=== PATIENT | female | born 1950 | race Caucasian/White ===

== ENCOUNTER → 2016-07-01 | Outpatient (CLI) | payer MEDICARE ==
[2016-07-01 18:20] LABS: MEAN CORPUSCULAR HEMOGLOBIN 30.4 pg (27.0-33.0); MEAN CORPUSCULAR HGB CONC 33.1 g/dl (32.0-36.5); MEAN CORPUSCULAR VOLUME 91.8 fl (80.0-96.0); RED CELL DISTRIBUTION WIDTH 12.6 % (11.5-14.5); WHITE BLOOD COUNT 10.1 K/mm3 (4.0-10.0)
[2016-07-01 18:39] LABS: ALBUMIN 3.8 GM/DL (3.2-5.2); ALBUMIN/GLOBULIN RATIO 1.27 (1.00-1.93); ALKALINE PHOSPHATASE 104 U/L (45-117); ALT/SGPT 26 U/L (12-78); ANION GAP 7 MEQ/L (8-16); AST/SGOT 20 U/L (15-37); BILIRUBIN,TOTAL 0.2 MG/DL (0.2-1.0); BLOOD UREA NITROGEN 11 MG/DL (7-18); CARBON DIOXIDE LEVEL 29 MEQ/L (21-32); CHLORIDE LEVEL 106 MEQ/L (98-107); CHOLESTEROL LEVEL 164 MG/DL (<200); GLOMERULAR FILTRATION RATE > 60.0 (>45); GLUCOSE, FASTING 90 MG/DL (80-110); POTASSIUM SERUM 4.5 MEQ/L (3.5-5.1); SODIUM LEVEL 142 MEQ/L (136-145); TOTAL PROTEIN 6.8 GM/DL (6.4-8.2); TRIGLYCERIDES LEVEL 73 MG/DL (<150)
== END ==
LOC: M WUC 09:23
PROVIDERS: ATTEND Internal Medicine
DX: J44.9 Chronic obstructive pulmonary disease, unspecified (principal); E78.5 Hyperlipidemia, unspecified; K21.9 Gastro-esophageal reflux disease without esophagitis

== ENCOUNTER → 2016-08-02 | Outpatient (CLI) | payer MEDICARE ==
[2016-08-02 18:04] LABS: BASO % 0.3 % (0.0-1.0); EOS # 0.1 K/mm3 (0.0-0.50); EOS % 0.8 % (0.0-3.0); LARGE UNSTAINED CELL # 0.2 K/mm3 (0.0-0.4); LARGE UNSTAINED CELL % 1.9 % (0.0-4.0); LYMPH # 3.6 K/mm3 (1.5-4.5); LYMPH % 27.6 % (24.0-44.0); MEAN CORPUSCULAR HEMOGLOBIN 30.8 pg (27.0-33.0); MEAN CORPUSCULAR HGB CONC 33.3 g/dl (32.0-36.5); MEAN CORPUSCULAR VOLUME 92.7 fl (80.0-96.0); MONO # 0.7 K/mm3 (0.0-0.8); MONO % 5.7 % (0.0-5.0); NEUTROPHILS # 7.7 K/mm3 (1.8-7.7); NEUTROPHILS % 63.6 % (36.0-66.0); PLATELET COUNT, AUTOMATED 270 k/mm3 (150-450); RED CELL DISTRIBUTION WIDTH 12.6 % (11.5-14.5); WHITE BLOOD COUNT 12.1 K/mm3 (4.0-10.0)
[2016-08-02 18:07] LABS: ANION GAP 10 MEQ/L (8-16); BLOOD UREA NITROGEN 12 MG/DL (7-18); CALCIUM LEVEL 9.1 MG/DL (8.8-10.2); CARBON DIOXIDE LEVEL 25 MEQ/L (21-32); CHLORIDE LEVEL 106 MEQ/L (98-107); CREATININE FOR GFR 0.77 MG/DL (0.55-1.02); GLOMERULAR FILTRATION RATE > 60.0 (>45); GLUCOSE, FASTING 110 MG/DL (80-110); SODIUM LEVEL 141 MEQ/L (136-145)
== END ==
LOC: M WUC 13:32
PROVIDERS: ATTEND Internal Medicine Cardiovascular Disease
DX: I20.0 Unstable angina (principal)

== ENCOUNTER 2016-08-12 23:20 | Emergency (ER) | payer MEDICARE ==
[~2016-08-12] VITALS: Ht 160 cm; Wt 65.8 kg
[2016-08-12] MEDS ORDERED: PRAV10TA PO (23:40)
[2016-08-12] MEDS ORDERED: KLOR20PO12 GT (23:40)
[2016-08-13] MEDS ORDERED: GI COCKTAIL 50ML BTL(HYOSCYAMINE/MAALOX/LIDOCAINE VISCOUS)(1:3:1) PO ONE (00:15)
[2016-08-13 00:20] LABS: BASO # 0.1 K/mm3 (0.0-0.2); BASO % 0.4 % (0.0-1.0); EOS # 0.1 K/mm3 (0.0-0.50); EOS % 0.8 % (0.0-3.0); LARGE UNSTAINED CELL # 0.4 K/mm3 (0.0-0.4); LARGE UNSTAINED CELL % 2.5 % (0.0-4.0); LYMPH # 4.4 K/mm3 (1.5-4.5); LYMPH % 26.9 % (24.0-44.0); MEAN CORPUSCULAR HEMOGLOBIN 30.5 pg (27.0-33.0); MEAN CORPUSCULAR HGB CONC 33.9 g/dl (32.0-36.5); MONO # 0.6 K/mm3 (0.0-0.8); MONO % 4.1 % (0.0-5.0); NEUTROPHILS # 9.7 K/mm3 (1.8-7.7); NEUTROPHILS % 65.1 % (36.0-66.0); PLATELET COUNT, AUTOMATED 274 k/mm3 (150-450); RED CELL DISTRIBUTION WIDTH 12.3 % (11.5-14.5); WHITE BLOOD COUNT 14.9 K/mm3 (4.0-10.0)
[2016-08-13 00:37] LABS: ALBUMIN 3.8 GM/DL (3.2-5.2); ALBUMIN/GLOBULIN RATIO 1.12 (1.00-1.93); ALKALINE PHOSPHATASE 94 U/L (45-117); ALT/SGPT 26 U/L (12-78); ANION GAP 12 MEQ/L (8-16); AST/SGOT 20 U/L (15-37); BILIRUBIN,DIRECT < 0.1 MG/DL (0.0-0.2); BILIRUBIN,TOTAL 0.1 MG/DL (0.2-1.0); BLOOD UREA NITROGEN 9 MG/DL (7-18); CALCIUM LEVEL 8.8 MG/DL (8.8-10.2); CARBON DIOXIDE LEVEL 22 MEQ/L (21-32); CHLORIDE LEVEL 105 MEQ/L (98-107); CREATININE FOR GFR 0.65 MG/DL (0.55-1.02); GLOMERULAR FILTRATION RATE > 60.0 (>45); GLUCOSE, FASTING 91 MG/DL (80-110); POTASSIUM SERUM 3.5 MEQ/L (3.5-5.1); SODIUM LEVEL 139 MEQ/L (136-145); TOTAL PROTEIN 7.2 GM/DL (6.4-8.2)
[2016-08-13] MEDS ORDERED: ONDANSETRON 4MG/2ML VIAL (J2405) IV ONE (01:00)
[2016-08-13] MEDS ORDERED: MORPHINE 4 MG/ML 1ML SYRINGE IV ONE ×3 (01:00→07:30)
[2016-08-13] MEDS ORDERED: ISOVUE-370 76% 100ML VIAL (Q9967) As Ordered ONE (01:14)
--- NOTE | 2016-08-13 02:20 | REPUSA ---
CLINICAL HISTORY: Dyspnea, exclude PE. TECHNIQUE: Multiple incremental axial, coronal and oblique images are obtained from the thoracic inle t to the upper abdomen. Intravenous contrast material was administered as per pulmonary embolism prot ocol. COMMENTS: Mild emphysema. Bilateral basilar atelectatic pulmonary changes. There is excellent opacification of pulmonary arterial system without evidence for pulmonary embolism . Aorta is of normal caliber without evidence for dissection or aneurysm. There is no evidence of pleural or parenchymal mass. There are no pleural effusions. There is no evid ence of hilar or mediastinal lymphadenopathy. The heart and great vessels are within normal limits. Images of the upper abdomen demonstrate no evidence of adrenal mass. The bony structures are free of lytic or blastic lesions. The right thyroid lobe is surgically absent or rudimentary. IMPRESSION: No evidence for pulmonary embolism. The right thyroid lobe is surgically absent or rudimentary. Chronic bronchitis. Mild emphysema. Thank you for your kind referral of this patient.
[2016-08-13] MEDS ORDERED: GASTROGRAFIN SOLUTION 30ML (Q9963) As Ordered ONE (03:57)
[2016-08-13] MEDS: GASTROGRAFIN SOLUTION 30ML (Q9963) PO SCH ×2 (04:05→04:35)
[2016-08-13] MEDS ORDERED: GASTROGRAFIN SOLUTION 30ML (Q9963) PO SCH (04:15)
--- NOTE | 2016-08-13 06:10 | REPUSA ---
CLINICAL HISTORY: Abdominal pain. TECHNIQUE: Multiple axial, sagittal and coronal CT images were obtained through the abdomen and pelvi s after administration of oral and intravenous contrast material. COMMENTS: The liver is of uniform attenuation without mass or defect. There is no intra or extrahepatic biliary ductal dilatation. The spleen is normal. The gallbladder is within normal limits. The pancreas is of normal contour and attenuation characteristics. There is no evidence of adrenal mass. Both kidneys demonstrate prompt and equal nephrograms. The kidneys are normal in size, shape and conf iguration. There is no evidence of renal or ureteral mass. No renal or ureteral calculi are identifie d. There is no hydroureter or hydronephrosis. No evidence for appendicitis. There is no bowel wall thickening. No evidence for small or large tanika l obstruction. There is no evidence of abdominal ascites or lymphadenopathy. There is no evidence of intrinsic or extrinsic bladder mass. There is no pelvic ascites or lymphadeno jamel. Images of the lung bases show no evidence of pleural or parenchymal mass. There are no pleural effusi ons. The bony structures are free of lytic or blastic lesions. IMPRESSION: No evidence of acute abdominal or pelvic pathology. Thank you for your kind referral of this patient.
--- NOTE | 2016-08-13 09:36 | REP ---
Chest x-ray: Two views. History: Chest pain. Comparison study 25 August 2015. Findings: The lungs are well inflated and clear. Pleural angles are sharp. Heart size is normal. EKG electrodes are seen. The patient is status post ventral discectomy and fusion plating in the lower cervical spine. Impression: No active disease. Signed by Keyur Viveros MD 08/13/2016 09:55 A
[2016-08-13] MEDS ORDERED: NORCOTAB PO (10:43)
[2016-08-13 11:15] VITALS: BP 116/56
--- NOTE | 2016-08-13 20:25 | ECGEPIP ---
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
== END 2016-08-13 11:16 | disposition home or self-care (01) ==
LOC: M ED 08-13 00:19
DX: R10.9 Unspecified abdominal pain (principal)
CPT/HCPCS: 71020; 71275; 74176; 80048; 80076; 82550; 82553; 83605; 83690; 84484; 85025; 87507; 93005; 93041; 94760; 96374; 96375; 96376; 99285; J2405; Q9963; Q9967

== ENCOUNTER → 2016-08-17 | Outpatient (REF) | payer MEDICARE ==
[~2016-08-17] MED LIST: NORCOTAB PO; POTA20PW GT; PRAV10TA PO
[2016-08-17 19:54] LABS: BASO % 0.4 % (0.0-1.0); EOS # 0.1 K/mm3 (0.0-0.50); EOS % 0.7 % (0.0-3.0); LARGE UNSTAINED CELL # 0.3 K/mm3 (0.0-0.4); LARGE UNSTAINED CELL % 2.1 % (0.0-4.0); LYMPH # 2.5 K/mm3 (1.5-4.5); LYMPH % 21.4 % (24.0-44.0); MEAN CORPUSCULAR HEMOGLOBIN 30.1 pg (27.0-33.0); MEAN CORPUSCULAR HGB CONC 33.5 g/dl (32.0-36.5); MONO # 0.7 K/mm3 (0.0-0.8); MONO % 5.6 % (0.0-5.0); NEUTROPHILS # 8.2 K/mm3 (1.8-7.7); NEUTROPHILS % 69.8 % (36.0-66.0); PLATELET COUNT, AUTOMATED 303 k/mm3 (150-450); RED CELL DISTRIBUTION WIDTH 12.1 % (11.5-14.5); WHITE BLOOD COUNT 11.7 K/mm3 (4.0-10.0)
[2016-08-17 20:13] LABS: ALBUMIN 4.2 GM/DL (3.2-5.2); ALBUMIN/GLOBULIN RATIO 1.27 (1.00-1.93); ALKALINE PHOSPHATASE 89 U/L (45-117); ALT/SGPT 23 U/L (12-78); ANION GAP 8 MEQ/L (8-16); AST/SGOT 14 U/L (15-37); BILIRUBIN,TOTAL 0.4 MG/DL (0.2-1.0); BLOOD UREA NITROGEN 9 MG/DL (7-18); CALCIUM LEVEL 9.7 MG/DL (8.8-10.2); CARBON DIOXIDE LEVEL 29 MEQ/L (21-32); CHLORIDE LEVEL 99 MEQ/L (98-107); CREATININE FOR GFR 0.74 MG/DL (0.55-1.02); ERYTHROCYTE SEDIMENTATION RATE 4 mm/hr (0-30); FREE T4 1.08 NG/DL (0.76-1.46); GLOMERULAR FILTRATION RATE > 60.0 (>45); GLUCOSE, FASTING 83 MG/DL (80-110); POTASSIUM SERUM 4.6 MEQ/L (3.5-5.1); SODIUM LEVEL 136 MEQ/L (136-145); TOTAL PROTEIN 7.5 GM/DL (6.4-8.2)
== END ==
LOC: M SFHCADAM 11:33
PROVIDERS: ATTEND Physician Assistant Medical
DX: R10.12 Left upper quadrant pain (principal); R10.13 Epigastric pain; E78.2 Mixed hyperlipidemia; F34.1 Dysthymic disorder

== ENCOUNTER → 2016-08-28 | Outpatient (CLI) | payer MEDICARE ==
--- NOTE | 2016-08-28 14:55 | REP ---
CERVICAL SPINE SERIES: Seven view of the cervical spine are performed. There is no compression fracture or malalignment. There is evidence of prior anterior cervical discectomy and fusion at the C4 through C7 levels with a metallic plate along the anterior aspect of these vertebral bodies 6 x 2 screws at each vertebral body level. There is limited motion with flexion and extension. There is no malalignment. There is slight disc space narrowing at C3-4. There is no definite radiographic evidence of significant neural foraminal narrowing. IMPRESSION: Prior anterior cervical discectomy and fusion C4 through C7. No malalignment. Signed by Zana Deluca MD 08/28/2016 03:57 P
--- NOTE | 2016-08-28 14:58 | REP ---
THORACIC SPINE: Three AP and lateral views of the thoracic spine are performed. There is no compression fracture. There is normal thoracic kyphosis. There is no malalignment. There is mild diffuse spurring and diffuse disc space narrowing with subchondral sclerosis. The posterior elements are intact. There is mild curvature towards the right. IMPRESSION: Diffuse degenerative changes without compression fracture. Signed by Zana Deluca MD 08/28/2016 03:57 P
== END ==
LOC: M ADAMS 14:09
PROVIDERS: ATTEND Physician Assistant Medical
DX: M54.9 Dorsalgia, unspecified (principal); Z98.1 Arthrodesis status

== ENCOUNTER → 2016-10-09 | Outpatient (CLI) | payer MEDICARE ==
[~2016-10-09] MED LIST changes: +KLOR20PO12 GT; -POTA20PW GT
--- NOTE | 2016-10-09 16:01 | REP ---
MRI THORACIC SPINE WITHOUT CONTRAST: 10/09/2016. Clinical history: Right upper back pain, neck pain, left shoulder pain. Comparison: MRI 03/19/2012, x-ray thoracic spine 12/03/2011, 08/28/2016 and [facility] in [place], [place]. Technique: Sagittal T1, T2 and STIR images with axial T1 and T2 images from the C7-T1 level through T12-L1. Findings: Director Sales Training images show anterior cervical discectomy and fusion plate from C4 through C7. A marker is placed at the T3 vertebral body level confirmed by cervical thoracic imaging. The vertebral body heights and marrow signal from T1-L1 were grossly intact. There are a few Schmorl's nodes in the mid and lower thoracic spine. Some discogenic endplate changes at the inferior aspect of T12, anterior superior endplate of T11, minimally at T7 and T8 anterior superior endplates. No definite acute compression deformity or destructive lesion. The thoracic cord shows no intrinsic signal abnormality, syrinx, atrophy or mass. At C7-T1, there is no disc bulge or herniation and no spinal or foraminal stenosis. At T1-2 through T8-9, there is no disc bulge or herniation and no spinal or foraminal stenosis. At T9-10, the left paracentral region shows a small disc bulge extending into the foramen. This is on the left side only. At T10-11, there is no significant disc bulge or herniation and no spinal or foraminal stenosis. At T12-L1, there was likewise no significant disc bulge or herniation and no spinal or foraminal stenosis. Impression: 1. Multilevel degenerative disc disease with disc space narrowing, loss of disc water signal and some end plate discogenic changes without acute compression deformity, paraspinal hematoma or destructive lesions. 2. Disc space narrowing and discogenic endplate changes. There has been no new or acute finding, intrinsic cord signal abnormality, syrinx, atrophy or mass. Signed by Hola Mohr MD 10/09/2016 05:27 P
--- NOTE | 2016-10-09 16:10 | REP ---
MRI CERVICAL SPINE WITHOUT CONTRAST: 10/09/2016: Comparison: MRI 03/05/2013, x-ray 04/17/2015, CT 09/21/2014. Clinical history: Right upper back and neck pain, left shoulder pain for several weeks. Technique: Sagittal T1, T2 and STIR images with axial T1-T2 sequences provided. Findings: Sagittal images show magnetic susceptibility artifact or a plate and screw fixation device at C4 through C7 with screws in each vertebral body and the fusion of the some C4-5 through C6-7 endplates. The C2-3 disc level shows no disc bulge or herniation and no spinal stenosis. The C3-4 level shows mild posterior osteophytic ridging, thinning ventral subarachnoid space but not causing cord compression. Foramina adequate. At C4-5 there is no significant disc bulge. There is thinning of the ventral subarachnoid space. Foramina were adequate. No cord compression. At C5-6 there is no significant disc bulge herniation and no spinal stenosis. The foramina were adequate right more than left. At C6-C7. There is no significant disc bulge or herniation. There is mild thinning of the ventral subarachnoid space but no spinal or foraminal stenosis. At C7-T1, there is no disc bulge herniation and no spinal or foraminal stenosis. No prevertebral swelling. Impression: 1. Status post anterior cervical discectomy and fusion at C4-5 through C6-7 with plate and screw hardware. Magnetic susceptibility artifact seen in minimal posterior osteophytes without spinal or foraminal stenosis. 2. Mild disc bulges at C3-4. Thinning ventral subarachnoid space but not causing spinal or foraminal stenosis nor cord compression. 3. No intrinsic cord signal abnormality, syrinx, atrophy or mass. 4. Stable appearance the craniocervical junction no cerebellar tonsillar ectopia. Signed by Hola Mohr MD 10/09/2016 05:27 P
== END ==
LOC: M PLARAD 13:27
PROVIDERS: ATTEND Physician Assistant Medical
DX: M25.512 Pain in left shoulder (principal); M54.2 Cervicalgia

== ENCOUNTER → 2016-10-26 | Outpatient (CLI) | payer OTHER ==
--- NOTE | 2016-10-26 23:58 | ECWPNPC ---
PATIENT NAME: LIBRADO JAIMES : 1950 GENDER: FEMALE VISIT DATE: 10/26/2016 DISCHARGE DATE: 10/26/16 1512 VISIT LOCKED DATE TIME: PHYSICIAN: ANIL WOO RESOURCE: ANIL WOO REASON FOR APPOINTMENT 1. MID /UPPER BACK HISTORY OF PRESENT ILLNESS FALL RISK SCREENIN66 Y/O FEMALE [facility] EVALUATION OF PERSISTENT LEFT ANTERIOR CHEST AND LEFT THORACIC BACK PAIN.PAIN FOLLOWS A T4-8 DERMOTOME THAT WRAPS AROUND TO THORACIC SPINE POSTERIORLY.THIS BEGAN IN MAY SEVERE LEFT CHEST WALL STABBING AND BURNING PAIN.SHE HAS HAD AN EXTENSIVE CARDIAC WORKUP TO INCLUDE RECENT CARDIAC CATHETERIZATION IN JULY THAT WAS NEGATIVE.HAS HAD CT SCANS OF CHEST AND ENDOSCOPY AND COLONOSCOPY WHICH WERE NEGATIVE.HISTORY OF SHINGLES RIGHT THORACIC REGION SEVERAL YEARS AGO.DESCRIBES PAIN INTERMITTENT STABBING AND BURNING.REPORTS THAT EPISODES OF PAIN ARE LESS FREQUENT AND INTENSE OVER THE PAST MONTH.RATING PAIN VAS 1/10.I REVIEWED CERVICAL AND THORACIC MRI DONE 10-09-16 WHICH DID NOT REVEAL ANYTHING THAT WOULD CAUSE INTENSE BURNING PAIN THAT SHE HAS BEEN EXPERIENCING. SCREENING :NO FALLS IN THE PAST YEAR PAIN SCREENING: PATIENT HAS A COMPLAINT OF ACUTE OR CHRONIC PAIN :YES CURRENT MEDICATIONS TAKING GAS RELIEF 80 MG TABLET CHEWABLE 1 TABLET AFTER MEALS AND AT BEDTIME NEEDED ORALLY FOUR TIMES A DAY NEEDED TAKING POLYETHYLENE GLYCOL 3350 - POWDER ORALLY ONCE A DAY TAKING KLOR-CON M10 10 MEQ TABLET EXTENDED RELEASE 1 TABLET WITH FOOD ORALLY DAILY TAKING TRAMADOL HCL 50 MG TABLET 1 TAB ORALLY BEFORE BED TAKING PROBIOTIC 250 MG CAPSULE 1 CAPSULE ORALLY DAILY TAKING DEXILANT 60 MG CAPSULE DELAYED RELEASE 1 CAPSULE ORALLY ONCE A DAY TAKING HYOSCYAMINE SULFATE 0.125 MG TABLET 1 TABLET BEFORE MEALS NEEDED ORALLY EVERY 4 HRS TAKING PRAVASTATIN SODIUM 20 MG TABLET 1 TABLET ORALLY ONCE A DAY TAKING CITALOPRAM HYDROBROMIDE 20 MG TABLET 1 TABLET ORALLY ONCE A DAY TAKING VITAMIN D3 2000 UNIT CAPSULE 2 CAPSULE ORALLY ONCE A DAY TAKING WOMENS 50+ MULTI VITAMIN/MIN - TABLET ORALLY TAKING VITAMIN B12 500 MCG TABLET 2 TABLETS ORALLY ONCE A DAY NOT-TAKING OMEPRAZOLE 40 MG CAPSULE DELAYED RELEASE 1 CAPSULE ORALLY TWICE DAILY, NOTES: D/C DR. RAMOS GASTRO MEDICATION LIST REVIEWED AND RECONCILED WITH THE PATIENT PAST MEDICAL HISTORY GERD DEPRESSION/ANXIETY HYPERLIPIDEMIA CHR LEUKOCYSTOSIS, BASELINE WBC 10-12, DATES BACK TO 2004 DAWNA DEP ALLERGIES ASPIRIN: ANXIETY DARVOCET A500: HIVES SULFUR: HIVES SURGICAL HISTORY HEART CATHERIZATION 07/2016 HYSTERECTOMY, OVARIES REMAIN 1980 PARTIAL THYROID REMOVAL - BENIGN TUMOR 1985 LUMP REMOVED RIGHT BREAST 1994 RIGHT THUMB FUSION 2003 PLATE PUT IN NECK 2007 TONSILECTOMY 1958 POLYPS REMOVED FROM VOCAL CORDS - DR MATT 2011 POLYPS REMOVED APPROX EVERY 3 YEARS ESOPHAGITIS AND INTESTINAL 1996 COLONOSCOPY 08/2016 FAMILY HISTORY FATHER: 71 YRS, DIAGNOSED WITH CANCER MOTHER: ALIVE 89 YRS PATERNAL GRAND FATHER: DIAGNOSED WITH CANCER PATERNAL GRAND MOTHER: DIAGNOSED WITH CANCER 3 BROTHER(S) . 2DAUGHTER(S) - HEALTHY. SOCIAL HISTORY GENERAL: TOBACCO USE ARE YOU A:CURRENT SMOKER HOW MANY CIGARETTES A DAY DO YOU SMOKE?11-20 HOW SOON AFTER YOU WAKE UP DO YOU SMOKE YOUR FIRST CIGARETTE?6-30 MIN HOW OFTEN DO YOU SMOKE CIGARETTES?EVERY DAY PATIENT COUNSELED ON THE DANGERS OF TOBACCO USE AND URGED TO QUIT:09/14/2016 ARE YOU INTERESTED IN QUITTING?THINKING ABOUT QUITTING COUNSELED THE PATIENT ON SMOKING CESSATION, EDUCATION [id number] ALCOHOL SCREENING DID YOU HAVE A DRINK CONTAINING ALCOHOL IN THE PAST YEAR?YES HOW OFTEN DID YOU HAVE A DRINK CONTAINING ALCOHOL IN THE PAST YEAR?TWO TO THREE TIMES PER WEEK (3 POINTS) HOW MANY DRINKS DID YOU HAVE ON A TYPICAL DAY WHEN YOU WERE DRINKING IN THE PAST YEAR?1 OR 2 (0 POINTS) HOW OFTEN DID YOU HAVE SIX OR MORE DRINKS ON ONE OCCASION IN THE PAST YEAR?LESS THAN MONTHLY (1 POINT) POINTS4 INTERPRETATIONPOSITIVE RECREATIONAL DRUG USE DRUG USE?NO CAFFEINE CAFFEINE USE?YES COFFEE 1-2 CUPS DAILY, DIET PEPSI DAILY SEXUAL HX HAD SEX IN THE LAST 12 MONTHS (VAGINAL, ORAL, OR ANAL)?YES WITHMEN ONLY USE PROTECTION?NO HAVE YOU EVER HAD AN STD?NO LMP:1980 HIV / HEP-C SCREENING HIV TEST OFFERED TO PATIENT:NO HEP-C TEST OFFERED TO PATIENT:YES DATE OFFERED:08/17/2016 TEST ACCEPTED:NO REASON:PATIENT DECLINED DIET: REGULAR. EXERCISE: DAILY, WALKS. MARITAL STATUS: . OTHERS AT HOME: SPOUSE, TAKES CARE OF HER MOTHER. HINDU NO ISLAM BELIEFS THAT WOULD IMPACT HEALTH CARE. 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 LEARNING BARRIERS / SPECIAL NEEDS CHANGE FROM LAST VISIT?NO BARRIERS TO LEARNING?NO HEARING IMPAIRED?NO VISION IMPAIRED?YES :CORRECTIVE LENSES COGNITIVELY IMPAIRED?NO READINESS TO LEARN?YES LEARNING PREFERENCES?NO LEARNING CAPABILITIES PRESENT?YES EMOTIONAL BARRIERS?NO SPECIAL DEVICES?NO DERRICK MAN NEEDED?NO ADVANCED DIRECTIVES HEALTH CARE PROXY?NO WOULD YOU LIKE MORE INFORMATION?NO DO YOU HAVE A DNR?NO WOULD YOU LIKE MORE INFORMATION?NO POWER OF TIEDOWN OPERATOR?NO WOULD YOU LIKE MORE INFORMATION?NO HOSPITALIZATION/MAJOR DIAGNOSTIC PROCEDURE BACK, SCIATICA 1990 REVIEW OF SYSTEMS CONSTITUTIONAL: ANY CHANGE IN YOUR MEDICAL CONDITION? YES. PT C/O CONSTIPATION FOR SEVERAL MONTHS, PT STATES SHE THINKS SHE WAS HAVING LEFT CHEST PAIN A RESULT OF THE CONSTIPATION. SHE STATES SHE HAD A COLONOSCOPY DONE 08/2016, THEN LEFT CHEST PAIN CAME DOWN SIGNIFICANTLY. . CHILLS NO . FEVER NO . INFECTION: DO YOU HAVE NEW INFECTIONS? NO . DO YOU HAVE HISTORY OF MRSA? NO . MUSCULOSKELETAL: ANY NEW PATTERNS OF PAIN OR NUMBNESS? YES, LEFT CHEST PAIN . SYTEMIC LUPUS NO . GASTROENTEROLOGY: ANY NEW CHANGE IN BOWEL CONTROL? YES, CONSTIPATION RELIEVED AFTER COLONOSCOPY . BARRETTS ESOPHAGUS NO . CIRRHOSIS NO . HEPATITIS NO . LIVER FAILURE NO . ACID REFLUX NO . UNEXPLAINED WEIGHT LOSS NO . GENITOURINARY: ANY NEW CHANGE IN BLADDER CONTROL? NO . IS THERE A CHANCE YOU COULD BE ? NO . HEMATOLOGY/LYMPH: DO YOU TAKE ANY BLOOD THINNERS? (FOR EXAMPLE- COUMADIN, PLAVIX, AGGRENOX, PLATEL, PRADAXA, OR XARELTO) NO . WHEN WAS YOUR LAST DOSE? DATE: TIME: . LOW PLATELET COUNT NO . SICKLE CELL DISEASE NO . VON WILLIEBRANDS NO . FACTOR V LEIDEN NO . THALLASEMIA NO . ANEMIA NO . EASY BRUISING NO . NEUROLOGY: HAVE YOU FALLEN IN THE PAST 6 MONTHS? NO . ANY NEW EXTREMITY NUMBNESS OR WEAKNESS? NO . HEAD INJURY NO . DEMENTIA NO . CEREBRAL PALSY NO . MULTIPLE SCLEROSIS NO . DIZZINESS NO . HEADACHE NO . STROKES NO . VERTIGO NO . CARDIOLOGY: DO YOU HAVE A PACEMAKER OR DEFIBRILLATOR? NO, HEART CATHETERIZATION 07/2016 . ANGINA NO . HEART ATTACK NO . HEART SURGERY NO . CONGESTIVE HEART FAILURE/FLUID OVERLOAD NO . CHEST PAIN NO . HIGH BLOOD PRESSURE NO . IRREGULAR HEART BEAT NO . RESPIRATORY: HAVE YOU BEEN SICK IN THE PAST WEEK? NO . FEVER NO . FLU LIKE SYMPTOMS? NO . CPAP NO . BYPAP NO . ASTHMA NO . EMPHYSEMA NO . CHRONIC LUNG DISEASES NO . SHORTNESS OF BREATH ON EXERTION NO . COUGH NO . SNORING NO . INTEGUMENTARY: DO YOU HAVE ANY RASHES OR OPEN SORES? NO . ALLERGIC/IMMUNO: ARE YOU ALLERGIC TO SHELLFISH OR IV DYE? NO . ANY NEW ALLERGIES? NO . PSYCHIATRIC: DO YOU HAVE THOUGHTS OF HURTING YOURSELF OR SOMEONE ELSE? NO . ARE YOU ABUSED, NEGLECTED, OR IN AN UNSAFE ENVIRONMENT? NO . ENDOCRINOLOGY: ARE YOU DIABETIC? NO . THYROID DISORDER NO . OTHER: DO YOU NEED ANY PRESCRIPTIONS? NO . IF YES, PLEASE LIST: ____ . ANY NEW PROBLEMS WITH YOUR MEDICATIONS? NO . WHEN DID YOU LAST EAT? ____ . WHEN DID YOU LAST DRINK? ____ . WHAT DID YOU LAST DRINK? ____ . NAME OF PERSON DRIVING YOU HOME? ____ . DO YOU HAVE ANY OTHER QUESTIONS OR CONCERNS NO . REVIEWED BY: PROVIDER: ANIL BRANCH . VITAL SIGNS WT 150.2 LBS, HT 63", BMI 26.60 INDEX, BP 122/57 MM HG, HR 72 /MIN, RR 16 /MIN, TEMP 97.5 F, OXYGEN SAT % 95%, SAFE IN ENV? (Y/N) Y, NA INITIALS TL 1306, REVIEWED BY: EM. EXAMINATION GENERAL EXAMINATION: GENERAL APPEARANCE:COMFORTABLE. PSYCHAFFECT NORMAL. CHEST:MILD COSTOCHONDRAL TENDERNESS T4-T8 ANTERIOR LEFT CHEST WALL.. LUNGS:LUNG BROWNE ARE CLEAR TO AUSCULTATION BILATERALLY. GOOD MOVEMENT OF AIR. HEART:S1, S2 IN A REGULAR RATE AND RHYTHM. NO SIGNIFICANT MURMURS, RUBS OR GALLOPS NOTED. ABDOMEN:SOFT, NON-TENDER, NO ORGANOMEGALY, BOWEL SOUNDS ARE NORMAL. MRI CERVICAL/THORACIC SPINE 10-09-16-REVIEWED. SKIN EXAM: CHESTCLEAR.NO LESIONS OR RASH. ASSESSMENTS HERPES ZOSTER WITHOUT COMPLICATION - B02.9 (PRIMARY) NEURALGIA - M79.2 TREATMENT HERPES ZOSTER WITHOUT COMPLICATION NOTES: DISCUSSED OPTIONS TO TREAT PAIN ASSOCIATED WITH NEURALGIA SECONDARY TO SHINGLES.PATIENT WILL DISCUSS WITH PRIMARY CARE. PROCEDURE CODES FA211 ESTABILISHED PATIENT [facility] CHARGE DISPOSITION & COMMUNICATION FOLLOW UP NO F/U NECESSARY ELECTRONICALLY SIGNED BY SARINA GUSTAFSON ON 10/26/2016 AT 02:39 PM EDT DISCLAIMER : THIS IS A VISIT SUMMARY EXTRACTED FROM THE [employer] CHART. IT IS NOT A COPY OF THE [employer] PROGRESS NOTE. MTDD
== END ==
LOC: M PAIN 13:20
PROVIDERS: ATTEND Nurse Practitioner Family
DX: G89.29 Other chronic pain (principal); R07.89 Other chest pain; M54.6 Pain in thoracic spine; B02.9 Zoster without complications; M79.2 Neuralgia and neuritis, unspecified; K59.00 Constipation, unspecified; K21.9 Gastro-esophageal reflux disease without esophagitis; F32.9 Major depressive disorder, single episode, unspecified; F41.9 Anxiety disorder, unspecified; E78.5 Hyperlipidemia, unspecified; F17.210 Nicotine dependence, cigarettes, uncomplicated; Z88.6 Allergy status to analgesic agent; Z88.5 Allergy status to narcotic agent; Z88.2 Allergy status to sulfonamides; Z79.891 Long term (current) use of opiate analgesic; Z79.899 Other long term (current) drug therapy

== ENCOUNTER → 2016-11-08 | Outpatient (CLI) | payer OTHER ==
[~2016-11-08] MED LIST changes: -PRAV10TA PO; +PRAV10TA4 PO
--- NOTE | 2016-11-08 19:26 | REP ---
CHEST PA AND LATERAL: 11/08/2016. Clinical history: Costochondral junction syndrome, chest pain right upper rib area. No known trauma or injury. Findings: Two views are provided. Lungs are hyperinflated with flattened diaphragms on the lateral view. Some minor basilar fibrotic changes. No infiltrate, effusion, atelectasis or mass. Heart is not enlarged. The aorta is normal. Airway is intact. There is no mediastinal or hilar abnormality. There are degenerative changes throughout the spine. I see no focal rib lesion and that portion of the sternum and manubrium seen were unremarkable. Upper abdomen intact. There are screws and plate fixation of the lower cervical spine. Impression: 1. Some basilar fibrotic change and hyperinflation but no acute cardiopulmonary change. 2. No visible or acute chest wall abnormality. Spine shows degenerative changes without compression deformity. Please note exam limited for evaluation of rib pathology. Signed by Hola Mohr MD 11/09/2016 03:21 P
== END ==
LOC: M ADAMS 16:57
PROVIDERS: ATTEND Family Medicine
DX: M94.0 Chondrocostal junction syndrome [Tietze] (principal)
CPT/HCPCS: 71020; G0463

== ENCOUNTER → 2017-03-09 | Outpatient (REF) | payer OTHER ==
[2017-03-09 19:06] LABS: ALBUMIN/GLOBULIN RATIO 1.29 (1.00-1.93); ALKALINE PHOSPHATASE 108 U/L (45-117); ALT/SGPT 25 U/L (12-78); ANION GAP 9 MEQ/L (8-16); AST/SGOT 13 U/L (15-37); BILIRUBIN,TOTAL 0.3 MG/DL (0.2-1.0); BLOOD UREA NITROGEN 11 MG/DL (7-18); CALCIUM LEVEL 9.3 MG/DL (8.8-10.2); CARBON DIOXIDE LEVEL 28 MEQ/L (21-32); CHLORIDE LEVEL 102 MEQ/L (98-107); CREATININE FOR GFR 0.63 MG/DL (0.55-1.02); GLOMERULAR FILTRATION RATE > 60.0 (>45); GLUCOSE, FASTING 76 MG/DL (80-110); POTASSIUM SERUM 3.9 MEQ/L (3.5-5.1); SODIUM LEVEL 139 MEQ/L (136-145); TOTAL PROTEIN 7.1 GM/DL (6.4-8.2)
[2017-03-09 19:39] LABS: MEAN CORPUSCULAR HEMOGLOBIN 29.9 pg (27.0-33.0); MEAN CORPUSCULAR HGB CONC 33.2 g/dl (32.0-36.5); MEAN CORPUSCULAR VOLUME 90.2 fl (80.0-96.0); WHITE BLOOD COUNT 13.2 10^3/uL (4.0-10.0)
== END ==
LOC: M SFHCADAM 16:04
PROVIDERS: ATTEND Physician Assistant Medical
DX: R10.13 Epigastric pain (principal)

== ENCOUNTER → 2017-06-15 | Outpatient (REF) | payer OTHER ==
[2017-06-15 21:05] LABS: TOTAL 25(OH) VITAMIN D 21.1 NG/ML (30.0-100.0)
[2017-06-15 21:09] LABS: FREE T4 0.92 NG/DL (0.76-1.46)
== END ==
LOC: M SFHCADAM 14:53
DX: E78.2 Mixed hyperlipidemia (principal); F34.1 Dysthymic disorder; D72.829 Elevated white blood cell count, unspecified; Z79.899 Other long term (current) drug therapy
CPT/HCPCS: 84443

== ENCOUNTER → 2017-10-10 | Outpatient (CLI) | payer OTHER | LOC: M RAD 10:32 | DX: E04.2 Nontoxic multinodular goiter (principal) | CPT/HCPCS: 76536 ==

== ENCOUNTER → 2017-11-13 | Outpatient (REF) | payer OTHER ==
[2017-11-13 12:56] LABS: BASO # 0.1 10^3/uL (0.0-0.2); BASO % 0.7 % (0.0-1.0); EOS # 0.1 10^3/uL (0.0-0.50); EOS % 1.3 % (0.0-3.0); HEMATOCRIT 44.6 % (36.0-47.0); IMMATURE GRANULOCYTE % 0.4 % (0-3.0); LYMPH # 2.2 10^3/uL (1.5-4.5); LYMPH % 23.1 % (24.0-44.0); MEAN CORPUSCULAR HEMOGLOBIN 30.1 pg (27.0-33.0); MEAN CORPUSCULAR HGB CONC 33.6 g/dl (32.0-36.5); MEAN CORPUSCULAR VOLUME 89.6 fl (80.0-96.0); MONO # 0.6 10^3/uL (0.0-0.8); MONO % 6.5 % (0.0-5.0); NEUTROPHILS # 6.4 10^3/uL (1.8-7.7); PLATELET COUNT, AUTOMATED 247 10^3/uL (150-450); RED BLOOD COUNT 4.98 10^6/uL (4.00-5.40); RED CELL DISTRIBUTION WIDTH 13.2 % (11.5-14.5); WHITE BLOOD COUNT 9.4 10^3/uL (4.0-10.0)
[2017-11-13 13:57] LABS: ALBUMIN 3.7 GM/DL (3.2-5.2); ALBUMIN/GLOBULIN RATIO 1.19 (1.00-1.93); ALKALINE PHOSPHATASE 89 U/L (45-117); ALT/SGPT 23 U/L (12-78); ANION GAP 9 MEQ/L (8-16); AST/SGOT 14 U/L (7-37); BILIRUBIN,TOTAL 0.5 MG/DL (0.2-1.0); BLOOD UREA NITROGEN 8 MG/DL (7-18); CALCIUM LEVEL 9.1 MG/DL (8.8-10.2); CARBON DIOXIDE LEVEL 28 MEQ/L (21-32); CHLORIDE LEVEL 105 MEQ/L (98-107); CHOLESTEROL LEVEL 157 MG/DL (<200); CHOLESTEROL RISK RATIO 2.616 (<5); CREATININE FOR GFR 0.67 MG/DL (0.55-1.30); GLOMERULAR FILTRATION RATE > 60.0 (>45); GLUCOSE, FASTING 86 MG/DL (70-100); HDL CHOLESTEROL 60 MG/DL (>40); LDL CHOLESTEROL 73.4 MG/DL (<100); NON-HDL-C 97 MG/DL; POTASSIUM SERUM 4.7 MEQ/L (3.5-5.1); SODIUM LEVEL 142 MEQ/L (136-145); TOTAL PROTEIN 6.8 GM/DL (6.4-8.2); TRIGLYCERIDES LEVEL 118 MG/DL (<150)
== END ==
LOC: M SFHCADAM 08:19
DX: E78.2 Mixed hyperlipidemia (principal); F34.1 Dysthymic disorder; D72.829 Elevated white blood cell count, unspecified
CPT/HCPCS: 80053

== ENCOUNTER → 2017-11-23 | Outpatient (REF) | payer OTHER ==
[2017-11-23 19:46] LABS: APPEARANCE, URINE CLEAR (CLEAR); BACTERIA, URINE AUTO NEGATIVE (NEGATIVE); BILIRUBIN, URINE AUTO NEGATIVE (NEGATIVE); BLOOD, URINE BLOOD NEGATIVE (NEGATIVE); COLOR, URINE STRAW (YELLOW); GLUCOSE, URINE (UA) AUTO NEGATIVE (NEGATIVE); KETONE, URINE AUTO NEGATIVE (NEGATIVE); LEUKOCYTE ESTERASE, URINE AUTO NEGATIVE (NEGATIVE); NITRITE, URINE AUTO NEGATIVE (NEGATIVE); PROTEIN, URINE AUTO NEGATIVE (NEGATIVE); RBC, URINE AUTO 2 /HPF (0-3); SPECIFIC GRAVITY URINE AUTO 1.004 (1.002-1.035); SQUAMOUS EPITHELIAL CELL UR AU 3 /HPF (0-6); UROBILINOGEN, URINE AUTO 0.2 mg/dL (0.0-2.0); WBC, URINE AUTO 0 /HPF (0-3)
== END ==
LOC: M SFHCADAM 19:06
DX: M54.5 Low back pain (principal); E78.2 Mixed hyperlipidemia; F34.1 Dysthymic disorder; M51.36 Other intervertebral disc degeneration, lumbar region; E04.1 Nontoxic single thyroid nodule; F17.210 Nicotine dependence, cigarettes, uncomplicated
CPT/HCPCS: 81001

== ENCOUNTER → 2018-04-08 | Outpatient (CLI) | payer OTHER | LOC: M RAD 12:46 | DX: E04.2 Nontoxic multinodular goiter (principal) | CPT/HCPCS: 76536 ==

== ENCOUNTER 2018-05-13 10:19 | Emergency (ER) | payer OTHER ==
[2018-05-13 11:02] LABS: KETONE, URINE AUTO RFX NEGATIVE (NEGATIVE); LEUKOCYTE ESTERASE UR AUTO RFX NEGATIVE (NEGATIVE); NITRITE, URINE AUTO RFX NEGATIVE (NEGATIVE); RBC, URINE AUTO RFX 2 /HPF (0-3); SPECIFIC GRAVITY UR AUTO RFX 1.003 (1.002-1.035); SQUAM EPITHELIAL CELL UR AURFX 1 /HPF (0-6); WBC, URINE AUTO RFX 1 /HPF (0-3)
[2018-05-13] MEDS: dexameTHASONE 4 MG/ML 1ML VIAL (J1100) IM (11:15)
[2018-05-13] MEDS: KETOROLAC 60 MG/2 ML VIAL (J1885) IM (11:15)
== END 2018-05-13 12:04 | disposition home or self-care (01) ==
LOC: M ED 10:19
DX: M16.12 Unilateral primary osteoarthritis, left hip (principal); M54.32 Sciatica, left side; K21.9 Gastro-esophageal reflux disease without esophagitis; Z79.899 Other long term (current) drug therapy; Z88.1 Allergy status to other antibiotic agents; Z88.2 Allergy status to sulfonamides; Z88.8 Allergy status to other drugs, medicaments and biological substances; F17.210 Nicotine dependence, cigarettes, uncomplicated
CPT/HCPCS: J1100

== ENCOUNTER → 2018-05-17 | Outpatient (CLI) | payer OTHER ==
[~2018-05-17] MED LIST changes: +CITA-231 PO; +LIDOCAINE 1% MDV 20ML VIAL As Ordered ONE; +OMEP40CA2 PO; +PRED10TA2 PO
--- NOTE | 2018-05-17 17:12 | REP ---
Ultrasound-guided left thyroid biopsy The procedure was performed under the direct supervision of Dr. Viveros. The patient has a history of A large complex cyst in the mid pole of the left thyroid measuring 9.4 x 6.4 x 8.7 mm seen on a previous ultrasound dated 04/08/2018. Risks and benefits of the procedure were explained to the patient and informed consent was obtained. The left thyroid nodule was localized using ultrasound guidance. The skin was prepped and draped in a sterile fashion. 1% lidocaine was used as a local anesthetic. Using ultrasound guidance four fine-needle aspirations were obtained using 25 gauge needles. The patient tolerated the procedure well and there were no immediate complications. After the appropriate amount of monitored convalescence the patient was discharged from the department. Reviewed by DELON Estes 05/17/2018 03:11 P Electronically Signed by Keyur Viveros MD 05/17/2018 05:03 P
== END ==
LOC: M RADPRO 10:11
PROVIDERS: ATTEND Otolaryngology
DX: E04.2 Nontoxic multinodular goiter (principal); Z88.8 Allergy status to other drugs, medicaments and biological substances; Z88.2 Allergy status to sulfonamides; Z88.5 Allergy status to narcotic agent; Z79.899 Other long term (current) drug therapy; Z79.51 Long term (current) use of inhaled steroids

== ENCOUNTER → 2018-06-25 | Outpatient (CLI) | payer MEDICARE ==
[~2018-06-25] MED LIST changes: +AMOX500T2 PO; -LIDOCAINE 1% MDV 20ML VIAL As Ordered ONE
--- NOTE | 2018-06-25 09:20 | REP ---
Clinical: Cough . Comparison: 11/08/2016 . Technique: PA and lateral. Findings: The mediastinum and cardiac silhouette are normal. The lung roberts are clear and without acute consolidation, effusion, or pneumothorax. The skeletal structures are intact and normal. Impression: 1. No acute cardiopulmonary process. Electronically Signed by Carlin Barrientos MD 06/25/2018 09:11 A
[2018-06-25 09:57] LABS: BASO # 0.1 10^3/uL (0.0-0.2); BASO % 0.5 % (0.0-1.0); EOS # 0.1 10^3/uL (0.0-0.50); EOS % 0.6 % (0.0-3.0); HEMATOCRIT 48.7 % (36.0-47.0); LYMPH # 2.8 10^3/uL (1.5-4.5); LYMPH % 23.3 % (24.0-44.0); MEAN CORPUSCULAR HEMOGLOBIN 29.9 pg (27.0-33.0); MEAN CORPUSCULAR HGB CONC 32.9 g/dl (32.0-36.5); MEAN CORPUSCULAR VOLUME 90.9 fl (80.0-96.0); MONO # 0.8 10^3/uL (0.0-0.8); MONO % 6.9 % (0.0-5.0); NEUTROPHILS # 8.1 10^3/uL (1.8-7.7); NEUTROPHILS % 68.3 % (36.0-66.0); PLATELET COUNT, AUTOMATED 304 10^3/uL (150-450); RED BLOOD COUNT 5.36 10^6/uL (4.00-5.40); WHITE BLOOD COUNT 11.8 10^3/uL (4.0-10.0)
[2018-06-25 10:50] LABS: ALBUMIN 3.7 GM/DL (3.2-5.2); ALT/SGPT 22 U/L (12-78); BILIRUBIN,TOTAL 0.3 MG/DL (0.2-1.0); BLOOD UREA NITROGEN 11 MG/DL (7-18); CALCIUM LEVEL 9.1 MG/DL (8.8-10.2); CARBON DIOXIDE LEVEL 29 MEQ/L (21-32); CHLORIDE LEVEL 101 MEQ/L (98-107); CREATININE FOR GFR 0.74 MG/DL (0.55-1.30); GLOMERULAR FILTRATION RATE > 60.0 (>45); GLUCOSE, FASTING 81 MG/DL (70-100); POTASSIUM SERUM 4.8 MEQ/L (3.5-5.1); SODIUM LEVEL 136 MEQ/L (136-145); TOTAL PROTEIN 6.9 GM/DL (6.4-8.2)
== END ==
LOC: M WUC 08:42
PROVIDERS: ATTEND Physician Assistant
DX: R05 Cough (principal)

== ENCOUNTER → 2018-06-27 | Outpatient (CLI) | payer MEDICARE ==
--- NOTE | 2018-06-27 11:56 | REP ---
Chest x-ray: Two views. History: Acute bronchitis. Comparison study: June 25, 2018. Findings: The patient is status post cervical spine fusion plating. The lungs are well inflated and clear. The pleural angles are sharp. Heart size is normal. Pulmonary vasculature is not increased. No significant bony abnormality. Impression: No active disease. Electronically Signed by Keyur Viveros MD 06/27/2018 11:48 A
[2018-06-27 12:37] LABS: BASO # 0.1 10^3/uL (0.0-0.2); BASO % 0.5 % (0.0-1.0); EOS # 0.1 10^3/uL (0.0-0.50); EOS % 0.6 % (0.0-3.0); HEMATOCRIT 46.3 % (36.0-47.0); HEMOGLOBIN 15.6 g/dl (12.0-15.5); LYMPH # 1.4 10^3/uL (1.5-4.5); LYMPH % 13.9 % (24.0-44.0); MEAN CORPUSCULAR HEMOGLOBIN 30.1 pg (27.0-33.0); MEAN CORPUSCULAR HGB CONC 33.7 g/dl (32.0-36.5); MEAN CORPUSCULAR VOLUME 89.2 fl (80.0-96.0); MONO # 1.1 10^3/uL (0.0-0.8); MONO % 10.5 % (0.0-5.0); NEUTROPHILS # 7.5 10^3/uL (1.8-7.7); NEUTROPHILS % 73.4 % (36.0-66.0); PLATELET COUNT, AUTOMATED 259 10^3/uL (150-450); RED BLOOD COUNT 5.19 10^6/uL (4.00-5.40); WHITE BLOOD COUNT 10.2 10^3/uL (4.0-10.0)
[2018-06-27 13:10] LABS: ALBUMIN 3.7 GM/DL (3.2-5.2); ALT/SGPT 26 U/L (12-78); BILIRUBIN,TOTAL 0.2 MG/DL (0.2-1.0); BLOOD UREA NITROGEN 14 MG/DL (7-18); CALCIUM LEVEL 8.8 MG/DL (8.8-10.2); CARBON DIOXIDE LEVEL 29 MEQ/L (21-32); CHLORIDE LEVEL 101 MEQ/L (98-107); CREATININE FOR GFR 0.78 MG/DL (0.55-1.30); GLOMERULAR FILTRATION RATE > 60.0 (>45); GLUCOSE, FASTING 81 MG/DL (70-100); POTASSIUM SERUM 4.9 MEQ/L (3.5-5.1); SODIUM LEVEL 135 MEQ/L (136-145); TOTAL PROTEIN 6.7 GM/DL (6.4-8.2)
== END ==
LOC: M WUC 11:24
PROVIDERS: ATTEND Physician Assistant
DX: J20.9 Acute bronchitis, unspecified (principal)

== ENCOUNTER 2018-06-29 13:33 | Emergency (ER) | payer MEDICARE ==
[~2018-06-29] VITALS: Ht 160 cm; Wt 71.8 kg
[~2018-06-29 13:33] MED LIST changes: -AMOX500T2 PO
[2018-06-29] MEDS ORDERED: ONDANSETRON 4MG/2ML VIAL (J2405) IV ONE (14:15)
[2018-06-29] MEDS ORDERED: NS 1,000 ML IV ONE (14:15)
[2018-06-29 14:25] LABS: BASO # 0.1 10^3/uL (0.0-0.2); BASO % 0.4 % (0.0-1.0); EOS # 0.1 10^3/uL (0.0-0.50); EOS % 0.5 % (0.0-3.0); HEMATOCRIT 55.1 % (36.0-47.0); HEMOGLOBIN 18.2 g/dl (12.0-15.5); LYMPH # 3.2 10^3/uL (1.5-4.5); MEAN CORPUSCULAR HEMOGLOBIN 29.9 pg (27.0-33.0); MEAN CORPUSCULAR VOLUME 90.6 fl (80.0-96.0); MONO # 1.1 10^3/uL (0.0-0.8); MONO % 7.3 % (0.0-5.0); NEUTROPHILS # 10.1 10^3/uL (1.8-7.7); NEUTROPHILS % 69.3 % (36.0-66.0); PLATELET COUNT, AUTOMATED 333 10^3/uL (150-450); WHITE BLOOD COUNT 14.7 10^3/uL (4.0-10.0)
[2018-06-29 14:26] LABS: RED BLOOD COUNT 6.08 10^6/uL (4.00-5.40)
[2018-06-29 14:52] LABS: APPEARANCE, URINE HAZY (CLEAR); BACTERIA, URINE AUTO 1+ (NEGATIVE); BILIRUBIN, URINE AUTO NEGATIVE (NEGATIVE); BLOOD, URINE BLOOD NEGATIVE (NEGATIVE); COLOR, URINE YELLOW (YELLOW); GLUCOSE, URINE (UA) AUTO NEGATIVE (NEGATIVE); KETONE, URINE AUTO TRACE mg/dL (NEGATIVE); LEUKOCYTE ESTERASE, URINE AUTO NEGATIVE (NEGATIVE); MUCUS, URINE SMALL (NEGATIVE); NITRITE, URINE AUTO NEGATIVE (NEGATIVE); PROTEIN, URINE AUTO NEGATIVE (NEGATIVE); RBC, URINE AUTO 1 /HPF (0-3); SPECIFIC GRAVITY URINE AUTO 1.026 (1.002-1.035); SQUAMOUS EPITHELIAL CELL UR AU 4 /HPF (0-6); WBC, URINE AUTO 2 /HPF (0-3)
[2018-06-29 14:52] LABS: ALBUMIN 4.3 GM/DL (3.2-5.2); ALT/SGPT 45 U/L (12-78); AMYLASE 69 U/L (25-115); BILIRUBIN,DIRECT < 0.1 MG/DL (0.0-0.2); BILIRUBIN,TOTAL 0.2 MG/DL (0.2-1.0); BLOOD UREA NITROGEN 15 MG/DL (7-18); CALCIUM LEVEL 9.2 MG/DL (8.8-10.2); CARBON DIOXIDE LEVEL 27 MEQ/L (21-32); CHLORIDE LEVEL 103 MEQ/L (98-107); GLOMERULAR FILTRATION RATE > 60.0 (>45); GLUCOSE, FASTING 69 MG/DL (70-100); POTASSIUM SERUM 3.6 MEQ/L (3.5-5.1); SODIUM LEVEL 136 MEQ/L (136-145); TOTAL PROTEIN 8.6 GM/DL (6.4-8.2)
[2018-06-29] MEDS ORDERED: AMOX500T2 PO (17:41)
[2018-06-29 17:56] VITALS: BP 133/61
--- NOTE | 2018-06-30 07:23 | ECGEPIP ---
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
== END 2018-06-29 17:57 | disposition home or self-care (01) ==
LOC: M ED 13:33
DX: J01.90 Acute sinusitis, unspecified (principal); R10.9 Unspecified abdominal pain; R19.7 Diarrhea, unspecified; E78.5 Hyperlipidemia, unspecified; K21.9 Gastro-esophageal reflux disease without esophagitis; Z88.1 Allergy status to other antibiotic agents; Z88.2 Allergy status to sulfonamides; Z88.8 Allergy status to other drugs, medicaments and biological substances; F17.210 Nicotine dependence, cigarettes, uncomplicated
CPT/HCPCS: 36415; 80048; 80076; 81001; 82150; 85025; 87507; 93005; 96361; 96374; 99284; J2405

== ENCOUNTER → 2018-08-22 | Outpatient (REF) | payer MEDICARE ==
[~2018-08-22] MED LIST changes: +AMOX500T2 PO; -CITA-231 PO; +CITA40TA6 PO; +HYDR-3715 PO; -NORCOTAB PO
[2018-08-22 13:16] LABS: ALBUMIN 3.8 GM/DL (3.2-5.2); ALT/SGPT 21 U/L (12-78); BILIRUBIN,TOTAL 0.4 MG/DL (0.2-1.0); BLOOD UREA NITROGEN 11 MG/DL (7-18); CALCIUM LEVEL 9.1 MG/DL (8.8-10.2); CARBON DIOXIDE LEVEL 28 MEQ/L (21-32); CHLORIDE LEVEL 102 MEQ/L (98-107); CHOLESTEROL LEVEL 172 MG/DL (<200); CHOLESTEROL RISK RATIO 2.687 (<5); CREATININE FOR GFR 0.71 MG/DL (0.55-1.30); FREE T4 1.05 NG/DL (0.76-1.46); GLOMERULAR FILTRATION RATE > 60.0 (>45); GLUCOSE, FASTING 74 MG/DL (70-100); HDL CHOLESTEROL 64 MG/DL (>40); LDL CHOLESTEROL 94 MG/DL (<100); NON-HDL-C 108 MG/DL; POTASSIUM SERUM 4.7 MEQ/L (3.5-5.1); SODIUM LEVEL 136 MEQ/L (136-145); TOTAL PROTEIN 6.9 GM/DL (6.4-8.2); TRIGLYCERIDES LEVEL 69 MG/DL (<150)
[2018-08-22 13:43] LABS: APPEARANCE, URINE HAZY (CLEAR); BACTERIA, URINE AUTO 1+ (NEGATIVE); BILIRUBIN, URINE AUTO NEGATIVE (NEGATIVE); BLOOD, URINE BLOOD NEGATIVE (NEGATIVE); COLOR, URINE YELLOW (YELLOW); GLUCOSE, URINE (UA) AUTO NEGATIVE (NEGATIVE); KETONE, URINE AUTO NEGATIVE (NEGATIVE); LEUKOCYTE ESTERASE, URINE AUTO NEGATIVE (NEGATIVE); MUCUS, URINE SMALL (NEGATIVE); NITRITE, URINE AUTO NEGATIVE (NEGATIVE); PROTEIN, URINE AUTO NEGATIVE (NEGATIVE); RBC, URINE AUTO 0 /HPF (0-3); SPECIFIC GRAVITY URINE AUTO 1.013 (1.002-1.035); SQUAMOUS EPITHELIAL CELL UR AU 5 /HPF (0-6); WBC, URINE AUTO 0 /HPF (0-3)
[2018-08-22 13:44] LABS: BASO # 0.1 10^3/uL (0.0-0.2); BASO % 0.6 % (0.0-1.0); EOS # 0.1 10^3/uL (0.0-0.50); HEMATOCRIT 47.8 % (36.0-47.0); LYMPH # 2.3 10^3/uL (1.5-4.5); LYMPH % 17.8 % (24.0-44.0); MEAN CORPUSCULAR HEMOGLOBIN 29.9 pg (27.0-33.0); MEAN CORPUSCULAR HGB CONC 33.5 g/dl (32.0-36.5); MEAN CORPUSCULAR VOLUME 89.2 fl (80.0-96.0); MONO # 0.9 10^3/uL (0.0-0.8); MONO % 6.7 % (0.0-5.0); NEUTROPHILS # 9.3 10^3/uL (1.8-7.7); NEUTROPHILS % 73.5 % (36.0-66.0); PLATELET COUNT, AUTOMATED 323 10^3/uL (150-450); RED BLOOD COUNT 5.36 10^6/uL (4.00-5.40); WHITE BLOOD COUNT 12.7 10^3/uL (4.0-10.0)
== END ==
LOC: M SFHCADAM 09:23
PROVIDERS: ATTEND Physician Assistant Medical
DX: R10.13 Epigastric pain (principal); E78.2 Mixed hyperlipidemia; F34.1 Dysthymic disorder; R10.30 Lower abdominal pain, unspecified
CPT/HCPCS: 80053; 80061; 81001; 84439; 84443; 85025; 87086; G0463

== ENCOUNTER → 2018-09-10 | Outpatient (CLI) | payer MEDICARE ==
--- NOTE | 2018-09-10 10:56 | REPMRS ---
Patient History The patient states she has not had a clinical breast exam in over a year. Patient has history of high-risk lesion on a previous biopsy at age 47. Family history of colorectal cancer at age 70 in father, colorectal cancer at age 50 in paternal grandmother, colorectal cancer at age 88 in paternal uncle. Benign excisional biopsy of the right breast, 1994. Took unspecified hormones for 5 years. Digital Woman Screen Mammo: September 10, 2018 - Exam #: [id number] Bilateral CC and MLO view(s) were taken. Technologist: Millie Evangelista, Technologist Prior study comparison: March 09, 2017, bilateral digital mammo screening bilat, performed at [facility]. March 08, 2016, bilateral digital mammo screening bilat, performed at [facility]. March 17, 2014, bilateral bilat screen digital mammo, performed at [facility] ([facility]). FINDINGS: There are scattered fibroglandular densities. There has been no change in the appearance of the mammogram from the prior studies. There is a mild amount of scattered fibroglandular density which is fairly symmetric. There is no interval development of dominant mass, architectural distortion, or clustered microcalcification suggestive of malignancy. 3-D tomosynthesis shows no additional findings. Assessment: BI-RADS/ACR category 1 mammogram. Negative Mammogram. Recommendation Routine screening mammogram of both breasts in 1 year (for women over age 40). This patient's Lifetime Breast Cancer RIsk is estimated at 5.1 %. This mammogram was interpreted with the aid of an FDA-approved computer-aided dectection system. Electronically Signed By: Floyd Viveros MD 09/10/18 [id number]
== END ==
LOC: M WHC 08:58
PROVIDERS: ATTEND Physician Assistant Medical
DX: Z12.31 Encounter for screening mammogram for malignant neoplasm of breast (principal); Z86.018 Personal history of other benign neoplasm

== ENCOUNTER → 2018-09-18 | Outpatient (CLI) | payer MEDICARE ==
--- NOTE | 2018-09-18 15:44 | REP ---
PELVIC ULTRASOUND: Real-time sonographic evaluation of the pelvis performed utilizing transabdominal and endovaginal technique. Bladder measures 8.8 x 7.7 x 9.0 cm. Patient has had a hysterectomy. Ovaries are not visualized. I see no adnexal mass or free fluid. IMPRESSION: Negative pelvic ultrasound status post hysterectomy. No evidence of mass or free fluid. Ovaries could not be visualized. Electronically Signed by Zana Deluca MD 09/19/2018 11:02 A
== END ==
LOC: M RAD 14:33
PROVIDERS: ATTEND Obstetrics & Gynecology
DX: R10.2 Pelvic and perineal pain (principal)

== ENCOUNTER → 2018-12-02 | Outpatient (CLI) | payer MEDICARE ==
--- NOTE | 2018-12-02 22:58 | REP ---
Clinical: Nontoxic multinodular goiter. Technique: Real time marsh scale and color evaluation using linear high frequency transducer. Comparison: 04/08/2018. Findings: The patient is noted to be status post right lobectomy. Left thyroid lobe is heterogeneous and measures 4.6 x 1.4 x 1.7 cm with 8 x 5 x 7 mm complex cyst (previous 8 x 7 x 6.4 mm) in the midpole as well as 3.3 x 3.0 x 3.0 cm isoechoic nodule in the lower pole and 5.2 x 2.5 x 5.4 mm anechoic nodule in the lower pole. Isthmus measures 2.8 mm in width. Impression: Relatively stable thyroid ultrasound. Electronically Signed by Carlin Barrientos MD 12/02/2018 10:49 P
== END ==
LOC: M RAD 13:37
PROVIDERS: ATTEND Otolaryngology
DX: E04.2 Nontoxic multinodular goiter (principal)

== ENCOUNTER → 2019-01-17 | Outpatient (CLI) | payer MEDICARE ==
[~2019-01-17] MED LIST changes: +E-Z-GAS II EFFERVESCENT PACKET (SODIUM BICARB./CITRIC ACID/SIMETHICONE) As Ordered ONE; +E-Z-HD 98% w/w 340GM SUSP BTL As Ordered ONE; +E-Z-PAQUE 96% w/w SUSP 176GM BTL As Ordered ONE; +FLOM0.4C39 PO; -OMEP40CA2 PO; +OMEP40CA97 PO; +TRAM50TA2 PO; +VITA100054 PO
--- NOTE | 2019-01-17 19:41 | REP ---
Examination Requested: Esophagram Barium Swallow Reason For Exam/Comment: Dysphasia Esophagram: The procedure was performed DELON Ritchie, under the direct supervision of Dr. Oconnor. The images were reviewed with Dr. Oconnor. A single PA chest x-ray is submitted as a packaging materials inspector film. The superior mediastinal structures are midline. The heart size is within normal limits. The lungs are clear. Liquid barium and gas producing granules were given in the erect position as well as liquid barium in the prone oblique position, in order to perform a double contrast esophagram examination. There is a cervical spine multilevel anterior discectomy plate. Oral and pharyngeal stages of the examination were unremarkable. Esophageal transport is efficient and there is no esophagitis, stricture, or mucosal ring noted. There is no hiatal hernia noted. Gastroesophageal reflux was not visualized throughout the course of the exam . Impression: 1. Unremarkable esophagram. 0.4 minutes of fluoroscopy time was utilized for this procedure. Some fluoroscopic images are performed with last image hold technology. These images require no additional radiation. Reviewed by DELON Verdin 01/17/2019 05:16 P Electronically Signed by Zana Oconnor MD 01/17/2019 07:32 P
== END ==
LOC: M RAD 07:34
PROVIDERS: ATTEND Otolaryngology
DX: R13.10 Dysphagia, unspecified (principal)

== ENCOUNTER → 2019-03-31 | Outpatient (REF) | payer MEDICARE ==
[~2019-03-31] MED LIST changes: -E-Z-GAS II EFFERVESCENT PACKET (SODIUM BICARB./CITRIC ACID/SIMETHICONE) As Ordered ONE; -E-Z-HD 98% w/w 340GM SUSP BTL As Ordered ONE; -E-Z-PAQUE 96% w/w SUSP 176GM BTL As Ordered ONE; -FLOM0.4C39 PO; -TRAM50TA2 PO; -VITA100054 PO
[2019-03-31 19:38] LABS: ALBUMIN 3.6 GM/DL (3.2-5.2); ALT/SGPT 21 U/L (12-78); BILIRUBIN,TOTAL 0.2 MG/DL (0.2-1.0); BLOOD UREA NITROGEN 16 MG/DL (7-18); CALCIUM LEVEL 8.9 MG/DL (8.8-10.2); CARBON DIOXIDE LEVEL 28 MEQ/L (21-32); CHLORIDE LEVEL 100 MEQ/L (98-107); CHOLESTEROL LEVEL 172 MG/DL (<200); CHOLESTEROL RISK RATIO 2.774 (<5); CREATININE FOR GFR 0.77 MG/DL (0.55-1.30); GLOMERULAR FILTRATION RATE > 60.0 (>45); GLUCOSE, FASTING 78 MG/DL (70-100); HDL CHOLESTEROL 62 MG/DL (>40); LDL CHOLESTEROL 74 MG/DL (<100); NON-HDL-C 110 MG/DL; POTASSIUM SERUM 4.3 MEQ/L (3.5-5.1); SODIUM LEVEL 136 MEQ/L (136-145); TRIGLYCERIDES LEVEL 181 MG/DL (<150)
== END ==
LOC: M SFHCADAM 16:20
PROVIDERS: ATTEND Physician Assistant Medical
DX: E78.2 Mixed hyperlipidemia (principal); D72.829 Elevated white blood cell count, unspecified

== ENCOUNTER → 2019-06-02 | Outpatient (CLI) | payer MEDICARE ==
--- NOTE | 2019-06-02 20:53 | REP ---
Clinical: Degenerative back pain Technique: AP, lateral, bilateral oblique and coned-down views of the lumbosacral spine. Findings: Age-related osteopenia and moderate multilevel degenerative disc osteophyte complexes are appreciated. Alignment and lordosis maintained. No acute fracture / compression injury or subluxation. Impression: Age-related osteopenia and moderate multilevel degenerative changes. If the patient remains symptomatic consider MRI for further investigation. Electronically Signed by Carlin Barrientos MD 06/02/2019 08:45 P
== END ==
LOC: M ADAMS 12:04
PROVIDERS: ATTEND Physician Assistant Medical
DX: M85.88 Other specified disorders of bone density and structure, other site (principal); M51.36 Other intervertebral disc degeneration, lumbar region
CPT/HCPCS: 72110; G0463

== ENCOUNTER 2019-06-14 10:38 | Emergency (ER) | payer MEDICARE ==
[~2019-06-14] VITALS: Ht 160 cm; Wt 70.2 kg
[2019-06-14] MEDS ORDERED: VITA100054 PO (10:53)
[2019-06-14] MEDS ORDERED: NS 1,000 ML IV ONE (11:30)
[2019-06-14 11:54] LABS: BASO # 0.1 10^3/uL (0.0-0.2); BASO % 0.5 % (0.0-1.0); EOS # 0.1 10^3/uL (0.0-0.5); EOS % 0.6 % (0.0-3.0); HEMATOCRIT 47.7 % (36.0-47.0); HEMOGLOBIN 15.4 g/dl (12.0-15.5); LYMPH # 2.5 10^3/uL (1.5-5.0); LYMPH % 22.7 % (24.0-44.0); MEAN CORPUSCULAR HGB CONC 32.3 g/dl (32.0-36.5); MEAN CORPUSCULAR VOLUME 89.8 fl (80.0-96.0); MONO # 0.8 10^3/uL (0.0-0.8); NEUTROPHILS # 7.5 10^3/uL (1.5-8.5); NEUTROPHILS % 68.7 % (36.0-66.0); PLATELET COUNT, AUTOMATED 283 10^3/uL (150-450); RED BLOOD COUNT 5.31 10^6/uL (4.00-5.40); WHITE BLOOD COUNT 10.9 10^3/uL (4.0-10.0)
[2019-06-14] MEDS ORDERED: MORPHINE 2 MG/ML 1ML VIAL (J2270) IV ONE ×2 (12:00→13:30)
[2019-06-14] MEDS ORDERED: PROMETHAZINE INJ 25 MG/ML VIAL (J2550) IV ONE (12:00)
[2019-06-14 12:20] LABS: ALBUMIN 3.4 GM/DL (3.2-5.2); ALT/SGPT 26 U/L (12-78); BILIRUBIN,DIRECT 0.1 MG/DL (0.0-0.2); BILIRUBIN,TOTAL 0.3 MG/DL (0.2-1.0); BLOOD UREA NITROGEN 13 MG/DL (7-18); CALCIUM LEVEL 8.9 MG/DL (8.8-10.2); CARBON DIOXIDE LEVEL 29 MEQ/L (21-32); CHLORIDE LEVEL 102 MEQ/L (98-107); CREATININE FOR GFR 0.76 MG/DL (0.55-1.30); GLOMERULAR FILTRATION RATE > 60.0 (>45); GLUCOSE, FASTING 81 MG/DL (70-100); LIPASE 125 U/L (73-393); POTASSIUM SERUM 4.3 MEQ/L (3.5-5.1); SODIUM LEVEL 138 MEQ/L (136-145); TOTAL PROTEIN 6.6 GM/DL (6.4-8.2)
--- NOTE | 2019-06-14 13:12 | REP ---
CT abdomen and pelvis without IV or oral contrast: History: Left flank pain. Comparison CT study is from August 13, 2016. CT findings: Preliminary digital director of scout work radiograph is unremarkable. The liver and the spleen are normal in size and homogeneous in texture. No adrenal lesion is seen. No abnormality is noted in the pancreas or the gallbladder. Normal caliber aorta is seen. No retroperitoneal mass or adenopathy is seen. There is a 3 mm intrarenal calculus at the lower pole collecting system left kidney. No hydronephrosis is seen. No ureteral calculus is observed on either side. Urinary bladder is unremarkable. The uterus appears to be surgically absent. There is mild left colonic diverticulosis without CT evidence of diverticulitis. A normal appendix is seen in the right lower quadrant. No abdominal wall defect is seen. No bony destructive lesion is seen. Impression: There is a 3 mm intrarenal calculus in the lower pole of the left kidney. No other urinary tract calculus is seen. No hydronephrosis is noted. Post hysterectomy. Left colonic diverticulosis without CT evidence of diverticulitis. Electronically Signed by Keyur Viveros MD 06/14/2019 01:16 P
[2019-06-14] MEDS ORDERED: CYCLOBENZAPRINE 5MG TABLET PO ONE (14:00)
[2019-06-14] MEDS ORDERED: TRAM50TA2 PO (14:40)
[2019-06-14] MEDS ORDERED: LIDOCAINE 5% (LIDODERM) PATCH TD ONE (14:45)
[2019-06-14] MEDS ORDERED: FLOM0.4C39 PO (14:45)
[2019-06-14] MEDS ORDERED: TAMSULOSIN 0.4 MG CAP PO ONE (14:45)
[2019-06-14 14:52] VITALS: BP 129/63
[2019-06-14] MEDS ORDERED: **NOTE PATIENT COMMENT** MISC XX SCH (21:00)
== END 2019-06-14 15:05 | disposition home or self-care (01) ==
LOC: M ED 10:38
DX: N20.0 Calculus of kidney (principal); K57.30 Diverticulosis of large intestine without perforation or abscess without bleeding; K21.9 Gastro-esophageal reflux disease without esophagitis; E78.5 Hyperlipidemia, unspecified; D72.829 Elevated white blood cell count, unspecified; G89.29 Other chronic pain; M54.2 Cervicalgia; F33.9 Major depressive disorder, recurrent, unspecified; F41.9 Anxiety disorder, unspecified; Z98.61 Coronary angioplasty status; F17.210 Nicotine dependence, cigarettes, uncomplicated; Z88.2 Allergy status to sulfonamides; Z88.6 Allergy status to analgesic agent; Z79.891 Long term (current) use of opiate analgesic; Z79.899 Other long term (current) drug therapy
CPT/HCPCS: 74176; 80048; 80076; 81001; 83605; 83690; 85025; 87210; 96361; 96374; 96375; 96376; 99284; J2270

== ENCOUNTER → 2019-08-01 | Outpatient (CLI) | payer MEDICARE ==
[~2019-08-01] MED LIST changes: +FLOM0.4C39 PO; +TRAM50TA2 PO; +VITA100054 PO
--- NOTE | 2019-08-01 14:16 | REP ---
PELVIC SONOGRAPHY: HISTORY: Pelvic pain. Mostly left-sided. FINDINGS: The urinary bladder arroyo are smooth. No free fluid is seen. The uterus is surgically absent. Neither ovary could be visualized transabdominally and transvaginally. No adnexal mass or cyst is seen. No free fluid. IMPRESSION: No abnormality noted. The patient status post hysterectomy. No adnexal mass or cyst is seen.
== END ==
LOC: M WHC 10:10
PROVIDERS: ATTEND Obstetrics & Gynecology
DX: R10.2 Pelvic and perineal pain (principal); Z90.710 Acquired absence of both cervix and uterus

== ENCOUNTER → 2019-11-25 | Outpatient (CLI) | payer MEDICARE ==
--- NOTE | 2019-11-25 12:03 | REP ---
Clinical: Abnormal pulmonary findings. Comparison: 08/13/2016. Technique: Axial noncontrast images from the thoracic inlet to the upper abdomen with coronal and sagittal re-formations. Findings: Mild emphysematous changes with minimal apical and basilar scarring again noted. No consolidation, significant nodule or mass lesion is appreciated. Tracheobronchial tree is patent. No pleural effusion. No pneumothorax. Mediastinum demonstrates atherosclerotic changes to the thoracic aorta and coronary arteries without aortic aneurysm or cardiomegaly. No pericardial effusion. No obvious adenopathy. The patient is again noted to be status post right thyroidectomy. Surrounding musculoskeletal structures demonstrate age-related changes and evidence for anterior cervical fixation. Impression: Mild chronic stable emphysematous changes and minimal scattered scarring. No acute mediastinal or pleuroparenchymal process. Electronically Signed by Carlin Barrientos MD 11/25/2019 11:53 A
== END ==
LOC: M RAD 11:29
PROVIDERS: ATTEND Physician Assistant
DX: R91.8 Other nonspecific abnormal finding of lung field (principal)

== ENCOUNTER → 2020-01-20 | Outpatient (REF) | payer MEDICARE ==
[2020-01-20 17:40] LABS: BASO # 0.1 10^3/uL (0.0-0.2); BASO % 0.5 % (0.0-1.0); EOS % 0.2 % (0.0-3.0); HEMATOCRIT 45.1 % (36.0-47.0); HEMOGLOBIN 15.5 g/dl (12.0-15.5); LYMPH # 2.2 10^3/uL (1.5-5.0); LYMPH % 17.8 % (24.0-44.0); MEAN CORPUSCULAR HEMOGLOBIN 31.1 pg (27.0-33.0); MEAN CORPUSCULAR HGB CONC 34.4 g/dl (32.0-36.5); MEAN CORPUSCULAR VOLUME 90.6 fl (80.0-96.0); MONO # 0.9 10^3/uL (0.0-0.8); MONO % 7.2 % (0.0-5.0); NEUTROPHILS # 9.2 10^3/uL (1.5-8.5); NEUTROPHILS % 73.7 % (36.0-66.0); PLATELET COUNT, AUTOMATED 304 10^3/uL (150-450); RED BLOOD COUNT 4.98 10^6/uL (4.00-5.40); WHITE BLOOD COUNT 12.5 10^3/uL (4.0-10.0)
[2020-01-20 17:52] LABS: INR 0.93; PROTHROMBIN TIME 12.7 SECONDS (11.8-14.0)
== END ==
LOC: M LABDRWAD 14:05
PROVIDERS: ATTEND Physician Assistant Medical
DX: R23.3 Spontaneous ecchymoses (principal); E07.9 Disorder of thyroid, unspecified
CPT/HCPCS: 84443; 85025; 85610; G0463

== ENCOUNTER → 2020-07-17 | Outpatient (CLI) | payer MEDICARE | LOC: M LABSMTC 10:05 | PROVIDERS: ATTEND Family Medicine | DX: Z20.822 Contact with and (suspected) exposure to COVID-19 (principal) | CPT/HCPCS: C9803; U0003 ==

== ENCOUNTER → 2020-07-19 | Outpatient (CLI) | payer MEDICARE ==
[2020-07-19 11:44] LABS: BASO % 0.2 % (0.0-1.0); EOS % 0.1 % (0.0-3.0); HEMATOCRIT 46.9 % (36.0-47.0); HEMOGLOBIN 15.4 g/dl (12.0-15.5); LYMPH # 2.3 10^3/uL (1.5-5.0); LYMPH % 16.8 % (24.0-44.0); MEAN CORPUSCULAR HEMOGLOBIN 29.6 pg (27.0-33.0); MEAN CORPUSCULAR HGB CONC 32.8 g/dl (32.0-36.5); MEAN CORPUSCULAR VOLUME 90.2 fl (80.0-96.0); MONO # 1.1 10^3/uL (0.0-0.8); MONO % 7.8 % (2.0-8.0); NEUTROPHILS % 74.1 % (36.0-66.0); PLATELET COUNT, AUTOMATED 318 10^3/uL (150-450); WHITE BLOOD COUNT 13.5 10^3/uL (4.0-10.0)
[2020-07-19 12:30] LABS: ALBUMIN 3.7 GM/DL (3.2-5.2); ALT/SGPT 22 U/L (12-78); BILIRUBIN,TOTAL 0.5 MG/DL (0.2-1.0); BLOOD UREA NITROGEN 17 MG/DL (7-18); CALCIUM LEVEL 9.6 MG/DL (8.8-10.2); CARBON DIOXIDE LEVEL 31 MEQ/L (21-32); CHLORIDE LEVEL 102 MEQ/L (98-107); CHOLESTEROL LEVEL 182 MG/DL (<200); CHOLESTEROL RISK RATIO 2.394 (<5); CREATININE FOR GFR 0.88 MG/DL (0.55-1.30); FREE T4 0.93 NG/DL (0.76-1.46); GLOMERULAR FILTRATION RATE > 60.0 (>45); GLUCOSE, FASTING 86 MG/DL (70-100); HDL CHOLESTEROL 76 MG/DL (>40); LDL CHOLESTEROL 83 MG/DL (<100); NON-HDL-C 106 MG/DL; POTASSIUM SERUM 4.2 MEQ/L (3.5-5.1); SODIUM LEVEL 136 MEQ/L (136-145); TOTAL 25(OH) VITAMIN D 44.7 NG/ML (30.0-100.0); TOTAL PROTEIN 6.9 GM/DL (6.4-8.2); TRIGLYCERIDES LEVEL 116 MG/DL (<150)
[2020-07-19 14:09] LABS: HEMOGLOBIN A1c 5.3 %
== END ==
LOC: M WUC 10:03
PROVIDERS: ATTEND Physician Assistant Medical
DX: R10.13 Epigastric pain (principal); E78.2 Mixed hyperlipidemia; F34.1 Dysthymic disorder; F17.210 Nicotine dependence, cigarettes, uncomplicated; M51.36 Other intervertebral disc degeneration, lumbar region; Z79.899 Other long term (current) drug therapy

== ENCOUNTER → 2020-07-20 | Outpatient (CLI) | payer MEDICARE ==
--- NOTE | 2020-07-20 15:35 | REP ---
INDICATION: MULTI NODULAR GOITER. COMPARISON: Comparison thyroid sonography December 02, 2018.. TECHNIQUE: High-resolution thyroid sonography is carried out. FINDINGS: Patient is status post right thyroidectomy in the . Left thyroid lobe dimensions are 5.2 x 1.9 x 1.7 cm. These measurements are similar to the prior study. The left thyroid lobe parenchyma is heterogeneous with multiple small benign cysts. There is a septated cyst measuring 7 mm in the mid gland. A 7 mm x 6 mm x 4 mm hypoechoic solid nodule is seen in the mid position on the left. This is unchanged from the comparison sonogram December 02, 2018. No new nodule is appreciated. No extrathyroidal adenopathy is observed. IMPRESSION: Multinodular left thyroid. Status post right thyroidectomy. <Electronically signed by Floyd Viveros > 07/20/20 [id number]
== END ==
LOC: M RAD 07-09 12:11
PROVIDERS: ATTEND Otolaryngology
DX: E04.2 Nontoxic multinodular goiter (principal); Z90.89 Acquired absence of other organs

== ENCOUNTER → 2020-08-30 | Outpatient (CLI) | payer MEDICARE ==
[~2020-08-30] MED LIST changes: +BUPR150T12 PO; +PANT40TA29 PO; +PRAV40TA2 PO
--- NOTE | 2020-08-31 02:09 | REP ---
INDICATION: CONTUSION COMPARISON: None. TECHNIQUE: Frontal view of the chest with multiple views of the right hemithorax. FINDINGS: Frontal view of the chest demonstrates no acute cardiopulmonary process, contusion, effusion, or pneumothorax. Multiple views of the right hemithorax demonstrates no acute rib fracture/injury or pathology. IMPRESSION: Normal rib series. No obvious acute or displaced right rib fracture. <Electronically signed by Carlin Barrientos > 08/31/20 0206
== END ==
LOC: M WUC 12:17
PROVIDERS: ATTEND Physician Assistant
DX: S20.211A Contusion of right front wall of thorax, initial encounter (principal); X58.XXXA Exposure to other specified factors, initial encounter; Y92.9 Unspecified place or not applicable

== ENCOUNTER → 2020-09-05 | Outpatient (CLI) | payer MEDICARE | LOC: M LABSMTC 08:39 | PROVIDERS: ATTEND Anesthesiology | DX: Z01.812 Encounter for preprocedural laboratory examination (principal) ==

== ENCOUNTER 2020-09-10 09:43 | Day surgery (SDC) | payer MEDICARE ==
[~2020-09-10] VITALS: Ht 160 cm; Wt 70.8 kg
[~2020-09-10 09:43] MED LIST changes: +NS 1,000 ML IV ONE
--- NOTE | 2020-09-10 11:19 | ROOR ---
Patient Name: Claire Braxton Procedure Date: 09/10/2020 11:02 AM Date of : 1950 Age: 70 Room: [facility] Gender: Female Note Status: Finalized Procedure: Upper GI endoscopy Indications: Epigastric abdominal pain Providers: Porfirio Lilly MD Referring MD: OMAR Kendrick Requesting Provider: Medicines: Monitored Anesthesia Care Complications: No immediate complications. Procedure: Pre-Anesthesia Assessment: - Prior to the procedure, a History and Physical was performed, and patient medications and allergies were reviewed. The patient is competent. The risks and benefits of the procedure and the sedation options and risks were discussed with the patient. All questions were answered and informed consent was obtained. Patient identification and proposed procedure were verified by the physician, the nurse and the anesthesiologist in the procedure room. Mental Status Examination: alert and oriented. Airway Examination: normal oropharyngeal airway and neck mobility. Respiratory Examination: clear to auscultation. CV Examination: normal. Prophylactic Antibiotics: The patient does not require prophylactic antibiotics. Prior Anticoagulants: The patient has taken no previous anticoagulant or antiplatelet agents. ASA Grade Assessment: II - A patient with mild systemic disease. After reviewing the risks and benefits, the patient was deemed in satisfactory condition to undergo the procedure. The anesthesia plan was to use monitored anesthesia care (MAC). Immediately prior to administration of medications, the patient was re-assessed for adequacy to receive sedatives. The heart rate, respiratory rate, oxygen saturations, blood pressure, adequacy of pulmonary ventilation, and response to care were monitored throughout the procedure. The physical status of the patient was re-assessed after the procedure. The Endoscope was introduced through the mouth, and advanced to the second part of duodenum. The upper GI endoscopy was accomplished without difficulty. The patient tolerated the procedure well. Findings: A small hiatal hernia was present. Patchy mild inflammation characterized by congestion (edema), erythema and granularity was found in the gastric antrum. Biopsies were taken with a cold forceps for histology. Verification of patient identification for the specimen was done by the physician and nurse using the patient's name, date and medical record number. Estimated blood loss was minimal. The duodenal bulb and second portion of the duodenum were normal. Impression: - Small hiatal hernia. - Gastritis. Biopsied. - Normal duodenal bulb and second portion of the duodenum. Recommendation: - Patient has a contact number available for emergencies. The signs and symptoms of potential delayed complications were discussed with the patient. Return to normal activities tomorrow. Written discharge instructions were provided to the patient. - High fiber diet. - Continue present medications. - Follow an antireflux regimen. - Await pathology results. - Telephone GI clinic for pathology results in 2 weeks. - Return to primary care physician. Procedure Code(s): --- Professional --- 18905, Esophagogastroduodenoscopy, flexible, transoral; with biopsy, single or multiple Diagnosis Code(s): --- Professional --- K44.9, Diaphragmatic hernia without obstruction or gangrene K29.70, Gastritis, unspecified, without bleeding R10.13, Epigastric pain CPT copyright 2019 [employer]. All rights reserved. The codes documented in this report are preliminary and upon life sciences instructor review may be revised to meet current compliance requirements. Porfirio Lilly MD Porfirio Lilly MD 09/10/2020 11:18:37 AM Electronically signed by Porfirio Lilly MD Number of Addenda: 0 Note Initiated On: 09/10/2020 11:02 AM Estimated Blood Loss: Estimated blood loss was minimal.
[2020-09-10] MEDS ORDERED: propofoL 200 MG/20 ML VIAL As Ordered ONE (12:03)
[2020-09-10] MEDS ORDERED: LIDOCAINE 2% 100MG/5ML SDV (FOR ANES.) As Ordered ONE (12:03)
--- NOTE | 2020-09-10 12:10 | ROOR ---
Patient Name: Claire Braxton Procedure Date: 09/10/2020 11:02 AM Date of : 1950 Age: 70 Room: [facility] Gender: Female Note Status: Finalized Procedure: Colonoscopy Indications: High risk colon cancer surveillance: Personal history of colonic polyps Providers: Porfirio Lilly MD Referring MD: OMAR Kendrick Requesting Provider: Medicines: Monitored Anesthesia Care Complications: No immediate complications. Procedure: Pre-Anesthesia Assessment: - Prior to the procedure, a History and Physical was performed, and patient medications and allergies were reviewed. The patient is competent. The risks and benefits of the procedure and the sedation options and risks were discussed with the patient. All questions were answered and informed consent was obtained. Patient identification and proposed procedure were verified by the physician, the nurse and the anesthesiologist in the procedure room. Mental Status Examination: alert and oriented. Airway Examination: normal oropharyngeal airway and neck mobility. Respiratory Examination: clear to auscultation. CV Examination: normal. Prophylactic Antibiotics: The patient does not require prophylactic antibiotics. Prior Anticoagulants: The patient has taken no previous anticoagulant or antiplatelet agents. ASA Grade Assessment: II - A patient with mild systemic disease. After reviewing the risks and benefits, the patient was deemed in satisfactory condition to undergo the procedure. The anesthesia plan was to use monitored anesthesia care (MAC). Immediately prior to administration of medications, the patient was re-assessed for adequacy to receive sedatives. The heart rate, respiratory rate, oxygen saturations, blood pressure, adequacy of pulmonary ventilation, and response to care were monitored throughout the procedure. The physical status of the patient was re-assessed after the procedure. The Colonoscope was introduced through the anus and advanced to the terminal ileum, with identification of the appendiceal orifice and IC valve. The colonoscopy was performed without difficulty. The patient tolerated the procedure well. The quality of the bowel preparation was good. The terminal ileum, ileocecal valve, appendiceal orifice, and rectum were photographed. Scope insertion time was 3 minutes. Scope withdrawal time was 11 minutes. The total duration of the procedure was 14 minutes. Findings: The perianal and digital rectal examinations were normal. The terminal ileum appeared normal. Seven sessile polyps were found in the recto-sigmoid colon, transverse colon and ascending colon. The polyps were 4 to 12 mm in size. These polyps were removed with a hot snare. Resection and retrieval were complete. Verification of patient identification for the specimen was done by the physician and nurse using the patient's name, date and medical record number. Estimated blood loss was minimal. Non-bleeding external and internal hemorrhoids were found during retroflexion. The hemorrhoids were medium-sized. Impression: - The examined portion of the ileum was normal. - Seven 4 to 12 mm polyps at the recto-sigmoid colon, in the transverse colon and in the ascending colon, removed with a hot snare. Resected and retrieved. - Non-bleeding external and internal hemorrhoids. Recommendation: - Patient has a contact number available for emergencies. The signs and symptoms of potential delayed complications were discussed with the patient. Return to normal activities tomorrow. Written discharge instructions were provided to the patient. - High fiber diet. - Continue present medications. - Await pathology results. - Repeat colonoscopy in 3 years for surveillance based on pathology results. - Telephone GI clinic for pathology results in 2 weeks. - Use fiber, for example Citrucel, Fibercon, Konsyl or Metamucil. - Return to primary care physician. Procedure Code(s): --- Professional --- 99410, Colonoscopy, flexible; with removal of tumor(s), polyp(s), or other lesion(s) by snare technique Diagnosis Code(s): --- Professional --- Z86.010, Personal history of colonic polyps K64.8, Other hemorrhoids K63.5, Polyp of colon CPT copyright 2019 [employer]. All rights reserved. The codes documented in this report are preliminary and upon sensor operator review may be revised to meet current compliance requirements. Porfirio Lilly MD Porfirio Lilly MD 09/10/2020 12:09:24 PM Electronically signed by Porfirio Lilly MD Number of Addenda: 0 Note Initiated On: 09/10/2020 11:02 AM Estimated Blood Loss: Estimated blood loss was minimal.
[2020-09-10 12:23] VITALS: BP 130/65
== END 2020-09-10 12:26 | disposition home or self-care (01) ==
LOC: M OPP 09:43
PROVIDERS: ATTEND Internal Medicine Gastroenterology
DX: Z12.11 Encounter for screening for malignant neoplasm of colon (principal); Z86.010 Personal history of colon polyps; K63.5 Polyp of colon; K64.8 Other hemorrhoids; K44.9 Diaphragmatic hernia without obstruction or gangrene; K29.70 Gastritis, unspecified, without bleeding; R10.13 Epigastric pain; F17.210 Nicotine dependence, cigarettes, uncomplicated; Z79.899 Other long term (current) drug therapy; Z88.2 Allergy status to sulfonamides; Z88.8 Allergy status to other drugs, medicaments and biological substances; Z88.5 Allergy status to narcotic agent

== ENCOUNTER 2020-09-20 22:17 | Emergency (ER) | payer MEDICARE ==
[~2020-09-20] VITALS: Ht 160 cm; Wt 70.9 kg
[~2020-09-20 22:17] MED LIST changes: -NS 1,000 ML IV ONE
[2020-09-21] MEDS ORDERED: LR 1,000 ML IV ONE (00:10)
[2020-09-21] MEDS ORDERED: ONDANSETRON 4MG/2ML VIAL IV ONE (00:10)
[2020-09-21] MEDS ORDERED: MORPHINE 2 MG/ML 1ML VIAL (J2270) IV ONE (00:10)
[2020-09-21 00:45] LABS: BASO # 0.1 10^3/uL (0.0-0.2); BASO % 0.8 % (0.0-1.0); EOS # 0.2 10^3/uL (0.0-0.5); EOS % 1.3 % (0.0-3.0); HEMATOCRIT 44.7 % (36.0-47.0); HEMOGLOBIN 14.9 g/dl (12.0-15.5); LYMPH # 3.5 10^3/uL (1.5-5.0); LYMPH % 27.2 % (24.0-44.0); MEAN CORPUSCULAR HGB CONC 33.3 g/dl (32.0-36.5); MEAN CORPUSCULAR VOLUME 90.1 fl (80.0-96.0); MONO % 7.7 % (2.0-8.0); NEUTROPHILS # 8.1 10^3/uL (1.5-8.5); NEUTROPHILS % 62.5 % (36.0-66.0); PLATELET COUNT, AUTOMATED 309 10^3/uL (150-450); RED BLOOD COUNT 4.96 10^6/uL (4.00-5.40)
[2020-09-21 00:58] LABS: INR 0.88; PROTHROMBIN TIME 12.2 SECONDS (12.5-14.3)
[2020-09-21 00:59] LABS: PARTIAL THROMBOPLASTIN TIME 31.6 SECONDS (24.2-38.5)
--- NOTE | 2020-09-21 01:12 | REPVR ---
PROCEDURE INFORMATION: Exam: US Abdomen, Limited; Right Upper Quadrant Exam date and time: 09/21/2020 12:51 AM Age: 70 years old Clinical indication: Abdominal pain; Acute; Additional info: + sonographic moctezuma's TECHNIQUE: Imaging protocol: US abdomen. Real time ultrasound with image documentation. Limited exam focused on the right upper quadrant. COMPARISON: CT ABD PELVIS W/O CONTRAST 06/14/2019 12:05 PM FINDINGS: Liver: Unremarkable. Gallbladder: Cholelithiasis without gallbladder wall thickening or pericholecystic fluid. Negative sonographic Moctezuma's sign, as per the television production clerk. Common bile duct: No stones. No ductal dilatation. Pancreas: Unremarkable as visualized. Right kidney: 8 x 6 x 7 mm upper pole cyst. No solid mass. No definite stones. No hydronephrosis. IMPRESSION: Cholelithiasis without sonographic evidence of acute cholecystitis. Electronically signed by: Caleb Rae On 09/21/2020 01:11:18 AM
[2020-09-21 01:16] LABS: CK-MB VALUE MASS < 1.0 NG/ML (<3.6); CPK CREATINE PHOSPHOKINASE 30 U/L (26-192); MB/CK RELATIVE INDEX 3.33 (< OR =4); TROPONIN I < 0.02 NG/ML (< 0.10)
[2020-09-21 01:19] LABS: ALBUMIN 3.4 GM/DL (3.2-5.2); ALT/SGPT 29 U/L (12-78); BILIRUBIN,DIRECT 0.1 MG/DL (0.0-0.2); BILIRUBIN,TOTAL 0.2 MG/DL (0.2-1.0); BLOOD UREA NITROGEN 13 MG/DL (7-18); CALCIUM LEVEL 9.1 MG/DL (8.8-10.2); CARBON DIOXIDE LEVEL 26 MEQ/L (21-32); CHLORIDE LEVEL 106 MEQ/L (98-107); CK-MB VALUE MASS < 1.0 NG/ML (<3.6); CPK CREATINE PHOSPHOKINASE 25 U/L (26-192); CREATININE FOR GFR 0.65 MG/DL (0.55-1.30); GLOMERULAR FILTRATION RATE > 60.0 (>45); GLUCOSE, FASTING 91 MG/DL (70-100); LIPASE 128 U/L (73-393); POTASSIUM SERUM 3.8 MEQ/L (3.5-5.1); SODIUM LEVEL 138 MEQ/L (136-145); TOTAL PROTEIN 6.6 GM/DL (6.4-8.2); TROPONIN I < 0.02 NG/ML (< 0.10)
--- NOTE | 2020-09-21 01:57 | REPVR ---
PROCEDURE INFORMATION: Exam: XR Chest Exam date and time: 09/21/2020 1:34 AM Age: 70 years old Clinical indication: Pain; Other: Abdm; Additional info: Abdominal pain TECHNIQUE: Imaging protocol: XR of the chest. Views: 2 views. COMPARISON: CR RIBS UNLATERAL WITH PA CHEST 08/30/2020 12:30 PM FINDINGS: Lungs: Mildly hyperinflated. No consolidation. Pleural spaces: Unremarkable. No pleural effusion. No pneumothorax. Heart/Mediastinum: Unremarkable. No cardiomegaly. Vasculature: Senescent changes of the aorta. Bones/joints: No acute osseous abnormality. Anterior cervical fusion hardware. Mild degenerative changes. IMPRESSION: 1. No acute radiographic findings. 2. Additional findings, as above. Electronically signed by: Caleb Rae On 09/21/2020 01:57:02 AM
[2020-09-21] MEDS ORDERED: FAMOTIDINE 20 MG TAB PO ONE (02:20)
[2020-09-21] MEDS ORDERED: CYCL-707 PO (02:24)
[2020-09-21] MEDS ORDERED: IBUP-1022 PO (02:24)
[2020-09-21] MEDS ORDERED: RANI15TA PO (02:24)
[2020-09-21 03:12] VITALS: BP 142/90
== END 2020-09-21 03:18 | disposition home or self-care (01) ==
LOC: M ED 22:17
DX: K80.20 Calculus of gallbladder without cholecystitis without obstruction (principal); N28.1 Cyst of kidney, acquired
CPT/HCPCS: 36415; 71046; 76705; 80048; 80076; 81001; 82550; 82553; 83690; 84484; 85025; 85610; 85730; 93041; 96374; 96375; 99285; J2270; J2405

== ENCOUNTER 2020-10-14 10:42 | Emergency (ER) | payer MEDICARE ==
[~2020-10-14] VITALS: Ht 160 cm; Wt 70.5 kg
[~2020-10-14 10:42] MED LIST changes: +CYCL-707 PO; +IBUP-1022 PO; +RANI15TA PO
[2020-10-14] MEDS ORDERED: FLUT1BLS8 (12:24)
[2020-10-14] MEDS ORDERED: traMADol 50 MG TAB PO ONE (12:35)
--- NOTE | 2020-10-14 12:39 | REP ---
INDICATION: severe ant lower rib pain, felt crunch when working garden. COMPARISON: Chest 09/21/2020. TECHNIQUE: Four views left ribs, frontal view chest. FINDINGS: There is diffuse osteopenia. This limits evaluation for underlying fractures. I do not see radiographic evidence of a left rib fracture or bone lesion. The lungs are clear with no infiltrate. There is no pleural effusion. The heart is normal in size. Metallic plate and screws are seen in the cervical spine. IMPRESSION: No evidence of left rib fracture or bone lesion. <Electronically signed by Zana Deluca > 10/14/20 [id number]
[2020-10-14] MEDS ORDERED: TRAM50TA2 PO (13:22)
[2020-10-14 13:38] VITALS: BP 137/74
--- NOTE | 2020-10-15 20:19 | ECGEPIP ---
[facility] - ED Test Date: 2020-10-14 Pat Name: LIBRADO JAIMES Department: Room: - Gender: Female Transplanter: isha : 1950 Requested By: KRISTEN Mary PA-C Order Number: [id number] Reading MD: Joya Harrison Measurements Intervals [place] Rate: 58 P: 64 WI: 162 QRS: 47 QRSD: 98 T: 58 QT: 428 QTc: 420 Interpretive Statements Sinus bradycardia right ventricular conduction delay similar 06/29/18 Electronically Signed on 10-15-2020 20:18:55 EDT by Joya Harrison
== END 2020-10-14 13:38 | disposition home or self-care (01) ==
LOC: M ED 10:42
DX: S29.019A Strain of muscle and tendon of unspecified wall of thorax, initial encounter (principal); Y92.9 Unspecified place or not applicable; Y93.H2 Activity, gardening and landscaping; Y99.9 Unspecified external cause status; F17.200 Nicotine dependence, unspecified, uncomplicated; K21.9 Gastro-esophageal reflux disease without esophagitis; F41.9 Anxiety disorder, unspecified; F32.9 Major depressive disorder, single episode, unspecified; Z88.1 Allergy status to other antibiotic agents; Z88.2 Allergy status to sulfonamides; Z88.6 Allergy status to analgesic agent

== ENCOUNTER → 2020-12-01 | Outpatient (CLI) | payer MEDICARE ==
[~2020-12-01] MED LIST changes: +BACITAB PO; +BUPR15TA PO; +CELE40TA PO; +D32000CA PO; +FLUT1BLS8; +HYDR-3713 PO; +IBUP1TAB6 PO; +LISI40TA4 PO; +MELA3TAB21 PO; +MELA3TAB29 PO; +OMEG10002 PO; +OMEP40CA4 PO; -OMEP40CA97 PO; +PEPC1TAB5 PO; +POTA99TA14 PO; +PROBCAP14 PO; +PROTPAK PO; +VITAD400CA PO
--- NOTE | 2020-12-01 11:54 | REP ---
INDICATION: NICOTINE DEPNED COMPARISON: 11/25/2019 TECHNIQUE: Axial noncontrast images from the thoracic inlet to the upper abdomen using low-dose lung screening technique (LDCT). FINDINGS: There is a new 5 mm noncalcified nodule in the periphery of the right upper lobe (series 201; image 29). Possible 3 mm noncalcified peribronchial nodule in the right lower lobe (series 201; image 52) and smaller scattered 2 mm nodules cannot be excluded as well. No focal consolidation or effusion. No pneumothorax. Tracheobronchial tree is patent. IMPRESSION: Lung-RADS category 3. Management recommendations include 6 month follow-up chest CT evaluation. <Electronically signed by Carlin Barrientos > 12/01/20 [id number]
== END ==
LOC: M RAD 11:08
PROVIDERS: ATTEND Physician Assistant
DX: Z01.812 Encounter for preprocedural laboratory examination (principal); Z12.2 Encounter for screening for malignant neoplasm of respiratory organs; Z20.822 Contact with and (suspected) exposure to COVID-19; F17.218 Nicotine dependence, cigarettes, with other nicotine-induced disorders; R91.8 Other nonspecific abnormal finding of lung field
CPT/HCPCS: 71271; U0003

== ENCOUNTER → 2020-12-01 | Outpatient (CLI) | payer MEDICARE | LOC: MERGE 13:06 → M LABSMTC 13:06 | PROVIDERS: ATTEND Anesthesiology | DX: Z01.812 Encounter for preprocedural laboratory examination (principal); Z20.822 Contact with and (suspected) exposure to COVID-19 ==

== ENCOUNTER 2020-12-03 07:24 | Day surgery (SDC) | payer MEDICARE ==
[~2020-12-03] VITALS: Ht 160 cm; Wt 68.1 kg
[~2020-12-03 07:24] MED LIST changes: -BACITAB PO; -CELE40TA PO; -D32000CA PO; -HYDR-3713 PO; +LR 1,000 ML IV ONE; -MELA3TAB29 PO; -PEPC1TAB5 PO; -VITAD400CA PO
[2020-12-03] MEDS ORDERED: ONDANSETRON 4MG/2ML VIAL As Ordered ONE (07:59)
[2020-12-03] MEDS ORDERED: KETOROLAC 60MG 2ML VIAL As Ordered ONE (07:59)
[2020-12-03] MEDS ORDERED: propofoL 200 MG/20 ML VIAL As Ordered ONE (07:59)
[2020-12-03] MEDS ORDERED: SUGAMMADEX SODIUM 500 MG/5 ML VIAL (BRIDION) As Ordered ONE (07:59)
[2020-12-03] MEDS ORDERED: ROCURONIUM BROMIDE 50 MG/5 ML VIAL As Ordered ONE (07:59)
[2020-12-03] MEDS ORDERED: dexameTHASONE 4 MG/ML 1ML VIAL (J1100 PER 1MG) As Ordered ONE (07:59)
[2020-12-03] MEDS ORDERED: LIDOCAINE 2% 100MG/5ML SDV (FOR ANES.) As Ordered ONE (07:59)
[2020-12-03] MEDS ORDERED: fentaNYL 100 MCG/2 ML INJECTION As Ordered ONE ×2 (08:00→10:13)
[2020-12-03] MEDS ORDERED: MIDAZOLAM INJ 2MG/2ML VIAL (J2250 PER 1MG) As Ordered ONE (08:00)
[2020-12-03] MEDS ORDERED: ACETAMINOPHEN 1000MG 100ML IV BTL (OFIRMEV) (J0131 PER 10MG) As Ordered ONE (08:00)
[2020-12-03] MEDS ORDERED: VITAD400CA PO (08:36)
[2020-12-03] MEDS ORDERED: PEPC1TAB5 PO (08:36)
[2020-12-03] MEDS ORDERED: BUPIVACAINE/EPIN 0.25% 30 ML VIAL As Ordered ONE (09:05)
[2020-12-03] MEDS ORDERED: LR 1,000 ML IV SCH (10:35)
[2020-12-03] MEDS ORDERED: hydrALAZINE 20MG/ML 1ML VIAL (J0360 PER 20MG) IV PRN (10:35)
[2020-12-03] MEDS ORDERED: fentaNYL 100 MCG/2 ML INJECTION IV PRN (10:35)
[2020-12-03] MEDS ORDERED: ONDANSETRON 4MG/2ML VIAL IV PRN (10:35)
[2020-12-03] MEDS: HYDROMORPHONE HCL 0.5 MG/ 0.5 ML SYRINGE (J1170 PER 1) IV PRN ×4 (10:40→10:58)
[2020-12-03] MEDS: oxyCODONE 5MG TAB PO PRN ×2 (10:40→11:10)
[2020-12-03] MEDS: LABETALOL 100MG/20ML VIAL IV PRN ×2 (10:45→11:33)
[2020-12-03] MEDS ORDERED: NORCO, ANEXSIA 5/325MG TABLET (HYDROcodone/ACETAMINOPHEN) PO PRN (10:45)
[2020-12-03 11:33] VITALS: BP 165/75
[2020-12-03] MEDS ORDERED: METOCLOPRAMIDE INJ 10MG/2ML VIAL (J2765 PER 1) As Ordered ONE (12:33)
[2020-12-03] MEDS ORDERED: METOCLOPRAMIDE INJ 10MG/2ML VIAL (J2765 PER 1) IV ONE (12:35)
[2020-12-03 13:25] VITALS: BP 144/66
[2021-03-25] MEDS ORDERED: ACET-840 PO (11:19)
[2021-04-01] MEDS ORDERED: POTA-151 PO (12:34)
== END 2020-12-03 14:00 | disposition home or self-care (01) ==
LOC: EDBD → M SDC 07:24 → MERGE 09:00 → M SDC 14:00
PROVIDERS: ATTEND Surgery
DX: K80.10 Calculus of gallbladder with chronic cholecystitis without obstruction (principal)

== ENCOUNTER 2020-12-06 19:29 | Inpatient (IN) | payer MEDICARE ==
[~2020-12-06] VITALS: Ht 160 cm; Wt 72.7 kg
[~2020-12-06 19:29] MED LIST changes: -LR 1,000 ML IV ONE; +PEPC1TAB5 PO; +VITAD400CA PO
[2020-12-06] MEDS ORDERED: HYDR-3713 PO (19:50)
[2020-12-06] MEDS ORDERED: ONDANSETRON 4MG/2ML VIAL IV ONE (20:10)
[2020-12-06 20:14] LABS: BASO # 0.1 10^3/uL (0.0-0.2); BASO % 0.3 % (0.0-1.0); EOS % 0.1 % (0.0-3.0); HEMATOCRIT 44.5 % (36.0-47.0); LYMPH # 1.6 10^3/uL (1.5-5.0); LYMPH % 7.4 % (24.0-44.0); MEAN CORPUSCULAR HEMOGLOBIN 30.4 pg (27.0-33.0); MEAN CORPUSCULAR HGB CONC 33.7 g/dl (32.0-36.5); MEAN CORPUSCULAR VOLUME 90.1 fl (80.0-96.0); MONO # 1.7 10^3/uL (0.0-0.8); MONO % 8.1 % (2.0-8.0); NEUTROPHILS # 17.7 10^3/uL (1.5-8.5); NEUTROPHILS % 83.3 % (36.0-66.0); PLATELET COUNT, AUTOMATED 288 10^3/uL (150-450); RED BLOOD COUNT 4.94 10^6/uL (4.00-5.40)
[2020-12-06] MEDS: MORPHINE 4 MG/ML 1ML VIAL/SYRINGE (J2270) IV PRN ×2 (20:16→20:51)
[2020-12-06] MEDS ORDERED: ISOVUE-370 76% 100ML VIAL As Ordered ONE (20:18)
[2020-12-06 20:43] LABS: ALBUMIN 3.4 GM/DL (3.2-5.2); BILIRUBIN,DIRECT 0.2 MG/DL (0.0-0.2); BILIRUBIN,TOTAL 0.4 MG/DL (0.2-1.0); TOTAL PROTEIN 6.9 GM/DL (6.4-8.2)
[2020-12-06 20:48] LABS: WHITE BLOOD COUNT 21.2 10^3/uL (4.0-10.0)
[2020-12-06 20:51] LABS: RSV AMPLIFICATION NEGATIVE (NEGATIVE)
[2020-12-06] MEDS: HYDROMORPHONE HCL 0.5 MG/ 0.5 ML SYRINGE (J1170 PER 1) IV PRN ×2 (21:11→21:45)
--- NOTE | 2020-12-06 22:29 | REPVR ---
PROCEDURE INFORMATION: Exam: CT Abdomen And Pelvis With Contrast Exam date and time: 12/06/2020 8:24 PM Age: 70 years old Clinical indication: Other: Sudden onset ruq abd pain, lap choley last week TECHNIQUE: Imaging protocol: Computed tomography of the abdomen and pelvis with contrast. Radiation optimization: All CT scans at this facility use at least one of these dose optimization techniques: automated exposure control; mA and/or kV adjustment per patient size (includes targeted exams where dose is matched to clinical indication); or iterative reconstruction. Contrast material: ISOVUE 370; Contrast volume: 100 ml; Contrast route: INTRAVENOUS (IV); COMPARISON: CT ABD PELVIS W/O CONTRAST 06/14/2019 12:05 PM FINDINGS: Lungs: There is mild discoid atelectasis left cardiophrenic angle. Normal-sized heart. Liver: Normal liver. Gallbladder and bile ducts: Patient is status post cholecystectomy. There is a small amount of fluid at the gallbladder fossa and probably serous fluid from surgery. Pancreas: Normal pancreas. Spleen: Normal spleen. Adrenal glands: Normal adrenal glands. Kidneys and ureters: There is enhancement of both kidneys. Stomach and bowel: The the cecum is in the right pelvis and there is no evidence of inflammation in the region of the cecum. Some edema surrounding the duodenal bulb. Appendix: No evidence of appendicitis. Intraperitoneal space: Small amount of free fluid along the anterior surface of the liver. Vasculature: Unremarkable. No abdominal aortic aneurysm. Lymph nodes: Unremarkable. No enlarged lymph nodes. Urinary bladder: 2 normal urinary bladder. Normal urinary bladder. Reproductive: Patient is status post hysterectomy. Bones/joints: There is anterior osteophyte formation of the lumbar spine. Soft tissues: No evidence of soft tissue abnormality. The there is subcutaneous fluid right abdomen. IMPRESSION: Small amount of fluid at the gallbladder fossa and also in the anterior abdominal wall on the right probably all postoperative changes. Electronically signed by: Pedro Moser On 12/06/2020 22:29:21 PM
[2020-12-06] MEDS ORDERED: HYDROMORPHONE HCL 0.5 MG/ 0.5 ML SYRINGE (J1170 PER 1) IV PRN (23:35)
[2020-12-07] MEDS ORDERED: MOM 30ML SUSPENSION UDC PO PRN (00:05)
[2020-12-07] MEDS ORDERED: MAALOX 30 ML SUSP *UDC PO PRN (00:05)
[2020-12-07] MEDS ORDERED: CYCL-707 PO (00:06)
[2020-12-07] MEDS ORDERED: BUPR150T12 PO (00:06)
[2020-12-07] MEDS ORDERED: MELA3TAB29 PO (00:06)
[2020-12-07] MEDS ORDERED: D32000CA PO (00:06)
[2020-12-07] MEDS ORDERED: CELE40TA PO (00:06)
[2020-12-07] MEDS ORDERED: BACITAB PO (00:07)
--- NOTE | 2020-12-07 00:45 | HPEPDOC ---
[facility] Medical History & Physical Date of Admission Dec 07, 2020 Date of Service: Dec 07, 2020 Primary Care Physician: CEE BELL PA-C Attending Physician: MOOSE DE LA PAZ MD History and Physical TIME OF SERVICE: 12:50 PM CHIEF COMPLAINT: Abdominal pain HISTORY OF PRESENT ILLNESS: Ms. Lundberg, a 70-year-old female, underwent elective robotic assisted laparoscopic cholecystectomy on Sunday. On Sunday she developed left mid abdominal pain that was cramping in nature and made worse by movement. She took half a tablet of hydrocodone which helped a little bit. Yesterday around 5 PM she developed right sided abdominal pain that is also c ramping in nature along with sweats. She denied having fevers or chills. She has had nausea with regurgitation. REVIEW OF SYSTEMS: 10 point review of systems negative except as listed in HPI PAST MEDICAL/ SURGICAL HISTORY: Depression, anxiety, GERD, dyslipidemia, chronic leukocytosis of unclear cause, resection of esophageal polyps, partial thyroidectomy pathology was benign, resection of basal cell carcinoma, nephrolithiasis, hysterectomy, right lumpectomy, right thumb fusion, tonsillectomy, resection of vocal cord polyps, cardiac catheterization SOCIAL HISTORY: She smokes FAMILY HISTORY: Both her parents paternal grandfather and paternal grandmother had cancer ALLERGIES: Please see below. HOME MEDICATIONS: Please see below. PHYSICAL EXAMINATION: VITAL SIGNS: Please see below. GENERAL APPEARANCE: well nourished and developed /appears to be in severe pain HEENT: EOMI / MMM&P CARDIOVASCULAR: RRR/NMRG / no LE edema LUNGS: CTAB on RA ABDOMEN: contour distended/post incision sites are clean and covered with Steri- Strips/abdomen is tympanic with percussion/she has tenderness with palpation of the right upper abdomen MUSCULOSKELETAL: NCAT / ROMIx 4 INTEGUMENT: Slightly flushed NEUROLOGICAL: CN 2-12 intact / speech not dysarthric PSYCHIATRIC: A&O x3 LABORATORY DATA: See below. IMAGING: CT abdomen and pelvis IMPRESSION: Small amount of fluid at the gallbladder fossa and also in the anterior abdominal wall on the right probably all postoperative changes. MICROBIOLOGY: Please see below. ASSESSMENT: Ms. Lundberg is a 62 yr old female with a history of Depression, anxiety, GERD, DLP, chronic leukocytosis of unclear cause who underwent cholecystectomy; she admitted for evaluation of abdominal pain. PLAN: 1 Abdominal pain Possibly due to bile leak Plan: Admit to medical floor/n.p.o./IV fluids/follow-up on HIDA scan and with Dr. Mcdermott in the morning 2 SIRS Possibly due to intra-abdominal infection or reactive Plan: we will start empiric antibiotics pending lactic acid blood cultures and UA 3 Anxiety / Depression Plan: Bupropion and citalopram DVT PROPHYLAXIS: Teds and sequentials pharmacological prophylaxis is not indicated because her Hermann score is only 3 DISPOSITION: home after at least 2 midnight's stay Home Medications Scheduled Bupropion Hcl (Bupropion Xl) 150 Mg Tab.er.24h, 150 MG PO DAILY Cholecalciferol (Vitamin D3) (Vitamin D3) 50 Mcg Capsule, 50 MCG PO DAILY Citalopram Hydrobromide (Celexa) 40 Mg Tablet, 40 MG PO DAILY Famotidine (Pepcid) 20 Mg Tablet, 20 MG PO DAILY L.acidoph/L.bulg/B.bif/S.therm (Bacid Caplet) 1 Each Tablet, 1 TAB PO DAILY Melatonin (Melatonin) 3 Mg Tablet, 6 MG PO QHS Randall-3/Dha/Epa/Fish Oil (Fish Oil 1,000 mg Softgel) 1 Each Capsule, 1 CAP PO DAILY Potassium Gluconate (Potassium) 99 Mg Tablet, 595 MG PO DAILY Pravastatin Sodium (Pravastatin Sodium) 40 Mg Tablet, 40 MG PO DAILY Scheduled PRN Cyclobenzaprine HCl (Cyclobenzaprine HCl) 10 Mg Tablet, 10 MG PO TID PRN for MUSCLE SPASMS Hydrocodone/Acetaminophen (Hydrocodone-Acetamin 5-325 mg) 1 Each Tablet, 0.5 TAB PO Q6H PRN for PAIN LEVEL 6-10 Pantoprazole Sodium (Protonix) 40 Mg Granpkt.dr, 40 MG PO BID PRN for ACID R EFLUX Allergies Coded Allergies: Kiwi (Verified Allergy, Intermediate, hives, 12/02/20) Sulfa (Sulfonamide Antibiotics) (Verified Allergy, Intermediate, hives, 06/14/19) propoxyphene (Verified Allergy, Intermediate, rash, 06/14/19) aspirin (Verified Adverse Reaction, Intermediate, heart racing, 06/14/19) A-FIB/CHADSVASC A-FIB History Current/History of A-Fib/PAF?: No Current PO Anticoag Therapy: No MOOSE DE LA PAZ MD Dec 07, 2020 00:45
[2020-12-07 01:41] LABS: HEMATOCRIT 47.8 % (36.0-47.0); HEMOGLOBIN 15.8 g/dl (12.0-15.5); MEAN CORPUSCULAR HGB CONC 33.1 g/dl (32.0-36.5); MEAN CORPUSCULAR VOLUME 90.9 fl (80.0-96.0); PLATELET COUNT, AUTOMATED 326 10^3/uL (150-450); RED BLOOD COUNT 5.26 10^6/uL (4.00-5.40); WHITE BLOOD COUNT 28.2 10^3/uL (4.0-10.0)
[2020-12-07] MEDS ORDERED: LR 1,000 ML IV SCH ×2 (01:45→19:30)
[2020-12-07] MEDS ORDERED: HYDROMORPHONE HCL 0.5 MG/ 0.5 ML SYRINGE (J1170 PER 1) IV PRN ×2 (01:45→19:30)
[2020-12-07] MEDS ORDERED: DEXTROSE 50% 50 ML SYRINGE IV PRN (01:50)
[2020-12-07] MEDS ORDERED: GLUCAGON INJ 1MG VIAL SC PRN (01:50)
[2020-12-07] MEDS ORDERED: GLUCOSE 4GM CHEW TABLET PO PRN (01:50)
[2020-12-07 01:52] LABS: INR 0.89; PROTHROMBIN TIME 12.2 SECONDS (12.5-14.3)
[2020-12-07 01:53] LABS: PARTIAL THROMBOPLASTIN TIME 31.1 SECONDS (24.2-38.5)
[2020-12-07 02:03] LABS: BLOOD UREA NITROGEN 8 MG/DL (7-18); CALCIUM LEVEL 8.7 MG/DL (8.8-10.2); CARBON DIOXIDE LEVEL 29 MEQ/L (21-32); CHLORIDE LEVEL 100 MEQ/L (98-107); CREATININE FOR GFR 0.69 MG/DL (0.55-1.30); GLOMERULAR FILTRATION RATE > 60.0 (>45); GLUCOSE, FASTING 130 MG/DL (70-100); POTASSIUM SERUM 3.8 MEQ/L (3.5-5.1); SODIUM LEVEL 135 MEQ/L (136-145)
[2020-12-07] MEDS: D5W/0.9% SODIUM CHLORIDE 1,000 ML IV SCH ×2 (02:31→20:40)
[2020-12-07] MEDS: HYDROMORPHONE HCL 0.5 MG/ 0.5 ML SYRINGE (J1170 PER 1) IV PRN ×3 (02:34→16:53)
[2020-12-07] MEDS: PIPERACILLIN/TAZOBACTAM SOD 4.5 GM in D5W MINI-BAG PLUS 50 ML IV SCH ×4 (02:36→20:40)
[2020-12-07] MEDS ORDERED: VANCOMYCIN HCL 500 MG in D5W MINI-BAG PLUS 100 ML IV ONE (03:30)
[2020-12-07] MEDS: VANCOMYCIN HCL 1,000 MG, VIAL MATE ADAPTER 1 EACH in NS 250 ML IV SCH ×2 (04:40→22:19)
[2020-12-07] MEDS: CYCLOBENZAPRINE 10MG TABLET PO PRN (04:41)
[2020-12-07] MEDS: ONDANSETRON 4MG/2ML VIAL IV PRN (08:43)
[2020-12-07] MEDS: ACETAMINOPHEN TAB 650MG DOSE (2X325MG) PO PRN (08:43)
[2020-12-07 09:41] LABS: ALBUMIN 3.3 GM/DL (3.2-5.2); BILIRUBIN,DIRECT 0.3 MG/DL (0.0-0.2); BILIRUBIN,TOTAL 0.8 MG/DL (0.2-1.0)
[2020-12-07] MEDS ORDERED: IBUPROFEN 600MG TAB PO ONE (11:00)
[2020-12-07] MEDS: buPROPion **XL** TABLET 150MG (WELLBUTRIN XL) PO SCH (11:04)
[2020-12-07] MEDS: CitaloPRAM (CeleXA) 20 MG TAB PO SCH (11:04)
--- NOTE | 2020-12-07 13:08 | REP ---
INDICATION: r/o bile leak. COMPARISON: None. TECHNIQUE/RADIOTRACER AND DOSE: After the intravenous administration of 6 mCi of technetium 99 M Choletec hepatobiliary imaging was performed to assess for the possibility of a biliary leak status post cholecystectomy. FINDINGS: Biliary to bowel transit is seen beginning 15 minutes post injection of the radiotracer. Bowel transit increases up to the 35 minute scintiscan, however, abnormal activity is seen along the right hepatic edge inferiorly and this activity continues up to 60 minutes. IMPRESSION: Findings, as described above, are consistent with a biliary leak. <Electronically signed by Bayron Anderson > 12/07/20 [id number]
--- NOTE | 2020-12-07 13:52 | CR.PDOC ---
General Date of Consultation: Dec 07, 2020 Attending Physician: SEGUNDO MCDERMOTT MD Consultation General surgery. Dr. Mcdermott HISTORY OF PRESENT ILLNESS: The patient is a 70-year-old female status post elective robotic assisted laparoscopic cholecystectomy 12/03/2020. The patient states she began to notice increasing pain on Sunday which started in the left lower abdomen area, crampy, worse with movement. This has continued to worsen, is seem to move on the right side associated with nausea and vomiting. The patient reported to the emergency room 12/07/2020. General surgery is consulted ALLERGIES: Please see below. HOME MEDICATIONS: Please see below. PAST medical history/surgical history: Depression Anxiety GERD Dyslipidemia Chronic leukocytosis, unclear cause Resection of esophageal polyp Partial thyroidectomy, benign Resection of basal cell carcinoma Nephrolithiasis Hysterectomy Right lobectomy Tonsillectomy Resection of vocal cord polyp Cardiac catheterization SOCIAL HISTORY: Smoker REVIEW OF SYSTEMS: As noted in HPI otherwise 10 point review of systems unremarkable. PHYSICAL EXAMINATION: VITAL SIGNS: Please see below. GENERAL APPEARANCE: Appears to be in pain HEENT: Dry appearing RESPIRATORY: Clear to auscultation CARDIOVASCULAR: S1-S2 regular rate rhythm ABDOMEN: Soft, distended, surgical sites are clean and dry, no drainage, tenderness with palpation in the right upper and lower quadrant areas, guarding. EXTREMITIES: No edema WBC 28.2, hemoglobin 15.8, platelets 326 Assessment/plan Status post robotic assisted laparoscopic cholecystectomy 12/03/[address] Bernadine kaye. The patient reports worsening abdominal pain, nausea and vomiting since Sunday. The patient is reviewed as per Dr. Mcdermott this morning. Continue with IV fluids, IV antibiotic as per hospitalist. NPO HIDA scan was requested, this indicates findings consistent with biliary leak. I spoke with gastroenterology, Dr. Lilly who agrees to see and evaluate the patient today. Continue NPO, likely ERCP later today. Relayed to Hospitalist, Dr Eli as well. Vital Signs/I&O Vital Signs Date Time Temp Pulse Resp B/P (MAP) Pulse Ox O2 Delivery O2 Flow Rate FiO2 12/07/20 13:25 18 12/07/20 12:58 81 145/78 (100) 97 Nasal Cannula 2.0 12/07/20 10:51 97.8 I&O- Last 24 Hours up to 6 AM 12/07/20 06:00 Intake Total 50 ml Output Total 200 ml Balance -150 ml Laboratory Data Labs 24H Laboratory Tests 2 12/06/20 19:54: Immature Granulocyte % (Auto) 0.8, Neutrophils (%) (Auto) 83.3H, Lymphocytes (%) (Auto) 7.4L, Monocytes (%) (Auto) 8.1H, Eosinophils (%) (Auto) 0.1, Basophils (%) (Auto) 0.3, Neutrophils # (Auto) 17.7H, Lymphocytes # (Auto) 1.6, Monocytes # (Auto) 1.7H, Eosinophils # (Auto) 0.0, Basophils # (Auto) 0.1, Nucleated Red Blood Cells % (auto) 0.0, Lactic Acid Level 1.0, Total Bilirubin 0.4, Direct Bilirubin 0.2, Aspartate Amino Transf (AST/SGOT) 19, Alanine Aminotransferase (ALT/SGPT) 41, Alkaline Phosphatase 100, Total Protein 6.9, Albumin 3.4, Albumin/Globulin Ratio 1.0L, Lipase 40L, Coronavirus (COVID-19)(PCR) NEGATIVE, Influenza Type A (RT-PCR) NEGATIVE, Influenza Type B (RT-PCR) NEGATIVE, Respiratory Syncytial Virus (PCR) NEGATIVE 12/06/20 20:01: POC Glucose (Misc Panel) 122H, POC Sodium (Misc Panel) 136, POC Potassium (Misc Panel) 3.4L, POC Chloride (Misc Panel) 96L, POC Total CO2 (Misc Panel) 25.0, POC Blood Urea Nitrogen (Misc Panel 6L, POC Ionized Calcium (Misc Panel) 4.2L, POC Creatinine (Misc Panel) 0.6, POC Hematocrit (Misc Panel) 46.0 12/07/20 01:25: Nucleated Red Blood Cells % (auto) 0.0, Lactic Acid Level 0.7, Prothrombin Time 12.2, Prothromb Time International Ratio 0.89, Activated Partial Thromboplast Time 31.1, Anion Gap 6L, Glomerular Filtration Rate > 60.0, Calcium Level 8.7L 12/07/20 08:56: Total Bilirubin 0.8#, Direct Bilirubin 0.3H, Aspartate Amino Transf (AST/SGOT) 36, Alanine Aminotransferase (ALT/SGPT) 40, Alkaline Phosphatase 102, Total Protein 7.0, Albumin 3.3, Albumin/Globulin Ratio 0.9L 12/07/20 10:58: Urine Color OVIDIO, Urine Appearance CLOUDYH, Urine pH 5.0, Urine Specific Horton 1.050, Urine Protein 1+H, Urine Glucose (UA) 1+H, Urine Ketones NEGATIVE, Urine Blood 2+H, Urine Nitrite NEGATIVE, Urine Bilirubin NEGATIVE, Urine Urobilinogen 2.0H, Urine Leukocyte Esterase NEGATIVE, Urine WBC (Auto) 2, Urine RBC (Auto) 8H, Urine Hyaline Casts (Auto) 0, Urine Bacteria (Auto) NEGATIVE, Urine Squamous Epithelial Cells 0, Urine Sperm (Auto) , Methicillin- Resist S.aureus DNA PCR NOT DETECTED 12/07/20 13:13: Bedside Glucose (Misc Panel) 132H CBC/BMP Laboratory Tests 12/06/20 19:54 12/07/20 01:25 Microbiology Microbiology 12/07/20 Blood Culture, Received Pending 12/07/20 Blood Culture, Received Pending Allergies Coded Allergies: Kiwi (Verified Allergy, Intermediate, hives, 12/02/20) Sulfa (Sulfonamide Antibiotics) (Verified Allergy, Intermediate, hives, 06/14/19) propoxyphene (Verified Allergy, Intermediate, rash, 06/14/19) aspirin (Verified Adverse Reaction, Intermediate, heart racing, 06/14/19) Home Medications Scheduled Bupropion Hcl (Bupropion Xl) 150 Mg Tab.er.24h, 150 MG PO DAILY, (Reported) Cholecalciferol (Vitamin D3) (Vitamin D3) 50 Mcg Capsule, 50 MCG PO DAILY, (Reported) Citalopram Hydrobromide (Celexa) 40 Mg Tablet, 40 MG PO DAILY, (Reported) Famotidine (Pepcid) 20 Mg Tablet, 20 MG PO DAILY, (Reported) L.acidoph/L.bulg/B.bif/S.therm (Bacid Caplet) 1 Each Tablet, 1 TAB PO DAILY, (Reported) Melatonin (Melatonin) 3 Mg Tablet, 6 MG PO QHS, (Reported) [place]-3/Dha/Epa/Fish Oil (Fish Oil 1,000 mg Softgel) 1 Each Capsule, 1 CAP PO DAILY, (Reported) Potassium Gluconate (Potassium) 99 Mg Tablet, 595 MG PO DAILY, (Reported) Pravastatin Sodium (Pravastatin Sodium) 40 Mg Tablet, 40 MG PO DAILY, (Reported) Scheduled PRN Cyclobenzaprine HCl (Cyclobenzaprine HCl) 10 Mg Tablet, 10 MG PO TID PRN for MUSCLE SPASMS, (Reported) Hydrocodone/Acetaminophen (Hydrocodone-Acetamin 5-325 mg) 1 Each Tablet, 0.5 TAB PO Q6H PRN for PAIN LEVEL 6-10, (Reported) Pantoprazole Sodium (Protonix) 40 Mg Granpkt.dr, 40 MG PO BID PRN for ACID REFLUX, (Reported) Attending Note Attending Note Patient was seen through the course of the day independent of Ms. Baum. The relevant studies including a CT scan of the abdomen and pelvis that was done the night before was reviewed. I also ordered a HIDA scan and the results of this was reviewed. I discussed the patient with Dr. Lilly as well as with Dr. Riley. Symptoms are highly suspicious of biliary leak. Patient is noted to be very uncomfortable. This was confirmed with a HIDA scan and after discussion with Dr. Lilly, she will be brought to the operating room for ERCP and stent placement to address the bile leak. I was also present partly during the ERCP and bile leak was found and addressed with placement of a biliary stent. The CT was not demonstrating a good amount of fluid for percutaneous drainage. She does have a markedly elevated leukocytosis of 27,000. Suggest continue the antibiotics, follow the course and look for possible biloma or fluid collection that may need percutaneous drainage if the leukocytosis does not resolve within 2 or 3 days. Keyanna Baum Dec 07, 2020 13:52 SEGUNDO MCDERMOTT MD Dec 08, 2020 07:57
--- NOTE | 2020-12-07 13:53 | IPNPDOC ---
Text Note Date of Service The patient was seen on 12/07/20. NOTE Subjective: Patient is a 70-year-old female who underwent elective robotic as sisted laparoscopic cholecystectomy on Sunday. On Sunday, she developed left mid abdominal pain and cramping in nature. This was made worse by movement. Patient states that today she is having worsening of her pain on the right side of her abdomen. There has been concern for biliary leak. HIDA scan was performed and did show biliary leak. Patient will need ERCP. At this time. Has been consulted. Patient was not feeling well when I saw her due to the abdominal pain. Patient not really been able to eat or drink much and over the past 24 to 48 hours Review of systems: General: Patient denies fevers HEENT: Patient denies headaches Cardiovascular: Patient denies chest pain Respiratory: Patient denies shortness of breath, cough GI: Patient reports abdominal pain and nausea but denies vomiting : Patient denies increased frequency or pain with urination Extremities: Patient denies swelling or pain in extremities Neurological: Patient denies numbness or tingling in legs Physical exam: Vitals: See below General: Alert and oriented female patient who was laying on the bed when I walked in the room. Patient did not appear to be in any acute distress. HEENT: Normocephalic, atraumatic, moist mucous membranes. Neck: No lymphadenopathy or thyromegaly Cardiac: Regular rate and rhythm, no murmurs, normal S1, normal S2 Pulm: Clear to auscultation bilaterally. No wheezes, rhonchi, rales Abd: Nondistended, moderate to severe tenderness to palpation especially over the right upper quadrant. No rebound tenderness. Patient had voluntary guarding. Incision sites were clean with ecchymosis surrounding them with Steri-Strips in place. Ext: No edema bilateral lower extremities Labs: See below Imaging: HIDA/biliary tree nuclear medicine scan was performed on 12/07/2020 and was reported to show findings are consistent with biliary leak. Assessment/plan: 70-year-old female who presented to the hospital with abdominal pain status post cholecystectomy who was found to have biliary leak. 1. Biliary leak. Patient will be brought to the operating room for an ERCP by Dr. Reynolds. general surgery has consulted gastroenterology at this time. This is most likely the sources of the abdominal pain 2. SIRS. Possibly due to intra-abdominal infection but most likely reactive due to biliary leak. Empiric antibiotics have been started and we will continue to monitor. 3. Anxiety/depression. Medication will be on hold as the patient be n.p.o. DVT Prophylaxis: Teds and sequentials Disposition: Pending ERCP and clinical improvement VS,Fishbone, I+O VS, Fishbone, I+O Laboratory Tests 12/06/20 19:54 12/07/20 01:25 Vital Signs Date Time Temp Pulse Resp B/P (MAP) Pulse Ox O2 Delivery O2 Flow Rate FiO2 12/07/20 13:25 18 12/07/20 12:58 81 145/78 (100) 97 Nasal Cannula 2.0 12/07/20 10:51 97.8 I&O- Last 24 Hours up to 6 AM 12/07/20 05:59 Intake Total 50 ml Output Total 200 ml Balance -150 ml AZALIA DOWNING DO Dec 07, 2020 13:53
[2020-12-07] MEDS ORDERED: ISOVUE-300 61% 50ML VIAL As Ordered ONE (17:05)
[2020-12-07] MEDS ORDERED: LIDOCAINE 2% 100MG/5ML SDV (FOR ANES.) As Ordered ONE (17:43)
[2020-12-07] MEDS ORDERED: propofoL 200 MG/20 ML VIAL As Ordered ONE (17:43)
[2020-12-07] MEDS ORDERED: ROCURONIUM BROMIDE 50 MG/5 ML VIAL As Ordered ONE (17:43)
[2020-12-07] MEDS ORDERED: MIDAZOLAM INJ 2MG/2ML VIAL (J2250 PER 1MG) As Ordered ONE (17:44)
[2020-12-07] MEDS ORDERED: fentaNYL 100 MCG/2 ML INJECTION (J3010) As Ordered ONE (17:44)
[2020-12-07] MEDS ORDERED: SUGAMMADEX SODIUM 500 MG/5 ML VIAL (BRIDION) As Ordered ONE (18:49)
[2020-12-07] MEDS ORDERED: ACETAMINOPHEN 1000MG 100ML IV BTL (OFIRMEV) (J0131 PER 10MG) As Ordered ONE (18:49)
[2020-12-07] MEDS ORDERED: dexameTHASONE 4 MG/ML 1ML VIAL (J1100 PER 1MG) As Ordered ONE (18:49)
[2020-12-07] MEDS ORDERED: KETOROLAC 60MG 2ML VIAL As Ordered ONE (18:49)
[2020-12-07] MEDS ORDERED: ONDANSETRON 4MG/2ML VIAL As Ordered ONE (18:49)
[2020-12-07] MEDS ORDERED: KETOROLAC 30 MG/ML 1ML VIAL IV PRN (19:10)
--- NOTE | 2020-12-07 19:15 | ROOR ---
Patient Name: Claire Braxton Procedure Date: 12/07/2020 5:55 PM Date of : 1950 Age: 70 Room: Main OR Gender: Female Note Status: Finalized Procedure: ERCP Indications: Bile leak Providers: Porfirio Lilly MD Referring MD: 2. Inpatient 2. Inpatient, OMAR Kendrick Requesting Provider: Medicines: Monitored Anesthesia Care Complications: No immediate complications. Procedure: Pre-Anesthesia Assessment: - Prior to the procedure, a History and Physical was performed, and patient medications and allergies were reviewed. The patient is competent. The risks and benefits of the procedure and the sedation options and risks were discussed with the patient. All questions were answered and informed consent was obtained. Patient identification and proposed procedure were verified by the physician, the nurse and the anesthesiologist in the procedure room. Mental Status Examination: alert and oriented. Airway Examination: normal oropharyngeal airway and neck mobility. Respiratory Examination: clear to auscultation. CV Examination: normal. Prophylactic Antibiotics: The patient does not require prophylactic antibiotics. Prior Anticoagulants: The patient has taken no previous anticoagulant or antiplatelet agents. ASA Grade Assessment: III - A patient with severe systemic disease. After reviewing the risks and benefits, the patient was deemed in satisfactory condition to undergo the procedure. The anesthesia plan was to use monitored anesthesia care (MAC). Immediately prior to administration of medications, the patient was re-assessed for adequacy to receive sedatives. The heart rate, respiratory rate, oxygen saturations, blood pressure, adequacy of pulmonary ventilation, and response to care were monitored throughout the procedure. The physical status of the patient was re-assessed after the procedure. The Duodenoscope was introduced through the mouth, and advanced to the duodenum and used to inject contrast into the bile duct. The ERCP was accomplished without difficulty. The patient tolerated the procedure well. Findings: The career based intervention coordinator film was normal. The esophagus was successfully intubated under direct vision. The scope was advanced to a normal major papilla in the descending duodenum without detailed examination of the pharynx, larynx and associated structures, and upper GI tract. The upper GI tract was grossly normal. A 0.035 inch x 260 cm straight Hydra Jagwire was passed into the biliary tree. The short-nosed traction sphincterotome was passed over the guidewire and the bile duct was then deeply cannulated. Contrast was injected. I personally interpreted the bile duct images. There was appropriate flow of contrast through the ducts. Image quality was adequate. Contrast extended to the entire biliary tree. Extravasation of contrast originating from the cystic duct was observed. Neither stones nor ductal dilatation were present in the main bile duct. Biliary sphincterotomy was made with a monofilament traction (standard) sphincterotome using ERBE electrocautery. There was no post-sphincterotomy bleeding. One 7 Fr by 7 cm plastic stent with a single external flap and a single internal flap was placed into the common bile duct. Bile flowed through the stent. The stent was in good position. Pancreatic duct was neither cannulated nor opacified. Impression: - A bile leak was found. - A biliary sphincterotomy was performed. - One plastic stent was placed into the common bile duct. Recommendation: - Return patient to hospital [facility] for ongoing care. - Patient has a contact number available for emergencies. The signs and symptoms of potential delayed complications were discussed with the patient. Return to normal activities tomorrow. Written discharge instructions were provided to the patient. - NPO today, then advance as tolerated to low fat diet. - Check Blood cultures and septic work up. - Use broad spectrum antibiotics for 7 days. - Repeat ERCP in 8 weeks to remove stent. - Return to GI clinic in [facility] (address [address], [address], [place], [address]) in 4 -- 6 weeks. Please call GI clinic @ [phone] for apppointment date and time. - Return to primary care physician. Procedure Code(s): --- Professional --- 68632, Endoscopic retrograde cholangiopancreatography (ERCP); with placement of endoscopic stent into biliary or pancreatic duct, including pre- and post-dilation and guide wire passage, when performed, including sphincterotomy, when performed, each stent [id number], 26, Endoscopic catheterization of the biliary ductal system, radiological supervision and interpretation Diagnosis Code(s): --- Professional --- K83.9, Disease of biliary tract, unspecified K83.8, Other specified diseases of biliary tract CPT copyright 2019 [employer]. All rights reserved. The codes documented in this report are preliminary and upon outpatient coder review may be revised to meet current compliance requirements. Porfirio Lilly MD Porfirio Lilly MD 12/07/2020 7:15:11 PM Electronically signed by Porfirio Lilly MD Number of Addenda: 0 Note Initiated On: 12/07/2020 5:55 PM Estimated Blood Loss: Estimated blood loss was minimal.
--- NOTE | 2020-12-07 19:18 | REP ---
INDICATION: ABDOMINAL PAIN. COMPARISON: None. TECHNIQUE: Thirty-four views. 21 seconds of fluoroscopy time is reported. FINDINGS: A sequence of 34 last image hold fluoroscopically obtained spot radiographs of the right upper quadrant taken during ERCP document endoscopic cannulation, contrast injection, and stent placement in the common bile duct. IMPRESSION: Procedural imaging. <Electronically signed by Floyd Viveros > 12/07/20 [id number]
[2020-12-07] MEDS ORDERED: oxyCODONE 5MG TAB PO PRN (19:30)
[2020-12-07] MEDS ORDERED: ONDANSETRON 4MG/2ML VIAL IV PRN (19:30)
[2020-12-07] MEDS ORDERED: METOCLOPRAMIDE INJ 10MG/2ML VIAL (J2765 PER 1) IV PRN (19:30)
[2020-12-07] MEDS ORDERED: fentaNYL 100 MCG/2 ML INJECTION (J3010) IV PRN (19:30)
[2020-12-07 20:12] VITALS: O2SAT 92
[2020-12-07 20:15] VITALS: BP 168/81
[2020-12-07 20:50] VITALS: BP 177/87
[2020-12-07 21:20] VITALS: BP 168/87
[2020-12-07 22:20] VITALS: BP 145/65
[2020-12-07 23:20] VITALS: BP 156/77
[2020-12-08] VITALS (8 sets, daily range): BP systolic 128–176; BP diastolic 66–90; O2SAT 91
[2020-12-08] MEDS: PIPERACILLIN/TAZOBACTAM SOD 4.5 GM in D5W MINI-BAG PLUS 50 ML IV SCH ×4 (01:36→21:51)
[2020-12-08] MEDS: ACETAMINOPHEN TAB 650MG DOSE (2X325MG) PO PRN ×2 (01:37→08:53)
[2020-12-08] MEDS ORDERED: LR 1,000 ML IV SCH (02:10)
[2020-12-08 04:50] LABS: HEMATOCRIT 45.8 % (36.0-47.0); HEMOGLOBIN 15.4 g/dl (12.0-15.5); MEAN CORPUSCULAR HEMOGLOBIN 30.2 pg (27.0-33.0); MEAN CORPUSCULAR HGB CONC 33.6 g/dl (32.0-36.5); MEAN CORPUSCULAR VOLUME 89.8 fl (80.0-96.0); PLATELET COUNT, AUTOMATED 274 10^3/uL (150-450); WHITE BLOOD COUNT 25.7 10^3/uL (4.0-10.0)
[2020-12-08] MEDS: PANTOPRAZOLE 40MG VIAL (C9113 PER 1) IV SCH (04:54)
[2020-12-08 05:00] LABS: BLOOD UREA NITROGEN 10 MG/DL (7-18); CALCIUM LEVEL 8.7 MG/DL (8.8-10.2); CARBON DIOXIDE LEVEL 26 MEQ/L (21-32); CHLORIDE LEVEL 103 MEQ/L (98-107); CREATININE FOR GFR 0.55 MG/DL (0.55-1.30); GLOMERULAR FILTRATION RATE > 60.0 (>45); GLUCOSE, FASTING 143 MG/DL (70-100); POTASSIUM SERUM 3.5 MEQ/L (3.5-5.1); SODIUM LEVEL 138 MEQ/L (136-145); VANCOMYCIN LEVEL TROUGH 11.8 UG/ML (10.0-20.0)
[2020-12-08] MEDS: CitaloPRAM (CeleXA) 20 MG TAB PO SCH (08:53)
[2020-12-08] MEDS: buPROPion **XL** TABLET 150MG (WELLBUTRIN XL) PO SCH (08:53)
[2020-12-08] MEDS ORDERED: VANCOMYCIN HCL 1,000 MG, VIAL MATE ADAPTER 1 EACH in NS 250 ML IV SCH (10:00)
[2020-12-08] MEDS: HYDROmorphone 2 MG TAB PO PRN ×3 (10:11→23:15)
[2020-12-08] MEDS ORDERED: MAALOX 30 ML SUSP *UDC PO ONE (11:30)
[2020-12-08] MEDS: MIRALAX *UNIT DOSE* 17GM PACKET PO SCH (12:41)
[2020-12-08] MEDS: MORPHINE 2 MG/ML 1ML VIAL (J2270) IV PRN ×3 (12:43→21:52)
--- NOTE | 2020-12-08 14:06 | IPNPDOC ---
Text Note Date of Service The patient was seen on 12/08/20. NOTE Subjective: No any events overnight. In the morning depression started feeling right upper quadrant pain, she reported 8 out of 10 with radiation to right shoulder. No fever or chills Objective: GENERAL APPEARANCE: NAD HEENT: no scleral icterus, no JVD, EOMI CARDIOVASCULAR: S1S2 LUNGS: CTA ABDOMEN: Right upper quadrant tenderness, soft, bowel sounds present, no rebound MUSCULOSKELETAL: no cyanosis, no swelling INTEGUMENT: no generalized pallor NEUROLOGICAL: cranial nerve function from 2-12 intact intact, follows commands, speech not dysarthric Assessment and plan Patient is 70 years old female with past medical history of depression and anxiety who had robotic cholecystectomy and developed biliary leak after surgery. Biliary leak/right upper abdominal pain/SIRS ERCP was done yesterday by Dr. Reynolds, patient was found to have biliary leak, A biliary sphincterotomy was performed. One plastic stent was placed into the common bile duct. Patient continues to have leukocytosis however procalcitonin within normal limit Continue treatment with Zosyn IV empirically Blood culture 2 sets negative I discussed the case with Dr. Reynolds, he recommended to add MiraLAX daily, n.p.o., pain management and continue to antibiotic therapy Anxiety and depression Continue home meds Hypertension Lisinopril p.o. VS,Fishbone, I+O VS, Fishbone, I+O Laboratory Tests 12/08/20 04:05 12/08/20 04:09 Vital Signs Date Time Temp Pulse Resp B/P (MAP) Pulse Ox O2 Delivery O2 Flow Rate FiO2 12/08/20 12:43 17 Room Air 12/08/20 09:20 98.0 77 173/88 (116) 90 2.0 I&O- Last 24 Hours up to 6 AM 12/08/20 06:00 Intake Total 2300 ml Output Total 820 ml Balance 1480 ml ADITYA FIERRO DO Dec 08, 2020 14:06
[2020-12-08] MEDS: ONDANSETRON 4MG/2ML VIAL IV PRN (14:50)
[2020-12-08] MEDS: NS 1,000 ML IV SCH (14:50)
[2020-12-08] MEDS: SIMETHICONE 80MG CHEW TAB PO SCH ×3 (14:54→23:14)
--- NOTE | 2020-12-08 16:25 | REP ---
INDICATION: locate common bile duct stent. COMPARISON: Comparison chest x-ray October 14, 2020.. TECHNIQUE: Three views including upright views of the chest and abdomen. FINDINGS: Upright chest radiograph demonstrates screw plate fixation device in the lower cervical spine and EKG electrodes. There increased markings in the lung bases bilaterally, left greater than right. No free subdiaphragmatic air is seen. Supine and erect views of the abdomen show ileus pattern in the bowel gas with moderate gaseous distention of the colon and several loops of small bowel. There is a biliary stent in position in the right upper quadrant of the abdomen. There is no evidence of free air. IMPRESSION: Biliary stent noted in place in the right upper quadrant of the abdomen. Ileus pattern in the bowel gas. Increased lung markings in the bases bilaterally consistent with atelectasis or infiltrate. <Electronically signed by Floyd Viveros > 12/08/20 [id number]
[2020-12-08 18:11] LABS: BASO # 0.1 10^3/uL (0.0-0.2); BASO % 0.2 % (0.0-1.0); HEMATOCRIT 45.3 % (36.0-47.0); HEMOGLOBIN 15.4 g/dl (12.0-15.5); LYMPH # 1.2 10^3/uL (1.5-5.0); LYMPH % 4.3 % (24.0-44.0); MEAN CORPUSCULAR HEMOGLOBIN 30.3 pg (27.0-33.0); MEAN CORPUSCULAR VOLUME 89.2 fl (80.0-96.0); MONO # 2.1 10^3/uL (0.0-0.8); MONO % 7.7 % (2.0-8.0); NEUTROPHILS # 23.8 10^3/uL (1.5-8.5); NEUTROPHILS % 86.8 % (36.0-66.0); PLATELET COUNT, AUTOMATED 307 10^3/uL (150-450); RED BLOOD COUNT 5.08 10^6/uL (4.00-5.40)
[2020-12-08 18:14] LABS: WHITE BLOOD COUNT 27.4 10^3/uL (4.0-10.0)
[2020-12-08 18:43] LABS: ALBUMIN 2.8 GM/DL (3.2-5.2); BILIRUBIN,DIRECT 0.6 MG/DL (0.0-0.2); TOTAL PROTEIN 6.4 GM/DL (6.4-8.2)
[2020-12-08] MEDS ORDERED: FLEET ENEMA PR SCH (19:00)
[2020-12-08] MEDS: **hydrALAZINE** 10 MG TAB PO SCH (21:51)
[2020-12-08] MEDS: HEPARIN SOD (PORCINE) 5000UNITS/ML 1ML VIAL/SYRINGE SQ SCH (21:52)
[2020-12-09] MEDS: ACETAMINOPHEN TAB 650MG DOSE (2X325MG) PO PRN (00:03)
[2020-12-09] MEDS: NS 1,000 ML IV SCH ×3 (03:10→17:48)
[2020-12-09] MEDS: PIPERACILLIN/TAZOBACTAM SOD 4.5 GM in D5W MINI-BAG PLUS 50 ML IV SCH ×4 (03:10→21:10)
[2020-12-09] MEDS: SIMETHICONE 80MG CHEW TAB PO SCH ×3 (05:51→17:47)
[2020-12-09] MEDS: HYDROmorphone 2 MG TAB PO PRN ×3 (05:51→21:12)
[2020-12-09 05:52] VITALS: BP 149/78
[2020-12-09] MEDS: **hydrALAZINE** 10 MG TAB PO SCH ×3 (05:52→21:11)
[2020-12-09 06:22] LABS: BASO # 0.1 10^3/uL (0.0-0.2); BASO % 0.3 % (0.0-1.0); EOS % 0.1 % (0.0-3.0); HEMATOCRIT 42.6 % (36.0-47.0); HEMOGLOBIN 14.4 g/dl (12.0-15.5); LYMPH # 1.2 10^3/uL (1.5-5.0); LYMPH % 6.1 % (24.0-44.0); MEAN CORPUSCULAR HEMOGLOBIN 30.1 pg (27.0-33.0); MEAN CORPUSCULAR HGB CONC 33.8 g/dl (32.0-36.5); MEAN CORPUSCULAR VOLUME 88.9 fl (80.0-96.0); MONO # 1.8 10^3/uL (0.0-0.8); MONO % 9.2 % (2.0-8.0); NEUTROPHILS # 16.7 10^3/uL (1.5-8.5); NEUTROPHILS % 83.7 % (36.0-66.0); PLATELET COUNT, AUTOMATED 291 10^3/uL (150-450); RED BLOOD COUNT 4.79 10^6/uL (4.00-5.40)
[2020-12-09 06:57] LABS: ALBUMIN 2.6 GM/DL (3.2-5.2); ALT/SGPT 28 U/L (12-78); BLOOD UREA NITROGEN 13 MG/DL (7-18); CALCIUM LEVEL 8.4 MG/DL (8.8-10.2); CARBON DIOXIDE LEVEL 28 MEQ/L (21-32); CHLORIDE LEVEL 103 MEQ/L (98-107); CREATININE FOR GFR 0.49 MG/DL (0.55-1.30); GLOMERULAR FILTRATION RATE > 60.0 (>45); GLUCOSE, FASTING 99 MG/DL (70-100); MAGNESIUM LEVEL 2.3 MG/DL (1.8-2.4); POTASSIUM SERUM 3.2 MEQ/L (3.5-5.1); SODIUM LEVEL 137 MEQ/L (136-145); TOTAL PROTEIN 5.9 GM/DL (6.4-8.2)
[2020-12-09] MEDS ORDERED: KCL 10MEQ/100ML SWI (KRUN) 10 MEQ in IV 1 EA IV ONE (08:00)
[2020-12-09] MEDS: MIRALAX *UNIT DOSE* 17GM PACKET PO SCH (09:04)
[2020-12-09] MEDS: CitaloPRAM (CeleXA) 20 MG TAB PO SCH (09:04)
[2020-12-09] MEDS: buPROPion **XL** TABLET 150MG (WELLBUTRIN XL) PO SCH (09:04)
[2020-12-09] MEDS: MORPHINE 2 MG/ML 1ML VIAL (J2270) IV PRN ×2 (09:04→17:47)
[2020-12-09] MEDS: HEPARIN SOD (PORCINE) 5000UNITS/ML 1ML VIAL/SYRINGE SQ SCH ×2 (09:04→21:11)
[2020-12-09] MEDS: PANTOPRAZOLE 40MG VIAL (C9113 PER 1) IV SCH (09:08)
[2020-12-09 10:00] VITALS: O2SAT 95
[2020-12-09] MEDS ORDERED: MORPHINE 2 MG/ML 1ML VIAL (J2270) IV ONE (10:00)
[2020-12-09] MEDS: CYCLOBENZAPRINE 10MG TABLET PO PRN (10:18)
[2020-12-09] MEDS: ONDANSETRON 4MG/2ML VIAL IV PRN (10:22)
--- NOTE | 2020-12-09 11:28 | REP ---
INDICATION: Abdominal pain. COMPARISON: 12/08/2020 at 4:21 p.m. FINDINGS: KUB shows the intestinal gas pattern to be nonspecific. Suspected ileus pattern seen on the prior exam has increased slightly. The organ silhouettes insofar as delineated are unremarkable. There is no evidence of free intraperitoneal air. The biliary stent is unchanged. IMPRESSION: As above <Electronically signed by Bayron Anderson > 12/09/20 [id number]
--- NOTE | 2020-12-09 11:56 | IPNPDOC ---
Text Note Date of Service The patient was seen on 12/09/20. NOTE Subjective: No any events overnight. In the morning patient complains of mod erate abdominal pain 5 out of 10. Subsequently she reported that pain increase intensity. Objective: GENERAL APPEARANCE: NAD HEENT: no scleral icterus, no JVD, EOMI CARDIOVASCULAR: S1S2 LUNGS: CTA ABDOMEN: Diffuse abdominal tenderness, no rebound tenderness, no rigidity MUSCULOSKELETAL: no cyanosis, no swelling INTEGUMENT: no generalized pallor NEUROLOGICAL: cranial nerve function from 2-12 intact intact, follows commands, speech not dysarthric Assessment and plan Patient is 70 years old female with past medical history of depression and anxiety who had robotic cholecystectomy and developed biliary leak after surgery. Biliary leak/right upper abdominal pain/SIRS ERCP was done on 12/07/20 Dr. Reynolds, patient was found to have biliary leak, A biliary sphincterotomy was performed. One plastic stent was placed into the common bile duct. leukocytosis improved today Continue treatment with Zosyn IV empirically Blood culture 2 sets negative I discussed the case with Dr. Reynolds, he recommended to place NG tube. I will ask surgical team to reevaluate patient. There is concern for bile induced peritonitis Abdominal x-ray was done today shows the intestinal gas pattern to be nons pecific. Suspected ileus pattern seen on the prior exam has increased slightly. The organ silhouettes insofar as delineated are unremarkable. There is no evidence of free intraperitoneal air. The biliary stent is unchanged. Anxiety and depression Continue home meds Hypertension Lisinopril p.o. VS,Fishbone, I+O VS, Fishbone, I+O Laboratory Tests 12/08/20 18:00 12/09/20 05:57 Vital Signs Date Time Temp Pulse Resp B/P (MAP) Pulse Ox O2 Delivery O2 Flow Rate FiO2 12/09/20 10:22 18 12/09/20 09:05 152/79 12/09/20 06:21 Nasal Cannula 2.0 12/09/20 05:52 97.8 83 93 12/08/20 23:15 96 I&O- Last 24 Hours up to 6 AM 12/09/20 06:00 Intake Total 2208 ml Output Total 425 ml Balance 1783 ml ADITYA FIERRO DO Dec 09, 2020 11:56
--- NOTE | 2020-12-09 13:27 | IPNPDOC ---
Text Note Date of Service The patient was seen on 12/09/20. NOTE Patient seen and examined today. She is complaining of crampy abdominal pain has her hands on her left upper quadrant area. She reports she had a small bowel movement with the enema but is not passing any flatus at all. She looks uncomfortable. She is denying any nausea today but yesterday she was nauseated a bit. She did not tolerate clears. Vital signs She has been afebrile. Current temperature is 98. T-max is 98. BP 153/70, pulse rate 83 Examination. Patient is laying down flat in bed, looks mildly uncomfortable. She is awake alert and oriented. Abdomen is moderately distended, tensely distended, tympanic to percussion, quiet. Mild tenderness/discomfort on palpation but no focal tenderness no rebound or guarding. Laboratory WBC 20,000 which is down from 27.4 yesterday. Hemoglobin of 14.1 hematocrit 42.6 platelet count of 291 Electrolytes show potassium at 3.2. LFTs are normal. Albumin is 2.6. Ancillaries. She has an x-ray of the abdomen done yesterday in follow-up today both showing an ileus pattern Impression and plan Patient is now 6 days postop lap cholecystectomy by Dr. Blanchard. She returned to the hospital with increased abdominal pain, evidence for bile leak and postop day 2 ERCP and stenting. She has postop ileus. I believe it is probably secondary to the bile leak likewise the high amounts of narcotics that was used. I encouraged her to ambulate to the hallways that she has been bedridden. I will have the nurses place NG tube and put it to low intermittent wall suction. The hypokalemia is being corrected by the hospitalist service. She still has significantly high white count so continued antibiotics. There is an issue whether there is enough collection from the bile leak that will need percutaneous drainage but at this point with her ileus, an ultrasound would be able to demonstrate that and on review of CT there is only minimal amount of fluid in the gallbladder fossa and right lower quadrant area. If there is no significant change this might be an issue we need to visit with a CT abdomen and pelvis in the next day or so. VS,Roberthe, I+O VS, Fishbone, I+O Laboratory Tests 12/08/20 18:00 12/09/20 05:57 Vital Signs Date Time Temp Pulse Resp B/P (MAP) Pulse Ox O2 Delivery O2 Flow Rate FiO2 12/09/20 10:22 18 12/09/20 09:05 152/79 12/09/20 06:21 Nasal Cannula 2.0 12/09/20 05:52 97.8 83 93 12/08/20 23:15 96 I&O- Last 24 Hours up to 6 AM 12/09/20 06:00 Intake Total 2208 ml Output Total 425 ml Balance 1783 ml SEGUNDO GOODSON MD Dec 09, 2020 13:27
--- NOTE | 2020-12-09 13:55 | REP ---
INDICATION: confirm NG tube placement. COMPARISON: Comparison radiographs are from December 08, 2020. TECHNIQUE: Portable upright AP view of the chest and abdomen.. FINDINGS: A nasogastric tube is seen in place with its tip projecting laterally in the left upper quadrant consistent with position in the gastric fundus. There is a biliary stent in place in the right upper quadrant. Gaseous distention of small and large bowel loops persist in the abdomen consistent with ileus. No evidence of free air.. IMPRESSION: NG tube in good position left upper quadrant.. <Electronically signed by Floyd Viveros > 12/09/20 [id number]
[2020-12-09 14:51] VITALS: BP 172/90
[2020-12-09 16:04] VITALS: BP 192/90
[2020-12-09] MEDS ORDERED: hydrALAZINE 20MG/ML 1ML VIAL (J0360 PER 20MG) IV PRN (16:10)
[2020-12-09 17:09] VITALS: BP 160/72
[2020-12-09 20:00] VITALS: BP 162/74
[2020-12-09] MEDS ORDERED: CHLORASEPTIC SPRAY MT PRN (20:00)
[2020-12-10] VITALS: BP 132/65
[2020-12-10] MEDS: PIPERACILLIN/TAZOBACTAM SOD 4.5 GM in D5W MINI-BAG PLUS 50 ML IV SCH ×4 (00:46→21:04)
[2020-12-10] MEDS: SIMETHICONE 80MG CHEW TAB PO SCH ×5 (00:46→23:48)
[2020-12-10 04:00] VITALS: BP 165/73
[2020-12-10] MEDS: **hydrALAZINE** 10 MG TAB PO SCH ×3 (04:59→21:04)
[2020-12-10 05:44] LABS: BASO # 0.1 10^3/uL (0.0-0.2); BASO % 0.4 % (0.0-1.0); EOS # 0.1 10^3/uL (0.0-0.5); EOS % 0.4 % (0.0-3.0); HEMATOCRIT 41.9 % (36.0-47.0); HEMOGLOBIN 14.1 g/dl (12.0-15.5); LYMPH # 1.3 10^3/uL (1.5-5.0); LYMPH % 7.9 % (24.0-44.0); MEAN CORPUSCULAR HGB CONC 33.7 g/dl (32.0-36.5); MEAN CORPUSCULAR VOLUME 89.1 fl (80.0-96.0); MONO # 1.5 10^3/uL (0.0-0.8); MONO % 9.2 % (2.0-8.0); NEUTROPHILS % 81.4 % (36.0-66.0); PLATELET COUNT, AUTOMATED 338 10^3/uL (150-450)
[2020-12-10 05:48] LABS: WHITE BLOOD COUNT 15.9 10^3/uL (4.0-10.0)
[2020-12-10 06:26] LABS: ALBUMIN 2.4 GM/DL (3.2-5.2); ALT/SGPT 23 U/L (12-78); BILIRUBIN,TOTAL 1.1 MG/DL (0.2-1.0); BLOOD UREA NITROGEN 17 MG/DL (7-18); CALCIUM LEVEL 8.5 MG/DL (8.8-10.2); CARBON DIOXIDE LEVEL 27 MEQ/L (21-32); CHLORIDE LEVEL 104 MEQ/L (98-107); CREATININE FOR GFR 0.46 MG/DL (0.55-1.30); GLOMERULAR FILTRATION RATE > 60.0 (>45); GLUCOSE, FASTING 73 MG/DL (70-100); MAGNESIUM LEVEL 2.3 MG/DL (1.8-2.4); POTASSIUM SERUM 2.9 MEQ/L (3.5-5.1); SODIUM LEVEL 138 MEQ/L (136-145); TOTAL PROTEIN 5.7 GM/DL (6.4-8.2)
[2020-12-10] MEDS: POTASSIUM CHLORIDE 10 MEQ SR TABLET PO ONE ×2 (07:45→09:05)
[2020-12-10 08:00] VITALS: BP 157/69
[2020-12-10] MEDS ORDERED: KCL 10MEQ/100ML SWI (KRUN) 10 MEQ in IV 1 EA IV ONE ×2 (08:00→14:00)
[2020-12-10] MEDS: PANTOPRAZOLE 40MG VIAL (C9113 PER 1) IV SCH (09:05)
[2020-12-10] MEDS: HEPARIN SOD (PORCINE) 5000UNITS/ML 1ML VIAL/SYRINGE SQ SCH ×2 (09:05→21:04)
[2020-12-10] MEDS: CitaloPRAM (CeleXA) 20 MG TAB PO SCH (09:05)
[2020-12-10] MEDS: buPROPion **XL** TABLET 150MG (WELLBUTRIN XL) PO SCH (09:08)
[2020-12-10] MEDS: MIRALAX *UNIT DOSE* 17GM PACKET PO SCH (09:08)
[2020-12-10] MEDS: D5W/0.9% SODIUM CHLORIDE 1,000 ML IV SCH ×2 (09:09→18:47)
--- NOTE | 2020-12-10 10:36 | IPNPDOC ---
Text Note Date of Service The patient was seen on 12/10/20. NOTE Patient is followed up today. She reports she is feeling much better. She is passing a lot of gas and she is comfortable enough that she is able to get out of bed and ambulate only in the room but that is a big improvement. She has been afebrile, nontachycardic On examination she looks a lot more comfortable laying flat on bed. Nasogastric tube is in place and noted to be working. She drained 300 mL overnight thick brownish fluid. Abdomen is a lot softer probably half of how much distention she had compared to prior to placement of the nasogastric tube. She has some beginning bowel sounds. She has no tenderness. Laboratories were reviewed. Her leukocytosis is improving. Currently WBC of 15.9. She is hypokalemic probably from the nasogastric tube drainage. Potassium is 2.9. Impression and plan Postoperative biliary leak following laparoscopic cholecystectomy status post ERCP and stent placement Post op ileus resolving She seems to be improving. I will have the nasogastric tube clamped today and later on try to see if she tolerates it and if she does allow her some clear liquids after removal of the nasogastric tube. Continue IV antibiotics at this time. VS,Fishbone, I+O VS, Fishbone, I+O Laboratory Tests 12/10/20 05:18 Vital Signs Date Time Temp Pulse Resp B/P (MAP) Pulse Ox O2 Delivery O2 Flow Rate FiO2 12/10/20 09:08 83 157/69 12/10/20 08:00 99.4 17 94 Nasal Cannula 2.0 12/08/20 23:15 96 I&O- Last 24 Hours up to 6 AM 12/10/20 05:59 Intake Total 1730 ml Output Total 700 ml Balance 1030 ml SEGUNDO GOODSON MD Dec 10, 2020 10:36
--- NOTE | 2020-12-10 11:23 | IPNPDOC ---
Text Note Date of Service The patient was seen on 12/10/20. NOTE Subjective: No new acute events overnight. Patient stated that she feels better today less abdominal distention less abdominal pain. Patient stated that she passing a lot of gas. Objective: GENERAL APPEARANCE: NAD HEENT: no scleral icterus, no JVD, EOMI CARDIOVASCULAR: S1S2 LUNGS: CTA ABDOMEN: Nontender, no rebound tenderness, no rigidity MUSCULOSKELETAL: no cyanosis, no swelling INTEGUMENT: no generalized pallor NEUROLOGICAL: cranial nerve function from 2-12 intact intact, follows commands, speech not dysarthric Assessment and plan Patient is 70 years old female with past medical history of depression and anxiety who had robotic cholecystectomy and developed biliary leak after surgery. Biliary leak/right upper abdominal pain/SIRS ERCP was done on 12/07/20 Dr. Reynolds, patient was found to have biliary leak, A biliary sphincterotomy was performed. One plastic stent was placed into the common bile duct. leukocytosis continues to improve today Continue treatment with Zosyn IV empirically Blood culture 2 sets negative Continue NG tube, surgical team clamped it today Anxiety and depression Continue home meds Hypertension Blood pressure better controlled today Added Norvasc 10 mg and hydralazine with parameters Lisinopril 40 mg p.o. Hypokalemia Replaced We will check BMP around noon time VS,Fishbone, I+O VS, Fishbone, I+O Laboratory Tests 12/10/20 05:18 Vital Signs Date Time Temp Pulse Resp B/P (MAP) Pulse Ox O2 Delivery O2 Flow Rate FiO2 12/10/20 09:08 83 157/69 12/10/20 08:00 2.0 12/10/20 08:00 99.4 17 94 Nasal Cannula 12/08/20 23:15 96 I&O- Last 24 Hours up to 6 AM 12/10/20 06:00 Intake Total 1280 ml Output Total 700 ml Balance 580 ml ADITYA FIERRO DO Dec 10, 2020 11:23
[2020-12-10 12:00] VITALS: BP 133/63
[2020-12-10 13:31] LABS: BLOOD UREA NITROGEN 18 MG/DL (7-18); CALCIUM LEVEL 8.3 MG/DL (8.8-10.2); CARBON DIOXIDE LEVEL 26 MEQ/L (21-32); CHLORIDE LEVEL 105 MEQ/L (98-107); GLOMERULAR FILTRATION RATE > 60.0 (>45); GLUCOSE, FASTING 87 MG/DL (70-100); POTASSIUM SERUM 2.8 MEQ/L (3.5-5.1); SODIUM LEVEL 137 MEQ/L (136-145)
[2020-12-10] MEDS ORDERED: POTASSIUM CHLORIDE 10% LIQ 20 MEQ/15 ML UDC PO ONE (14:00)
[2020-12-10 16:00] VITALS: BP 122/55
[2020-12-10 19:52] LABS: BLOOD UREA NITROGEN 16 MG/DL (7-18); CALCIUM LEVEL 8.6 MG/DL (8.8-10.2); CARBON DIOXIDE LEVEL 25 MEQ/L (21-32); CHLORIDE LEVEL 106 MEQ/L (98-107); CREATININE FOR GFR 0.58 MG/DL (0.55-1.30); GLOMERULAR FILTRATION RATE > 60.0 (>45); GLUCOSE, FASTING 173 MG/DL (70-100); POTASSIUM SERUM 2.8 MEQ/L (3.5-5.1); SODIUM LEVEL 139 MEQ/L (136-145)
[2020-12-10 20:00] VITALS: BP 127/65
[2020-12-10] MEDS: POTASSIUM CHLORIDE 10% LIQ 20 MEQ/15 ML UDC PO SCH ×3 (21:05→23:55)
[2020-12-11] VITALS: BP 135/64
[2020-12-11] MEDS: PIPERACILLIN/TAZOBACTAM SOD 4.5 GM in D5W MINI-BAG PLUS 50 ML IV SCH ×3 (02:00→14:00)
[2020-12-11 04:00] VITALS: BP 139/64
[2020-12-11] MEDS: **hydrALAZINE** 10 MG TAB PO SCH ×2 (05:26→14:00)
[2020-12-11] MEDS: SIMETHICONE 80MG CHEW TAB PO SCH ×2 (05:26→11:35)
[2020-12-11 05:51] LABS: BASO # 0.1 10^3/uL (0.0-0.2); BASO % 0.3 % (0.0-1.0); EOS # 0.1 10^3/uL (0.0-0.5); EOS % 0.7 % (0.0-3.0); LYMPH # 1.6 10^3/uL (1.5-5.0); LYMPH % 9.7 % (24.0-44.0); MEAN CORPUSCULAR HEMOGLOBIN 29.6 pg (27.0-33.0); MEAN CORPUSCULAR HGB CONC 33.3 g/dl (32.0-36.5); MEAN CORPUSCULAR VOLUME 88.8 fl (80.0-96.0); MONO # 1.5 10^3/uL (0.0-0.8); MONO % 9.2 % (2.0-8.0); NEUTROPHILS # 12.9 10^3/uL (1.5-8.5); NEUTROPHILS % 79.4 % (36.0-66.0); PLATELET COUNT, AUTOMATED 312 10^3/uL (150-450); RED BLOOD COUNT 4.39 10^6/uL (4.00-5.40); WHITE BLOOD COUNT 16.2 10^3/uL (4.0-10.0)
[2020-12-11 06:29] LABS: ALBUMIN 2.2 GM/DL (3.2-5.2); ALT/SGPT 18 U/L (12-78); BILIRUBIN,TOTAL 0.9 MG/DL (0.2-1.0); BLOOD UREA NITROGEN 13 MG/DL (7-18); CALCIUM LEVEL 8.1 MG/DL (8.8-10.2); CARBON DIOXIDE LEVEL 25 MEQ/L (21-32); CHLORIDE LEVEL 110 MEQ/L (98-107); CREATININE FOR GFR 0.41 MG/DL (0.55-1.30); GLOMERULAR FILTRATION RATE > 60.0 (>45); GLUCOSE, FASTING 121 MG/DL (70-100); MAGNESIUM LEVEL 2.1 MG/DL (1.8-2.4); POTASSIUM SERUM 3.7 MEQ/L (3.5-5.1); SODIUM LEVEL 140 MEQ/L (136-145); TOTAL PROTEIN 5.2 GM/DL (6.4-8.2)
[2020-12-11] MEDS: D5W/0.9% SODIUM CHLORIDE 1,000 ML IV SCH ×2 (07:57→11:36)
[2020-12-11 08:00] VITALS: BP 134/54
[2020-12-11] MEDS: CitaloPRAM (CeleXA) 20 MG TAB PO SCH (08:15)
[2020-12-11] MEDS: HEPARIN SOD (PORCINE) 5000UNITS/ML 1ML VIAL/SYRINGE SQ SCH (08:15)
[2020-12-11] MEDS: PANTOPRAZOLE 40MG VIAL (C9113 PER 1) IV SCH (08:24)
[2020-12-11] MEDS: MIRALAX *UNIT DOSE* 17GM PACKET PO SCH (08:24)
[2020-12-11] MEDS: buPROPion **XL** TABLET 150MG (WELLBUTRIN XL) PO SCH (08:24)
[2020-12-11] MEDS ORDERED: LISI40TA4 PO (11:06)
[2020-12-11] MEDS ORDERED: AUGM875T28 PO (11:09)
--- NOTE | 2020-12-11 13:36 | DS.PDOC ---
Discharge Summary General Date of Admission Dec 06, 2020 at 19:30 Date of Discharge 12/11/20 Discharge Summary PROCEDURES PERFORMED DURING STAY: [None]. ADMITTING DIAGNOSES: Biliary leak/right upper abdominal pain/SIRS Anxiety and depression Hypertension Hypokalemia DISCHARGE DIAGNOSES: Biliary leak/right upper abdominal pain/SIRS Anxiety and depression Hypertension Hypokalemia COMPLICATIONS/CHIEF COMPLAINT: Abdominal Pain, Hypokalemia, Sirs. HISTORY OF PRESENT ILLNESS: Ms. Lundberg, a 70-year-old female, underwent elective robotic assisted laparoscopic cholecystectomy on Sunday. On Sunday she developed left mid abdominal pain that was cramping in nature and made worse by movement. She took half a tablet of hydrocodone which helped a little bit. Yesterday around 5 PM she developed right sided abdominal pain that is also cramping in nature along with sweats. She denied having fevers or chills. She has had nausea with regurgitation. HOSPITAL COURSE: During the hospital stay the following issues addressed Biliary leak/right upper abdominal pain/SIRS ERCP was done on 12/07/20 Dr. Reynolds, patient was found to have biliary leak, A biliary sphincterotomy was performed. One plastic stent was placed into the common bile duct. Patient received treatment with Zosyn IV Blood culture 2 sets negative Patient tolerates diet Anxiety and depression Continue home meds Hypertension Blood pressure better controlled today Added Norvasc 10 mg and hydralazine with parameters Lisinopril 40 mg p.o. Hypokalemia Replaced DISCHARGE MEDICATIONS: Please see below. ALLERGIES: Please see below. PHYSICAL EXAMINATION ON DISCHARGE: VITAL SIGNS: Please see below. HEENT: no scleral icterus, no JVD, EOMI CARDIOVASCULAR: S1S2 LUNGS: CTA ABDOMEN: Nontender, no rebound tenderness, no rigidity MUSCULOSKELETAL: no cyanosis, no swelling INTEGUMENT: no generalized pallor NEUROLOGICAL: cranial nerve function from 2-12 intact intact, follows commands, speech not dysarthric LABORATORY DATA: Please see below. PROGNOSIS: Fair ACTIVITY: [As tolerated]. DIET: Soft mechanical for 3-4 days DISPOSITION: Home ITEMS TO FOLLOWUP ON ON OUTPATIENT: Follow-up with GI team in 4 weeks, follow-up with PCP in 3 to 5 days DISCHARGE CONDITION: [Stable]. TIME SPENT ON DISCHARGE:40 minutes. Vital Signs/I&Os Vital Signs Date Time Temp Pulse Resp B/P (MAP) Pulse Ox O2 Delivery O2 Flow Rate FiO2 7/17/21 08:24 86 134/54 12/11/20 08:00 97.8 16 95 Room Air 12/11/20 04:00 2.0 12/08/20 23:15 96 I&O- Last 24 Hours up to 6 AM 12/11/20 06:00 Intake Total 4040 ml Output Total 15 ml Balance 4025 ml Laboratory Data Labs 24H Laboratory Tests 2 12/10/20 18:39: Anion Gap 8, Glomerular Filtration Rate > 60.0, Calcium Level 8.6L 12/11/20 05:28: Anion Gap 5L, Glomerular Filtration Rate > 60.0, Calcium Level 8.1L, Immature Granulocyte % (Auto) 0.7, Neutrophils (%) (Auto) 79.4H, Lymphocytes (%) (Auto) 9.7L, Monocytes (%) (Auto) 9.2H, Eosinophils (%) (Auto) 0.7, Basophils (%) (Auto) 0.3, Neutrophils # (Auto) 12.9H, Lymphocytes # (Auto) 1.6, Monocytes # (Auto) 1.5H, Eosinophils # (Auto) 0.1, Basophils # (Auto) 0.1, Nucleated Red Blood Cells % (auto) 0.0, Magnesium Level 2.1, Total Bilirubin 0.9, Aspartate Amino Transf (AST/SGOT) 15, Alanine Aminotransferase (ALT/SGPT) 18, Alkaline Phosphatase 128H, Total Protein 5.2L, Albumin 2.2L, Albumin/Globulin Ratio 0.7L CBC/BMP Laboratory Tests 12/10/20 18:39 12/11/20 05:28 Microbiology Microbiology 12/07/20 Blood Culture - Preliminary, Resulted No Growth after 72 hours. All specime... 12/07/20 Blood Culture - Preliminary, Resulted No Growth after 72 hours. All specime... Discharge Medications Scheduled Amoxicillin/Potassium Clav (Augmentin 875-125 Tablet) 1 Each Tablet, 1 TAB PO BID Bupropion Hcl (Bupropion Xl) 150 Mg Tab.er.24h, 150 MG PO DAILY, (Reported) Cholecalciferol (Vitamin D3) (Vitamin D3) 50 Mcg Capsule, 50 MCG PO DAILY, (Reported) Citalopram Hydrobromide (Celexa) 40 Mg Tablet, 40 MG PO DAILY, (Reported) L.acidoph/L.bulg/B.bif/S.therm (Bacid Caplet) 1 Each Tablet, 1 TAB PO DAILY, (Reported) Lisinopril (Lisinopril) 40 Mg Tablet, 1 TAB PO DAILY Melatonin (Melatonin) 3 Mg Tablet, 6 MG PO QHS, (Reported) [place]-3/Dha/Epa/Fish Oil (Fish Oil 1,000 mg Softgel) 1 Each Capsule, 1 CAP PO DAILY, (Reported) Potassium Gluconate (Potassium) 99 Mg Tablet, 595 MG PO DAILY, (Reported) Pravastatin Sodium (Pravastatin Sodium) 40 Mg Tablet, 40 MG PO DAILY, (Reported) Scheduled PRN Cyclobenzaprine HCl (Cyclobenzaprine HCl) 10 Mg Tablet, 10 MG PO TID PRN for MUSCLE SPASMS, (Reported) Hydrocodone/Acetaminophen (Hydrocodone-Acetamin 5-325 mg) 1 Each Tablet, 0.5 TAB PO Q6H PRN for PAIN LEVEL 6-10, (Reported) Pantoprazole Sodium (Protonix) 40 Mg Granpkt.dr, 40 MG PO BID PRN for ACID REFLUX, (Reported) Allergies Coded Allergies: Kiwi (Verified Allergy, Intermediate, hives, 12/02/20) Sulfa (Sulfonamide Antibiotics) (Verified Allergy, Intermediate, hives, 06/14/19) propoxyphene (Verified Allergy, Intermediate, rash, 06/14/19) aspirin (Verified Adverse Reaction, Intermediate, heart racing, 06/14/19) ADITYA FIERRO DO Dec 11, 2020 13:36
[2020-12-11 14:00] VITALS: BP 131/69
--- NOTE | 2020-12-11 16:59 | IPN ---
PROGRESS NOTE DATE: 12/11/2020 SUBJECTIVE: Patient is status post endoscopic retrograde cholangiopancreatography (ERCP) and stenting for a biliary duct leak status post cholecystectomy. She had a postoperative ileus that seemed to improve/resolve relatively quickly. Yesterday, she had her nasogastric (NG) tube removed and she was started on a clear liquid diet and today she has tolerated some minimal food and states that most of her abdominal pain has resolved and she is feeling better. No nausea. No vomiting. Had a bowel movement. PHYSICAL EXAMINATION: She is still quite distended, somewhat tympanitic, but she states this is improved from yesterday. Incisions are clean, dry. No drainage. No erythema is appreciated. IMPRESSION/PLAN: The patient seems to be making some slow but progressive improvement. If she tolerates lunch, I do feel that it is reasonable that she can be discharged to home. From the standpoint of whether she should be continued on antibiotics or not, I do feel that, given her white count elevation, it would be reasonable to continue her on some oral antibiotics for five to seven days, although the majority of the etiology for this elevated white count is most likely bile peritonitis. In any case, she should follow up with Dr. Blanchard, as previously scheduled and continue with slowly progressing her diet over time.
--- NOTE | 2020-12-12 20:34 | CR.PDOC ---
General Date of Consultation: Dec 07, 2020 Referring Provider: SEGUNDO MCDERMOTT MD Attending Physician: FARHAN PETERS MD Consultation Referring physician / PCP : Dr. Mcdermott,/ Dr. Hunt Reason for consult: Bile leak. HPI: 70-year-old female patient with know cholelithiasis s/p robotic laparoscopic cholecystectomy on Sunday, was admitted to hospital on Sunday for persistent severe abdominal pain and noted to have bile leak. GI was consulted for the same. Patient reports developing abdominal pain since Sunday, cramping in nature and made worse by movement. She took half a tablet of hydrocodone which helped a little bit but it was getting worse and unable to tolerat oral diet, so came to hospital. Pertinent negative GI symptoms: Patient denies nausea, vomiting, diarrhea, early satiety or unintentional weight loss, hematemesis, melena or hematochezia.. Review of Systems: GI: as stated above CVS: No chest pain, No palpitations, No leg swelling RS: No Shortness of breath, No Wheezing FLIGHT RESERVATIONS MANAGER: No loss of consciousness, No focal motor weakness., Hematology: No easy bruising, No gum bleeding, Musculoskeletal: No joint pain, ambulating well. : No blood in urine, No burning sensation of the urine ENT: No ear discharge/ pain, No dysphagia. Eyes: No photophobia. Skin: No rash Home medications: reviewed. No Plavix and No anticoagulants Medical h/o: As above. Surgical h/o: None on abdomen. Social h/o: Denies Alcohol, smoking, IVDA/ drugs. Family h/o of GI cancers - None Prior Endoscopies: Patient had EGD and Colonoscopy by me in August 2020 reports reviewed. Prior GI evaluation: Follows in [facility] GI clinic. Exam: Vitals: reviewed General: Alert and oriented x 3, not in acute distress HEENT: No pallor, no icterus. Normal oropharynx, NO cervical lymphadenopathy. Chest: symmetric with bilateral air entry, CVS: S1, S2 heard, Abdomen: non-distended, soft, non-tender, no rigidity or guarding, no palpable masses, normal bowel sounds heard. Rectal exam: Patient refused / Deferred at this time in view of scheduled colonoscopy. Extremities: pulses palpable, no pedal edema, FLIGHT RESERVATIONS MANAGER: no focal motor or sensory deficits. Moves all extremities Skin: no rash. Labs: reviewed. Imaging: none / reviewed. Impression: -- Severe abdominal pain post Cholecystectomy and labs and work up show possible bile peritonitis and Bile leak. DDxAlso need to rule out bile duct injury (less likely). -- Severe abdominal pain and abdominal bloatinglikely ileus. Recommendations: -- Patient educated about the prior test results and all questions answered. -- IV fluid for now. -- NPO -- Agree with IV antibiotics course for possible bile peritonitis. -- Will schedule for Urgent ERCP today for further management. -- Patient educated about the procedure(s), indications, risks (including but not limited to bleeding, infection, perforation, anesthesia risks, including ), benefits and all alternatives including conservative measures without intervention. Patient verbalized understanding and consented for the procedure(s). -- Please follow operative note for post procedure recommendations. -- Plan of care educated to patient and patient verbalized understanding and agreed. All questions answered. -- Recommendations communicated to primary team. Patient to follow with PCP upon discharge for routine medical care. Vital Signs/I&O Vital Signs Date Time Temp Pulse Resp B/P (MAP) Pulse Ox O2 Delivery O2 Flow Rate FiO2 12/11/20 14:00 131/69 12/11/20 08:24 86 12/11/20 08:00 97.8 16 95 Room Air 12/11/20 04:00 2.0 12/08/20 23:15 96 I&O- Last 24 Hours up to 6 AM 12/12/20 06:00 Intake Total 1040 ml Balance 1040 ml Laboratory Data Microbiology Microbiology 12/07/20 Blood Culture - Final, Complete NO GROWTH AFTER 5 DAYS 12/07/20 Blood Culture - Final, Complete NO GROWTH AFTER 5 DAYS Allergies Coded Allergies: Kiwi (Verified Allergy, Intermediate, hives, 12/02/20) Sulfa (Sulfonamide Antibiotics) (Verified Allergy, Intermediate, hives, 06/14/19) propoxyphene (Verified Allergy, Intermediate, rash, 06/14/19) aspirin (Verified Adverse Reaction, Intermediate, heart racing, 06/14/19) Home Medications Scheduled Amoxicillin/Potassium Clav (Augmentin 875-125 Tablet) 1 Each Tablet, 1 TAB PO BID for 3 Days, #6 Bupropion Hcl (Bupropion Xl) 150 Mg Tab.er.24h, 150 MG PO DAILY, (Reported) Cholecalciferol (Vitamin D3) (Vitamin D3) 50 Mcg Capsule, 50 MCG PO DAILY, ( Reported) Citalopram Hydrobromide (Celexa) 40 Mg Tablet, 40 MG PO DAILY, (Reported) L.acidoph/L.bulg/B.bif/S.therm (Bacid Caplet) 1 Each Tablet, 1 TAB PO DAILY, (Reported) Lisinopril (Lisinopril) 40 Mg Tablet, 1 TAB PO DAILY for 30 Days, #30 Melatonin (Melatonin) 3 Mg Tablet, 6 MG PO QHS, (Reported) [place]-3/Dha/Epa/Fish Oil (Fish Oil 1,000 mg Softgel) 1 Each Capsule, 1 CAP PO DAILY, (Reported) Potassium Gluconate (Potassium) 99 Mg Tablet, 595 MG PO DAILY, (Reported) Pravastatin Sodium (Pravastatin Sodium) 40 Mg Tablet, 40 MG PO DAILY, (Reported) Scheduled PRN Cyclobenzaprine HCl (Cyclobenzaprine HCl) 10 Mg Tablet, 10 MG PO TID PRN for MUSCLE SPASMS, (Reported) Hydrocodone/Acetaminophen (Hydrocodone-Acetamin 5-325 mg) 1 Each Tablet, 0.5 TAB PO Q6H PRN for PAIN LEVEL 6-10, (Reported) Pantoprazole Sodium (Protonix) 40 Mg , 40 MG PO BID PRN for ACID REFLUX, (Reported) FARHAN PETERS MD Dec 12, 2020 20:34
== END 2020-12-11 16:00 | disposition home or self-care (01) | DRG 393 ==
LOC: M ED 19:29 → M ED INP 19:30 → ENRESERV 12-07 16:05 → M MSPAV 12-07 20:12 → M PCU 12-09 16:27 → M MS5PR 12-11 10:45
PROVIDERS: ADMIT Internal Medicine; ATTEND Internal Medicine
PROC: 0F798DZ Dilation of Common Bile Duct with Intraluminal Device, Via Natural or Artificial Opening Endoscopic (ICD-10-PCS; principal; 2020-12-07 13:42)
DX: K91.89 Other postprocedural complications and disorders of digestive system (principal); K83.2 Perforation of bile duct; K65.3 Choleperitonitis; K80.10 Calculus of gallbladder with chronic cholecystitis without obstruction; R65.10 Systemic inflammatory response syndrome (SIRS) of non-infectious origin without acute organ dysfunction; E87.6 Hypokalemia; I10 Essential (primary) hypertension; F41.9 Anxiety disorder, unspecified; F32.9 Major depressive disorder, single episode, unspecified; Z79.899 Other long term (current) drug therapy; Z88.2 Allergy status to sulfonamides; Z91.018 Allergy to other foods; Z88.6 Allergy status to analgesic agent; K21.9 Gastro-esophageal reflux disease without esophagitis; E78.5 Hyperlipidemia, unspecified; Z85.828 Personal history of other malignant neoplasm of skin; Z95.2 Presence of prosthetic heart valve

== ENCOUNTER → 2021-02-02 | Outpatient (CLI) | payer MEDICARE ==
[~2021-02-02] MED LIST changes: +AUGM875T28 PO; +BACITAB PO; +CELE40TA PO; +D32000CA PO; +GASTROGRAFIN SOLUTION 30ML (Q9963) As Ordered ONE; +HYDR-3713 PO; +ISOVUE-370 76% 100ML VIAL As Ordered ONE; +MELA3TAB29 PO
--- NOTE | 2021-02-02 16:15 | REP ---
INDICATION: EPIGASTRIC PAIN, EVAL FOR FLUID COLLECTION. Prior bile leak with biliary/chemical peritonitis now presenting with persistent severe epigastric pain. Bile duct stent. COMPARISON: Comparison CT study December 06, 2020. Comparison hepatobiliary nuclear scintigraphy December 07, 2020. TECHNIQUE: Helical scanning is acquired and 3 mm axial images re-formatted. Coronal and sagittal MPR images are generated. The CT contrast enhancement dose is 100 mL of intravenous Isovue 370. Oral contrast was also administered. FINDINGS: Digital preliminary director of payroll radiograph shows an unremarkable bowel gas pattern. The lung bases are essentially clear on axial CT images. No pleural effusion or upper abdominal ascites is seen. There is mild diffuse fatty infiltration of the liver. The liver is not felt to be enlarged. No focal liver lesion is seen. The spleen is unremarkable. Normal adrenal glands are observed. No abnormality is noted in the pancreas. A common bile duct stent is seen in place with its proximal and in the region just beneath the thad and the distal to and terminating in the lumen of the duodenum. No biliary ductal dilation is observed. There is mild pneumobilia noted. The kidneys enhance symmetrically and are morphologically intact. No Dianna a Paddock, sub a Paddock, or gallbladder fossa fluid collection is seen. No abnormal intraperitoneal fluid collection is seen. Small and large bowel loops are unremarkable in the abdomen and pelvis. No retroperitoneal mass or adenopathy is observed. No abdominal wall defect is seen. IMPRESSION: Common bile duct stent is noted in good position without biliary or pancreatic ductal dilation. No abnormal abdominal or pelvic fluid collection is seen. Mild diffuse fatty infiltration of the liver. Post cholecystectomy. <Electronically signed by Floyd Viveros > 02/02/21 0204
== END ==
LOC: M RAD 13:54
PROVIDERS: ATTEND Internal Medicine Gastroenterology
DX: R10.13 Epigastric pain (principal); Z96.0 Presence of urogenital implants; Z90.79 Acquired absence of other genital organ(s)
CPT/HCPCS: 74177; Q9963; Q9967

== ENCOUNTER 2021-02-23 23:23 | Inpatient (IN) | payer MEDICARE ==
[~2021-02-23] VITALS: Ht 160 cm; Wt 66.8 kg
[~2021-02-23 23:23] MED LIST changes: -GASTROGRAFIN SOLUTION 30ML (Q9963) As Ordered ONE; -ISOVUE-370 76% 100ML VIAL As Ordered ONE
[2021-02-23] MEDS ORDERED: SUCR1TAB56 (23:38)
[2021-02-23] MEDS ORDERED: COLA100C5 PO (23:38)
[2021-02-23] MEDS ORDERED: ONDANSETRON 4MG/2ML VIAL IV ONE (23:45)
[2021-02-24 00:49] LABS: BASO # 0.1 10^3/uL (0.0-0.2); BASO % 0.3 % (0.0-1.0); EOS % 0.1 % (0.0-3.0); HEMATOCRIT 42.9 % (36.0-47.0); HEMOGLOBIN 14.4 g/dl (12.0-15.5); LYMPH # 2.1 10^3/uL (1.5-5.0); LYMPH % 10.6 % (24.0-44.0); MEAN CORPUSCULAR HEMOGLOBIN 30.1 pg (27.0-33.0); MEAN CORPUSCULAR HGB CONC 33.6 g/dl (32.0-36.5); MEAN CORPUSCULAR VOLUME 89.7 fl (80.0-96.0); NEUTROPHILS % 82.6 % (36.0-66.0); PLATELET COUNT, AUTOMATED 362 10^3/uL (150-450); RED BLOOD COUNT 4.78 10^6/uL (4.00-5.40); WHITE BLOOD COUNT 19.4 10^3/uL (4.0-10.0)
[2021-02-24] MEDS: MORPHINE 2 MG/ML 1ML VIAL (J2270) IV PRN ×2 (00:53)
[2021-02-24 00:55] LABS: INR 0.92; PROTHROMBIN TIME 12.8 SECONDS (12.7-14.5)
[2021-02-24 00:56] LABS: PARTIAL THROMBOPLASTIN TIME 31.3 SECONDS (25.9-37.0)
[2021-02-24 01:22] LABS: ALBUMIN 3.9 GM/DL (3.2-5.2); ALT/SGPT 40 U/L (12-78); BILIRUBIN,TOTAL 0.2 MG/DL (0.2-1.0); BLOOD UREA NITROGEN 10 MG/DL (7-18); CALCIUM LEVEL 8.8 MG/DL (8.8-10.2); CARBON DIOXIDE LEVEL 22 MEQ/L (21-32); CHLORIDE LEVEL 99 MEQ/L (98-107); CK-MB VALUE MASS 1.5 NG/ML (<3.6); CPK CREATINE PHOSPHOKINASE 50 U/L (26-192); CREATININE FOR GFR 0.77 MG/DL (0.55-1.30); ETHYL ALCOHOL (ETHANOL) 0.206 % (0.000-0.010); GLOMERULAR FILTRATION RATE > 60.0 (>45); GLUCOSE, FASTING 110 MG/DL (70-100); POTASSIUM SERUM 3.7 MEQ/L (3.5-5.1); SODIUM LEVEL 132 MEQ/L (136-145); TOTAL PROTEIN 7.4 GM/DL (6.4-8.2); TROPONIN I < 0.02 NG/ML (< 0.10)
[2021-02-24 01:22] LABS: RSV AMPLIFICATION NEGATIVE (NEGATIVE)
[2021-02-24] MEDS: HYDROMORPHONE HCL 0.5 MG/ 0.5 ML SYRINGE (J1170 PER 1) IV PRN ×4 (01:51→21:50)
--- NOTE | 2021-02-24 01:54 | REPVR ---
PROCEDURE INFORMATION: Exam: XR Right Hip Exam date and time: 02/24/2021 12:46 AM Age: 71 years old Clinical indication: Other: Fall TECHNIQUE: Imaging protocol: XR Right hip. Views: 2 or 3 views hip with pelvis when performed. COMPARISON: CT ABD PELVIS WITH CONTRAST 02/02/2021 3:26 PM FINDINGS: Bones/joints: Acute, comminuted intertrochanteric and subtrochanteric fracture of the right femur with greater than full shaft width medial displacement of the dominant distal fragments relative to the head and neck. No apparent underlying osseous lesion and no articular surface involvement of the femoral head. Obturator rings, sacrum and left hemipelvis are intact Soft tissues: Unremarkable. IMPRESSION: Comminuted acute intertrochanteric and subtrochanteric fracture of the right femur Electronically signed by: Eduardo Serrano On 02/24/2021 01:53:43 AM
--- NOTE | 2021-02-24 01:54 | REPVR ---
PROCEDURE INFORMATION: Exam: XR Chest Exam date and time: 02/24/2021 12:46 AM Age: 71 years old Clinical indication: Other: Fall, preop TECHNIQUE: Imaging protocol: XR of the chest. Views: 1 view. COMPARISON: CT PORTABLE CHEST X-RAY 12/09/2020 1:41 PM FINDINGS: Lungs: Degree of lung inflation is normal. No evidence of pulmonary edema. No focal consolidation or parenchymal lung mass. Pleural spaces: No pleural effusion or pneumothorax. Heart/Mediastinum: Cardiac silhouette appears normal. No adenopathy or hilar mass. Bones/joints: Osseous structures show no concerning abnormality. Cervical spine fixation hardware is present. IMPRESSION: No acute or focal cardiopulmonary process. Electronically signed by: Eduardo Serrano On 02/24/2021 01:54:22 AM
--- NOTE | 2021-02-24 01:57 | REPVR ---
PROCEDURE INFORMATION: Exam: XR Right Femur Exam date and time: 02/24/2021 12:46 AM Age: 71 years old Clinical indication: Other: Fall, pre op; Additional info: Fall, preop TECHNIQUE: Imaging protocol: XR Right femur. Views: 2 views. COMPARISON: CT ABD PELVIS WITH CONTRAST 02/02/2021 3:26 PM FINDINGS: Bones/joints: Comminuted intertrochanteric and subtrochanteric fracture of the right femur with greater than 50% shaft width medial displacement of the dominant distal fragment. No articular surface involvement of the femoral head and no involvement of the femoral neck itself. . Soft tissues: No soft tissue defect to suggest an open injury . IMPRESSION: Intertrochanteric and subtrochanteric fracture of the right femur with comminution and displacement as described Electronically signed by: Eduardo Serrano On 02/24/2021 01:56:44 AM
[2021-02-24] MEDS ORDERED: CARA1TAB6 PO (04:18)
[2021-02-24] MEDS ORDERED: ACETAMINOPHEN TAB 650MG DOSE (2X325MG) PO PRN (04:20)
[2021-02-24] MEDS ORDERED: MORPHINE 2 MG/ML 1ML VIAL (J2270) IV PRN ×2 (04:20→12:30)
[2021-02-24] MEDS ORDERED: HOME MED LIST COMPLETE! XX SCH (04:20)
[2021-02-24] MEDS ORDERED: THIAMINE 200MG 2ML VIAL IM ONE (04:25)
--- NOTE | 2021-02-24 04:57 | HPEPDOC ---
[facility] Medical History & Physical Date of Admission Feb 24, 2021 Date of Service: Feb 24, 2021 Attending Physician: FRANK ORTIZ MD History and Physical cc: Fall HISTORY OF PRESENT ILLNESS: This is a 71-year-old elderly female who presents to [facility] ER she complained of fall.patient states that she has been more stressed lately because her daughter and her daughter's and grandchildren and lives with her and have become an increased burden recently. She states that they are daily drinkers and she usually drinks with them about 1-2 beers per night. She states that tonight she drank more than she usually drank and reports 5 beers and 3 shots of peppermint schnapps shortly after got into an argument with her daughter and granddaughter. She got up from her chair and lost her footing and fell on her right hip. She denies hitting her head but states that she has been having excruciating sharp pains in her right hip that is a 10 out of 10 pain. She denies any dizziness presyncope syncope lightheadedness, blurry vision or any changes of vision prior to her fall or after her fall. In the ER x-ray of her femur shows findings consistent with a right femur fracture with displacement. Dr. Parra orthopedic on-call was contacted and states that he will see and take patient to the OR tomorrow morning. She was given pain meds in the hospitalist team was called to admit the patient for further management of her care REVIEW OF SYSTEMS: General: Denies fever, shaking chills, unintentional weight loss HEENT: Denies changes in vision including blurry vision or double vision, or hearing loss nasal congestion or sore throat Heart: Denies chest pain or chest pressure or discomfort, or palpitations, or lower extremity edema Pulm: Denies cough or sputum production or shortness of breath GI: Denies nausea vomiting diarrhea abdominal pain or bloody stools MSK: Right hip pain that sharp in nature Psych: Denies sadness or loss of interest in doing things, no thoughts of self- harm or suicidal ideation. Does report anxiety and stress due to home situation. PAST MEDICAL/ SURGICAL HISTORY: Depression anxiety GERD Dyslipidemia Chronic leukocytosis of unclear cause Nephrolithiasis cholecystitis Hx of thyroid nodule neg on bx 2011 chronic neck pain with c spine DDD Hx bile leak SURGICAL HISTORY: Status post robotic assisted laparoscopic cholecystectomy 12/03/2020 colo 2020 R heart cath 2016 ERCP 2020 Resection of esophageal polyps Partial thyroidectomy pathology was benign Resection of basal cell carcinoma Hysterectomy Plate in neck 2007 Right lumpectomy Right thumb fusion Tonsillectomy Resection of vocal cord polyps Cardiac catheterization SOCIAL HISTORY: Current smoker ; denies etoh or illicit drug use. Denies marijuana use. Patient lives at home in her daughter and is well as her granddaughter lives with her. FAMILY HISTORY: Father at 71. ddx with ca (unknown). mother alive 89 y/o. skin ca 3 brothers 2 daugthers- healthy PHYSICAL EXAM: VS: SEE BELOW GENERAL: Elderly female who appears to be in pain but laying in bed without any acute respiratory stress. AAOx3 NEURO: No focal neurological deficits HEENT: Head is normocephalic and atraumatic. Extraocular muscles are intact. Pupils are equal, round, and reactive to light and accommodation. Nares appears normal. Moist mucous membranes. PULM: Clear to auscultation bilaterally. No wheezing, rhonchi or rales appreciated. CARDIO: Normal S1, S2. no significant murmurs, gallops, rubs or clicks. No signs of peripheral edema ABDOMEN: Soft, nontender, and nondistended. Normal bowel sounds. No significant organomegaly appreciated. EXTREMITIES: No cyanosis, clubbing, rash, lesions. MSK: Tenderness on palpation of the right hip, reduced range of motion. IMAGING: X-ray chest impression: no acute or focal cardiopulmonary process Femur x-ray impression intertrochanteric and subtrochanteric fracture of the right femur with comminution and displacement. Comminuted intertrochanteric and subtrochanteric fracture of the right femur with greater than 50% shaft width medial displacement of the dominant distal fragment. Hip/pelvis x-ray impression: Comminuted acute intertrochanteric and subtrochanteric fracture of the right femur ASSESSMENT AND PLAN This is a 71-year-old female presents to [facility] ER chief complaint of mechanical fall. In the ER x-ray of her hip shows right femur fracture with medial displacement. Dr. Parra orthopedic surgeon was called and states he will see patient tomorrow morning. She was given pain meds and fluids and hospitalist team was called to the patient for further management of care. Right hip fracture Bedrest. Fluids. N.p.o. we will consult Ortho appreciate further recommendations. Pain control with morphine and Tylenol. Alcohol use disorder At the alcohol level of 0.206. Will place patient on CIWA protocol. Will order 1 dose of thiamine and multivitamins and folic acid. Will obtain mag and phos level Tobacco use disorder Order for smoking cessation counseling Hypertension Continue with home meds Dyslipidemia continue home meds Anxiety/depression continue with home meds GERD without esophagitis continue with home meds History of chronic leukocytosis of unclear cause Continue to monitor with daily labsx. Patient denies fever DVT prophylaxis teds SCDs Vital Signs Vital Signs Date Time Temp Pulse Resp B/P (MAP) Pulse Ox O2 Delivery O2 Flow Rate FiO2 02/24/21 03:15 90 16 166/81 (109) 97 Nasal Cannula 2.0 02/24/21 02:50 97.5 Laboratory Data Labs 24H Laboratory Tests 2 02/24/21 00:14: Immature Granulocyte % (Auto) 1.4, Neutrophils (%) (Auto) 82.6H, Lymphocytes (%) (Auto) 10.6L, Monocytes (%) (Auto) 5.0, Eosinophils (%) (Auto) 0.1, Basophils (%) (Auto) 0.3, Neutrophils # (Auto) 16.0H, Lymphocytes # (Auto) 2.1, Monocytes # (Auto) 1.0H, Eosinophils # (Auto) 0.0, Basophils # (Auto) 0.1, Nucleated Red Blood Cells % (auto) 0.0, Prothrombin Time 12.8, Prothromb Time International Ratio 0.92, Activated Partial Thromboplast Time 31.3, Anion Gap 11, Glomerular Filtration Rate > 60.0, Calcium Level 8.8, Total Bilirubin 0.2, Aspartate Amino Transf (AST/SGOT) 45H, Alanine Aminotransferase (ALT/SGPT) 40, Alkaline Phosphatase 106, Total Creatine Kinase 50, Creatine Kinase MB 1.5, Creatine Kinase MB Relative Index 3.00, Troponin I < 0.02, Total Protein 7.4, Albumin 3.9, Albumin/Globulin Ratio 1.1L, Ethyl Alcohol Level 0.206H 02/24/21 00:15: Coronavirus (COVID-19)(PCR) NEGATIVE, Influenza Type A (RT-PCR) NEGATIVE, Influenza Type B (RT-PCR) NEGATIVE, Respiratory Syncytial Virus (PCR) NEGATIVE CBC/BMP Laboratory Tests 02/24/21 00:14 Home Medications Scheduled Bupropion Hcl (Bupropion Xl) 150 Mg Tab.er.24h, 150 MG PO DAILY Cholecalciferol (Vitamin D3) (Vitamin D3) 50 Mcg Capsule, 50 MCG PO DAILY Citalopram Hydrobromide (Celexa) 40 Mg Tablet, 40 MG PO DAILY Docusate Sodium (Colace) 100 Mg Capsule, 100 MG PO DAILY Melatonin (Melatonin) 3 Mg Tablet, 6 MG PO QHS Potassium Gluconate (Potassium) 99 Mg Tablet, 595 MG PO DAILY Pravastatin Sodium (Pravastatin Sodium) 40 Mg Tablet, 40 MG PO DAILY Sucralfate (Carafate) 1 Gm Tablet, 1 GM PO ACHS Scheduled PRN Cyclobenzaprine HCl (Cyclobenzaprine HCl) 10 Mg Tablet, 10 MG PO TID PRN for MU SCLE SPASMS Pantoprazole Sodium (Protonix) 40 Mg Granpkt.dr, 40 MG PO BID PRN for ACID REFLUX Allergies Coded Allergies: Kiwi (Verified Allergy, Intermediate, hives, 12/02/20) Sulfa (Sulfonamide Antibiotics) (Verified Allergy, Intermediate, hives, 06/14/19) propoxyphene (Verified Allergy, Intermediate, rash, 06/14/19) aspirin (Verified Adverse Reaction, Intermediate, heart racing, 06/14/19) GME ATTESTATION GME ATTESTATION My faculty preceptor for this patient encounter was physically present during the encounter and was fully available. All aspects of the patient interview, examination, medical decision making process, and medical care plan development were reviewed and approved by the faculty preceptor. The faculty preceptor is aware and concurs with the plan as stated in the body of this note and will attest to such by his/her cosignature. Riley Reyes DO Feb 24, 2021 04:57
[2021-02-24] MEDS: NS 1,000 ML IV SCH ×2 (05:12→22:41)
[2021-02-24] MEDS ORDERED: CYCLOBENZAPRINE 10MG TABLET PO PRN (05:40)
[2021-02-24 06:57] LABS: MAGNESIUM LEVEL 1.9 MG/DL (1.8-2.4); PHOSPHORUS LEVEL 4.3 MG/DL (2.5-4.9)
--- NOTE | 2021-02-24 07:26 | CR.PDOC ---
General Date of Consultation: Feb 24, 2021 Consultation Reason for Consultation: Right proximal femur fracture History from Pt and admission H&P HISTORY OF PRESENT ILLNESS: 71-year-old female with fall brought to ED. Patient was inebriated and fell onto her Right hip while standing from a chair. Xray finding show Right proximal femur fracture, complex in nature with significant displacement. Contacted by ED DR Delgado, who placed the patient in [place]. Asked for 3D recon CT to be performed. REVIEW OF SYSTEMS: Hip Pain as stated in HPI PAST MEDICAL/ SURGICAL HISTORY: Depression anxiety GERD Dyslipidemia Chronic leukocytosis of unclear cause Nephrolithiasis cholecystitis Hx of thyroid nodule neg on bx 2011 chronic neck pain with c spine DDD Hx bile leak SURGICAL HISTORY: Status post robotic assisted laparoscopic cholecystectomy 12/03/2020 colo 2020 R heart cath 2016 ERCP 2020 Resection of esophageal polyps Partial thyroidectomy pathology was benign Resection of basal cell carcinoma Hysterectomy Plate in neck 2007 Right lumpectomy Right thumb fusion Tonsillectomy Resection of vocal cord polyps Cardiac catheterization SOCIAL HISTORY: Current smoker ; denies etoh or illicit drug use. Denies marijuana use. Re portedly consumed 5 beer and 3 shots prior to fall. Patient lives at home in her daughter and is well as her granddaughter lives with her. FAMILY HISTORY: Father at 71. ddx with ca (unknown). mother alive 89 y/o. skin ca 3 brothers 2 daugthers- healthy PHYSICAL EXAM: VS: SEE BELOW GENERAL: Lying in bed, NAD, A&O Right leg in [place]raction. IMAGING: XRAY imaging shows complex proximal femur fracture with significant displacment and extension into the region of the Lesser Trochanter. Right proximal femur ASSESSMENT AND PLAN 71-year-old female with mechanical fall with resultant Right proximal femur fracture, complex and displaced. Hospitalist Admission with [facility] protocol ordered. Plan for ORIF R femur late this afternoon, if possible. Vital Signs/I&O Vital Signs Date Time Temp Pulse Resp B/P (MAP) Pulse Ox O2 Delivery O2 Flow Rate FiO2 02/24/21 06:15 93 16 166/79 (108) 94 Nasal Cannula 2.0 02/24/21 02:50 97.5 Laboratory Data Labs 24H Laboratory Tests 2 02/24/21 00:14: Immature Granulocyte % (Auto) 1.4, Neutrophils (%) (Auto) 82.6H, Lymphocytes (%) (Auto) 10.6L, Monocytes (%) (Auto) 5.0, Eosinophils (%) (Auto) 0.1, Basophils (%) (Auto) 0.3, Neutrophils # (Auto) 16.0H, Lymphocytes # (Auto) 2.1, Monocytes # (Auto) 1.0H, Eosinophils # (Auto) 0.0, Basophils # (Auto) 0.1, Nucleated Red Blood Cells % (auto) 0.0, Prothrombin Time 12.8, Prothromb Time International Ratio 0.92, Activated Partial Thromboplast Time 31.3, Anion Gap 11, Glomerular Filtration Rate > 60.0, Calcium Level 8.8, Total Bilirubin 0.2, Aspartate Amino Transf (AST/SGOT) 45H, Alanine Aminotransferase (ALT/SGPT) 40, Alkaline Phosphatase 106, Total Creatine Kinase 50, Creatine Kinase MB 1.5, Creatine Kinase MB Relative Index 3.00, Troponin I < 0.02, Total Protein 7.4, Albumin 3.9, Albumin/Globulin Ratio 1.1L, Ethyl Alcohol Level 0.206H 02/24/21 00:15: Coronavirus (COVID-19)(PCR) NEGATIVE, Influenza Type A (RT-PCR) NEGATIVE, Influenza Type B (RT-PCR) NEGATIVE, Respiratory Syncytial Virus (PCR) NEGATIVE 02/24/21 05:59: Total Creatine Kinase 126#, Phosphorus Level 4.3, Magnesium Level 1.9 CBC/BMP Laboratory Tests 02/24/21 00:14 Allergies Coded Allergies: Kiwi (Verified Allergy, Intermediate, hives, 12/02/20) Sulfa (Sulfonamide Antibiotics) (Verified Allergy, Intermediate, hives, 06/14/19) propoxyphene (Verified Allergy, Intermediate, rash, 06/14/19) aspirin (Verified Adverse Reaction, Intermediate, heart racing, 06/14/19) Home Medications Scheduled Bupropion Hcl (Bupropion Xl) 150 Mg Tab.er.24h, 150 MG PO DAILY, (Reported) Cholecalciferol (Vitamin D3) (Vitamin D3) 50 Mcg Capsule, 50 MCG PO DAILY, (Reported) Citalopram Hydrobromide (Celexa) 40 Mg Tablet, 40 MG PO DAILY, (Reported) Docusate Sodium (Colace) 100 Mg Capsule, 100 MG PO DAILY, (Reported) Melatonin (Melatonin) 3 Mg Tablet, 6 MG PO QHS, (Reported) Potassium Gluconate (Potassium) 99 Mg Tablet, 595 MG PO DAILY, (Reported) Pravastatin Sodium (Pravastatin Sodium) 40 Mg Tablet, 40 MG PO DAILY, (Reported) Sucralfate (Carafate) 1 Gm Tablet, 1 GM PO ACHS, (Reported) Scheduled PRN Cyclobenzaprine HCl (Cyclobenzaprine HCl) 10 Mg Tablet, 10 MG PO TID PRN for MUSCLE SPASMS, (Reported) Pantoprazole Sodium (Protonix) 40 Mg Granpkt.dr, 40 MG PO BID PRN for ACID REFLUX, (Reported) ARUN TIRADO MD Feb 24, 2021 07:26
[2021-02-24] MEDS: SUCRALFATE 1 GM TAB PO SCH ×4 (07:30→22:41)
[2021-02-24] MEDS ORDERED: MORPHINE 2 MG/ML 1ML VIAL (J2270) IV ONE (07:50)
--- NOTE | 2021-02-24 07:55 | ECGEPIP ---
[facility] - ED Test Date: 2021-02-24 Pat Name: LIBRADO JAIMES Department: Room: [place] [address] Gender: Female Manager Adult: ZIGGY MARAVILLAB: 1950 Requested By: ARUN Shaw Order Number: [id number] Reading MD: Joya Harrison Measurements Intervals [place] Rate: 70 P: 52 CO: 152 QRS: 40 QRSD: 102 T: 79 QT: 424 QTc: 457 Interpretive Statements Normal sinus rhythm right ventricular conduction delay NSTTW abnormalities increased rate 10/14/20 Electronically Signed on 02-24-2021 7:55:06 EDT by Joya Harrison
[2021-02-24 08:00] VITALS: BP 162/68
[2021-02-24] MEDS: CitaloPRAM (CeleXA) 20 MG TAB PO SCH (09:00)
[2021-02-24] MEDS ORDERED: DOCUSATE SODIUM 100MG CAPSULE PO SCH (09:00)
[2021-02-24] MEDS: buPROPion **XL** TABLET 150MG (WELLBUTRIN XL) PO SCH (09:00)
[2021-02-24] MEDS: MULTIVITAMINS/MINERALS THERAP 1 TAB PO SCH (09:00)
[2021-02-24] MEDS: PRAVASTATIN 20 MG TAB PO SCH (09:00)
[2021-02-24 12:00] VITALS: BP 166/72
[2021-02-24 14:00] VITALS: BP 167/71
--- NOTE | 2021-02-24 17:28 | IPNPDOC ---
Subjective Date Seen The patient was seen on 02/24/21. Subjective Chief Complaint/HPI Patient was seen and examined at bedside this morning. She was complaining of left leg pain where she has sustained a fracture. She denied headaches, shortness of breath, chest pain, nausea, vomiting, problems with urination and bowel movements. She also denies visual, auditory, and tactile hallucinations. She denies feeling anxious. Objective Physical Examination Other physical findings General: Lying in bed, no acute distress Head/Neck/Throat: Trachea midline, mucous membranes moist Eyes: Sclera anicteric, PERRLA Thorax: Normal respiratory effort on room air, lungs clear to auscultation bilaterally, no wheezes/rales/rhonchi Cardiovascular: Normal rate, regular rhythm, normal S1, S2; no S3, S4, rubs/gallops/murmurs Abdomen: Bowel sounds present, soft/nontender/nondistended Genitourinary: No CVA tenderness, no Yung in place Musculoskeletal: Patient's left leg was in external rotation and knees were flexed, she did not allow for examination due to reported pain. Pulses were palpable at dorsalis pedis. Skin: Warm, dry Neurologic: AAOx3, speech fluent and goal-directed, no focal deficits, grossly intact Assessment /Plan Assessment #Right hip fracture -Plan for or today with orthopedics. Symptomatic management with pain control. #Leukocytosis -Most likely reactive, there is no signs of infection. We will follow off antibiotics. #Ascites/depression -Continue with bupropion #HLD -Continue statin therapy #Alcohol abuse -CIWA 0 at this time. Continue with CIWA protocol. Thiamine and folic acid. #Tobacco use -Nicotine patch #Hypertension Continue with home meds #GERD -continue ppi. #DVT prophylaxis -Heparin subq following surgery. Plan/VTE VTE Prophylaxis Ordered?: Yes VS, I&O, 24H, Fishbone Vital Signs/I&O Vital Signs Date Time Temp Pulse Resp B/P (MAP) Pulse Ox O2 Delivery O2 Flow Rate FiO2 02/24/21 14:47 18 02/24/21 14:00 98.6 88 167/71 (103) 95 Nasal Cannula 02/24/21 06:15 2.0 Laboratory Data 24H LABS Laboratory Tests 2 02/24/21 00:14: Immature Granulocyte % (Auto) 1.4, Neutrophils (%) (Auto) 82.6H, Lymphocytes (%) (Auto) 10.6L, Monocytes (%) (Auto) 5.0, Eosinophils (%) (Auto) 0.1, Basophils (%) (Auto) 0.3, Neutrophils # (Auto) 16.0H, Lymphocytes # (Auto) 2.1, Monocytes # (Auto) 1.0H, Eosinophils # (Auto) 0.0, Basophils # (Auto) 0.1, Nucleated Red Blood Cells % (auto) 0.0, Prothrombin Time 12.8, Prothromb Time International Ratio 0.92, Activated Partial Thromboplast Time 31.3, Anion Gap 11, Glomerular Filtration Rate > 60.0, Calcium Level 8.8, Total Bilirubin 0.2, Aspartate Amino Transf (AST/SGOT) 45H, Alanine Aminotransferase (ALT/SGPT) 40, Alkaline Phosphatase 106, Total Creatine Kinase 50, Creatine Kinase MB 1.5, Creatine Kinase MB Relative Index 3.00, Troponin I < 0.02, Total Protein 7.4, Albumin 3.9, Albumin/Globulin Ratio 1.1L, Ethyl Alcohol Level 0.206H 02/24/21 00:15: Coronavirus (COVID-19)(PCR) NEGATIVE, Influenza Type A (RT-PCR) NEGATIVE, Influenza Type B (RT-PCR) NEGATIVE, Respiratory Syncytial Virus (PCR) NEGATIVE 02/24/21 05:59: Total Creatine Kinase 126#, Phosphorus Level 4.3, Magnesium Level 1.9 02/24/21 11:33: Bedside Glucose (Misc Panel) 119H CBC/BMP Laboratory Tests 02/24/21 00:14 REYNALDO HERNANDEZ M.D. Feb 24, 2021 17:28
[2021-02-24] MEDS ORDERED: TRANEXAMIC ACID 100 MG/ML 10ML VIAL As Ordered ONE (17:36)
[2021-02-24] MEDS ORDERED: BUPIVACAINE/EPIN 0.5% 30 ML VIAL As Ordered ONE (17:37)
[2021-02-24] MEDS ORDERED: ceFAZolin 1GM VIAL (J0690 PER 500MG) As Ordered ONE (17:37)
[2021-02-24] MEDS ORDERED: METOCLOPRAMIDE INJ 10MG/2ML VIAL (J2765 PER 1) As Ordered ONE (17:48)
[2021-02-24] MEDS ORDERED: ROCURONIUM BROMIDE 50 MG/5 ML VIAL As Ordered ONE ×2 (17:48→18:51)
[2021-02-24] MEDS ORDERED: LIDOCAINE 2% 100MG/5ML SDV (FOR ANES.) As Ordered ONE (17:48)
[2021-02-24] MEDS ORDERED: ONDANSETRON 4MG/2ML VIAL As Ordered ONE (17:48)
[2021-02-24] MEDS ORDERED: propofoL 200 MG/20 ML VIAL As Ordered ONE (17:48)
[2021-02-24] MEDS ORDERED: MIDAZOLAM INJ 2MG/2ML VIAL (J2250 PER 1MG) As Ordered ONE (17:49)
[2021-02-24] MEDS ORDERED: fentaNYL 100 MCG/2 ML INJECTION (J3010) As Ordered ONE ×3 (17:49→20:50)
[2021-02-24] MEDS: PANTOPRAZOLE 40MG TAB (PROTONIX) PO SCH (18:00)
[2021-02-24] MEDS ORDERED: PHENYLEPHRINE 10MG/ML 1ML VIAL (J2370 PER 1) As Ordered ONE (18:51)
[2021-02-24] MEDS ORDERED: SUGAMMADEX SODIUM 500 MG/5 ML VIAL (BRIDION) As Ordered ONE (19:57)
[2021-02-24] MEDS ORDERED: ONDANSETRON 4MG/2ML VIAL IV PRN ×2 (20:45→23:10)
[2021-02-24] MEDS ORDERED: LR 1,000 ML IV SCH (20:45)
[2021-02-24] MEDS: fentaNYL 100 MCG/2 ML INJECTION (J3010) IV PRN ×4 (20:51→21:10)
--- NOTE | 2021-02-24 21:06 | ROOPDOC ---
[facility] Report Of Operation Report of Operation DATE OF PROCEDURE: 02/24/21 PREPROCEDURE DIAGNOSES: Complex right proximal femur fracture with subtrochanteric extension. POSTPROCEDURE DIAGNOSES: As above. 3+ fragments with significant displaced PROCEDURE PERFORMED: Right proximal femur open reduction internal fixation with long gamma nail SURGEON: Stanley Tirado MD CONFERENCE INTERPRETER: Asher Perdue MD; Jessica Salazar PA-C ICD 10 modifier 80: Due to the complex nature of the fracture a second surgeon was utilized during the procedure to use a ball spike pusher and a bone hook to hold the fracture reduced. Prior to incision approximately 25 to 30 minutes was utilized in positioning the fracture in traction and trying the closed reduction technique. Greater than 30 minutes was utilized intraoperatively to help improve the reduction. ANESTHESIA: General ESTIMATED BLOOD LOSS: Approximately 300 mL. COMPLICATIONS: No known complication. REMARKS: Complex fracture requiring the assistance of a second surgeon. FINDINGS: Significant displacement with significant shortening and rotation of fragments with comminution peer SPECIMENS REMOVED: None PROCEDURE NOTE: The patient was consented for the open reduction internal fixa tion earlier today. She was placed in Lea's traction which was removed after the anesthetic was induced DESCRIPTION OF PROCEDURE: The patient was brought to the operating room and a surgical pause was carried out. The patient then underwent a general anesthetic and was transferred to the operating room fracture table after the Lea's traction was released. The patient was placed with the right leg in the traction boot and the left leg in the well-leg thompson. Appropriate padding was performed throughout. Of note the patient did have a scab over her right elbow which was dressed with a Band-Aid as this was bleeding. Is also noted that she had a hematoma over the distal lateral aspect of her thigh. Traction was applied and fluoroscopy was utilized to apply traction and rotation to try to reduce the fracture fragments which was quite difficult. This was reduced as best as possible utilizing positioning. A sterile prep and drape was then carried out. A surgical safety checklist and pause was carried out prior to incision. An incision was made just proximal to the GT approximately 10 cm in length. This was carried down through skin subcutaneous fat and the fascia. An attempt was made to introduce the all to act as a joystick for the greater trochanter and proximal fragment. This proved to be difficult. Ultimately an anterior based incision was used to push the proximal fragment down and reduce its external rotation and flexion with a ball spike pusher. The medialized distal fragment and distal shaft was brought laterally and held in position with a bone hook, utilizing a separate incision. Several attempts were made at trying to introduce the all and then the Steinmann pin. This was eventually successful. We were able to advance the opening reamer over this. The reduction spoon tool was then used to align the fragments distally with the proximal fragments. This had to be removed as we could not pass the guidewire. This was repositioned and then the guidewire was able to be passed within the canal all the way distally to the knee. Position was checked with AP and lateral fluoroscopy. The spoon reduction tool was then removed. Reduction was maintained utilizing the ball spike pusher and the bone hook. Reamers were passed starting with a #9 and moving up to a 14.5. A size 13 mm x 368 mm nail was inserted and this had to be malleted down gently until the appropriate depth had been achieved. Positioning was confirmed on AP and lateral fluoroscopy. An incision was made for the cephalomedullary guide. Skin and subcutaneous tissue down through fascia were cut to allow the guide to be placed adjacent to the bone. The guidewire was introduced under AP and lateral fluoroscopy. This was appropriately advanced. In order to get better purchase of bone this was slightly posterior and inferior which did demonstrate good bone purchase. The measurement was taken to be approximately 85 mm and this was dialed in and reamed. The 85 mm cephalomedullary screw was utilized and this was placed in position under fluoroscopic guidance. The guidewire was then removed and the setscrew was placed. The placement arm and all other devices proximally were removed and AP and lateral fluoroscopy was obtained. AP and lateral fluoroscopy was then utilized distally. Perfect circles were obtained using fluoroscopy. 2 distal locking screws of 42.5 and 47.5 mm length were placed utilizing perfect circles. Fluoroscopy with AP and lateral imaging was used to confirm the position. Final fluoroscopic images were obtained. Irrigation was carried out with normal sterile saline to the 2 distal stab incisions. The 2 incisions for the reduction devices the incision for the cephalomedullary screw and the proximal insertion incision. Deep fascia was closed with #1 Vicryl followed by 2.0 Vicryl for the 2 larger incisions. Monocryl three-point 0 was used to close the other stab incisions. Mastisol with Steri-Strips was applied. Telfa and Tegaderm was utilized for dressing. Marcaine local anesthetic was instilled. Patient tolerated the procedure well. Patient was transferred from the fracture table to the bed after her anesthetic was reversed. There were no known complications. The patient will likely require rehabilitation and will be touch weightbearing initially, for this length unstable fracture STANLEY TIRADO MD Feb 24, 2021 21:06
[2021-02-24 22:11] VITALS: BP 147/68
[2021-02-24 22:12] VITALS: BP 137/64
[2021-02-24 22:50] VITALS: BP 135/65
--- NOTE | 2021-02-24 23:03 | REPVR ---
PROCEDURE INFORMATION: Exam: XR Right Femur Exam date and time: 02/24/2021 9:40 PM Age: 71 years old Clinical indication: Device placement; Other: Gamma nail; Additional info: S/P gamma nail TECHNIQUE: Imaging protocol: XR Right femur. Views: 2 views. COMPARISON: CR Femur RIGHT 02/24/2021 12:02 AM FINDINGS: Bones/joints: Interval placement of a right femoral medullary hawa through the greater trochanter since a study done earlier in the day which traverses a subtrochanteric fracture. There is an obliquely oriented traversing threaded pin which extends into the right femoral head. There is near anatomic position and alignment of the major fragments. There is some medial displacement of a small fragment just caudal to the lesser trochanter. The distal into the femoral medullary hawa is traversed with 2 screws at the distal femoral metadiaphyseal region. Soft tissues: Soft tissue gas is noted about the hip and distal femur. IMPRESSION: Interval ORIF of right proximal femoral fracture since a study done earlier in the day with near anatomic position line of fragments. Electronically signed by: Kehinde Allan On 02/24/2021 23:02:36 PM
[2021-02-24] MEDS ORDERED: traMADol 50 MG TAB PO PRN (23:05)
[2021-02-24] MEDS ORDERED: SENNA 8.6 MG TAB (SENOKOT) PO PRN (23:10)
[2021-02-24] MEDS: LR 1,000 ML IV SCH (23:30)
[2021-02-24] MEDS: oxyCODONE 5MG TAB PO PRN (23:38)
[2021-02-25] VITALS (7 sets, daily range): BP systolic 105–137; BP diastolic 41–65
[2021-02-25] MEDS: ACETAMINOPHEN TAB 650MG DOSE (2X325MG) PO SCH ×5 (01:38→23:12)
[2021-02-25] MEDS: ceFAZolin SOD 2 GM in IV 1 EA IV SCH ×2 (02:03→10:28)
[2021-02-25] MEDS: CYCLOBENZAPRINE 10MG TABLET PO PRN ×4 (02:03→23:10)
[2021-02-25] MEDS: oxyCODONE 5MG TAB PO PRN ×4 (05:06→21:02)
[2021-02-25 06:43] LABS: HEMATOCRIT 29.1 % (36.0-47.0); MEAN CORPUSCULAR HEMOGLOBIN 30.3 pg (27.0-33.0); MEAN CORPUSCULAR HGB CONC 33.3 g/dl (32.0-36.5); MEAN CORPUSCULAR VOLUME 90.9 fl (80.0-96.0); PLATELET COUNT, AUTOMATED 214 10^3/uL (150-450); WHITE BLOOD COUNT 17.5 10^3/uL (4.0-10.0)
[2021-02-25 06:55] LABS: HEMOGLOBIN 9.7 g/dl (12.0-15.5)
[2021-02-25 07:05] LABS: BLOOD UREA NITROGEN 12 MG/DL (7-18); CALCIUM LEVEL 8.2 MG/DL (8.8-10.2); CARBON DIOXIDE LEVEL 26 MEQ/L (21-32); CHLORIDE LEVEL 104 MEQ/L (98-107); CREATININE FOR GFR 0.68 MG/DL (0.55-1.30); GLOMERULAR FILTRATION RATE > 60.0 (>45); GLUCOSE, FASTING 118 MG/DL (70-100); MAGNESIUM LEVEL 1.6 MG/DL (1.8-2.4); PHOSPHORUS LEVEL 2.5 MG/DL (2.5-4.9); POTASSIUM SERUM 4.9 MEQ/L (3.5-5.1); SODIUM LEVEL 136 MEQ/L (136-145)
--- NOTE | 2021-02-25 07:56 | REP ---
INDICATION: RIGHT FEMUR GAMMA NAIL. COMPARISON: None. TECHNIQUE: Six views. 331.1 seconds of fluoroscopy time is reported. FINDINGS: A sequence of 6 last image hold fluoroscopically obtained spot radiographs of a femur document open reduction internal fixation for proximal right femur fracture. IMPRESSION: Procedural imaging. <Electronically signed by Floyd Viveros > 02/25/21 [id number]
[2021-02-25] MEDS: SUCRALFATE 1 GM TAB PO SCH ×5 (08:38→21:03)
[2021-02-25] MEDS: THIAMINE 100 MG TAB PO SCH (08:38)
[2021-02-25] MEDS: ASCORBIC ACID 500 MG TAB PO SCH (08:39)
[2021-02-25] MEDS: PRAVASTATIN 20 MG TAB PO SCH (08:39)
[2021-02-25] MEDS: DOCUSATE SODIUM 100MG CAPSULE PO SCH ×2 (08:39→21:03)
[2021-02-25] MEDS: PANTOPRAZOLE 40MG TAB (PROTONIX) PO SCH (08:40)
[2021-02-25] MEDS: MULTIVITAMINS/MINERALS THERAP 1 TAB PO SCH (08:40)
[2021-02-25] MEDS: FOLIC ACID 1 MG TAB PO SCH (08:40)
[2021-02-25] MEDS: CitaloPRAM (CeleXA) 20 MG TAB PO SCH (08:40)
[2021-02-25] MEDS: FERROUS SULFATE 325MG TAB PO SCH (08:41)
[2021-02-25] MEDS: buPROPion **XL** TABLET 150MG (WELLBUTRIN XL) PO SCH (08:41)
[2021-02-25] MEDS: NAPROXEN 250 MG TAB PO SCH ×2 (08:45→21:00)
[2021-02-25] MEDS: LR 1,000 ML IV SCH ×2 (09:00→19:00)
--- NOTE | 2021-02-25 09:05 | IPNPDOC ---
Text Note Date of Service The patient was seen on 02/25/21. NOTE Postop day 1 for right proximal femur open reduction internal fixation, complex and multifragment in nature Patient appears to be doing well. She denies any chest pain or shortness of breath. She does have some leg spasms, but she states that Flexeril have been ordered for her by the hospitalist service. The dressings to the right hip are intact with no obvious signs of significant drainage or staining. There is some bruising. There is swelling to the right thigh as well. The patient is able to move her right toes and foot and ankle. She has a palpable posterior tibial pulse. Her sensation is grossly intact to light touch X-ray imaging was independently ordered and reviewed by myself. This imaging was taken in the recovery room. Overall given the severity of the fracture and displacement of the fragments the x-ray imaging demonstrates a quite satisfacto ry reduction with no obvious signs of complication. The right hip gamma nail with cephalomedullary screw and distal locking screws is in good position. The patient will be touchdown weightbearing for at least a few weeks until she is reviewed with repeat x-ray imaging. She will be seen for follow-up in approximately 2 weeks for reassessment. Dressing changes for the Telfa Tegaderm dressings will be every 3 days. VS,Fishbone, I+O VS, Fishbone, I+O Laboratory Tests 02/25/21 06:27 Vital Signs Date Time Temp Pulse Resp B/P (MAP) Pulse Ox O2 Delivery O2 Flow Rate FiO2 02/25/21 09:01 16 02/25/21 05:45 97.3 83 119/57 (77) 94 Nasal Cannula 2.0 I&O- Last 24 Hours up to 6 AM 02/25/21 06:00 Intake Total 1900 ml Output Total 650 ml Balance 1250 ml ARUN TIRADO MD Feb 25, 2021 09:05
[2021-02-25] MEDS ORDERED: MAGNESIUM OXIDE 400MG TAB (MAG-OX) PO ONE (16:35)
--- NOTE | 2021-02-25 16:43 | IPNPDOC ---
Subjective Date Seen The patient was seen on 02/25/21. Subjective Chief Complaint/HPI Patient seen and examined at bedside this morning. She reports having a pain around the surgical site. Otherwise had no new complaints. She denies feeling anxious, palpitations, diaphoresis, auditory/visual/tactile hallucinations. She denies headaches, chest pain, abdominal pain, nausea, vomiting, problem with urination or bowel movements Objective Physical Examination Other physical findings General: Lying in bed, no acute distress Head/Neck/Throat: Trachea midline, mucous membranes moist Eyes: Sclera anicteric, no erythema or discharge appreciated bilaterally Thorax: Normal respiratory effort on room air, lungs clear to auscultation bilaterally, no wheezes/rales/rhonchi Cardiovascular: Normal rate, regular rhythm, normal S1, S2; no S3, S4, rubs/gallops/murmurs Abdomen: Bowel sounds present, soft/nontender/nondistended Genitourinary: No CVA tenderness, no Yung in place Musculoskeletal: Minimally moving the right leg due to reported pain. Wrapping was dry no soaking was appreciated at surgical site. Skin: Warm, dry Neurologic: AAOx3, speech fluent and goal-directed, no focal deficits, grossly intact Assessment /Plan Assessment #Right hip fracture -POD#1 right proximal femur open reduction internal fixation by orthopedics team. -Weightbearing status as per orthopedics team. -Symptomatic management with pain meds -PT/OT, ARU screen. #Post-op anemia Blood loss during surgery. We will continue monitor H&H. Transfuse if less than 7. #Hematoma -Distal lateral thigh hematoma. Continue to monitor H&H. #Leukocytosis -Most likely reactive, there is no signs of infection. We will follow off antibiotics. #Anxiety/depression -Continue with bupropion #HLD -Continue statin therapy #Alcohol abuse -CIWA 0 at this time. Continue with CIWA protocol. Thiamine and folic acid. #Tobacco use -Nicotine patch #Hypertension Continue with home meds #GERD -continue ppi. #DVT prophylaxis -discussed with orthopedics team, plan to continue heparin subcu for now. Depending on H&H and physical activity her DVT prophylaxis will be reevaluated for possible Xarelto. Plan/VTE VTE Prophylaxis Ordered?: Yes VS, I&O, 24H, Fishbone Vital Signs/I&O Vital Signs Date Time Temp Pulse Resp B/P (MAP) Pulse Ox O2 Delivery O2 Flow Rate FiO2 02/25/21 15:45 16 02/25/21 14:00 97.4 89 115/58 (77) 93 Nasal Cannula 2.0 I&O- Last 24 Hours up to 6 AM 02/25/21 06:00 Intake Total 1900 ml Output Total 650 ml Balance 1250 ml Laboratory Data 24H LABS Laboratory Tests 2 02/24/21 22:14: Bedside Glucose (Misc Panel) 137H 02/25/21 06:27: Nucleated Red Blood Cells % (auto) 0.0, Anion Gap 6L, Glomerular Filtration Rate > 60.0, Calcium Level 8.2L, Phosphorus Level 2.5#, Magnesium Level 1.6L 02/25/21 12:08: Bedside Glucose (Misc Panel) 133H CBC/BMP Laboratory Tests 02/25/21 06:27 REYNALDO HERNANDEZ M.D. Feb 25, 2021 16:43
[2021-02-25] MEDS: HEPARIN SOD (PORCINE) 5000UNITS/ML 1ML VIAL/SYRINGE SQ SCH (21:04)
[2021-02-26] MEDS: oxyCODONE 5MG TAB PO PRN ×4 (02:57→21:03)
[2021-02-26] MEDS: ACETAMINOPHEN TAB 650MG DOSE (2X325MG) PO SCH ×3 (05:13→17:35)
[2021-02-26] MEDS: HEPARIN SOD (PORCINE) 5000UNITS/ML 1ML VIAL/SYRINGE SQ SCH ×3 (05:14→20:59)
[2021-02-26 06:00] VITALS: BP 119/57
[2021-02-26 07:15] LABS: HEMATOCRIT 25.9 % (36.0-47.0); HEMOGLOBIN 8.5 g/dl (12.0-15.5); MEAN CORPUSCULAR HEMOGLOBIN 30.2 pg (27.0-33.0); MEAN CORPUSCULAR HGB CONC 32.8 g/dl (32.0-36.5); MEAN CORPUSCULAR VOLUME 92.2 fl (80.0-96.0); PLATELET COUNT, AUTOMATED 184 10^3/uL (150-450); RED BLOOD COUNT 2.81 10^6/uL (4.00-5.40); WHITE BLOOD COUNT 14.6 10^3/uL (4.0-10.0)
[2021-02-26] MEDS: SUCRALFATE 1 GM TAB PO SCH ×4 (07:25→20:59)
[2021-02-26] MEDS: CYCLOBENZAPRINE 10MG TABLET PO PRN ×2 (07:25→18:09)
[2021-02-26 07:44] LABS: BLOOD UREA NITROGEN 10 MG/DL (7-18); CALCIUM LEVEL 8.2 MG/DL (8.8-10.2); CARBON DIOXIDE LEVEL 29 MEQ/L (21-32); CHLORIDE LEVEL 102 MEQ/L (98-107); CREATININE FOR GFR 0.54 MG/DL (0.55-1.30); GLOMERULAR FILTRATION RATE > 60.0 (>45); GLUCOSE, FASTING 102 MG/DL (70-100); PHOSPHORUS LEVEL 2.1 MG/DL (2.5-4.9); POTASSIUM SERUM 3.9 MEQ/L (3.5-5.1); SODIUM LEVEL 136 MEQ/L (136-145)
[2021-02-26 09:00] VITALS: BP 119/57
[2021-02-26] MEDS: NAPROXEN 250 MG TAB PO SCH ×2 (09:00→21:00)
[2021-02-26] MEDS: DOCUSATE SODIUM 100MG CAPSULE PO SCH ×2 (09:43→20:59)
[2021-02-26] MEDS: MULTIVITAMINS/MINERALS THERAP 1 TAB PO SCH (09:43)
[2021-02-26] MEDS: PRAVASTATIN 20 MG TAB PO SCH (09:43)
[2021-02-26] MEDS: FERROUS SULFATE 325MG TAB PO SCH (09:44)
[2021-02-26] MEDS: ASCORBIC ACID 500 MG TAB PO SCH (09:44)
[2021-02-26] MEDS: THIAMINE 100 MG TAB PO SCH (09:44)
[2021-02-26] MEDS: CitaloPRAM (CeleXA) 20 MG TAB PO SCH (09:44)
[2021-02-26] MEDS: FOLIC ACID 1 MG TAB PO SCH (09:44)
[2021-02-26] MEDS: buPROPion **XL** TABLET 150MG (WELLBUTRIN XL) PO SCH (09:44)
[2021-02-26] MEDS: PANTOPRAZOLE 40MG TAB (PROTONIX) PO SCH (09:44)
[2021-02-26] MEDS ORDERED: PILL CUTTER 1 EACH XX PRN (10:50)
--- NOTE | 2021-02-26 10:59 | ECGEPIP ---
[facility] Test Date: 2021-02-25 Pat Name: LIBRADO JAIMES Department: Room: [place] [address] Gender: Female Technical Specialist: ARMANDO : 1950 Requested By: Riley Reyes Order Number: [id number] Reading MD: Stanley Beach Measurements Intervals [place] Rate: 81 P: 76 CA: 148 QRS: 30 QRSD: 94 T: 44 QT: 384 QTc: 446 Interpretive Statements Normal sinus rhythm rSr' in V1 & V2 (possible RV conduction delay) No significant change compared with 02/24/2021. Electronically Signed on 02-26-2021 10:59:24 EDT by Stanley Beach
[2021-02-26] MEDS ORDERED: K-PHOS ORIGINAL (POT.ACID PHOSPHATE) 500MG TAB PO ONE (12:00)
--- NOTE | 2021-02-26 13:11 | IPNPDOC ---
Subjective Date Seen The patient was seen on 02/26/21. Subjective Chief Complaint/HPI Patient seen and examined at bedside this morning. She reported spasms in her right thigh region tomorrow which was limiting her mobility. She denied chest pain, shortness of breath, abdominal pain, nausea, vomiting, problems with urination and bowel movements. Objective Physical Examination Other physical findings General: Lying in bed, no acute distress Head/Neck/Throat: Trachea midline, mucous membranes moist Eyes: Sclera anicteric, no erythema or discharge appreciated bilaterally Thorax: Normal respiratory effort on room air, lungs clear to auscultation bilaterally, no wheezes/rales/rhonchi Cardiovascular: Normal rate, regular rhythm, normal S1, S2; radial and pedal pulses are palpable bilaterally Abdomen: Bowel sounds present, soft/nontender/nondistended Genitourinary: No CVA tenderness, no Yung in place Musculoskeletal: Minimally moving the right leg due to reported pain. Wrapping was dry no soaking was appreciated at surgical site. Right posterior thigh tightness reported with palpation Skin: Warm, dry Neurologic: AAOx3, speech fluent and goal-directed, no focal deficits, grossly intact Assessment /Plan Assessment #Right hip fracture -POD#2 right proximal femur open reduction internal fixation by orthopedics team. -Right posterior thigh tightness was discussed with orthopedics team, ported that this is a common finding following surgery as well as the spasms. Symptomatic management with pain meds -Weightbearing status as per orthopedics team. PT/OT, ARU screen. #Post-op anemia Blood loss during surgery. We will continue monitor H&H. Transfuse if less than 7. #Hematoma -Distal lateral thigh hematoma. Discussed with orthopedic surgeon and does not believe thigh tightness is from hematoma. Continue to monitor H&H. #Leukocytosis -Most likely reactive, there is no signs of infection. We will follow off antibiotics. #Anxiety/depression -Continue with bupropion #HLD -Continue statin therapy #Alcohol abuse -CIWA 0 at this time. Continue with CIWA protocol. Thiamine and folic acid. #Tobacco use -Nicotine patch #Hypertension Continue with home meds #GERD -continue ppi. #DVT prophylaxis -discussed with orthopedics team, plan to continue heparin subcu for now. Depending on H&H and physical activity her DVT prophylaxis will be reevaluated for possible Xarelto. Plan/VTE VTE Prophylaxis Ordered?: Yes VS, I&O, 24H, Fishbone Vital Signs/I&O Vital Signs Date Time Temp Pulse Resp B/P (MAP) Pulse Ox O2 Delivery O2 Flow Rate FiO2 02/26/21 10:30 18 02/26/21 09:30 2.0 02/26/21 09:00 81 119/57 02/26/21 06:00 97.2 96 Nasal Cannula I&O- Last 24 Hours up to 6 AM 02/26/21 06:00 Intake Total 1130 ml Output Total 1025 ml Balance 105 ml Laboratory Data 24H LABS Laboratory Tests 2 02/25/21 16:32: Bedside Glucose (Misc Panel) 127H 02/25/21 19:51: Bedside Glucose (Misc Panel) 134H 02/26/21 06:21: Nucleated Red Blood Cells % (auto) 0.0, Anion Gap 5L, Glomerular Filtration Rate > 60.0, Calcium Level 8.2L, Phosphorus Level 2.1L, Magnesium Level 2.0 CBC/BMP Laboratory Tests 02/26/21 06:21 REYNALDO HERNANDEZ M.D. Feb 26, 2021 13:11
[2021-02-26 13:33] LABS: FERRITIN 250 NG/ML (8-252); IRON (FE) 16 UG/DL (50-170); TOTAL IRON BINDING CAPACITY 200 UG/DL (250-450)
[2021-02-26 14:00] VITALS: BP 95/45
[2021-02-26 22:00] VITALS: BP 98/51
[2021-02-27] MEDS: ACETAMINOPHEN TAB 650MG DOSE (2X325MG) PO SCH ×4 (00:13→17:45)
[2021-02-27] MEDS: CYCLOBENZAPRINE 10MG TABLET PO PRN ×2 (02:22→17:45)
[2021-02-27] MEDS: oxyCODONE 5MG TAB PO PRN ×3 (02:23→17:44)
[2021-02-27] MEDS: HEPARIN SOD (PORCINE) 5000UNITS/ML 1ML VIAL/SYRINGE SQ SCH ×3 (05:38→21:03)
[2021-02-27 06:00] VITALS: BP 94/53
[2021-02-27] MEDS ORDERED: MOM 30ML SUSPENSION UDC PO PRN (06:10)
[2021-02-27] MEDS ORDERED: MIRALAX *UNIT DOSE* 17GM PACKET PO PRN (06:10)
[2021-02-27 07:07] LABS: HEMATOCRIT 27.2 % (36.0-47.0); HEMOGLOBIN 8.6 g/dl (12.0-15.5); MEAN CORPUSCULAR HEMOGLOBIN 29.3 pg (27.0-33.0); MEAN CORPUSCULAR HGB CONC 31.6 g/dl (32.0-36.5); MEAN CORPUSCULAR VOLUME 92.5 fl (80.0-96.0); PLATELET COUNT, AUTOMATED 227 10^3/uL (150-450); RED BLOOD COUNT 2.94 10^6/uL (4.00-5.40); WHITE BLOOD COUNT 13.4 10^3/uL (4.0-10.0)
[2021-02-27 07:54] LABS: BLOOD UREA NITROGEN 9 MG/DL (7-18); CALCIUM LEVEL 8.9 MG/DL (8.8-10.2); CARBON DIOXIDE LEVEL 28 MEQ/L (21-32); CHLORIDE LEVEL 102 MEQ/L (98-107); CREATININE FOR GFR 0.59 MG/DL (0.55-1.30); GLOMERULAR FILTRATION RATE > 60.0 (>45); GLUCOSE, FASTING 90 MG/DL (70-100); PHOSPHORUS LEVEL 2.7 MG/DL (2.5-4.9); SODIUM LEVEL 134 MEQ/L (136-145)
[2021-02-27] MEDS: CitaloPRAM (CeleXA) 20 MG TAB PO SCH (08:40)
[2021-02-27] MEDS: MULTIVITAMINS/MINERALS THERAP 1 TAB PO SCH (08:40)
[2021-02-27] MEDS: FOLIC ACID 1 MG TAB PO SCH (08:40)
[2021-02-27] MEDS: PANTOPRAZOLE 40MG TAB (PROTONIX) PO SCH (08:40)
[2021-02-27] MEDS: PRAVASTATIN 20 MG TAB PO SCH (08:41)
[2021-02-27] MEDS: SUCRALFATE 1 GM TAB PO SCH ×4 (08:41→21:02)
[2021-02-27] MEDS: THIAMINE 100 MG TAB PO SCH (08:41)
[2021-02-27] MEDS: NAPROXEN 250 MG TAB PO SCH ×2 (08:41→21:03)
[2021-02-27] MEDS: FERROUS SULFATE 325MG TAB PO SCH (08:41)
[2021-02-27] MEDS: ASCORBIC ACID 500 MG TAB PO SCH (08:41)
[2021-02-27] MEDS: DOCUSATE SODIUM 100MG CAPSULE PO SCH ×4 (08:42→21:02)
[2021-02-27] MEDS: buPROPion **XL** TABLET 150MG (WELLBUTRIN XL) PO SCH (08:48)
--- NOTE | 2021-02-27 11:52 | IPNPDOC ---
Subjective Date Seen The patient was seen on 02/27/21. Subjective Chief Complaint/HPI Patient seen and examined at bedside this morning. She had no new complaints and reported significant improvement in her right leg pain. The spasms are decreasing. She reports she was able to get out of bed and walk to the bathroom which was tolerated well. She denies chest pain, abdominal pain, nausea, vomiting, problem with urination or bowel movements. Objective Physical Examination Other physical findings eneral: Lying in bed, no acute distress Head/Neck/Throat: Trachea midline, mucous membranes moist Eyes: Sclera anicteric, no erythema or discharge appreciated bilaterally Thorax: Normal respiratory effort on room air, lungs clear to auscultation bilaterally, no wheezes/rales/rhonchi Cardiovascular: Normal rate, regular rhythm, normal S1, S2; radial and pedal pulses are palpable bilaterally Abdomen: Bowel sounds present, soft/nontender/nondistended Genitourinary: No CVA tenderness, no Yung in place Musculoskeletal: Able to flex right hip off examination bed today wrapping was dry no soaking was appreciated at surgical site. Right posterior thigh tightness reported with palpation Skin: Warm, dry Neurologic: AAOx3, speech fluent and goal-directed, no focal deficits, grossly intact Assessment /Plan Assessment #Right hip fracture -POD#3 right proximal femur open reduction internal fixation by orthopedics team. -Right posterior thigh tightness was discussed with orthopedics team, reported that this is a common finding following surgery as well as the spasms. Symptomatic management with pain meds -Weightbearing status as per orthopedics team. PT/OT, ARU screen. #Post-op anemia -Blood loss during surgery. Hemoglobin remained stable. We will continue monitor H&H. Transfuse if less than 7. -Iron panel consistent with fe deficiency, she is already on ferrous sulfate #Hematoma -Distal lateral thigh hematoma. Discussed with orthopedic surgeon and does not believe thigh tightness is from hematoma. Continue to monitor H&H. #Leukocytosis -Most likely reactive, there is no signs of infection. We will follow off antibiotics. #Anxiety/depression -Continue with bupropion #HLD -Continue statin therapy #Alcohol abuse -CIWA 0 at this time. Continue with CIWA protocol. Thiamine and folic acid. #Tobacco use -Nicotine patch #Hypertension Continue with home meds #GERD -continue ppi. #DVT prophylaxis -discussed with orthopedics team, plan to continue heparin subcu for now. Depending on H&H and physical activity her DVT prophylaxis will be reevaluated for possible Xarelto. Plan/VTE VTE Prophylaxis Ordered?: Yes VS, I&O, 24H, Fishbone Vital Signs/I&O Vital Signs Date Time Temp Pulse Resp B/P (MAP) Pulse Ox O2 Delivery O2 Flow Rate FiO2 02/27/21 08:45 18 Nasal Cannula 2.0 02/27/21 06:00 98.1 78 94/53 (67) 94 I&O- Last 24 Hours up to 6 AM 02/27/21 06:00 Intake Total 800 ml Output Total 1400 ml Balance -600 ml Laboratory Data 24H LABS Laboratory Tests 2 02/26/21 20:20: Bedside Glucose (Misc Panel) 137H 02/27/21 06:15: Nucleated Red Blood Cells % (auto) 0.0, Anion Gap 4L, Glomerular Filtration Rate > 60.0, Calcium Level 8.9, Phosphorus Level 2.7#, Magnesium Level 2.0 02/27/21 11:22: Bedside Glucose (Misc Panel) 126H CBC/BMP Laboratory Tests 02/27/21 06:15 REYNALDO HERNANDEZ M.D. Feb 27, 2021 11:52
[2021-02-27 14:00] VITALS: BP 93/52
[2021-02-27 20:55] VITALS: BP 94/52
[2021-02-28] MEDS: oxyCODONE 5MG TAB PO PRN ×3 (01:44→21:22)
[2021-02-28] MEDS: CYCLOBENZAPRINE 10MG TABLET PO PRN ×2 (02:58→14:58)
[2021-02-28] MEDS: ACETAMINOPHEN TAB 650MG DOSE (2X325MG) PO SCH ×5 (06:00→17:40)
[2021-02-28 06:12] VITALS: BP 100/52
[2021-02-28] MEDS: HEPARIN SOD (PORCINE) 5000UNITS/ML 1ML VIAL/SYRINGE SQ SCH ×3 (06:14→21:21)
[2021-02-28 06:40] LABS: HEMOGLOBIN 7.8 g/dl (12.0-15.5); MEAN CORPUSCULAR HEMOGLOBIN 30.2 pg (27.0-33.0); MEAN CORPUSCULAR HGB CONC 32.5 g/dl (32.0-36.5); PLATELET COUNT, AUTOMATED 239 10^3/uL (150-450); RED BLOOD COUNT 2.58 10^6/uL (4.00-5.40); WHITE BLOOD COUNT 12.5 10^3/uL (4.0-10.0)
[2021-02-28 07:13] LABS: BLOOD UREA NITROGEN 14 MG/DL (7-18); CALCIUM LEVEL 8.4 MG/DL (8.8-10.2); CARBON DIOXIDE LEVEL 30 MEQ/L (21-32); CHLORIDE LEVEL 104 MEQ/L (98-107); CREATININE FOR GFR 0.63 MG/DL (0.55-1.30); GLOMERULAR FILTRATION RATE > 60.0 (>45); GLUCOSE, FASTING 78 MG/DL (70-100); MAGNESIUM LEVEL 2.2 MG/DL (1.8-2.4); PHOSPHORUS LEVEL 2.6 MG/DL (2.5-4.9); POTASSIUM SERUM 4.1 MEQ/L (3.5-5.1); SODIUM LEVEL 139 MEQ/L (136-145)
--- NOTE | 2021-02-28 08:56 | IPNPDOC ---
Subjective Date Seen The patient was seen on 02/28/21. Subjective Chief Complaint/HPI Patient was seen and examined at bedside this morning. She complains of right leg pain that is controlled with her current pain regimen. She denied sensory loss, numbness, and tingling. She has been getting out of bed to use the bathroom with the assistance of a walker. She denies chest pain, shortness of breath, palpitations, abdominal pain, nausea, vomiting, problems with urination or bowel movements. Objective Physical Examination Other physical findings General: Lying in bed, no acute distress Head/Neck/Throat: Trachea midline, mucous membranes moist Eyes: Sclera anicteric, no erythema or discharge appreciated bilaterally Thorax: Normal respiratory effort on room air, lungs clear to auscultation bilaterally, no wheezes/rales/rhonchi Cardiovascular: Normal rate, regular rhythm, normal S1, S2; radial and pedal pulses are palpable bilaterally Abdomen: Bowel sounds present, soft/nontender/nondistended Genitourinary: No CVA tenderness, no Yung in place Musculoskeletal: Able to flex right hip off examination bed today wrapping was dry no soaking was appreciated at surgical site. Right posterior thigh tightness reported with palpation Skin: Warm, dry Neurologic: AAOx3, speech fluent and goal-directed, no focal deficits, grossly intact Assessment /Plan Assessment #Right hip fracture -POD#4 right proximal femur open reduction internal fixation by orthopedics team. -Right posterior thigh tightness was discussed with orthopedics team, reported that this is a common finding following surgery as well as the spasms. Symptomatic management with pain meds -Weightbearing status as per orthopedics team. PT/OT, ARU screen. #Post-op anemia -Blood loss during surgery. Hemoglobin trending down but still above transfusion threshold. Continue monitor H&H. Transfuse if less than 7. -Iron panel consistent with fe deficiency, she is already on ferrous sulfate #Hematoma -Distal lateral thigh hematoma. Discussed with orthopedic surgeon again on 03/01 and does not believe thigh tightness is from hematoma; Dr. Parra will be seeing patient today. Continue to monitor H&H. #Leukocytosis -Most likely reactive, there is no signs of infection. We will follow off antibiotics. #Anxiety/depression -Continue with bupropion #HLD -Continue statin therapy #Alcohol abuse -CIWA 0 at this time. Continue with CIWA protocol. Thiamine and folic acid. #Tobacco use -Nicotine patch #Hypertension Continue with home meds #GERD -continue ppi. #DVT prophylaxis -discussed with orthopedics team, plan to continue heparin subcu for now. De pending on H&H and physical activity her DVT prophylaxis will be reevaluated for possible Xarelto. Plan/VTE VTE Prophylaxis Ordered?: Yes VS, I&O, 24H, Fishbone Vital Signs/I&O Vital Signs Date Time Temp Pulse Resp B/P (MAP) Pulse Ox O2 Delivery O2 Flow Rate FiO2 02/28/21 06:12 98.8 69 18 100/52 (68) 94 Room Air 02/27/21 14:00 2.0 I&O- Last 24 Hours up to 6 AM 02/28/21 06:00 Intake Total 600 ml Output Total 1925 ml Balance -1325 ml Laboratory Data 24H LABS Laboratory Tests 2 02/27/21 11:22: Bedside Glucose (Misc Panel) 126H 02/28/21 06:11: Nucleated Red Blood Cells % (auto) 0.0, Anion Gap 5L, Glomerular Filtration Rate > 60.0, Calcium Level 8.4L, Phosphorus Level 2.6, Magnesium Level 2.2 CBC/BMP Laboratory Tests 02/28/21 06:11 REYNALDO HERNANDEZ M.D. Feb 28, 2021 08:55
[2021-02-28] MEDS: buPROPion **XL** TABLET 150MG (WELLBUTRIN XL) PO SCH (09:00)
[2021-02-28] MEDS: DOCUSATE SODIUM 100MG CAPSULE PO SCH ×4 (09:00→21:21)
[2021-02-28] MEDS: SUCRALFATE 1 GM TAB PO SCH ×4 (09:00→21:21)
[2021-02-28] MEDS: MULTIVITAMINS/MINERALS THERAP 1 TAB PO SCH (09:00)
[2021-02-28] MEDS: THIAMINE 100 MG TAB PO SCH (09:01)
[2021-02-28] MEDS: ASCORBIC ACID 500 MG TAB PO SCH (09:01)
[2021-02-28] MEDS: CitaloPRAM (CeleXA) 20 MG TAB PO SCH (09:01)
[2021-02-28] MEDS: FOLIC ACID 1 MG TAB PO SCH (09:03)
[2021-02-28] MEDS: PANTOPRAZOLE 40MG TAB (PROTONIX) PO SCH (09:03)
[2021-02-28] MEDS: FERROUS SULFATE 325MG TAB PO SCH (09:03)
[2021-02-28] MEDS: NAPROXEN 250 MG TAB PO SCH ×2 (09:03→21:21)
[2021-02-28] MEDS: PRAVASTATIN 20 MG TAB PO SCH (09:05)
[2021-02-28 10:09] LABS: FOLATE 5.7 NG/ML; VITAMIN B12 LEVEL 236 PG/ML
[2021-02-28 14:00] VITALS: BP 110/58
[2021-02-28 22:42] VITALS: BP 107/46
[2021-03-01] MEDS: ACETAMINOPHEN TAB 650MG DOSE (2X325MG) PO SCH ×5 (00:32→23:46)
[2021-03-01] MEDS: CYCLOBENZAPRINE 10MG TABLET PO PRN ×2 (00:32→21:34)
[2021-03-01] MEDS: HEPARIN SOD (PORCINE) 5000UNITS/ML 1ML VIAL/SYRINGE SQ SCH ×3 (05:20→21:35)
[2021-03-01 06:37] VITALS: BP 112/60
[2021-03-01 06:54] LABS: HEMATOCRIT 24.6 % (36.0-47.0); HEMOGLOBIN 8.1 g/dl (12.0-15.5); MEAN CORPUSCULAR HEMOGLOBIN 30.3 pg (27.0-33.0); MEAN CORPUSCULAR HGB CONC 32.9 g/dl (32.0-36.5); MEAN CORPUSCULAR VOLUME 92.1 fl (80.0-96.0); PLATELET COUNT, AUTOMATED 289 10^3/uL (150-450); RED BLOOD COUNT 2.67 10^6/uL (4.00-5.40); WHITE BLOOD COUNT 11.2 10^3/uL (4.0-10.0)
[2021-03-01 07:21] LABS: BLOOD UREA NITROGEN 17 MG/DL (7-18); CALCIUM LEVEL 8.8 MG/DL (8.8-10.2); CARBON DIOXIDE LEVEL 29 MEQ/L (21-32); CHLORIDE LEVEL 105 MEQ/L (98-107); CREATININE FOR GFR 0.58 MG/DL (0.55-1.30); GLOMERULAR FILTRATION RATE > 60.0 (>45); GLUCOSE, FASTING 71 MG/DL (70-100); MAGNESIUM LEVEL 2.1 MG/DL (1.8-2.4); PHOSPHORUS LEVEL 2.5 MG/DL (2.5-4.9); POTASSIUM SERUM 4.4 MEQ/L (3.5-5.1); SODIUM LEVEL 138 MEQ/L (136-145)
[2021-03-01] MEDS: DOCUSATE SODIUM 100MG CAPSULE PO SCH ×4 (09:00→21:34)
[2021-03-01] MEDS: buPROPion **XL** TABLET 150MG (WELLBUTRIN XL) PO SCH (09:59)
[2021-03-01] MEDS: oxyCODONE 5MG TAB PO PRN ×3 (09:59→21:35)
[2021-03-01] MEDS: MULTIVITAMINS/MINERALS THERAP 1 TAB PO SCH (09:59)
[2021-03-01] MEDS: ASCORBIC ACID 500 MG TAB PO SCH (09:59)
[2021-03-01] MEDS: FOLIC ACID 1 MG TAB PO SCH (10:00)
[2021-03-01] MEDS: CitaloPRAM (CeleXA) 20 MG TAB PO SCH (10:00)
[2021-03-01] MEDS: NAPROXEN 250 MG TAB PO SCH ×2 (10:00→21:35)
[2021-03-01] MEDS: PANTOPRAZOLE 40MG TAB (PROTONIX) PO SCH (10:00)
[2021-03-01] MEDS: PRAVASTATIN 20 MG TAB PO SCH (10:01)
[2021-03-01] MEDS: THIAMINE 100 MG TAB PO SCH (10:01)
[2021-03-01] MEDS: FERROUS SULFATE 325MG TAB PO SCH (10:01)
[2021-03-01] MEDS: SUCRALFATE 1 GM TAB PO SCH ×4 (10:01→21:35)
[2021-03-01 14:00] VITALS: BP 106/48
--- NOTE | 2021-03-01 18:31 | IPNPDOC ---
Date Seen The patient was seen on 03/01/21. Progress Note Subjective: Pain controlled. Denies chest pain, n/v/d, shortness of breath. No worsening of leg bruising. Objective: Physical Examination VS: please see below General: Lying in bed, no acute distress Head/Neck/Throat: Trachea midline, mucous membranes moist Eyes: Sclera anicteric, no erythema or discharge appreciated bilaterally Thorax: Normal respiratory effort on room air, lungs clear to auscultation bilaterally, no wheezes/rales/rhonchi Cardiovascular: Normal rate, regular rhythm, normal S1, S2; radial and pedal pulses are palpable bilaterally Abdomen: Bowel sounds present, soft/nontender/nondistended Genitourinary: No CVA tenderness, no Yung in place Musculoskeletal: Improving right leg ROM, decreased bruising of right upper thigh- well healing incisions. RLE swelling, not new likely 2/2 to surgery Skin: Warm, dry Neurologic: AAOx3, speech fluent and goal-directed, no focal deficits, grossly intact LABS: Please see below A/P: #Right hip fracture s/p ORIF -POD#5 -Pain controlled, no s/s of incr bleeding -Weightbearing per ortho, f/u in 2 weeks from 02/25/21, PT/OT -Currently on heparin, allergy to ASA. Xarelto prior to d/c? To [facility] ortho prior to dc possibly to rehab on 03/02/21 #Post-op anemia, hx of HEATHER -H/H stabilizing and remains >7 above transfusion threshold. -Monitoring H/H daily, transfuse if less than 7 #Hematoma- improving -Distal lateral thigh hematoma. -Orthopedic surgeon does not believe prior thigh tightness is from hematoma -H/H monitored #Leukocytosis- improving and likely reactive -No abx, cbc daily #Anxiety/depression -Continue with bupropion #HLD -Continue statin therapy #Alcohol abuse -CIWA 0 at this time. Continue with CIWA protocol. Thiamine and folic acid. #Tobacco use -Nicotine patch #Hypertension Continue with home meds #GERD -continue ppi. #DVT prophylaxis -discussed with orthopedics team, plan to continue heparin subcu for now and d/c on oral AC at d/c. Cannot do ASA due to allergy DISPOSITION: possible d/c to [facility] 03/02/21 VS, I&O, 24H, Rajeev Vital Signs/I&O Vital Signs Date Time Temp Pulse Resp B/P (MAP) Pulse Ox O2 Delivery O2 Flow Rate FiO2 03/01/21 17:47 17 03/01/21 15:25 Room Air 03/01/21 14:00 97.6 73 106/48 (67) 97 02/27/21 14:00 2.0 I&O- Last 24 Hours up to 6 AM 03/01/21 06:00 Intake Total 1600 ml Output Total 850 ml Balance 750 ml Laboratory Data 24H LABS Laboratory Tests 2 02/28/21 19:47: Bedside Glucose (Misc Panel) 98 03/01/21 05:22: Nucleated Red Blood Cells % (auto) 0.0, Anion Gap 4L, Glomerular Filtration Rate > 60.0, Calcium Level 8.8, Phosphorus Level 2.5, Magnesium Level 2.1 03/01/21 12:05: Bedside Glucose (Misc Panel) 90 03/01/21 12:23: Coronavirus (COVID-19)(PCR) NEGATIVE CBC/BMP Laboratory Tests 03/01/21 05:22 Current Medications Current Medications Medications (Trade) Dose Ordered Sig/Marie Route PRN Reason Start Time Stop Time Status Last Admin Dose Admin Acetaminophen (Tylenol Tab) 650 mg Q4HP PRN PO MILD PAIN (PS 1-4) 02/24/21 04:20 02/24/21 22:59 DC Acetaminophen (Tylenol Tab) 650 mg Q6H PO 02/25/21 00:00 03/01/21 17:45 Ascorbic Acid (Vitamin C) 500 mg DAILY PO 02/25/21 09:00 03/01/21 09:59 Bupropion HCl (Wellbutrin Xl) 150 mg DAILY PO 02/24/21 09:00 03/01/21 09:59 Cefazolin Sodium/ Dextrose 2 gm/IV Miscellaneous Supplies 50 ml @ 75 mls/hr Q8H IV 02/25/21 02:00 02/25/21 10:39 DC 02/25/21 10:28 Citalopram Hydrobromide (CeleXA) 40 mg DAILY PO 02/24/21 09:00 03/01/21 10:00 Cyclobenzaprine HCl (Flexeril) 10 mg TID PRN PO MUSCLE SPASMS 02/24/21 05:40 9/30/21 17:28 DC Cyclobenzaprine HCl (Flexeril) 10 mg TID PRN PO spasm 02/25/21 01:35 03/01/21 00:32 Docusate Sodium (Colace) 100 mg BID PO 02/25/21 09:00 03/01/21 10:01 Docusate Sodium (Colace) 100 mg BID PO 02/27/21 09:00 Docusate Sodium (Colace) 100 mg DAILY PO 02/24/21 09:00 02/24/21 23:12 DC Fentanyl Citrate (Sublimaze) 25 mcg Q5MP PRN IV PAIN LEVEL 8-10 02/24/21 20:45 02/24/21 21:33 DC 02/24/21 21:10 Ferrous Sulfate (Ferrous Sulfate) 325 mg DAILY PO 02/25/21 09:00 03/01/21 10:01 Folic Acid (Folic Acid) 1 mg DAILY PO 02/25/21 09:00 03/01/21 10:00 Heparin Sodium (Porcine) (Heparin) 5,000 units Q8H SQ 02/25/21 22:00 03/01/21 05:20 Home Med (Home Med List Complete!) ASDIRECTED XX 02/24/21 04:20 02/24/21 04:20 DC Hydromorphone HCl (Dilaudid) 0.2 mg Q5MP PRN IV PAIN LEVEL 5-7 02/24/21 20:45 02/24/21 23:45 DC 02/24/21 21:50 Hydromorphone HCl (Dilaudid) 0.5 mg Q30M PRN IV MODERATE PAIN (PS 5-7) 02/24/21 01:20 02/24/21 05:16 DC 02/24/21 05:13 Lactated Ringer's 1,000 ml @ 80 mls/hr [id number] IV 02/24/21 20:45 02/24/21 23:45 DC 02/24/21 21:49 Lactated Ringer's 1,000 ml @ 100 mls/hr Q10H IV 02/24/21 23:00 02/26/21 01:46 DC 02/24/21 23:30 Magnesium Hydroxide (Milk Of Magnesia) 30 ml DAILYPRN PRN PO CONSTIPATION 02/27/21 06:10 02/28/21 17:45 Morphine Sulfate (Morphine Sulfate Inj) 2 mg Q2MP PRN IV MODERATE PAIN (PS 5-7) 02/24/21 04:20 02/24/21 12:28 DC 02/24/21 10:13 Morphine Sulfate (Morphine Sulfate Inj) 2 mg Q30M PRN IV MODERATE PAIN (PS 5-7) 02/23/21 23:45 02/24/21 00:53 DC 02/24/21 00:53 Morphine Sulfate (Morphine Sulfate Inj) 2 mg Q4HP PRN IV MODERATE PAIN (PS 5-7) 02/24/21 12:30 02/24/21 23:20 DC 02/24/21 14:37 Multivitamins (Theragram-M) 1 tab DAILY PO 02/24/21 09:00 03/01/21 09:59 Naproxen (Naprosyn) 250 mg Q12H PO 02/25/21 09:00 03/01/21 10:00 Ondansetron HCl (ZOFRAN INJection) 4 mg Q4HP PRN IV NAUSEA OR VOMITING 02/24/21 20:45 02/24/21 23:45 DC 02/24/21 23:38 Ondansetron HCl (ZOFRAN INJection) 4 mg Q6HP PRN IV NAUSEA / VOMITING 02/24/21 23:10 Oxycodone HCl (Roxicodone, Oxyir) 5 mg Q4HP PRN PO MODERATE PAIN (PS 5-7) 02/24/21 23:10 02/28/21 01:44 Oxycodone HCl (Roxicodone, Oxyir) 10 mg Q4HP PRN PO SEVERE PAIN (PS 8-10) 02/24/21 23:10 03/01/21 15:25 Pantoprazole Sodium (Protonix) 40 mg DAILY PO 02/24/21 18:00 03/01/21 10:00 Polyethylene Glycol (Miralax) 1 pkt DAILYPRN PRN PO CONSTIPATION 02/27/21 06:10 02/28/21 09:05 Pravastatin Sodium (Pravachol) 40 mg DAILY PO 02/24/21 09:00 03/01/21 10:01 Senna (Senokot) 2 tab DAILYPRN PRN PO CONSTIPATION 02/24/21 23:10 Sodium Chloride 1,000 ml @ 60 mls/hr [id number] IV 02/24/21 04:15 02/24/21 23:11 DC 02/24/21 22:41 Sucralfate (Carafate) 1 gm ACHS PO 02/24/21 07:30 03/01/21 17:45 Thiamine HCl (Thiamine HCl) 100 mg DAILY PO 02/25/21 09:00 03/01/21 10:01 Tramadol HCl (Ultram) 50 mg Q4HP PRN PO MILD PAIN (PS 1-4) 02/24/21 23:05 02/26/21 06:33 Allergies Coded Allergies: Kiwi (Verified Allergy, Intermediate, hives, 12/02/20) Sulfa (Sulfonamide Antibiotics) (Verified Allergy, Intermediate, hives, 06/14/19) propoxyphene (Verified Allergy, Intermediate, rash, 06/14/19) aspirin (Verified Adverse Reaction, Intermediate, heart racing, 06/14/19) Diana Jiang MD Mar 01, 2021 18:31
[2021-03-01 20:12] VITALS: BP 118/62
[2021-03-02] MEDS: ACETAMINOPHEN TAB 650MG DOSE (2X325MG) PO SCH ×2 (05:07→11:39)
[2021-03-02] MEDS: HEPARIN SOD (PORCINE) 5000UNITS/ML 1ML VIAL/SYRINGE SQ SCH (05:07)
[2021-03-02 06:00] VITALS: BP 123/61
[2021-03-02 06:33] LABS: HEMATOCRIT 26.1 % (36.0-47.0); HEMOGLOBIN 8.3 g/dl (12.0-15.5); MEAN CORPUSCULAR HEMOGLOBIN 29.9 pg (27.0-33.0); MEAN CORPUSCULAR HGB CONC 31.8 g/dl (32.0-36.5); MEAN CORPUSCULAR VOLUME 93.9 fl (80.0-96.0); PLATELET COUNT, AUTOMATED 333 10^3/uL (150-450); RED BLOOD COUNT 2.78 10^6/uL (4.00-5.40); WHITE BLOOD COUNT 10.9 10^3/uL (4.0-10.0)
[2021-03-02] MEDS ORDERED: DOCU100C16 PO (07:51)
[2021-03-02] MEDS ORDERED: OXYC-517 PO (07:51)
[2021-03-02] MEDS ORDERED: FOLI1TAB11 PO (07:51)
[2021-03-02] MEDS ORDERED: ACET1TAB55 PO (07:51)
[2021-03-02] MEDS ORDERED: VITMTA PO (07:51)
[2021-03-02] MEDS ORDERED: THIA100TA PO (07:51)
[2021-03-02] MEDS ORDERED: MIRA1POW3 PO (07:51)
[2021-03-02] MEDS ORDERED: SENN18TA PO (07:51)
[2021-03-02] MEDS ORDERED: FERR1TAB8 PO (07:51)
[2021-03-02] MEDS ORDERED: TRAM50TA2 PO (07:51)
[2021-03-02] MEDS ORDERED: XARE10TA PO (07:58)
[2021-03-02] MEDS: NAPROXEN 250 MG TAB PO SCH (08:37)
[2021-03-02] MEDS: CitaloPRAM (CeleXA) 20 MG TAB PO SCH (08:37)
[2021-03-02] MEDS: THIAMINE 100 MG TAB PO SCH (08:38)
[2021-03-02] MEDS: PANTOPRAZOLE 40MG TAB (PROTONIX) PO SCH (08:38)
[2021-03-02] MEDS: FERROUS SULFATE 325MG TAB PO SCH (08:38)
[2021-03-02] MEDS: FOLIC ACID 1 MG TAB PO SCH (08:38)
[2021-03-02] MEDS: SUCRALFATE 1 GM TAB PO SCH ×2 (08:38→11:44)
[2021-03-02] MEDS: PRAVASTATIN 20 MG TAB PO SCH (08:38)
[2021-03-02] MEDS: DOCUSATE SODIUM 100MG CAPSULE PO SCH ×2 (08:38→08:45)
[2021-03-02] MEDS: ASCORBIC ACID 500 MG TAB PO SCH (08:39)
[2021-03-02] MEDS: MULTIVITAMINS/MINERALS THERAP 1 TAB PO SCH (08:39)
[2021-03-02] MEDS: oxyCODONE 5MG TAB PO PRN (08:39)
[2021-03-02] MEDS: buPROPion **XL** TABLET 150MG (WELLBUTRIN XL) PO SCH (08:39)
[2021-03-02] MEDS: CYCLOBENZAPRINE 10MG TABLET PO PRN (09:05)
--- NOTE | 2021-03-02 19:47 | DS.PDOC ---
Discharge Summary General Date of Admission Feb 24, 2021 at 05:06 Date of Discharge 03/02/21 Attending Physician: Diana Jiang MD Discharge Summary HISTORY OF PRESENT ILLNESS: This is a 71-year-old elderly female who presents to [facility] ER she complained of fall.patient states that she has been more stressed lately because her daughter and her daughter's and grandchildren and lives with her and have become an increased burden recently. She states that they are daily drinkers and she usually drinks with them about 1-2 beers per night. She states that tonight she drank more than she usually drank and reports 5 beers and 3 shots of peppermint schnapps shortly after got into an argument with her daughter and granddaughter. She got up from her chair and lost her footing and fell on her right hip. She denies hitting her head but states that she has been having excruciating sharp pains in her right hip that is a 10 out of 10 pain. She denies any dizziness presyncope syncope lightheadedness, blurry vision or any changes of vision prior to her fall or after her fall. In the ER x-ray of her femur shows findings consistent with a right femur fracture with displacement. Dr. Parra orthopedic on-call was contacted and states that he will see and take patient to the OR tomorrow morning. She was given pain meds in the hospitalist team was called to admit the patient for further management of her care. HOSPITAL COURSE: On 02/24/21 patient went for right proximal femur open reduction internal fixation with long gamma nail to fix complex right proximal femur fracture with subtrochanteric extension. EBL 300 mL. Post-op was complicated by distal lateral thigh hematoma with resulting anemia. H/H stabilizing and remains >7 above transfusion threshold. Other chronic issues remained stable. She performed well with PT/OT;however, additional rehab was recommended. On 03/02/21 patient was d/c to [facility] for further rehabilitation. Anticoagulation will be continued with xarelto 10 mg daily per orthopedic surgery and f/u with be scheduled. At the time of discharge, she had no acute complaints. PAST MEDICAL/ SURGICAL HISTORY: Depression anxiety GERD Dyslipidemia Chronic leukocytosis of unclear cause Nephrolithiasis cholecystitis Hx of thyroid nodule neg on bx 2011 chronic neck pain with c spine DDD Hx bile leak SURGICAL HISTORY: Status post robotic assisted laparoscopic cholecystectomy 12/03/2020 colo 2020 R heart cath 2016 ERCP 2020 Resection of esophageal polyps Partial thyroidectomy pathology was benign Resection of basal cell carcinoma Hysterectomy Plate in neck 2007 Right lumpectomy Right thumb fusion Tonsillectomy Resection of vocal cord polyps Cardiac catheterization SOCIAL HISTORY: Current smoker ; denies etoh or illicit drug use. Denies marijuana use. Patient lives at home in her daughter and is well as her granddaughter lives with her. FAMILY HISTORY: Father at 71. ddx with ca (unknown). mother alive 89 y/o. skin ca 3 brothers 2 daugthers- healthy ALLERGIES: See below DISCHARGE MEDS: Please see below Physical Examination VS: please see below General: Lying in bed, no acute distress Head/Neck/Throat: Trachea midline, mucous membranes moist Eyes: Sclera anicteric, no erythema or discharge appreciated bilaterally Thorax: Normal respiratory effort on room air, lungs clear to auscultation bilaterally, no wheezes/rales/rhonchi Cardiovascular: Normal rate, regular rhythm, normal S1, S2; radial and pedal pulses are palpable bilaterally Abdomen: Bowel sounds present, soft/nontender/nondistended Genitourinary: No CVA tenderness, no Yung in place Musculoskeletal: Improving right leg ROM, decreased bruising of right upper thigh- well healing incisions. RLE swelling, not new likely 2/2 to surgery Skin: Warm, dry Neurologic: AAOx3, speech fluent and goal-directed, no focal deficits, grossly intact LABS: Please see below A/P: #Right hip fracture s/p ORIF -POD#6 -Pain controlled, no s/s of incr bleeding -Weightbearing per ortho, f/u in 2 weeks from 02/25/21, PT/OT -D/c with xarelto 10 mg daily, allergy to ASA. #Post-op anemia, hx of HEATHER -H/H stabilized and remains >7 above transfusion threshold. #Hematoma- improving -Distal lateral thigh hematoma. -Orthopedic surgeon does not believe prior thigh tightness is from hematoma -H/H monitored #Leukocytosis- improving and likely reactive -No abx, cbc daily #Anxiety/depression -Continue with bupropion #HLD -Continue statin therapy #Alcohol abuse -C/w supplements -Risks discussed with patient, cessation encouraged #Tobacco use -Nicotine patch encouraged #Hypertension Continue with home meds #GERD -continue ppi. #DVT prophylaxis -Xarelto DISPOSITION: D/c to [facility] for rehabilitation TIME SPENT ON DISCHARGE: 35 minutes. Vital Signs/I&Os Vital Signs Date Time Temp Pulse Resp B/P (MAP) Pulse Ox O2 Delivery O2 Flow Rate FiO2 03/02/21 09:09 18 Room Air 03/02/21 06:00 98.1 65 123/61 (81) 98 02/27/21 14:00 2.0 I&O- Last 24 Hours up to 6 AM 03/02/21 06:00 Intake Total 990 ml Output Total 1700 ml Balance -710 ml Laboratory Data Labs 24H Laboratory Tests 2 03/02/21 05:24: Nucleated Red Blood Cells % (auto) 0.0 CBC/BMP Laboratory Tests 03/02/21 05:24 Discharge Medications Scheduled Acetaminophen (Acetaminophen) 325 Mg Tablet, 650 MG PO Q6H Bupropion Hcl (Bupropion Xl) 150 Mg Tab.er.24h, 150 MG PO DAILY, (Reported) Cholecalciferol (Vitamin D3) (Vitamin D3) 50 Mcg Capsule, 50 MCG PO DAILY, (Repo rted) Citalopram Hydrobromide (Celexa) 40 Mg Tablet, 40 MG PO DAILY, (Reported) Docusate Sodium (Colace) 100 Mg Capsule, 100 MG PO DAILY, (Reported) Docusate Sodium (Docusate Sodium) 100 Mg Capsule, 100 MG PO BID Ferrous Sulfate (Ferrous Sulfate) 325 Mg Tablet, 325 MG PO DAILY Folic Acid (Folic Acid) 1 Mg Tablet, 1 MG PO DAILY Melatonin (Melatonin) 3 Mg Tablet, 6 MG PO QHS, (Reported) Multivitamins (Thera M Plus Tablet) 1 Each Tablet, 1 TAB PO DAILY Pravastatin Sodium (Pravastatin Sodium) 40 Mg Tablet, 40 MG PO DAILY, (Reported) Rivaroxaban (Xarelto) 10 Mg Tablet, 10 MG PO DAILY Sucralfate (Carafate) 1 Gm Tablet, 1 GM PO ACHS, (Reported) Thiamine Hcl (Vitamin B-1) 100 Mg Tablet, 100 MG PO DAILY Scheduled PRN Cyclobenzaprine HCl (Cyclobenzaprine HCl) 10 Mg Tablet, 10 MG PO TID PRN for MUSCLE SPASMS, (Reported) Oxycodone HCl (Oxycodone HCl) 5 Mg Tablet, 5 MG PO Q6HP PRN for MODERATE/SEVERE PAIN (PS 5-10) Pantoprazole Sodium (Protonix) 40 Mg Granpkt.dr, 40 MG PO BID PRN for ACID REFLUX, (Reported) Polyethylene Glycol 3350 (Miralax) 17 Gm Powd.pack, 1 PKT PO DAILYPRN PRN for CONSTIPATION Senna (Senna Lax) 8.6 Mg Tablet, 2 TAB PO DAILYPRN PRN for CONSTIPATION Tramadol HCl (Tramadol HCl) 50 Mg Tablet, 50 MG PO Q6HP PRN for MILD PAIN (PS 1-4) Allergies Coded Allergies: Kiwi (Verified Allergy, Intermediate, hives, 12/02/20) Sulfa (Sulfonamide Antibiotics) (Verified Allergy, Intermediate, hives, 06/14/19) propoxyphene (Verified Allergy, Intermediate, rash, 06/14/19) aspirin (Verified Adverse Reaction, Intermediate, heart racing, 06/14/19) Diana Jiang MD Mar 02, 2021 19:47
--- NOTE | 2021-03-02 20:57 | IPNPDOC ---
Text Note Date of Service The patient was seen on 03/01/21. NOTE Patient seen approx 1 wk PO for R proximal femur ORIF 03/01/21 Dressings intact. No staining or drainage. Pt discharge to [facility] bed planned for rehab. Dressing changes ordered prior to tranfer. Patient will have sutures out at 2 weeks and have asked for xray of R femur at [facility] if still inpt, otherwise will f/u at clinic in 2 weeks for xrays and sutures out. Patient in agreement with plan. Office contact info provided. VS,Elvisbone, I+O VS, Fishbone, I+O Laboratory Tests 03/02/21 05:24 Vital Signs Date Time Temp Pulse Resp B/P (MAP) Pulse Ox O2 Delivery O2 Flow Rate FiO2 03/02/21 09:09 18 Room Air 03/02/21 06:00 98.1 65 123/61 (81) 98 02/27/21 14:00 2.0 I&O- Last 24 Hours up to 6 AM 03/02/21 06:00 Intake Total 990 ml Output Total 1700 ml Balance -710 ml ARUN TIRADO MD Mar 02, 2021 20:57
== END 2021-03-02 12:25 | DRG 481 ==
LOC: M ED 23:23 → M ED INP 02-24 05:06 → ENRESERV 02-24 05:25 → M MS5PR 02-24 06:40
PROVIDERS: ADMIT Family Medicine; ATTEND Internal Medicine
PROC: 0QS606Z Reposition Right Upper Femur with Intramedullary Internal Fixation Device, Open Approach (ICD-10-PCS; principal; 2021-02-24 09:05)
DX: S72.141A Displaced intertrochanteric fracture of right femur, initial encounter for closed fracture (principal); D62 Acute posthemorrhagic anemia; F10.10 Alcohol abuse, uncomplicated; I10 Essential (primary) hypertension; D72.829 Elevated white blood cell count, unspecified; K21.9 Gastro-esophageal reflux disease without esophagitis; E78.5 Hyperlipidemia, unspecified; F41.9 Anxiety disorder, unspecified; F32.9 Major depressive disorder, single episode, unspecified; Z95.2 Presence of prosthetic heart valve; F17.200 Nicotine dependence, unspecified, uncomplicated; Z79.899 Other long term (current) drug therapy; Z88.2 Allergy status to sulfonamides; Z88.6 Allergy status to analgesic agent; Z91.018 Allergy to other foods; W07.XXXA Fall from chair, initial encounter; Y92.009 Unspecified place in unspecified non-institutional (private) residence as the place of occurrence of the external cause

== ENCOUNTER → 2021-03-09 | Outpatient (CLI) | payer MEDICARE ==
[~2021-03-09] MED LIST changes: +ACET1TAB55 PO; +CARA1TAB6 PO; +COLA100C5 PO; +DOCU100C16 PO; +FERR1TAB8 PO; +FOLI1TAB11 PO; +MIRA1POW3 PO; +OXYC-517 PO; +SENN18TA PO; +SUCR1TAB56; +THIA100TA PO; +VITMTA PO; +XARE10TA PO
--- NOTE | 2021-03-09 14:33 | REP ---
INDICATION: ENCOUNTER FOR OTHER SPECIFIED SURGICAL AFTERCARE. COMPARISON: 02/24/2021 TECHNIQUE: AP and frog-lateral views of the right femur. FINDINGS: Status post open reduction and fixation with intramedullary hawa for comminuted proximal femur fracture. Osseous structures through the fracture in joint space appears stable with satisfactory alignment. Surrounding soft tissues demonstrate decreased postsurgical changes. IMPRESSION: Decreased postsurgical changes. Stable open reduction and fixation. <Electronically signed by Carlin Barrientos > 03/09/21 [id number]
== END ==
LOC: M SOG 13:42
PROVIDERS: ATTEND Orthopaedic Surgery Adult Reconstructive Orthopaedic Surgery
DX: M79.604 Pain in right leg (principal)

== ENCOUNTER → 2021-03-28 | Outpatient (CLI) | payer MEDICARE ==
[~2021-03-28] MED LIST changes: +ACET-840 PO
--- NOTE | 2021-03-28 14:45 | REPMRS ---
Patient History The patient states she has not had a clinical breast exam in over a year. Family history of colorectal cancer at age 70 in father, colorectal cancer at age 50 in paternal grandmother, colorectal cancer at age 88 in paternal uncle. Benign excisional biopsy of the right breast, 1994. Took unspecified hormones for 5 years. Patient states no breast complaints today. Patient has signed MRS History Sheet. Digital Woman Screen Mammo: March 28, 2021 - Exam #: [id number] Bilateral CC and MLO view(s) were taken. Technologist: Hansa Canseco, Technologist Prior study comparison: September 10, 2018, bilateral digital woman screen mammo performed at [facility]. March 09, 2017, bilateral digital mammo screening bilat, performed at [facility]. FINDINGS: There are scattered fibroglandular densities. Screening. Digital screening (2D) mammography was performed bilaterally in the CC and MLO projections. Additionally, breast tomosynthesis (3D mammography) was performed bilaterally in the CC and MLO projections. Todays exam was compared to the prior exam/exams. By history, the patient has no complaints of a palpable breast abnormality or other significant breast complaints. The breasts are unchanged in size and shape. There are no kane-soft tissue densities or spiculated masses. There is no internal architectural distortion.Once again, stable benign appearing calcifications are seen. There are no suspicious kane-calcific clusters. Skin thickening or nipple retraction is not present. IMPRESSION: BI-RADS Category 2- Benign Findings. There is no evidence of malignant alteration of the breasts. Followup examination recommended in one year. The Volpara volumetric breast density category is B, there are scattered areas of fibroglandular densities. This mammogram was read with the assistance of MedioTrabajo,an FDA approved computer aided detection system for mammography. The lifetime Tyrer-Cuzick score is 4.3 % Negative x-ray reports should not delay surgical consultation if a dominant or clinically suspicious mass is present. Not all breast cancers can be identified by mammography. Therefore, we recommend that you continue to perform regular breast self-examination and physical examination and then promptly contact your physician of any concerns or changes. Adenosis and dense breasts may obscure an underlying neoplasm. Assessment: BI-RADS/ACR category 2 mammogram. Benign Findings. Recommendation Routine screening mammogram of both breasts in 1 year. Electronically Signed By: Bayron Anderson DO 03/28/21 [id number]
== END ==
LOC: M WHC 11:55 → EEVIPCON 12:00
PROVIDERS: ATTEND Physician Assistant Medical
DX: Z01.812 Encounter for preprocedural laboratory examination (principal); Z12.31 Encounter for screening mammogram for malignant neoplasm of breast; Z80.0 Family history of malignant neoplasm of digestive organs; Z86.018 Personal history of other benign neoplasm; Z92.29 Personal history of other drug therapy; R92.1 Mammographic calcification found on diagnostic imaging of breast; Z20.822 Contact with and (suspected) exposure to COVID-19
CPT/HCPCS: 77063; 77067; U0003

== ENCOUNTER → 2021-03-28 | Outpatient (CLI) | payer MEDICARE | LOC: M LABSMTC 11:38 | PROVIDERS: ATTEND Anesthesiology | DX: Z01.812 Encounter for preprocedural laboratory examination (principal); Z20.822 Contact with and (suspected) exposure to COVID-19 ==

== ENCOUNTER 2021-04-01 11:54 | Day surgery (SDC) | payer MEDICARE ==
[~2021-04-01] VITALS: Ht 160 cm; Wt 69.9 kg
[~2021-04-01 11:54] MED LIST changes: +NS 1,000 ML IV ONE
[2021-04-01] MEDS ORDERED: POTA20TA6 PO (12:34)
[2021-04-01] MEDS ORDERED: OXYC-517 PO (12:34)
[2021-04-01] MEDS ORDERED: fentaNYL 100 MCG/2 ML INJECTION (J3010) As Ordered ONE (12:48)
[2021-04-01] MEDS ORDERED: propofoL 200 MG/20 ML VIAL As Ordered ONE (12:48)
[2021-04-01] MEDS ORDERED: LIDOCAINE 2% 100MG/5ML SDV (FOR ANES.) As Ordered ONE (12:48)
[2021-04-01 14:49] VITALS: BP 156/70
--- NOTE | 2021-04-01 15:08 | ROOR ---
Patient Name: Claire Braxton Procedure Date: 04/01/2021 2:03 PM Date of : 1950 Age: 71 Room: [facility] Gender: Female Note Status: Finalized Procedure: Upper GI endoscopy Indications: Biliary stent removal Providers: Porfirio Lilly MD Referring MD: OMAR Kendrick Requesting Provider: Medicines: Monitored Anesthesia Care Complications: No immediate complications. Procedure: Pre-Anesthesia Assessment: - Prior to the procedure, a History and Physical was performed, and patient medications and allergies were reviewed. The patient is competent. The risks and benefits of the procedure and the sedation options and risks were discussed with the patient. All questions were answered and informed consent was obtained. Patient identification and proposed procedure were verified by the physician, the nurse and the anesthesiologist in the procedure room. Mental Status Examination: alert and oriented. Airway Examination: normal oropharyngeal airway and neck mobility. Respiratory Examination: clear to auscultation. CV Examination: normal. Prophylactic Antibiotics: The patient does not require prophylactic antibiotics. Prior Anticoagulants: The patient has taken no previous anticoagulant or antiplatelet agents. ASA Grade Assessment: II - A patient with mild systemic disease. After reviewing the risks and benefits, the patient was deemed in satisfactory condition to undergo the procedure. The anesthesia plan was to use monitored anesthesia care (MAC). Immediately prior to administration of medications, the patient was re-assessed for adequacy to receive sedatives. The heart rate, respiratory rate, oxygen saturations, blood pressure, adequacy of pulmonary ventilation, and response to care were monitored throughout the procedure. The physical status of the patient was re-assessed after the procedure. The Endoscope was introduced through the mouth, and advanced to the second part of duodenum. The upper GI endoscopy was accomplished without difficulty. The patient tolerated the procedure well. Findings: The examined esophagus was normal. The Z-line was regular and was found at the gastroesophageal junction. Scattered mild inflammation characterized by erythema and granularity was found in the gastric body and in the gastric antrum. The duodenal bulb, second portion of the duodenum, area of the papilla, third portion of the duodenum and fourth portion of the duodenum were normal. There is no endoscopic evidence of Biliary stent arising from in the major papilla. Impression: - Normal esophagus. - Z-line regular, at the gastroesophageal junction. - Gastritis. - Normal duodenal bulb, second portion of the duodenum, area of the papilla, third portion of the duodenum and fourth portion of the duodenum. - No specimens collected. Recommendation: - Patient has a contact number available for emergencies. The signs and symptoms of potential delayed complications were discussed with the patient. Return to normal activities tomorrow. Written discharge instructions were provided to the patient. - High fiber diet. - Continue present medications. - Perform a flat plate abdominal x-ray at appointment to be scheduled. - Return to GI clinic if persistent symptoms or new symptoms. - Return to primary care physician. Procedure Code(s): --- Professional --- 29877, Esophagogastroduodenoscopy, flexible, transoral; diagnostic, including collection of specimen(s) by brushing or washing, when performed (separate procedure) Diagnosis Code(s): --- Professional --- K29.70, Gastritis, unspecified, without bleeding Z46.59, Encounter for fitting and adjustment of other gastrointestinal appliance and device CPT copyright 2019 [employer]. All rights reserved. The codes documented in this report are preliminary and upon cryptologic linguist review may be revised to meet current compliance requirements. Porfirio Lilly MD Porfirio Lilly MD 04/01/2021 3:07:52 PM Electronically signed by Porfirio Lilly MD Number of Addenda: 0 Note Initiated On: 04/01/2021 2:03 PM Estimated Blood Loss: Estimated blood loss: none.
[2021-04-01] MEDS ORDERED: SODIUM CHLORIDE 0.9% INJ 10 ML SYR IV PRN (15:20)
== END 2021-04-01 15:17 | disposition home or self-care (01) ==
LOC: M OPP 11:54
PROVIDERS: ATTEND Internal Medicine Gastroenterology
DX: K29.70 Gastritis, unspecified, without bleeding (principal); Z46.59 Encounter for fitting and adjustment of other gastrointestinal appliance and device; Z79.891 Long term (current) use of opiate analgesic; Z79.899 Other long term (current) drug therapy; Z88.2 Allergy status to sulfonamides; Z88.5 Allergy status to narcotic agent; Z88.8 Allergy status to other drugs, medicaments and biological substances; Z91.018 Allergy to other foods; F17.210 Nicotine dependence, cigarettes, uncomplicated; Z80.0 Family history of malignant neoplasm of digestive organs
CPT/HCPCS: 43235; J3010

== ENCOUNTER → 2021-04-15 | Outpatient (CLI) | payer MEDICARE ==
[~2021-04-15] MED LIST changes: -NS 1,000 ML IV ONE; +POTA20TA6 PO
--- NOTE | 2021-04-15 09:23 | REP ---
INDICATION: RT FEMUR FX. COMPARISON: 02/24/2021 TECHNIQUE: Neutral and frog-lateral views of the right femur. FINDINGS: Patient is again noted to be status post satisfactory open reduction and fixation for comminuted proximal femur fracture. Postsurgical changes from prior examination appear improved and no obvious residual subcutaneous emphysema is appreciated. Underlying age-related degenerative changes at the hip joint noted. IMPRESSION: Satisfactory fixation. Decreased postsurgical changes. <Electronically signed by Carlin Barrientos > 04/15/21 [id number]
== END ==
LOC: M SOG 08:44
PROVIDERS: ATTEND Orthopaedic Surgery Adult Reconstructive Orthopaedic Surgery
DX: S72.91XD Unspecified fracture of right femur, subsequent encounter for closed fracture with routine healing (principal)

== ENCOUNTER → 2021-04-18 | Outpatient (CLI) | payer MEDICARE ==
[~2021-04-18] MED LIST changes: +POTA-151 PO; -POTA20TA6 PO
== END ==
LOC: EDBD → M LABSMTC 10:33
PROVIDERS: ATTEND Family Medicine
DX: Z20.822 Contact with and (suspected) exposure to COVID-19 (principal)
CPT/HCPCS: C9803; U0003

== ENCOUNTER 2021-05-12 10:00 | Outpatient (RCR) | payer MEDICARE ==
[~2021-05-12 10:00] MED LIST changes: -POTA-151 PO; +POTA20TA6 PO
== END 2021-05-27 ==
LOC: M PT 10:00
PROVIDERS: ATTEND Orthopaedic Surgery Adult Reconstructive Orthopaedic Surgery
DX: S72.91XD Unspecified fracture of right femur, subsequent encounter for closed fracture with routine healing (principal)

== ENCOUNTER → 2021-06-08 | Outpatient (CLI) | payer MEDICARE ==
[~2021-06-08] MED LIST changes: +POTA-151 PO; -POTA20TA6 PO
== END ==
LOC: EDBD → M RAD 15:10
PROVIDERS: ATTEND Physician Assistant
DX: R91.8 Other nonspecific abnormal finding of lung field (principal); K80.10 Calculus of gallbladder with chronic cholecystitis without obstruction
CPT/HCPCS: 71250; 74019; G0463

== ENCOUNTER → 2021-06-08 | Outpatient (CLI) | payer MEDICARE | LOC: M RAD 15:22 | PROVIDERS: ATTEND Internal Medicine Gastroenterology | DX: K80.10 Calculus of gallbladder with chronic cholecystitis without obstruction (principal) ==

== ENCOUNTER 2021-06-21 16:00 | Outpatient (RCR) | payer MEDICARE | END 2021-06-27 | LOC: EDBD → M PT 16:00 | PROVIDERS: ATTEND Orthopaedic Surgery Adult Reconstructive Orthopaedic Surgery | DX: S72.91XD Unspecified fracture of right femur, subsequent encounter for closed fracture with routine healing (principal); X58.XXXD Exposure to other specified factors, subsequent encounter ==

== ENCOUNTER 2021-07-14 11:30 | Outpatient (RCR) | payer MEDICARE | END 2021-07-25 | LOC: M PT 11:30 | PROVIDERS: ATTEND Orthopaedic Surgery Adult Reconstructive Orthopaedic Surgery | DX: S72.91XD Unspecified fracture of right femur, subsequent encounter for closed fracture with routine healing (principal) ==

== ENCOUNTER → 2021-07-26 | Outpatient (REF) | payer MEDICARE ==
[2021-07-26 17:44] LABS: BASO # 0.1 10^3/uL (0.0-0.2); BASO % 0.7 % (0.0-1.0); EOS # 0.1 10^3/uL (0.0-0.5); EOS % 0.8 % (0.0-3.0); HEMATOCRIT 44.1 % (36.0-47.0); HEMOGLOBIN 14.3 g/dl (12.0-15.5); LYMPH # 2.9 10^3/uL (1.5-5.0); LYMPH % 26.9 % (24.0-44.0); MEAN CORPUSCULAR HEMOGLOBIN 28.3 pg (27.0-33.0); MEAN CORPUSCULAR HGB CONC 32.4 g/dl (32.0-36.5); MEAN CORPUSCULAR VOLUME 87.2 fl (80.0-96.0); MONO # 0.8 10^3/uL (0.0-0.8); NEUTROPHILS % 64.2 % (36.0-66.0); PLATELET COUNT, AUTOMATED 348 10^3/uL (150-450); RED BLOOD COUNT 5.06 10^6/uL (4.00-5.40); WHITE BLOOD COUNT 10.9 10^3/uL (4.0-10.0)
[2021-07-26 18:28] LABS: ALBUMIN 3.7 GM/DL (3.2-5.2); ALT/SGPT 18 U/L (12-78); BILIRUBIN,TOTAL 0.3 MG/DL (0.2-1.0); BLOOD UREA NITROGEN 10 MG/DL (7-18); CALCIUM LEVEL 9.4 MG/DL (8.8-10.2); CARBON DIOXIDE LEVEL 27 MEQ/L (21-32); CHLORIDE LEVEL 103 MEQ/L (98-107); CHOLESTEROL LEVEL 163 MG/DL (<200); CHOLESTEROL RISK RATIO 3.075 (<5); GLOMERULAR FILTRATION RATE > 60.0 (>45); GLUCOSE, FASTING 73 MG/DL (70-100); HDL CHOLESTEROL 53 MG/DL (>40); LDL CHOLESTEROL 89 MG/DL (<100); NON-HDL-C 110 MG/DL; POTASSIUM SERUM 4.3 MEQ/L (3.5-5.1); SODIUM LEVEL 136 MEQ/L (136-145); TOTAL PROTEIN 6.9 GM/DL (6.4-8.2); TRIGLYCERIDES LEVEL 105 MG/DL (<150)
== END ==
LOC: M SFHCADAM 13:45
PROVIDERS: ATTEND Physician Assistant Medical
DX: E78.2 Mixed hyperlipidemia (principal); F17.210 Nicotine dependence, cigarettes, uncomplicated; J30.89 Other allergic rhinitis; K21.9 Gastro-esophageal reflux disease without esophagitis; Z79.899 Other long term (current) drug therapy

== ENCOUNTER → 2021-08-01 | Outpatient (CLI) | payer MEDICARE | LOC: M SOG 11:07 | PROVIDERS: ATTEND Orthopaedic Surgery Adult Reconstructive Orthopaedic Surgery | DX: M17.0 Bilateral primary osteoarthritis of knee (principal); M25.562 Pain in left knee; M25.561 Pain in right knee; S72.91XD Unspecified fracture of right femur, subsequent encounter for closed fracture with routine healing ==

== ENCOUNTER → 2021-08-29 | Outpatient (CLI) | payer MEDICARE | LOC: M RAD 11:28 | PROVIDERS: ATTEND Otolaryngology | DX: E04.2 Nontoxic multinodular goiter (principal) ==

== ENCOUNTER → 2021-08-31 | Outpatient (CLI) | payer MEDICARE | LOC: M WHC 14:55 | PROVIDERS: ATTEND Physician Assistant Medical | DX: S72.21XS Displaced subtrochanteric fracture of right femur, sequela (principal); W18.30XS Fall on same level, unspecified, sequela; M81.0 Age-related osteoporosis without current pathological fracture ==

== ENCOUNTER → 2021-12-01 | Outpatient (CLI) | payer MEDICARE | LOC: M PLAIMG 12:49 | PROVIDERS: ATTEND Orthopaedic Surgery Adult Reconstructive Orthopaedic Surgery | DX: M17.12 Unilateral primary osteoarthritis, left knee (principal) ==

== ENCOUNTER → 2021-12-15 | Outpatient (CLI) | payer MEDICARE | LOC: M SOG 08:28 | PROVIDERS: ATTEND Orthopaedic Surgery Adult Reconstructive Orthopaedic Surgery | DX: M17.12 Unilateral primary osteoarthritis, left knee (principal); Z97.8 Presence of other specified devices ==

== ENCOUNTER → 2022-01-19 | Outpatient (CLI) | payer MEDICARE | LOC: M SOG 11:42 | PROVIDERS: ATTEND Orthopaedic Surgery Adult Reconstructive Orthopaedic Surgery | DX: S72.91XD Unspecified fracture of right femur, subsequent encounter for closed fracture with routine healing (principal); Z53.9 Procedure and treatment not carried out, unspecified reason ==

== ENCOUNTER → 2022-01-19 | Outpatient (CLI) | payer MEDICARE | LOC: M SOG 09:27 | PROVIDERS: ATTEND Orthopaedic Surgery Adult Reconstructive Orthopaedic Surgery | DX: S72.91XD Unspecified fracture of right femur, subsequent encounter for closed fracture with routine healing (principal) ==

== ENCOUNTER → 2022-02-02 | Outpatient (CLI) | payer MEDICARE | LOC: M SOG 10:14 | PROVIDERS: ATTEND Orthopaedic Surgery | DX: M25.512 Pain in left shoulder (principal) ==

== ENCOUNTER → 2022-02-23 | Outpatient (CLI) | payer MEDICARE ==
[~2022-02-23] MED LIST changes: +BUPR-365 PO; +GABA-282 PO
== END ==
LOC: M LABSMTC 09:13
PROVIDERS: ATTEND Anesthesiology
DX: Z01.818 Encounter for other preprocedural examination (principal); Z11.52 Encounter for screening for COVID-19

== ENCOUNTER → 2022-02-23 | Outpatient (CLI) | payer MEDICARE | LOC: M RAD 10:06 | PROVIDERS: ATTEND Anesthesiology | DX: J44.9 Chronic obstructive pulmonary disease, unspecified (principal) ==

== ENCOUNTER 2022-02-28 12:12 | Day surgery (SDC) | payer MEDICARE ==
[~2022-02-28] VITALS: Ht 160 cm; Wt 67.6 kg
[~2022-02-28 12:12] MED LIST changes: +ACETAMINOPHEN 500 MG TAB PO ONE; +CelecoXIB 400 MG CAP PO ONE; +GABAPENTIN 300 MG CAP PO ONE; +LIDOCAINE 2% 100MG/5ML SDV (FOR ANES.) As Ordered ONE; +MIDAZOLAM INJ 2MG/2ML VIAL (J2250 PER 1MG) As Ordered ONE; +ONDANSETRON 4MG 2ML VIAL As Ordered ONE; +ONDANSETRON 4MG 2ML VIAL IV ONE; +dexameTHASONE 4 MG/ML 1ML VIAL (J1100 PER 1MG) As Ordered ONE; +fentaNYL 100 MCG/2 ML INJECTION As Ordered ONE; +propofoL 200 MG/20 ML VIAL As Ordered ONE
[2022-02-28] MEDS ORDERED: LR 1,000 ML IV SCH ×2 (13:10→15:35)
[2022-02-28] MEDS ORDERED: LIDOCAINE W/EPINEPHRINE 1% 20ML VIAL As Ordered ONE (14:36)
[2022-02-28] MEDS ORDERED: EPINEPHrine 1MG/ML INJ 30ML MD-VIAL As Ordered ONE (14:36)
[2022-02-28] MEDS ORDERED: BUPIVACAINE/EPIN 0.25% 30 ML VIAL As Ordered ONE (14:37)
[2022-02-28] MEDS ORDERED: GLYCOPYRROLATE INJ 0.2 MG/ML 2 ML VIAL As Ordered ONE (14:56)
[2022-02-28] MEDS ORDERED: LABETALOL 100MG/20ML VIAL As Ordered ONE (15:07)
[2022-02-28] MEDS ORDERED: fentaNYL 100 MCG/2 ML INJECTION As Ordered ONE (15:20)
[2022-02-28] MEDS ORDERED: HYDROMORPHONE HCL 0.5 MG/ 0.5 ML SYRINGE (J1170 PER 1) IV PRN (15:35)
[2022-02-28] MEDS ORDERED: fentaNYL 100 MCG/2 ML INJECTION IV PRN (15:35)
[2022-02-28] MEDS: oxyCODONE 5MG TAB PO PRN ×2 (16:04→16:39)
[2022-02-28 17:20] VITALS: BP 141/62
== END 2022-02-28 17:25 | disposition home or self-care (01) ==
LOC: M SDC 12:12
PROVIDERS: ATTEND Orthopaedic Surgery Adult Reconstructive Orthopaedic Surgery
DX: M23.92 Unspecified internal derangement of left knee (principal); J44.9 Chronic obstructive pulmonary disease, unspecified; K21.9 Gastro-esophageal reflux disease without esophagitis; F17.210 Nicotine dependence, cigarettes, uncomplicated; E78.5 Hyperlipidemia, unspecified; E04.1 Nontoxic single thyroid nodule; K44.9 Diaphragmatic hernia without obstruction or gangrene; F41.9 Anxiety disorder, unspecified; F32.A Depression, unspecified; Z88.5 Allergy status to narcotic agent; Z88.2 Allergy status to sulfonamides; Z91.018 Allergy to other foods; Z88.8 Allergy status to other drugs, medicaments and biological substances; Z79.899 Other long term (current) drug therapy
CPT/HCPCS: 29880; C1713; J0171; J1100; J2250; J2405; J3010

== ENCOUNTER → 2022-03-07 | Outpatient (CLI) | payer MEDICARE ==
[~2022-03-07] MED LIST changes: -ACETAMINOPHEN 500 MG TAB PO ONE; -CelecoXIB 400 MG CAP PO ONE; -GABAPENTIN 300 MG CAP PO ONE; +ISOVUE-300 61% 50ML VIAL As Ordered ONE; +LIDOCAINE 1% MDV 20ML VIAL As Ordered ONE; -LIDOCAINE 2% 100MG/5ML SDV (FOR ANES.) As Ordered ONE; -MIDAZOLAM INJ 2MG/2ML VIAL (J2250 PER 1MG) As Ordered ONE; -ONDANSETRON 4MG 2ML VIAL As Ordered ONE; -ONDANSETRON 4MG 2ML VIAL IV ONE; +PROHANCE 279.3MG/ML 5ML VIAL As Ordered ONE; -dexameTHASONE 4 MG/ML 1ML VIAL (J1100 PER 1MG) As Ordered ONE; -fentaNYL 100 MCG/2 ML INJECTION As Ordered ONE; -propofoL 200 MG/20 ML VIAL As Ordered ONE
== END ==
LOC: M RADPRO 09:01
PROVIDERS: ATTEND Orthopaedic Surgery
DX: S43.432A Superior glenoid labrum lesion of left shoulder, initial encounter (principal); X58.XXXA Exposure to other specified factors, initial encounter; Y92.9 Unspecified place or not applicable
CPT/HCPCS: 23350; 73223; 77002; A9576; Q9967

== ENCOUNTER → 2022-04-17 | Outpatient (CLI) | payer MEDICARE ==
[~2022-04-17] MED LIST changes: +ALEN70TA82 PO; +ASCO50TA PO; +BACL10TA2 PO; +CITA40TA7 PO; +CVS10CAP7 PO; -ISOVUE-300 61% 50ML VIAL As Ordered ONE; -LIDOCAINE 1% MDV 20ML VIAL As Ordered ONE; +NAPR-849 PO; +POTA595T16 PO; -PROHANCE 279.3MG/ML 5ML VIAL As Ordered ONE
== END ==
LOC: M ADAMS 15:05
PROVIDERS: ATTEND Physician Assistant Medical
DX: Z01.818 Encounter for other preprocedural examination (principal); M25.562 Pain in left knee

== ENCOUNTER → 2022-04-17 | Outpatient (REF) | payer MEDICARE ==
[~2022-04-17] MED LIST changes: -ALEN70TA82 PO; -ASCO50TA PO; -BACL10TA2 PO; -CITA40TA7 PO; -CVS10CAP7 PO; -NAPR-849 PO; -POTA595T16 PO
[2022-04-17 16:23] LABS: BASO # 0.1 10^3/uL (0.0-0.2); BASO % 0.5 % (0.0-1.0); EOS # 0.1 10^3/uL (0.0-0.5); EOS % 0.8 % (0.0-3.0); HEMATOCRIT 44.4 % (36.0-47.0); HEMOGLOBIN 14.5 g/dl (12.0-15.5); LYMPH # 3.2 10^3/uL (1.5-5.0); LYMPH % 24.5 % (24.0-44.0); MEAN CORPUSCULAR HEMOGLOBIN 28.9 pg (27.0-33.0); MEAN CORPUSCULAR HGB CONC 32.7 g/dl (32.0-36.5); MEAN CORPUSCULAR VOLUME 88.6 fl (80.0-96.0); MONO % 7.6 % (2.0-8.0); NEUTROPHILS # 8.8 10^3/uL (1.5-8.5); NEUTROPHILS % 66.2 % (36.0-66.0); PLATELET COUNT, AUTOMATED 307 10^3/uL (150-450); RED BLOOD COUNT 5.01 10^6/uL (4.00-5.40); WHITE BLOOD COUNT 13.2 10^3/uL (4.0-10.0)
[2022-04-17 16:56] LABS: ALBUMIN 3.8 G/DL (3.2-5.2); ALT/SGPT 17 U/L (7.0-40); BILIRUBIN,TOTAL 0.3 MG/DL (0.3-1.2); BLOOD UREA NITROGEN 13 MG/DL (9-23); CARBON DIOXIDE LEVEL 27 MMOL/L (20-31); CHLORIDE LEVEL 98 MMOL/L (98-107); GLOMERULAR FILTRATION RATE > 60.0 (>39); GLUCOSE, FASTING 73 MG/DL (74-106); POTASSIUM SERUM 4.4 MMOL/L (3.5-5.1); SODIUM LEVEL 134 MMOL/L (136-145); TOTAL PROTEIN 6.7 G/DL (5.7-8.2)
== END ==
LOC: M SFHCADAM 15:03
PROVIDERS: ATTEND Physician Assistant Medical
DX: Z01.818 Encounter for other preprocedural examination (principal); M25.562 Pain in left knee

== ENCOUNTER → 2022-04-26 | Outpatient (CLI) | payer MEDICARE ==
[~2022-04-26] MED LIST changes: +ALEN70TA82 PO; +BACL10TA2 PO; +CITA40TA7 PO; +CVS10CAP7 PO; +NAPR-849 PO; +POTA595T16 PO
== END ==
LOC: M RAD 10:44
PROVIDERS: ATTEND Orthopaedic Surgery Adult Reconstructive Orthopaedic Surgery
DX: M17.12 Unilateral primary osteoarthritis, left knee (principal)

== ENCOUNTER 2022-05-04 10:43 | Outpatient (RCR) | payer MEDICARE ==
[2022-05-11] MEDS ORDERED: ASCO50TA PO (12:07)
[2022-05-11] MEDS ORDERED: OXYC-517 PO (12:07)
[2022-05-11] MEDS ORDERED: COLA100C5 PO (12:07)
[2022-05-11] MEDS ORDERED: XARE10TA PO (12:07)
[2022-05-11] MEDS ORDERED: FERR1TAB8 PO (12:07)
== END 2022-05-27 ==
LOC: M PT 10:43
PROVIDERS: ATTEND Orthopaedic Surgery Adult Reconstructive Orthopaedic Surgery
DX: M17.12 Unilateral primary osteoarthritis, left knee (principal)

== ENCOUNTER → 2022-05-04 | Outpatient (CLI) | payer MEDICARE | LOC: M LABSMTC 10:36 | PROVIDERS: ATTEND Anesthesiology | DX: Z01.812 Encounter for preprocedural laboratory examination (principal); Z11.52 Encounter for screening for COVID-19 ==

== ENCOUNTER 2022-05-09 06:16 | Observation (INO) | payer MEDICARE ==
[~2022-05-09] VITALS: Ht 160 cm; Wt 69.0 kg
[~2022-05-09 06:16] MED LIST changes: +ACETAMINOPHEN 500 MG TAB PO ONE; +NAPROXEN 250 MG TAB PO ONE; +NS 1,000 ML IV ONE; +PREGABALIN 25 MG CAP (LYRICA) PO ONE; +ROPIVA 125MG/EPINEPH 0.25MG/CLONID 40MCG/KETOR 15MG IN NS 50ML SYRINGE PA ONE; +ceFAZolin SOD 2 GM in IV 1 EA IV ONE
[2022-05-09] MEDS ORDERED: LR 1,000 ML IV SCH ×3 (06:20→10:20)
[2022-05-09] MEDS ORDERED: DESFLURANE 240 ML INHALANT As Ordered ONE (06:58)
[2022-05-09] MEDS ORDERED: propofoL 500 MG/50 ML VIAL As Ordered ONE ×2 (07:06→09:09)
[2022-05-09] MEDS ORDERED: LIDOCAINE 2% 100MG/5ML SDV (FOR ANES.) As Ordered ONE (07:07)
[2022-05-09] MEDS ORDERED: ONDANSETRON 4MG 2ML VIAL As Ordered ONE (07:08)
[2022-05-09] MEDS ORDERED: TRANEXAMIC ACID 100 MG/ML 10ML VIAL As Ordered ONE (07:20)
[2022-05-09] MEDS ORDERED: VANCOMYCIN 1000MG/20ML VIAL As Ordered ONE (07:20)
[2022-05-09] MEDS ORDERED: MIDAZOLAM INJ 2MG/2ML VIAL (J2250 PER 1MG) As Ordered ONE (07:21)
[2022-05-09] MEDS ORDERED: PHENYLEPHRINE 10MG/ML 1ML VIAL As Ordered ONE (07:47)
[2022-05-09] MEDS ORDERED: HOME MED LIST COMPLETE! XX SCH (08:05)
[2022-05-09] MEDS ORDERED: ePHEDrine SULFATE 25 MG/5 ML(5MG/ML) SYRINGE As Ordered ONE (08:16)
[2022-05-09] MEDS ORDERED: PHENYLephrine 500MCG 5ML (100MCG/ML) SYRINGE As Ordered ONE (08:16)
[2022-05-09] MEDS ORDERED: fentaNYL 100 MCG/2 ML INJECTION As Ordered ONE (08:55)
[2022-05-09] MEDS ORDERED: SENNA 8.6 MG TAB (SENOKOT) PO PRN (10:15)
[2022-05-09] MEDS ORDERED: oxyCODONE 5MG TAB PO PRN (10:20)
[2022-05-09] MEDS ORDERED: HYDROMORPHONE HCL 0.5 MG/ 0.5 ML SYRINGE (J1170 PER 1) IV PRN (10:20)
[2022-05-09] MEDS ORDERED: fentaNYL 100 MCG/2 ML INJECTION IV PRN (10:20)
[2022-05-09] MEDS ORDERED: ONDANSETRON 4MG 2ML VIAL IV PRN (10:20)
[2022-05-09] MEDS: ACETAMINOPHEN TAB 650MG DOSE (2X325MG) PO SCH ×3 (12:00→23:18)
[2022-05-09 14:45] VITALS: BP 137/70
[2022-05-09] MEDS: ceFAZolin SOD 2 GM in IV 1 EA IV SCH ×2 (15:40→22:56)
[2022-05-09 15:43] VITALS: BP 135/70
[2022-05-09] MEDS: oxyCODONE 5MG TAB PO PRN ×2 (15:43→19:44)
[2022-05-09 16:30] VITALS: BP 122/65
[2022-05-09 17:30] VITALS: BP 120/68
[2022-05-09 18:30] VITALS: BP 118/65
[2022-05-09 19:30] VITALS: BP 115/61
[2022-05-09] MEDS: DOCUSATE SODIUM 100MG CAPSULE PO SCH (20:13)
[2022-05-09] MEDS: NAPROXEN 250 MG TAB PO SCH (20:13)
[2022-05-09] MEDS: GABAPENTIN 300 MG CAP PO SCH (20:13)
[2022-05-09] MEDS: PANTOPRAZOLE 40MG TAB (PROTONIX) PO SCH (20:13)
[2022-05-09] MEDS: ONDANSETRON 4MG 2ML VIAL IV PRN (20:30)
[2022-05-09] MEDS ORDERED: MORPHINE 2 MG/ML 1ML VIAL IV ONE (23:05)
[2022-05-10] MEDS: tiZANidine 4 MG TAB PO PRN ×4 (00:17→22:06)
[2022-05-10] MEDS ORDERED: PILL CUTTER 1 EACH XX PRN (00:20)
[2022-05-10] MEDS: oxyCODONE 5MG TAB PO PRN ×4 (01:02→20:49)
[2022-05-10 01:24] VITALS: BP 125/67
[2022-05-10 04:45] VITALS: BP 139/69
[2022-05-10] MEDS: ACETAMINOPHEN TAB 650MG DOSE (2X325MG) PO SCH ×3 (05:51→17:54)
[2022-05-10 06:24] LABS: HEMOGLOBIN 11.7 g/dl (12.0-15.5); MEAN CORPUSCULAR HEMOGLOBIN 29.3 pg (27.0-33.0); MEAN CORPUSCULAR HGB CONC 33.4 g/dl (32.0-36.5); MEAN CORPUSCULAR VOLUME 87.7 fl (80.0-96.0); PLATELET COUNT, AUTOMATED 262 10^3/uL (150-450); RED BLOOD COUNT 3.99 10^6/uL (4.00-5.40); WHITE BLOOD COUNT 19.1 10^3/uL (4.0-10.0)
[2022-05-10 06:47] LABS: BLOOD UREA NITROGEN 13 MG/DL (9-23); CALCIUM LEVEL 8.7 MG/DL (8.3-10.6); CARBON DIOXIDE LEVEL 28 MMOL/L (20-31); CHLORIDE LEVEL 102 MMOL/L (98-107); GLOMERULAR FILTRATION RATE > 60.0 (>39); GLUCOSE, FASTING 88 MG/DL (74-106); POTASSIUM SERUM 4.5 MMOL/L (3.5-5.1); SODIUM LEVEL 134 MMOL/L (136-145)
[2022-05-10] MEDS: CitaloPRAM (CeleXA) 20 MG TAB PO SCH (08:33)
[2022-05-10] MEDS: NAPROXEN 250 MG TAB PO SCH ×2 (08:33→20:48)
[2022-05-10] MEDS: buPROPion **XL** TABLET 150MG (WELLBUTRIN XL) PO SCH (08:33)
[2022-05-10] MEDS: DOCUSATE SODIUM 100MG CAPSULE PO SCH ×2 (08:33→20:49)
[2022-05-10] MEDS: FERROUS SULFATE 325MG TAB PO SCH (08:33)
[2022-05-10] MEDS: ASCORBIC ACID 500 MG TAB PO SCH (08:34)
[2022-05-10] MEDS: GABAPENTIN 300 MG CAP PO SCH ×2 (08:34→20:48)
[2022-05-10] MEDS: PANTOPRAZOLE 40MG TAB (PROTONIX) PO SCH ×2 (08:34→20:49)
[2022-05-10] MEDS: PRAVASTATIN 20 MG TAB PO SCH (08:34)
[2022-05-10 10:00] VITALS: BP 110/46
[2022-05-10 13:33] LABS: INR 0.92; PROTHROMBIN TIME 12.6 SECONDS (12.5-14.5)
[2022-05-10 13:34] LABS: PARTIAL THROMBOPLASTIN TIME 27.7 SECONDS (24.8-34.2)
[2022-05-10 14:00] VITALS: BP 108/47
[2022-05-10] MEDS ORDERED: RIVAROXABAN 10MG TAB (XARELTO) PO SCH (18:00)
[2022-05-10 22:00] VITALS: BP 108/48
[2022-05-11] MEDS: ACETAMINOPHEN TAB 650MG DOSE (2X325MG) PO SCH ×3 (00:01→13:01)
[2022-05-11] MEDS: oxyCODONE 5MG TAB PO PRN ×2 (02:11→14:30)
[2022-05-11 05:37] LABS: BASO % 0.4 % (0.0-1.0); EOS # 0.1 10^3/uL (0.0-0.5); EOS % 0.9 % (0.0-3.0); HEMATOCRIT 32.1 % (36.0-47.0); HEMOGLOBIN 10.5 g/dl (12.0-15.5); LYMPH # 2.8 10^3/uL (1.5-5.0); LYMPH % 25.5 % (24.0-44.0); MEAN CORPUSCULAR HGB CONC 32.7 g/dl (32.0-36.5); MEAN CORPUSCULAR VOLUME 88.7 fl (80.0-96.0); MONO % 8.9 % (2.0-8.0); NEUTROPHILS # 7.1 10^3/uL (1.5-8.5); NEUTROPHILS % 63.9 % (36.0-66.0); PLATELET COUNT, AUTOMATED 232 10^3/uL (150-450); RED BLOOD COUNT 3.62 10^6/uL (4.00-5.40); WHITE BLOOD COUNT 11.1 10^3/uL (4.0-10.0)
[2022-05-11] MEDS: tiZANidine 4 MG TAB PO PRN (05:48)
[2022-05-11 05:54] LABS: BLOOD UREA NITROGEN 18 MG/DL (9-23); CALCIUM LEVEL 8.5 MG/DL (8.3-10.6); CARBON DIOXIDE LEVEL 28 MMOL/L (20-31); CHLORIDE LEVEL 103 MMOL/L (98-107); GLOMERULAR FILTRATION RATE > 60.0 (>39); GLUCOSE, FASTING 85 MG/DL (74-106); POTASSIUM SERUM 4.3 MMOL/L (3.5-5.1); SODIUM LEVEL 133 MMOL/L (136-145)
[2022-05-11 06:00] VITALS: BP 104/50
[2022-05-11] MEDS: GABAPENTIN 300 MG CAP PO SCH (07:58)
[2022-05-11] MEDS: DOCUSATE SODIUM 100MG CAPSULE PO SCH (07:58)
[2022-05-11] MEDS: FERROUS SULFATE 325MG TAB PO SCH (07:58)
[2022-05-11] MEDS: PRAVASTATIN 20 MG TAB PO SCH (07:58)
[2022-05-11] MEDS: PANTOPRAZOLE 40MG TAB (PROTONIX) PO SCH (07:58)
[2022-05-11] MEDS: buPROPion **XL** TABLET 150MG (WELLBUTRIN XL) PO SCH (07:58)
[2022-05-11] MEDS: ASCORBIC ACID 500 MG TAB PO SCH (07:59)
[2022-05-11] MEDS: NAPROXEN 250 MG TAB PO SCH (07:59)
[2022-05-11] MEDS: CitaloPRAM (CeleXA) 20 MG TAB PO SCH (08:00)
[2022-05-11] MEDS: ONDANSETRON 4MG 2ML VIAL IV PRN (10:53)
[2022-05-11] MEDS ORDERED: FERR1TAB8 PO (12:07)
[2022-05-11] MEDS ORDERED: ASCO50TA PO (12:07)
[2022-05-11] MEDS ORDERED: XARE10TA PO (12:07)
[2022-05-11] MEDS ORDERED: COLA100C5 PO (12:07)
[2022-05-11] MEDS ORDERED: OXYC-517 PO (12:07)
== END 2022-05-11 16:15 | disposition home health service (06) ==
LOC: M SDC 06:16 → M ED INP 06:17 → M MS5PR 14:40
PROVIDERS: ADMIT Internal Medicine Nephrology; ATTEND Orthopaedic Surgery Adult Reconstructive Orthopaedic Surgery
DX: M17.12 Unilateral primary osteoarthritis, left knee (principal); K21.9 Gastro-esophageal reflux disease without esophagitis; E78.5 Hyperlipidemia, unspecified; K44.9 Diaphragmatic hernia without obstruction or gangrene; J43.9 Emphysema, unspecified; D72.829 Elevated white blood cell count, unspecified; F41.9 Anxiety disorder, unspecified; F32.A Depression, unspecified; F17.218 Nicotine dependence, cigarettes, with other nicotine-induced disorders; Z79.899 Other long term (current) drug therapy; Z91.018 Allergy to other foods; Z88.2 Allergy status to sulfonamides; Z88.8 Allergy status to other drugs, medicaments and biological substances; Z79.01 Long term (current) use of anticoagulants
CPT/HCPCS: 27447; 36415; 73560; 80048; 85025; 85027; 85610; 85730; 88304; 88311; 96365; 96366; 96375; 96376; 97110; 97116; 97161; 97165; 97530; 97535; C1776; G0378; J0690; J1100; J2250; J2270; J2370; J2405; J3010; J3370; S2900

== ENCOUNTER → 2022-05-25 | Outpatient (CLI) | payer MEDICARE ==
[~2022-05-25] MED LIST changes: -ACETAMINOPHEN 500 MG TAB PO ONE; +ASCO50TA PO; -NAPROXEN 250 MG TAB PO ONE; -NS 1,000 ML IV ONE; -PREGABALIN 25 MG CAP (LYRICA) PO ONE; -ROPIVA 125MG/EPINEPH 0.25MG/CLONID 40MCG/KETOR 15MG IN NS 50ML SYRINGE PA ONE; -ceFAZolin SOD 2 GM in IV 1 EA IV ONE
== END ==
LOC: M SOG 08:15
PROVIDERS: ATTEND Orthopaedic Surgery Adult Reconstructive Orthopaedic Surgery
DX: M17.12 Unilateral primary osteoarthritis, left knee (principal)

== ENCOUNTER 2022-05-26 09:13 | Outpatient (RCR) | payer MEDICARE | END 2022-05-27 | LOC: M PT 09:13 | PROVIDERS: ATTEND Orthopaedic Surgery Adult Reconstructive Orthopaedic Surgery | DX: Z47.89 Encounter for other orthopedic aftercare (principal); Z96.652 Presence of left artificial knee joint ==

== ENCOUNTER 2022-06-15 08:23 | Emergency (ER) | payer MEDICARE ==
[~2022-06-15] VITALS: Ht 160 cm; Wt 71.4 kg
[2022-06-15 09:00] LABS: BASO # 0.1 10^3/uL (0.0-0.2); BASO % 0.5 % (0.0-1.0); EOS # 0.3 10^3/uL (0.0-0.5); EOS % 2.3 % (0.0-3.0); HEMOGLOBIN 13.1 g/dl (12.0-15.5); LYMPH # 2.2 10^3/uL (1.5-5.0); LYMPH % 19.6 % (24.0-44.0); MEAN CORPUSCULAR VOLUME 90.9 fl (80.0-96.0); MONO # 0.6 10^3/uL (0.0-0.8); MONO % 5.6 % (2.0-8.0); NEUTROPHILS # 7.8 10^3/uL (1.5-8.5); NEUTROPHILS % 71.1 % (36.0-66.0); PLATELET COUNT, AUTOMATED 290 10^3/uL (150-450); RED BLOOD COUNT 4.51 10^6/uL (4.00-5.40)
[2022-06-15 09:25] LABS: LIPASE 35 U/L (12-53)
[2022-06-15 09:27] LABS: ALBUMIN 3.8 G/DL (3.2-5.2); ALKALINE PHOSPHATASE 102 U/L (46-116); ALT/SGPT 14 U/L (7.0-40); AST/SGOT 18 U/L (<34); BILIRUBIN,TOTAL 0.3 MG/DL (0.3-1.2); BLOOD UREA NITROGEN 11 MG/DL (9-23); CALCIUM LEVEL 9.3 MG/DL (8.3-10.6); CARBON DIOXIDE LEVEL 29 MMOL/L (20-31); CHLORIDE LEVEL 102 MMOL/L (98-107); CREATININE FOR GFR 0.72 MG/DL (0.55-1.30); GLOMERULAR FILTRATION RATE > 60.0 (>39); GLUCOSE, FASTING 84 MG/DL (74-106); POTASSIUM SERUM 4.6 MMOL/L (3.5-5.1); SODIUM LEVEL 135 MMOL/L (136-145)
[2022-06-15 09:28] LABS: BILIRUBIN,DIRECT 0.1 MG/DL (<0.4)
[2022-06-15 09:52] LABS: INR 0.91; PARTIAL THROMBOPLASTIN TIME 32.1 SECONDS (24.8-34.2); PROTHROMBIN TIME 12.4 SECONDS (12.5-14.5)
[2022-06-15] MEDS ORDERED: NS 1,000 ML IV ONE (11:25)
[2022-06-15] MEDS ORDERED: MORPHINE 4 MG/ML 1ML VIAL IV ONE (11:25)
[2022-06-15] MEDS ORDERED: ONDANSETRON 4MG 2ML VIAL IV ONE (11:25)
[2022-06-15] MEDS ORDERED: ISOVUE-370 76% 100ML VIAL As Ordered ONE (11:39)
[2022-06-15] MEDS ORDERED: AMOX875T2 PO (13:19)
[2022-06-15] MEDS ORDERED: MIRA3350 PO (13:19)
[2022-06-15 13:35] VITALS: BP 174/82
== END 2022-06-15 13:40 | disposition home or self-care (01) ==
LOC: M ED 08:23
DX: R10.32 Left lower quadrant pain (principal); D72.829 Elevated white blood cell count, unspecified; N28.1 Cyst of kidney, acquired; K59.00 Constipation, unspecified; F17.200 Nicotine dependence, unspecified, uncomplicated; J44.9 Chronic obstructive pulmonary disease, unspecified; K21.9 Gastro-esophageal reflux disease without esophagitis; Z91.018 Allergy to other foods; Z88.1 Allergy status to other antibiotic agents; Z88.6 Allergy status to analgesic agent; Z88.5 Allergy status to narcotic agent; Z79.891 Long term (current) use of opiate analgesic; Z79.1 Long term (current) use of non-steroidal anti-inflammatories (NSAID); Z79.899 Other long term (current) drug therapy
CPT/HCPCS: 74177; 80048; 80076; 81002; 83605; 83690; 85025; 85610; 85730; 96361; 96374; 96375; 99284; J2405; Q9967

== ENCOUNTER 2022-06-22 07:45 | Outpatient (RCR) | payer MEDICARE ==
[~2022-06-22 07:45] MED LIST changes: +AMOX875T2 PO; +MIRA3350 PO
== END 2022-06-27 ==
LOC: M PT 07:45
PROVIDERS: ATTEND Orthopaedic Surgery Adult Reconstructive Orthopaedic Surgery
DX: Z47.89 Encounter for other orthopedic aftercare (principal); Z96.652 Presence of left artificial knee joint

== ENCOUNTER → 2022-06-28 | Outpatient (CLI) | payer MEDICARE | LOC: M RAD 08:09 | PROVIDERS: ATTEND Physician Assistant | DX: Z12.2 Encounter for screening for malignant neoplasm of respiratory organs (principal); F17.210 Nicotine dependence, cigarettes, uncomplicated ==

== ENCOUNTER 2022-07-24 13:21 | Outpatient (RCR) | payer OTHER | END 2022-07-25 | LOC: M PT 13:21 | PROVIDERS: ATTEND Orthopaedic Surgery Adult Reconstructive Orthopaedic Surgery | DX: Z47.89 Encounter for other orthopedic aftercare (principal); Z96.652 Presence of left artificial knee joint ==

== ENCOUNTER → 2022-08-07 | Outpatient (CLI) | payer OTHER | LOC: M SOG 12:05 | PROVIDERS: ATTEND Orthopaedic Surgery | DX: M54.2 Cervicalgia (principal) ==

== ENCOUNTER 2022-08-18 09:15 | Outpatient (RCR) | payer OTHER | END 2022-08-25 | LOC: M PT 09:15 | PROVIDERS: ATTEND Orthopaedic Surgery Adult Reconstructive Orthopaedic Surgery | DX: Z47.89 Encounter for other orthopedic aftercare (principal); Z96.652 Presence of left artificial knee joint ==

== ENCOUNTER → 2022-08-30 | Outpatient (CLI) | payer OTHER | LOC: M WHC 16:22 | PROVIDERS: ATTEND Physician Assistant Medical | DX: Z12.31 Encounter for screening mammogram for malignant neoplasm of breast (principal); E04.2 Nontoxic multinodular goiter; Z80.0 Family history of malignant neoplasm of digestive organs; Z86.018 Personal history of other benign neoplasm; Z92.29 Personal history of other drug therapy ==

== ENCOUNTER → 2022-08-30 | Outpatient (CLI) | payer OTHER | LOC: M RAD 10:53 | PROVIDERS: ATTEND Otolaryngology | DX: E04.2 Nontoxic multinodular goiter (principal) ==

== ENCOUNTER → 2022-09-13 | Outpatient (CLI) | payer OTHER | LOC: M SOG 15:43 | PROVIDERS: ATTEND Orthopaedic Surgery | DX: S72.91XG Unspecified fracture of right femur, subsequent encounter for closed fracture with delayed healing (principal) ==

== ENCOUNTER → 2022-09-14 | Outpatient (CLI) | payer OTHER | LOC: M RAD 10:13 | PROVIDERS: ATTEND Orthopaedic Surgery | DX: S72.91XG Unspecified fracture of right femur, subsequent encounter for closed fracture with delayed healing (principal); M79.89 Other specified soft tissue disorders ==

== ENCOUNTER → 2022-09-28 | Outpatient (CLI) | payer OTHER | LOC: M PLAIMG 10:41 | PROVIDERS: ATTEND Orthopaedic Surgery | DX: S72.91XD Unspecified fracture of right femur, subsequent encounter for closed fracture with routine healing (principal); E78.2 Mixed hyperlipidemia; K21.9 Gastro-esophageal reflux disease without esophagitis; F17.210 Nicotine dependence, cigarettes, uncomplicated; Z79.899 Other long term (current) drug therapy ==

== ENCOUNTER → 2022-09-28 | Outpatient (CLI) | payer OTHER ==
[2022-09-28 10:24] LABS: BASO # 0.1 10^3/uL (0.0-0.2); BASO % 0.4 % (0.0-1.0); EOS # 0.1 10^3/uL (0.0-0.5); EOS % 0.6 % (0.0-3.0); HEMATOCRIT 47.2 % (36.0-47.0); HEMOGLOBIN 15.8 g/dl (12.0-15.5); LYMPH # 2.1 10^3/uL (1.5-5.0); LYMPH % 14.5 % (24.0-44.0); MEAN CORPUSCULAR HEMOGLOBIN 28.8 pg (27.0-33.0); MEAN CORPUSCULAR HGB CONC 33.5 g/dl (32.0-36.5); MONO # 0.8 10^3/uL (0.0-0.8); MONO % 5.9 % (2.0-8.0); NEUTROPHILS # 11.1 10^3/uL (1.5-8.5); NEUTROPHILS % 78.1 % (36.0-66.0); PLATELET COUNT, AUTOMATED 342 10^3/uL (150-450); RED BLOOD COUNT 5.49 10^6/uL (4.00-5.40); WHITE BLOOD COUNT 14.2 10^3/uL (4.0-10.0)
[2022-09-28 10:44] LABS: ALBUMIN 4.2 G/DL (3.2-5.2); ALKALINE PHOSPHATASE 106 U/L (46-116); ALT/SGPT 21 U/L (7.0-40); AST/SGOT 17 U/L (<34); BILIRUBIN,TOTAL 0.3 MG/DL (0.3-1.2); BLOOD UREA NITROGEN 11 MG/DL (9-23); CALCIUM LEVEL 9.7 MG/DL (8.3-10.6); CARBON DIOXIDE LEVEL 28 MMOL/L (20-31); CHLORIDE LEVEL 104 MMOL/L (98-107); CHOLESTEROL LEVEL 158 MG/DL (<200); CHOLESTEROL RISK RATIO 2.69 (<5); CREATININE FOR GFR 0.84 MG/DL (0.55-1.30); GLOMERULAR FILTRATION RATE > 60.0 (>39); GLUCOSE, FASTING 90 MG/DL (74-106); HDL CHOLESTEROL 58.6 MG/DL (>40); LDL CHOLESTEROL 83.4 MG/DL (<100); NON-HDL-C 99.4 MG/DL; POTASSIUM SERUM 4.7 MMOL/L (3.5-5.1); SODIUM LEVEL 137 MMOL/L (136-145); TRIGLYCERIDES LEVEL 80 MG/DL (<150)
[2022-09-28 10:48] LABS: THYROID STIMULATING HORMONE 1.504 uIU/ML (0.55-4.78)
== END ==
LOC: M LAB 09:40
PROVIDERS: ATTEND Physician Assistant Medical
DX: E78.2 Mixed hyperlipidemia (principal); K21.9 Gastro-esophageal reflux disease without esophagitis; F17.210 Nicotine dependence, cigarettes, uncomplicated

== ENCOUNTER → 2022-11-03 | Outpatient (CLI) | payer OTHER ==
[~2022-11-03] MED LIST changes: +FLUO0.0119; +TRAM50TA2
== END ==
LOC: M RAD 09:52
PROVIDERS: ATTEND Orthopaedic Surgery
DX: M25.551 Pain in right hip (principal)
CPT/HCPCS: 78315; A9503

== ENCOUNTER 2022-12-26 06:13 | Observation (INO) | payer OTHER ==
[~2022-12-26] VITALS: Ht 160 cm; Wt 63.5 kg
[2022-12-26] VITALS (8 sets, daily range): BP systolic 93–119; BP diastolic 49–87; TEMP 97–97.7; O2SAT 93–95
[~2022-12-26 06:13] MED LIST changes: -FLUO0.0119; +FLUO0.0119 TOP; +SENN-111 PO; -SENN18TA PO
[2022-12-26] MEDS ORDERED: LR 1,000 ML IV SCH ×2 (06:35→10:10)
[2022-12-26] MEDS ORDERED: MIDAZOLAM INJ 2MG/2ML VIAL As Ordered ONE (06:55)
[2022-12-26] MEDS ORDERED: fentaNYL 100 MCG/2 ML INJECTION As Ordered ONE ×2 (06:55→08:51)
[2022-12-26] MEDS ORDERED: propofoL 200 MG/20 ML VIAL As Ordered ONE (06:55)
[2022-12-26] MEDS ORDERED: LIDOCAINE 2% 100MG/5ML SDV (FOR ANES.) As Ordered ONE (06:56)
[2022-12-26] MEDS ORDERED: ROCURONIUM BROMIDE 50MG/5ML VIAL As Ordered ONE (06:56)
[2022-12-26] MEDS ORDERED: ONDANSETRON 4MG 2ML VIAL As Ordered ONE (06:56)
[2022-12-26] MEDS ORDERED: ceFAZolin 1GM VIAL As Ordered ONE (07:35)
[2022-12-26] MEDS ORDERED: ceFAZolin SOD 2 GM in IV 1 EA IV ONE (07:40)
[2022-12-26] MEDS ORDERED: ACETAMINOPHEN 1000MG 100ML IV BAG As Ordered ONE (08:51)
[2022-12-26] MEDS ORDERED: HYDROmorphone HCL 2MG/ML 1ML VIAL As Ordered ONE (09:06)
[2022-12-26] MEDS ORDERED: ePHEDrine SULFATE 25 MG/5 ML(5MG/ML) SYRINGE As Ordered ONE (09:11)
[2022-12-26] MEDS ORDERED: SUGAMMADEX SODIUM 500 MG/5 ML VIAL (BRIDION) As Ordered ONE (09:51)
[2022-12-26] MEDS ORDERED: ONDANSETRON 4MG 2ML VIAL IV PRN (10:10)
[2022-12-26] MEDS ORDERED: HYDROMORPHONE HCL 0.5 MG/ 0.5 ML SYRINGE IV PRN (10:10)
[2022-12-26] MEDS ORDERED: KETOROLAC 60MG 2ML VIAL As Ordered ONE (10:41)
[2022-12-26] MEDS: fentaNYL 100 MCG/2 ML INJECTION IV PRN ×2 (10:51→11:01)
[2022-12-26] MEDS ORDERED: HYDROmorphone 2 MG TAB PO PRN (11:30)
[2022-12-26] MEDS ORDERED: VITA500054 PO (13:17)
[2022-12-26] MEDS ORDERED: POTA99CA2 PO (13:17)
[2022-12-26] MEDS ORDERED: HOME MED LIST COMPLETE! XX SCH (13:20)
[2022-12-26] MEDS: ENOXAPARIN 40MG/0.4ML SYRINGE (J1650 PER 10MG) SC SCH (14:06)
[2022-12-26] MEDS: PRAVASTATIN 20 MG TAB PO SCH (14:17)
[2022-12-26] MEDS: CitaloPRAM (CeleXA) 20 MG TAB PO SCH (14:17)
[2022-12-26] MEDS: VITAMIN D 1,000 INTERNATIONAL UNITS TABLET PO SCH (14:17)
[2022-12-26] MEDS: traMADol 50 MG TAB PO PRN ×2 (14:18→19:38)
[2022-12-26] MEDS: buPROPion **XL** TABLET 150MG (WELLBUTRIN XL) PO SCH (14:18)
[2022-12-26] MEDS: MORPHINE 4 MG/ML 1ML VIAL IV PRN ×2 (16:34→21:01)
[2022-12-26] MEDS: ceFAZolin SOD 2 GM in IV 1 EA IV SCH (16:42)
[2022-12-26] MEDS: GABAPENTIN 300 MG CAP PO SCH (21:00)
[2022-12-27] MEDS: ceFAZolin SOD 2 GM in IV 1 EA IV SCH (00:28)
[2022-12-27] MEDS: BACLOFEN 10 MG TAB PO PRN ×2 (00:44→20:14)
[2022-12-27 00:56] VITALS: BP 124/60; TEMP 97.2; O2SAT 94
[2022-12-27] MEDS: MORPHINE 4 MG/ML 1ML VIAL IV PRN (02:39)
[2022-12-27 05:11] VITALS: BP 104/56; TEMP 97.3; O2SAT 93
[2022-12-27 06:09] LABS: HEMATOCRIT 35.7 % (36.0-47.0); HEMOGLOBIN 11.7 g/dl (12.0-15.5); MEAN CORPUSCULAR HGB CONC 32.8 g/dl (32.0-36.5); MEAN CORPUSCULAR VOLUME 88.4 fl (80.0-96.0); PLATELET COUNT, AUTOMATED 245 10^3/uL (150-450); RED BLOOD COUNT 4.04 10^6/uL (4.00-5.40); WHITE BLOOD COUNT 13.9 10^3/uL (4.0-10.0)
[2022-12-27] MEDS ORDERED: LOVE1INJ SC (07:35)
[2022-12-27] MEDS ORDERED: TRAM50TA2 PO (07:35)
[2022-12-27] MEDS ORDERED: DILA2TAB6 PO (07:35)
[2022-12-27] MEDS: PRAVASTATIN 20 MG TAB PO SCH (08:57)
[2022-12-27] MEDS: traMADol 50 MG TAB PO PRN (08:58)
[2022-12-27] MEDS: buPROPion **XL** TABLET 150MG (WELLBUTRIN XL) PO SCH (08:58)
[2022-12-27] MEDS: CitaloPRAM (CeleXA) 20 MG TAB PO SCH (08:58)
[2022-12-27] MEDS: ACETAMINOPHEN TAB 650MG DOSE (2X325MG) PO PRN (08:59)
[2022-12-27] MEDS: GABAPENTIN 300 MG CAP PO SCH ×2 (08:59→20:14)
[2022-12-27] MEDS: VITAMIN D 1,000 INTERNATIONAL UNITS TABLET PO SCH (08:59)
[2022-12-27] MEDS: ENOXAPARIN 40MG/0.4ML SYRINGE (J1650 PER 10MG) SC SCH (09:00)
[2022-12-27] MEDS: DOCUSATE SODIUM 100MG CAPSULE PO SCH ×2 (12:16→20:14)
[2022-12-27] MEDS: oxyCODONE 5MG TAB PO PRN ×3 (12:17→21:44)
[2022-12-27 14:00] VITALS: TEMP 97; O2SAT 89
[2022-12-27 14:25] VITALS: BP 96/58
[2022-12-27] MEDS ORDERED: OXYC-517 PO (15:26)
[2022-12-27] MEDS ORDERED: COLA100C5 PO (15:28)
[2022-12-27 15:47] VITALS: BP 100/58
[2022-12-27 21:32] VITALS: BP 110/56; TEMP 97.5; O2SAT 92
[2022-12-28] MEDS: oxyCODONE 5MG TAB PO PRN ×3 (01:43→09:54)
[2022-12-28] MEDS: MORPHINE 4 MG/ML 1ML VIAL IV PRN (02:55)
[2022-12-28 06:06] LABS: HEMATOCRIT 33.9 % (36.0-47.0); HEMOGLOBIN 11.3 g/dl (12.0-15.5); MEAN CORPUSCULAR HEMOGLOBIN 29.5 pg (27.0-33.0); MEAN CORPUSCULAR HGB CONC 33.3 g/dl (32.0-36.5); MEAN CORPUSCULAR VOLUME 88.5 fl (80.0-96.0); PLATELET COUNT, AUTOMATED 242 10^3/uL (150-450); RED BLOOD COUNT 3.83 10^6/uL (4.00-5.40); WHITE BLOOD COUNT 13.7 10^3/uL (4.0-10.0)
[2022-12-28 06:09] VITALS: BP 124/62; TEMP 97.9; O2SAT 92
[2022-12-28] MEDS: DOCUSATE SODIUM 100MG CAPSULE PO SCH (09:54)
[2022-12-28] MEDS: PRAVASTATIN 20 MG TAB PO SCH (09:54)
[2022-12-28] MEDS: GABAPENTIN 300 MG CAP PO SCH (09:54)
[2022-12-28] MEDS: BACLOFEN 10 MG TAB PO PRN (09:54)
[2022-12-28] MEDS: CitaloPRAM (CeleXA) 20 MG TAB PO SCH (09:55)
[2022-12-28] MEDS: buPROPion **XL** TABLET 150MG (WELLBUTRIN XL) PO SCH (09:55)
[2022-12-28] MEDS: VITAMIN D 1,000 INTERNATIONAL UNITS TABLET PO SCH (09:55)
[2022-12-28] MEDS: ENOXAPARIN 40MG/0.4ML SYRINGE (J1650 PER 10MG) SC SCH (09:55)
[2022-12-28] MEDS: ACETAMINOPHEN TAB 650MG DOSE (2X325MG) PO PRN (11:10)
== END 2022-12-28 12:55 | disposition home or self-care (01) ==
LOC: INTOOBSV 06:13 → M OR 06:13 → EDSTATUS 07:30 → M MS5PR 12:10
PROVIDERS: ADMIT Orthopaedic Surgery; ATTEND Orthopaedic Surgery
DX: S72.21XK Displaced subtrochanteric fracture of right femur, subsequent encounter for closed fracture with nonunion (principal); Z79.01 Long term (current) use of anticoagulants; Z79.899 Other long term (current) drug therapy; Z88.2 Allergy status to sulfonamides; Z91.018 Allergy to other foods; Z88.8 Allergy status to other drugs, medicaments and biological substances
CPT/HCPCS: 27472; 36415; 76000; 85027; 87070; 87075; 87077; 87186; 87635; 96365; 96366; 96372; 96375; 96376; 97110; 97116; 97161; 97165; 97530; C1713; G0378; J0131; J0690; J1100; J1170; J1650; J1885; J2250; J2405; J3010

== ENCOUNTER → 2023-01-12 | Outpatient (CLI) | payer OTHER ==
[~2023-01-12] MED LIST changes: +DILA2TAB6 PO; +LOVE1INJ SC; +POTA99CA2 PO; +VITA500054 PO
== END ==
LOC: M SOG 07:56
PROVIDERS: ATTEND Orthopaedic Surgery
DX: Z47.89 Encounter for other orthopedic aftercare (principal); S72.91XD Unspecified fracture of right femur, subsequent encounter for closed fracture with routine healing

== ENCOUNTER → 2023-02-07 | Outpatient (CLI) | payer OTHER | LOC: M SOG 08:01 | PROVIDERS: ATTEND Orthopaedic Surgery | DX: S72.21XA Displaced subtrochanteric fracture of right femur, initial encounter for closed fracture (principal); Y93.9 Activity, unspecified; Y92.9 Unspecified place or not applicable ==

== ENCOUNTER 2023-02-12 09:43 | Observation (INO) | payer OTHER ==
[~2023-02-12] VITALS: Ht 160 cm; Wt 63.5 kg
[~2023-02-12 09:43] MED LIST changes: -CEPH750C PO; -CLIN150C17 PO; -RISATAB3 PO
[2023-02-12 11:15] VITALS: BP 162/84; TEMP 97.4; O2SAT 100
[2023-02-12 13:54] LABS: BASO # 0.1 10^3/uL (0.0-0.2); BASO % 0.6 % (0.0-1.0); EOS # 0.1 10^3/uL (0.0-0.5); EOS % 0.9 % (0.0-3.0); HEMATOCRIT 43.3 % (36.0-47.0); HEMOGLOBIN 14.3 g/dl (12.0-15.5); LYMPH # 3.1 10^3/uL (1.5-5.0); LYMPH % 28.8 % (24.0-44.0); MEAN CORPUSCULAR HEMOGLOBIN 28.8 pg (27.0-33.0); MEAN CORPUSCULAR VOLUME 87.3 fl (80.0-96.0); MONO # 0.8 10^3/uL (0.0-0.8); MONO % 7.9 % (2.0-8.0); NEUTROPHILS # 6.5 10^3/uL (1.5-8.5); NEUTROPHILS % 61.2 % (36.0-66.0); PLATELET COUNT, AUTOMATED 341 10^3/uL (150-450); RED BLOOD COUNT 4.96 10^6/uL (4.00-5.40); WHITE BLOOD COUNT 10.6 10^3/uL (4.0-10.0)
[2023-02-12 14:08] LABS: C REACTIVE PROTEIN QUANTITATIV < 0.40 MG/DL (<1.0)
[2023-02-12 14:10] LABS: ALBUMIN 3.5 G/DL (3.2-5.2); ALKALINE PHOSPHATASE 109 U/L (46-116); ALT/SGPT 13 U/L (7.0-40); AST/SGOT 9 U/L (<34); BILIRUBIN,TOTAL 0.4 MG/DL (0.3-1.2); BLOOD UREA NITROGEN 14 MG/DL (9-23); CALCIUM LEVEL 9.1 MG/DL (8.3-10.6); CARBON DIOXIDE LEVEL 28 MMOL/L (20-31); CHLORIDE LEVEL 104 MMOL/L (98-107); CREATININE FOR GFR 0.77 MG/DL (0.55-1.30); GLOMERULAR FILTRATION RATE > 60.0 (>39); GLUCOSE, FASTING 77 MG/DL (74-106); POTASSIUM SERUM 4.2 MMOL/L (3.5-5.1); SODIUM LEVEL 136 MMOL/L (136-145); TOTAL PROTEIN 6.5 G/DL (5.7-8.2)
[2023-02-12 14:21] LABS: PROCALCITONIN <0.04 ng/ml
[2023-02-12] MEDS ORDERED: MED REC IN PROGRESS XX SCH (15:05)
[2023-02-12] MEDS ORDERED: ISOVUE-370 76% 100ML VIAL As Ordered ONE (15:05)
[2023-02-12] MEDS ORDERED: CLIN150C17 PO (15:46)
[2023-02-12] MEDS ORDERED: TRAM50TA2 PO (16:01)
[2023-02-12] MEDS ORDERED: BACLOFEN 10 MG TAB PO PRN (16:15)
[2023-02-12] MEDS ORDERED: traMADol 50 MG TAB PO PRN (16:15)
[2023-02-12 16:54] VITALS: BP 142/66; TEMP 97.8; O2SAT 97
[2023-02-12] MEDS: ceFAZolin SOD 2 GM in IV 1 EA IV SCH (17:48)
[2023-02-12 20:00] VITALS: BP 117/59; TEMP 97.3; O2SAT 98
[2023-02-12] MEDS: PANTOPRAZOLE 40MG TAB (PROTONIX) PO SCH (20:16)
[2023-02-12] MEDS: GABAPENTIN 300 MG CAP PO SCH (20:16)
[2023-02-12 21:00] VITALS: TEMP 97.7
[2023-02-13] VITALS: BP 111/58; TEMP 97.4; O2SAT 99
[2023-02-13] MEDS: ceFAZolin SOD 2 GM in IV 1 EA IV SCH ×2 (01:54→08:57)
[2023-02-13 04:00] VITALS: BP 104/60; TEMP 97.5; O2SAT 96
[2023-02-13 08:07] VITALS: BP 115/59; TEMP 97.7
[2023-02-13] MEDS: PANTOPRAZOLE 40MG TAB (PROTONIX) PO SCH (08:58)
[2023-02-13] MEDS: GABAPENTIN 300 MG CAP PO SCH (08:58)
[2023-02-13] MEDS ORDERED: ENOXAPARIN 40MG/0.4ML SYRINGE (J1650 PER 10MG) SC SCH (09:00)
[2023-02-13] MEDS ORDERED: PRAVASTATIN 20 MG TAB PO SCH (09:00)
[2023-02-13] MEDS ORDERED: CitaloPRAM (CeleXA) 20 MG TAB PO SCH (09:00)
[2023-02-13] MEDS ORDERED: buPROPion **XL** TABLET 150MG (WELLBUTRIN XL) PO SCH (09:00)
[2023-02-13] MEDS ORDERED: CEPH750C PO (10:19)
[2023-02-13] MEDS ORDERED: RISATAB3 PO (10:24)
== END 2023-02-13 14:55 | disposition home or self-care (01) ==
LOC: INTOOBSV 10:56 → M PCU 10:56 → UNDODISOB 02-13 10:55
PROVIDERS: ADMIT Internal Medicine; ATTEND Internal Medicine
DX: L03.115 Cellulitis of right lower limb (principal); R19.7 Diarrhea, unspecified; E78.00 Pure hypercholesterolemia, unspecified; M51.36 Other intervertebral disc degeneration, lumbar region; K21.9 Gastro-esophageal reflux disease without esophagitis; F41.9 Anxiety disorder, unspecified; A49.01 Methicillin susceptible Staphylococcus aureus infection, unspecified site; Z79.2 Long term (current) use of antibiotics; Z79.899 Other long term (current) drug therapy; Z91.018 Allergy to other foods; Z88.2 Allergy status to sulfonamides; Z88.5 Allergy status to narcotic agent; Z88.8 Allergy status to other drugs, medicaments and biological substances; F17.218 Nicotine dependence, cigarettes, with other nicotine-induced disorders
CPT/HCPCS: 36415; 73701; 80053; 83605; 84145; 85025; 85652; 86140; 87040; 87070; 87205; 87507; 96365; 96366; 96372; 97161; 97165; 97530; G0378; J0690; J1650; Q9967

== ENCOUNTER → 2023-02-12 | Outpatient (REF) | payer OTHER ==
[~2023-02-12] MED LIST changes: +CEPH750C PO; +CLIN150C17 PO; +RISATAB3 PO
== END ==
LOC: M SFHCPLAZ 13:17
PROVIDERS: ATTEND Internal Medicine Infectious Disease
DX: A49.01 Methicillin susceptible Staphylococcus aureus infection, unspecified site (principal)

== ENCOUNTER → 2023-03-06 | Outpatient (REF) | payer OTHER ==
[~2023-03-06] MED LIST changes: +CEPH750C PO; +CLIN150C17 PO; +RISATAB3 PO
[2023-03-06 18:56] LABS: BASO # 0.1 10^3/uL (0.0-0.2); BASO % 0.5 % (0.0-1.0); EOS # 0.1 10^3/uL (0.0-0.5); EOS % 0.8 % (0.0-3.0); HEMATOCRIT 44.9 % (36.0-47.0); HEMOGLOBIN 14.6 g/dl (12.0-15.5); LYMPH # 1.9 10^3/uL (1.5-5.0); LYMPH % 16.4 % (24.0-44.0); MEAN CORPUSCULAR HEMOGLOBIN 28.8 pg (27.0-33.0); MEAN CORPUSCULAR HGB CONC 32.5 g/dl (32.0-36.5); MEAN CORPUSCULAR VOLUME 88.6 fl (80.0-96.0); MONO # 0.6 10^3/uL (0.0-0.8); MONO % 5.3 % (2.0-8.0); NEUTROPHILS # 9.1 10^3/uL (1.5-8.5); NEUTROPHILS % 76.7 % (36.0-66.0); PLATELET COUNT, AUTOMATED 338 10^3/uL (150-450); RED BLOOD COUNT 5.07 10^6/uL (4.00-5.40); WHITE BLOOD COUNT 11.8 10^3/uL (4.0-10.0)
[2023-03-06 19:46] LABS: ERYTHROCYTE SEDIMENTATION RATE 29 mm/hr (0-30)
== END ==
LOC: M SFHCPLAZ 17:57
PROVIDERS: ATTEND Internal Medicine Infectious Disease
DX: A49.01 Methicillin susceptible Staphylococcus aureus infection, unspecified site (principal)

== ENCOUNTER → 2023-03-14 | Outpatient (CLI) | payer OTHER | LOC: M SOG 09:11 | PROVIDERS: ATTEND Orthopaedic Surgery | DX: S72.21XD Displaced subtrochanteric fracture of right femur, subsequent encounter for closed fracture with routine healing (principal); W18.30XD Fall on same level, unspecified, subsequent encounter ==

== ENCOUNTER → 2023-03-19 | Outpatient (REF) | payer OTHER | LOC: M SFHCDERM 17:01 | PROVIDERS: ATTEND Dermatology | DX: Z48.02 Encounter for removal of sutures (principal) ==

== ENCOUNTER 2023-03-20 12:45 | Outpatient (RCR) | payer OTHER | END 2023-03-27 | LOC: M PT 12:45 | PROVIDERS: ATTEND Orthopaedic Surgery | DX: R26.89 Other abnormalities of gait and mobility (principal) ==

== ENCOUNTER → 2023-03-29 | Outpatient (CLI) | payer OTHER ==
[2023-03-29 15:59] LABS: BASO # 0.1 10^3/uL (0.0-0.2); BASO % 0.5 % (0.0-1.0); EOS # 0.1 10^3/uL (0.0-0.5); EOS % 0.6 % (0.0-3.0); HEMATOCRIT 43.3 % (36.0-47.0); HEMOGLOBIN 14.3 g/dl (12.0-15.5); LYMPH # 2.8 10^3/uL (1.5-5.0); MEAN CORPUSCULAR HEMOGLOBIN 28.3 pg (27.0-33.0); MEAN CORPUSCULAR VOLUME 85.7 fl (80.0-96.0); MONO # 0.9 10^3/uL (0.0-0.8); MONO % 6.4 % (2.0-8.0); NEUTROPHILS # 9.5 10^3/uL (1.5-8.5); NEUTROPHILS % 71.1 % (36.0-66.0); PLATELET COUNT, AUTOMATED 313 10^3/uL (150-450); RED BLOOD COUNT 5.05 10^6/uL (4.00-5.40); WHITE BLOOD COUNT 13.3 10^3/uL (4.0-10.0)
[2023-03-29 16:16] LABS: ERYTHROCYTE SEDIMENTATION RATE 19 mm/hr (0-30)
== END ==
LOC: M PLALAB 14:24
PROVIDERS: ATTEND Internal Medicine Infectious Disease
DX: A49.01 Methicillin susceptible Staphylococcus aureus infection, unspecified site (principal)

== ENCOUNTER → 2023-04-06 | Outpatient (REF) | payer OTHER | LOC: M SFHCDERM 16:30 | PROVIDERS: ATTEND Dermatology | DX: T14.8XXA Other injury of unspecified body region, initial encounter (principal); Y92.9 Unspecified place or not applicable ==

== ENCOUNTER 2023-04-23 13:30 | Outpatient (RCR) | payer OTHER | END 2023-04-26 | LOC: M PT 13:30 | PROVIDERS: ATTEND Orthopaedic Surgery | DX: S72.21XD Displaced subtrochanteric fracture of right femur, subsequent encounter for closed fracture with routine healing (principal) ==

== ENCOUNTER → 2023-04-27 | Outpatient (REF) | payer OTHER | LOC: M SFHCDERM 14:47 | PROVIDERS: ATTEND Dermatology | DX: D48.5 Neoplasm of uncertain behavior of skin (principal) ==

== ENCOUNTER → 2023-05-01 | Outpatient (CLI) | payer OTHER | LOC: M SOG 07:56 | PROVIDERS: ATTEND Physician Assistant | DX: S72.21XD Displaced subtrochanteric fracture of right femur, subsequent encounter for closed fracture with routine healing (principal); Y93.9 Activity, unspecified; Y92.9 Unspecified place or not applicable ==

== ENCOUNTER → 2023-05-09 | Outpatient (CLI) | payer OTHER | LOC: M SOG 13:21 | PROVIDERS: ATTEND Physician Assistant | DX: S72.21XD Displaced subtrochanteric fracture of right femur, subsequent encounter for closed fracture with routine healing (principal) ==

== ENCOUNTER 2023-05-25 14:09 | Outpatient (RCR) | payer OTHER | END 2023-05-27 | LOC: M PT 14:09 | PROVIDERS: ATTEND Physician Assistant | DX: M25.561 Pain in right knee (principal) ==

== ENCOUNTER → 2023-06-01 | Outpatient (CLI) | payer OTHER | LOC: M SOG 07:55 | PROVIDERS: ATTEND Orthopaedic Surgery | DX: M25.512 Pain in left shoulder (principal) ==

== ENCOUNTER 2023-06-04 09:58 | Outpatient (RCR) | payer OTHER | END 2023-06-27 | LOC: M PT 09:58 | PROVIDERS: ATTEND Physician Assistant | DX: M25.561 Pain in right knee (principal) | CPT/HCPCS: 97110; G0283 ==

== ENCOUNTER → 2023-06-13 | Outpatient (CLI) | payer OTHER | LOC: M SOG 07:58 | PROVIDERS: ATTEND Orthopaedic Surgery | DX: S72.21XD Displaced subtrochanteric fracture of right femur, subsequent encounter for closed fracture with routine healing (principal); Z53.9 Procedure and treatment not carried out, unspecified reason ==

== ENCOUNTER → 2023-06-27 | Outpatient (CLI) | payer OTHER | LOC: M SOG 08:12 | PROVIDERS: ATTEND Orthopaedic Surgery | DX: S72.21XD Displaced subtrochanteric fracture of right femur, subsequent encounter for closed fracture with routine healing (principal) ==

== ENCOUNTER → 2023-07-09 | Outpatient (CLI) | payer OTHER | LOC: M SOG 07:56 | PROVIDERS: ATTEND Orthopaedic Surgery | DX: Z47.1 Aftercare following joint replacement surgery (principal); M25.511 Pain in right shoulder; Z96.652 Presence of left artificial knee joint ==

== ENCOUNTER → 2023-08-15 | Outpatient (CLI) | payer OTHER ==
[~2023-08-15] MED LIST changes: -MIRA1POW3 PO; +MIRA33506 PO
== END ==
LOC: M RAD 14:40
PROVIDERS: ATTEND Physician Assistant
DX: Z87.891 Personal history of nicotine dependence (principal)

== ENCOUNTER → 2023-08-31 | Outpatient (CLI) | payer OTHER | LOC: M RAD 15:26 | PROVIDERS: ATTEND Otolaryngology | DX: E04.2 Nontoxic multinodular goiter (principal) ==

== ENCOUNTER → 2023-09-12 | Outpatient (CLI) | payer OTHER ==
[~2023-09-12] MED LIST changes: +FLUTISP
== END ==
LOC: M SOG 10:32
PROVIDERS: ATTEND Orthopaedic Surgery
DX: S72.21XD Displaced subtrochanteric fracture of right femur, subsequent encounter for closed fracture with routine healing (principal)

== ENCOUNTER 2023-10-02 10:59 | Day surgery (SDC) | payer OTHER ==
[~2023-10-02] VITALS: Ht 160 cm; Wt 65.8 kg
[2023-10-02] MEDS: NS 1,000 ML IV ONE (11:35)
[2023-10-02] MEDS ORDERED: propofoL 200 MG/20 ML VIAL As Ordered ONE (12:43)
[2023-10-02 13:37] VITALS: TEMP 97.3
[2023-10-02 13:51] VITALS: BP 132/66; O2SAT 95
== END 2023-10-02 14:01 | disposition home or self-care (01) ==
LOC: M OPP 10:59
PROVIDERS: ATTEND Internal Medicine Gastroenterology
DX: Z12.11 Encounter for screening for malignant neoplasm of colon (principal); D12.7 Benign neoplasm of rectosigmoid junction; D12.4 Benign neoplasm of descending colon; D12.3 Benign neoplasm of transverse colon; D12.2 Benign neoplasm of ascending colon; K57.30 Diverticulosis of large intestine without perforation or abscess without bleeding; K64.8 Other hemorrhoids; K64.4 Residual hemorrhoidal skin tags; Z86.010 Personal history of colon polyps; K44.9 Diaphragmatic hernia without obstruction or gangrene; K29.70 Gastritis, unspecified, without bleeding; K21.9 Gastro-esophageal reflux disease without esophagitis; Z90.49 Acquired absence of other specified parts of digestive tract; F45.8 Other somatoform disorders; J44.9 Chronic obstructive pulmonary disease, unspecified; E78.00 Pure hypercholesterolemia, unspecified; E04.2 Nontoxic multinodular goiter; Z79.899 Other long term (current) drug therapy; Z90.710 Acquired absence of both cervix and uterus; R91.8 Other nonspecific abnormal finding of lung field; F17.210 Nicotine dependence, cigarettes, uncomplicated; Z85.828 Personal history of other malignant neoplasm of skin

== ENCOUNTER → 2023-10-10 | Outpatient (CLI) | payer OTHER | LOC: M SOG 08:40 | PROVIDERS: ATTEND Orthopaedic Surgery | DX: M79.622 Pain in left upper arm (principal) ==

== ENCOUNTER → 2023-12-04 | Outpatient (CLI) | payer OTHER ==
[~2023-12-04] MED LIST changes: +E-Z-GAS II EFFERVESCENT PACKET (SODIUM BICARB./CITRIC ACID/SIMETHICONE) As Ordered ONE; +E-Z-HD 98% w/w 340GM SUSP BTL As Ordered ONE; +E-Z-PAQUE 96% w/w SUSP 176GM BTL As Ordered ONE
== END ==
LOC: M RAD 09:08
PROVIDERS: ATTEND Internal Medicine Gastroenterology
DX: R13.10 Dysphagia, unspecified (principal)

== ENCOUNTER → 2023-12-17 | Outpatient (CLI) | payer OTHER ==
[~2023-12-17] MED LIST changes: -E-Z-GAS II EFFERVESCENT PACKET (SODIUM BICARB./CITRIC ACID/SIMETHICONE) As Ordered ONE; -E-Z-HD 98% w/w 340GM SUSP BTL As Ordered ONE; -E-Z-PAQUE 96% w/w SUSP 176GM BTL As Ordered ONE
== END ==
LOC: M SOG 07:52
PROVIDERS: ATTEND Orthopaedic Surgery
DX: S72.21XD Displaced subtrochanteric fracture of right femur, subsequent encounter for closed fracture with routine healing (principal)

== ENCOUNTER 2024-01-24 10:00 | Emergency (ER) | payer OTHER ==
[~2024-01-24] VITALS: Ht 160 cm; Wt 63.5 kg
[2024-01-24] MEDS: traMADol 50 MG TAB PO ONE (11:27)
[2024-01-24 12:21] LABS: BASO # 0.1 10^3/uL (0.0-0.2); BASO % 0.7 % (0.0-1.0); EOS # 0.1 10^3/uL (0.0-0.5); EOS % 0.8 % (0.0-3.0); HEMATOCRIT 45.3 % (36.0-47.0); LYMPH # 2.3 10^3/uL (1.5-5.0); LYMPH % 26.1 % (24.0-44.0); MEAN CORPUSCULAR HEMOGLOBIN 28.8 pg (27.0-33.0); MEAN CORPUSCULAR HGB CONC 33.1 g/dl (32.0-36.5); MEAN CORPUSCULAR VOLUME 87.1 fl (80.0-96.0); MONO # 0.6 10^3/uL (0.0-0.8); MONO % 6.7 % (2.0-8.0); NEUTROPHILS # 5.7 10^3/uL (1.5-8.5); NEUTROPHILS % 65.4 % (36.0-66.0); PLATELET COUNT, AUTOMATED 264 10^3/uL (150-450); WHITE BLOOD COUNT 8.7 10^3/uL (4.0-10.0)
[2024-01-24 12:31] LABS: ERYTHROCYTE SEDIMENTATION RATE 14 mm/hr (0-30)
[2024-01-24 12:43] LABS: BLOOD UREA NITROGEN 9 MG/DL (9-23); CALCIUM LEVEL 9.5 MG/DL (8.3-10.6); CARBON DIOXIDE LEVEL 30 MMOL/L (20-31); CHLORIDE LEVEL 103 MMOL/L (98-107); CREATININE FOR GFR 0.72 MG/DL (0.55-1.30); GLOMERULAR FILTRATION RATE > 60.0 (>39); GLUCOSE, FASTING 81 MG/DL (74-106); POTASSIUM SERUM 4.6 MMOL/L (3.5-5.1); SODIUM LEVEL 134 MMOL/L (136-145)
[2024-01-24 13:07] VITALS: BP 129/95; TEMP 95.6; O2SAT 89
== END 2024-01-24 13:20 | disposition home or self-care (01) ==
LOC: M ED 10:00
DX: M79.671 Pain in right foot (principal); R05.3 Chronic cough; I10 Essential (primary) hypertension; Z88.2 Allergy status to sulfonamides; Z88.5 Allergy status to narcotic agent; Z88.6 Allergy status to analgesic agent; Z88.8 Allergy status to other drugs, medicaments and biological substances; Z91.018 Allergy to other foods; Z79.899 Other long term (current) drug therapy

== ENCOUNTER 2024-01-30 08:41 | Emergency (ER) | payer OTHER ==
[~2024-01-30] VITALS: Ht 160 cm; Wt 62.8 kg
[2024-01-30] MEDS: ACETAMINOPHEN 325 MG TAB PO ONE (09:35)
[2024-01-30] MEDS ORDERED: LIDO5DIS41 TOP (10:07)
[2024-01-30] MEDS: LIDOCAINE 5% (LIDODERM) PATCH TD ONE (10:10)
[2024-01-30 10:17] VITALS: BP 188/87; TEMP 97.5; O2SAT 99
== END 2024-01-30 10:25 | disposition home or self-care (01) ==
LOC: M ED 08:41
DX: M79.601 Pain in right arm (principal); M50.321 Other cervical disc degeneration at C4-C5 level; M51.34 Other intervertebral disc degeneration, thoracic region; I10 Essential (primary) hypertension; J44.9 Chronic obstructive pulmonary disease, unspecified; E78.5 Hyperlipidemia, unspecified; F41.9 Anxiety disorder, unspecified; F32.A Depression, unspecified; K44.9 Diaphragmatic hernia without obstruction or gangrene; G56.03 Carpal tunnel syndrome, bilateral upper limbs; F17.200 Nicotine dependence, unspecified, uncomplicated; F10.10 Alcohol abuse, uncomplicated; Z87.442 Personal history of urinary calculi; Z88.2 Allergy status to sulfonamides; Z88.5 Allergy status to narcotic agent; Z88.6 Allergy status to analgesic agent; Z91.018 Allergy to other foods; Z79.899 Other long term (current) drug therapy

== ENCOUNTER → 2024-02-01 | Outpatient (REF) | payer OTHER ==
[~2024-02-01] MED LIST changes: +LIDO5DIS41 TOP
== END ==
LOC: M SFHCDERM 17:10
PROVIDERS: ATTEND Nurse Practitioner Family
DX: L57.0 Actinic keratosis (principal)

== ENCOUNTER → 2024-02-14 | Outpatient (CLI) | payer OTHER | LOC: M WHC 14:33 | PROVIDERS: ATTEND Physician Assistant Medical | DX: Z12.31 Encounter for screening mammogram for malignant neoplasm of breast (principal); M81.0 Age-related osteoporosis without current pathological fracture; M85.88 Other specified disorders of bone density and structure, other site ==

== ENCOUNTER 2024-02-24 10:53 | Emergency (ER) | payer OTHER ==
[~2024-02-24] VITALS: Ht 160 cm; Wt 63.3 kg
[2024-02-24 12:02] LABS: BASO % 0.5 % (0.0-1.0); EOS # 0.1 10^3/uL (0.0-0.5); EOS % 0.9 % (0.0-3.0); HEMATOCRIT 51.4 % (36.0-47.0); LYMPH # 2.3 10^3/uL (1.5-5.0); LYMPH % 27.1 % (24.0-44.0); MEAN CORPUSCULAR HEMOGLOBIN 28.8 pg (27.0-33.0); MEAN CORPUSCULAR HGB CONC 33.1 g/dl (32.0-36.5); MONO # 0.5 10^3/uL (0.0-0.8); MONO % 5.3 % (2.0-8.0); NEUTROPHILS # 5.6 10^3/uL (1.5-8.5); NEUTROPHILS % 65.7 % (36.0-66.0); PLATELET COUNT, AUTOMATED 309 10^3/uL (150-450); RED BLOOD COUNT 5.91 10^6/uL (4.00-5.40); WHITE BLOOD COUNT 8.5 10^3/uL (4.0-10.0)
[2024-02-24 12:27] LABS: BLOOD UREA NITROGEN 10 MG/DL (9-23); CALCIUM LEVEL 9.4 MG/DL (8.3-10.6); CARBON DIOXIDE LEVEL 28 MMOL/L (20-31); CHLORIDE LEVEL 102 MMOL/L (98-107); CREATININE FOR GFR 0.79 MG/DL (0.55-1.30); GLOMERULAR FILTRATION RATE > 60.0 (>39); GLUCOSE, FASTING 83 MG/DL (74-106); POTASSIUM SERUM 4.5 MMOL/L (3.5-5.1); SODIUM LEVEL 133 MMOL/L (136-145)
[2024-02-24] MEDS ORDERED: ISOVUE-370 76% 100ML VIAL As Ordered ONE (13:21)
[2024-02-24] MEDS: LIDOCAINE 5% (LIDODERM) PATCH TD ONE (13:36)
[2024-02-24] MEDS: ACETAMINOPHEN *IV* 1,000 MG in IV 1 EA IV ONE (13:37)
[2024-02-24 15:10] VITALS: BP 158/86; TEMP 97; O2SAT 97
== END 2024-02-24 15:13 | disposition home or self-care (01) ==
LOC: M ED 10:53
DX: R10.9 Unspecified abdominal pain (principal); N89.8 Other specified noninflammatory disorders of vagina; K56.41 Fecal impaction; K21.9 Gastro-esophageal reflux disease without esophagitis; Z87.442 Personal history of urinary calculi; Z88.2 Allergy status to sulfonamides; Z88.5 Allergy status to narcotic agent; Z88.6 Allergy status to analgesic agent; Z88.8 Allergy status to other drugs, medicaments and biological substances; Z91.018 Allergy to other foods; Z79.899 Other long term (current) drug therapy
CPT/HCPCS: 74177; 80048; 81001; 85025; 86850; 86900; 86901; 87210; 96374; 99284; J0131; Q9967

== ENCOUNTER → 2024-03-25 | Outpatient (CLI) | payer OTHER ==
[~2024-03-25] MED LIST changes: +GABA-1172 PO; -GABA-282 PO; -SENN-111 PO; +SENN-165 PO
== END ==
LOC: M WHC 10:46
PROVIDERS: ATTEND Physician Assistant Medical
DX: N93.9 Abnormal uterine and vaginal bleeding, unspecified (principal); N95.0 Postmenopausal bleeding

== ENCOUNTER → 2024-04-07 | Outpatient (REF) | payer OTHER ==
[2024-04-07 13:16] LABS: BASO # 0.1 10^3/uL (0.0-0.2); BASO % 1.1 % (0.0-1.0); EOS # 0.3 10^3/uL (0.0-0.5); EOS % 2.4 % (0.0-3.0); HEMATOCRIT 46.2 % (36.0-47.0); LYMPH # 2.8 10^3/uL (1.5-5.0); LYMPH % 26.6 % (24.0-44.0); MEAN CORPUSCULAR HEMOGLOBIN 29.2 pg (27.0-33.0); MEAN CORPUSCULAR HGB CONC 32.5 g/dl (32.0-36.5); MEAN CORPUSCULAR VOLUME 89.9 fl (80.0-96.0); MONO # 0.7 10^3/uL (0.0-0.8); MONO % 6.3 % (2.0-8.0); NEUTROPHILS # 6.6 10^3/uL (1.5-8.5); NEUTROPHILS % 63.4 % (36.0-66.0); PLATELET COUNT, AUTOMATED 311 10^3/uL (150-450); RED BLOOD COUNT 5.14 10^6/uL (4.00-5.40); WHITE BLOOD COUNT 10.3 10^3/uL (4.0-10.0)
[2024-04-07 13:17] LABS: ALBUMIN 3.3 G/DL (3.2-5.2); ALKALINE PHOSPHATASE 108 U/L (35-104); ALT/SGPT 24 U/L (7.0-40); AST/SGOT 14 U/L (<34); BILIRUBIN,TOTAL 0.2 MG/DL (0.3-1.2); BLOOD UREA NITROGEN 12 MG/DL (9-23); CALCIUM LEVEL 9.3 MG/DL (8.3-10.6); CARBON DIOXIDE LEVEL 29 MMOL/L (20-31); CHLORIDE LEVEL 105 MMOL/L (98-107); CHOLESTEROL LEVEL 160 MG/DL (<200); CHOLESTEROL RISK RATIO 3.13 (<5); CREATININE FOR GFR 0.85 MG/DL (0.55-1.30); GLOMERULAR FILTRATION RATE > 60.0 (>39); GLUCOSE, FASTING 79 MG/DL (74-106); HDL CHOLESTEROL 51.1 MG/DL (>40); LDL CHOLESTEROL 91.9 MG/DL (<100); NON-HDL-C 108.9 MG/DL; POTASSIUM SERUM 4.8 MMOL/L (3.5-5.1); SODIUM LEVEL 138 MMOL/L (136-145); TOTAL PROTEIN 6.6 G/DL (5.7-8.2); TRIGLYCERIDES LEVEL 85 MG/DL (<150)
[2024-04-07 13:18] LABS: FREE T4 1.07 NG/DL (0.89-1.76)
== END ==
LOC: M SFHCADAM 07:37
PROVIDERS: ATTEND Physician Assistant Medical
DX: E78.2 Mixed hyperlipidemia (principal); F17.210 Nicotine dependence, cigarettes, uncomplicated; M51.360 Other intervertebral disc degeneration, lumbar region with discogenic back pain only; K21.9 Gastro-esophageal reflux disease without esophagitis

== ENCOUNTER → 2024-04-18 | Outpatient (REF) | payer OTHER ==
[2024-04-18 14:08] LABS: APPEARANCE, URINE CLEAR (CLEAR); BACTERIA, URINE AUTO 1+ (NEGATIVE); BILIRUBIN, URINE AUTO NEGATIVE (NEGATIVE); BLOOD, URINE BLOOD 1+ (NEGATIVE); COLOR, URINE YELLOW (YELLOW); GLUCOSE, URINE (UA) AUTO NEGATIVE (NEGATIVE); KETONE, URINE AUTO NEGATIVE (NEGATIVE); LEUKOCYTE ESTERASE, URINE AUTO NEGATIVE (NEGATIVE); MUCUS, URINE SMALL (NEGATIVE); NITRITE, URINE AUTO NEGATIVE (NEGATIVE); PROTEIN, URINE AUTO NEGATIVE (NEGATIVE); RBC, URINE AUTO 1 /HPF (0-3); SPECIFIC GRAVITY URINE AUTO 1.011 (1.002-1.035); SQUAMOUS EPITHELIAL CELL UR AU 1 /HPF (0-6); UROBILINOGEN, URINE AUTO 0.2 mg/dL (0.0-2.0); WBC, URINE AUTO 1 /HPF (0-3)
== END ==
LOC: M SMT 13:14
PROVIDERS: ATTEND Specialist
DX: R31.9 Hematuria, unspecified (principal)

== ENCOUNTER 2024-05-27 17:07 | Emergency (ER) | payer OTHER ==
[~2024-05-27] VITALS: Ht 160 cm; Wt 66.3 kg
[~2024-05-27 17:07] MED LIST changes: -FLUO0.0119 TOP; +FLUO0.0126 TOP
[2024-05-27] MEDS: ACETAMINOPHEN 325 MG TAB PO ONE (18:45)
[2024-05-27] MEDS: traMADol 50 MG TAB PO ONE (19:31)
[2024-05-27] MEDS ORDERED: TRAM50TA2 PO (20:08)
[2024-05-27 20:14] VITALS: BP 151/72; TEMP 98.5; O2SAT 96
== END 2024-05-27 20:21 | disposition home or self-care (01) ==
LOC: M ED 17:07
DX: S52.571A Other intraarticular fracture of lower end of right radius, initial encounter for closed fracture (principal); Y92.019 Unspecified place in single-family (private) house as the place of occurrence of the external cause; Y93.9 Activity, unspecified; Y99.9 Unspecified external cause status; W10.8XXA Fall (on) (from) other stairs and steps, initial encounter; I25.119 Atherosclerotic heart disease of native coronary artery with unspecified angina pectoris; F17.210 Nicotine dependence, cigarettes, uncomplicated; Z88.2 Allergy status to sulfonamides; Z88.5 Allergy status to narcotic agent; Z88.8 Allergy status to other drugs, medicaments and biological substances; Z91.018 Allergy to other foods; Z79.2 Long term (current) use of antibiotics; Z79.899 Other long term (current) drug therapy

== ENCOUNTER → 2024-05-29 | Outpatient (CLI) | payer OTHER ==
[~2024-05-29] MED LIST changes: +CEFD300CAP PO; +FLUO0.0119 TOP; -FLUO0.0126 TOP; +FLUO0.0133 AD; +LIDO1PAD TOP; +SPIR1CAP INH
== END ==
LOC: M SOG 12:02
PROVIDERS: ATTEND Orthopaedic Surgery
DX: S52.501A Unspecified fracture of the lower end of right radius, initial encounter for closed fracture (principal); W18.30XA Fall on same level, unspecified, initial encounter; Y92.009 Unspecified place in unspecified non-institutional (private) residence as the place of occurrence of the external cause

== ENCOUNTER → 2024-06-04 | Outpatient (CLI) | payer OTHER ==
[~2024-06-04] MED LIST changes: -CEFD300CAP PO; -FLUO0.0133 AD; -LIDO1PAD TOP; -SPIR1CAP INH
== END ==
LOC: M SOG 07:50
PROVIDERS: ATTEND Orthopaedic Surgery
DX: S52.571D Other intraarticular fracture of lower end of right radius, subsequent encounter for closed fracture with routine healing (principal)

== ENCOUNTER 2024-06-06 21:22 | Inpatient (IN) | payer OTHER ==
[~2024-06-06] VITALS: Ht 160 cm; Wt 70.4 kg
[2024-06-07] MEDS: IPRATROPIUM 0.5MG/ALBUTEROL 2.5MG INH SOL UD 3ML (DUONEB) NEB ONE (04:11)
[2024-06-07] MEDS: KETOROLAC 30 MG/ML 1ML VIAL IV ONE (04:11)
[2024-06-07 04:29] LABS: VENOUS BASE EXCESS -2.8 (-2.0-2.0); VENOUS HCO3 21.2 MMOL/L (23.0-27.0); VENOUS O2 SATURATION 84.1 % (60.0-80.0); VENOUS PARTIAL PRESSURE CO2 34.4 mmHg (38.0-50.0); VENOUS PARTIAL PRESSURE O2 45.4 mmHg (30.0-50.0); VENOUS PH 7.407 UNITS (7.330-7.430); VENOUS STANDARD HCO3 21.9 MMOL/L; VENOUS TOTAL CO2 22.2 MMOL/L (24.0-28.0)
[2024-06-07 04:45] LABS: BASO # 0.1 10^3/uL (0.0-0.2); BASO % 0.2 % (0.0-1.0); EOS # 0.1 10^3/uL (0.0-0.5); EOS % 0.2 % (0.0-3.0); HEMATOCRIT 38.6 % (36.0-47.0); HEMOGLOBIN 13.3 g/dl (12.0-15.5); LYMPH % 6.3 % (24.0-44.0); MEAN CORPUSCULAR HEMOGLOBIN 29.2 pg (27.0-33.0); MEAN CORPUSCULAR HGB CONC 34.5 g/dl (32.0-36.5); MEAN CORPUSCULAR VOLUME 84.6 fl (80.0-96.0); MONO # 1.9 10^3/uL (0.0-0.8); MONO % 5.9 % (2.0-8.0); NEUTROPHILS % 86.3 % (36.0-66.0); PLATELET COUNT, AUTOMATED 277 10^3/uL (150-450); RED BLOOD COUNT 4.56 10^6/uL (4.00-5.40)
[2024-06-07 04:51] LABS: WHITE BLOOD COUNT 31.4 10^3/uL (4.0-10.0)
[2024-06-07 04:59] LABS: CPK CREATINE PHOSPHOKINASE 23 U/L (34-145)
[2024-06-07 05:00] LABS: ALBUMIN 3.1 G/DL (3.2-5.2); ALKALINE PHOSPHATASE 92 U/L (35-104); ALT/SGPT 13 U/L (7.0-40); AST/SGOT 9 U/L (<34); BILIRUBIN,DIRECT 0.3 MG/DL (<0.4); BILIRUBIN,TOTAL 0.7 MG/DL (0.3-1.2); BLOOD UREA NITROGEN 13 MG/DL (9-23); CALCIUM LEVEL 9.1 MG/DL (8.3-10.6); CARBON DIOXIDE LEVEL 24 MMOL/L (20-31); CHLORIDE LEVEL 96 MMOL/L (98-107); CK-MB VALUE MASS < 1.0 NG/ML (<3.6); CREATININE FOR GFR 0.88 MG/DL (0.55-1.30); GLOMERULAR FILTRATION RATE > 60.0 (>39); GLUCOSE, FASTING 94 MG/DL (74-106); MB/CK RELATIVE INDEX 4.34 (< OR =4); POTASSIUM SERUM 3.4 MMOL/L (3.5-5.1); SODIUM LEVEL 129 MMOL/L (136-145); TOTAL PROTEIN 6.7 G/DL (5.7-8.2)
[2024-06-07] MEDS ORDERED: ISOVUE-370 76% 100ML VIAL As Ordered ONE (05:15)
[2024-06-07] MEDS ORDERED: ACETAMINOPHEN 325 MG TAB PO PRN (06:20)
[2024-06-07] MEDS ORDERED: MAALOX 30 ML SUSP *UDC PO PRN (06:20)
[2024-06-07] MEDS ORDERED: MOM 30ML SUSPENSION UDC PO PRN (06:20)
[2024-06-07] MEDS ORDERED: TRAM50TA2 PO (06:23)
[2024-06-07] MEDS ORDERED: FLUO0.0133 AD (06:23)
[2024-06-07] MEDS ORDERED: HOME MED LIST COMPLETE! XX SCH (06:25)
[2024-06-07] MEDS: methylPREDNISolone 125MG 2ML VIAL IV SCH (06:58)
[2024-06-07] MEDS: PIPERACILLIN/TAZOBACTAM SOD 4.5 GM in DEXTROSE 5% (D5W) ADV/MINI-BAG 50 ML IV ONE (06:59)
[2024-06-07 07:36] LABS: CK-MB VALUE MASS < 1.0 NG/ML (<3.6)
[2024-06-07 07:37] LABS: CPK CREATINE PHOSPHOKINASE 22 U/L (34-145); MB/CK RELATIVE INDEX 4.54 (< OR =4)
[2024-06-07] MEDS: NICOTINE 21MG/24HR 1 EA TRANSDERMAL TD ONE (08:00)
[2024-06-07] MEDS: KETOROLAC 30 MG/ML 1ML VIAL IV PRN (08:22)
[2024-06-07 08:28] LABS: C REACTIVE PROTEIN QUANTITATIV 21.63 MG/DL (<1.0)
[2024-06-07] MEDS: POTASSIUM CHLORIDE 10MEQ SR TABLET PO ONE (08:34)
[2024-06-07] MEDS: buPROPion **XL** TABLET 150MG (WELLBUTRIN XL) PO SCH (08:35)
[2024-06-07] MEDS: PRAVASTATIN 20 MG TAB PO SCH (08:35)
[2024-06-07] MEDS: GABAPENTIN 300 MG CAP PO SCH (08:35)
[2024-06-07] MEDS: CYCLOBENZAPRINE 10MG TABLET PO SCH (08:35)
[2024-06-07] MEDS: CitaloPRAM (CeleXA) 20 MG TAB PO SCH (08:35)
[2024-06-07] MEDS: HEPARIN SOD (PORCINE) 5000UNITS/ML 1ML VIAL/SYRINGE SC SCH (08:36)
[2024-06-07] MEDS: PANTOPRAZOLE 40MG VIAL IV SCH (08:36)
[2024-06-07] MEDS: AZITHROMYCIN INJ 500 MG, VIAL MATE ADAPTER 1 EACH in D5W 250 ML IV SCH (08:36)
[2024-06-07] MEDS: DOCUSATE SODIUM 100MG CAPSULE PO SCH (08:37)
[2024-06-07 08:40] LABS: PROCALCITONIN 0.45 ng/ml
[2024-06-07] MEDS: IPRATROPIUM 0.5MG/ALBUTEROL 2.5MG INH SOL UD 3ML (DUONEB) INH SCH (08:49)
[2024-06-07 08:59] VITALS: O2SAT 94
[2024-06-07] MEDS: cefTRIAXone SOD 2 GM in DEXTROSE 5% (D5W) ADV/MINI-BAG 50 ML IV SCH (10:04)
[2024-06-07 11:14] VITALS: BP 111/60; TEMP 97.7; O2SAT 96
[2024-06-07 12:14] VITALS: BP 106/58; TEMP 97.2; O2SAT 95
[2024-06-07 16:00] VITALS: BP 101/54; TEMP 97.5; O2SAT 94
[2024-06-07] MEDS: guaiFENesin SYRUP 200MG 10ML UDC PO PRN (16:06)
[2024-06-07 19:22] VITALS: BP 104/56; TEMP 98; O2SAT 95
[2024-06-07] MEDS: PANTOPRAZOLE 40MG TAB (PROTONIX) PO SCH (20:41)
[2024-06-07 23:24] VITALS: BP 108/55; TEMP 97; O2SAT 97
[2024-06-08] VITALS (12 sets, daily range): BP systolic 101–127; BP diastolic 54–59; TEMP 97–97.8; O2SAT 92–100
[2024-06-08 06:05] LABS: HEMATOCRIT 37.4 % (36.0-47.0); HEMOGLOBIN 12.8 g/dl (12.0-15.5); MEAN CORPUSCULAR HGB CONC 34.2 g/dl (32.0-36.5); MEAN CORPUSCULAR VOLUME 84.8 fl (80.0-96.0); PLATELET COUNT, AUTOMATED 259 10^3/uL (150-450); RED BLOOD COUNT 4.41 10^6/uL (4.00-5.40); WHITE BLOOD COUNT 23.1 10^3/uL (4.0-10.0)
[2024-06-08 06:38] LABS: PROCALCITONIN 0.49 ng/ml
[2024-06-08 06:39] LABS: BLOOD UREA NITROGEN 19 MG/DL (9-23); CALCIUM LEVEL 8.5 MG/DL (8.3-10.6); CARBON DIOXIDE LEVEL 26 MMOL/L (20-31); CHLORIDE LEVEL 101 MMOL/L (98-107); CREATININE FOR GFR 0.74 MG/DL (0.55-1.30); GLOMERULAR FILTRATION RATE > 60.0 (>39); GLUCOSE, FASTING 110 MG/DL (74-106); POTASSIUM SERUM 4.2 MMOL/L (3.5-5.1); SODIUM LEVEL 134 MMOL/L (136-145)
[2024-06-08] MEDS: traMADol 50 MG TAB PO PRN (12:51)
[2024-06-08] MEDS: guaiFENesin/CODEINE SYRUP 5 ML UDC PO SCH (16:59)
[2024-06-08] MEDS: ACETAMINOPHEN 500 MG TAB PO SCH (17:03)
[2024-06-09] VITALS (22 sets, daily range): BP systolic 113–141; BP diastolic 56–68; TEMP 97–98.7; O2SAT 89–96
[2024-06-09 08:18] LABS: HEMATOCRIT 35.6 % (36.0-47.0); MEAN CORPUSCULAR HEMOGLOBIN 29.2 pg (27.0-33.0); MEAN CORPUSCULAR HGB CONC 33.7 g/dl (32.0-36.5); MEAN CORPUSCULAR VOLUME 86.6 fl (80.0-96.0); PLATELET COUNT, AUTOMATED 321 10^3/uL (150-450); RED BLOOD COUNT 4.11 10^6/uL (4.00-5.40); WHITE BLOOD COUNT 12.9 10^3/uL (4.0-10.0)
[2024-06-09 08:42] LABS: BLOOD UREA NITROGEN 23 MG/DL (9-23); CALCIUM LEVEL 8.7 MG/DL (8.3-10.6); CARBON DIOXIDE LEVEL 26 MMOL/L (20-31); CHLORIDE LEVEL 102 MMOL/L (98-107); CREATININE FOR GFR 0.82 MG/DL (0.55-1.30); GLOMERULAR FILTRATION RATE > 60.0 (>39); GLUCOSE, FASTING 72 MG/DL (74-106); POTASSIUM SERUM 4.7 MMOL/L (3.5-5.1); SODIUM LEVEL 133 MMOL/L (136-145)
[2024-06-09 12:12] LABS: PROCALCITONIN 0.37 ng/ml
[2024-06-09] MEDS: MIRALAX *UNIT DOSE* 17GM PACKET PO SCH (14:23)
[2024-06-09] MEDS: SODIUM CHLORIDE HYPERTONIC 3% 4ML NEB SOL INH SCH (20:13)
[2024-06-09] MEDS: CEFDINIR 300 MG CAP (OMNICEF) PO SCH (21:31)
[2024-06-10] VITALS (12 sets, daily range): BP systolic 112–128; BP diastolic 62–70; TEMP 97.3–98.2; O2SAT 90–98
[2024-06-10 08:07] LABS: HEMATOCRIT 37.9 % (36.0-47.0); HEMOGLOBIN 13.1 g/dl (12.0-15.5); MEAN CORPUSCULAR HGB CONC 34.6 g/dl (32.0-36.5); PLATELET COUNT, AUTOMATED 412 10^3/uL (150-450); RED BLOOD COUNT 4.51 10^6/uL (4.00-5.40); WHITE BLOOD COUNT 12.6 10^3/uL (4.0-10.0)
[2024-06-10 08:35] LABS: BLOOD UREA NITROGEN 17 MG/DL (9-23); CALCIUM LEVEL 8.7 MG/DL (8.3-10.6); CARBON DIOXIDE LEVEL 26 MMOL/L (20-31); CHLORIDE LEVEL 105 MMOL/L (98-107); CREATININE FOR GFR 0.78 MG/DL (0.55-1.30); GLOMERULAR FILTRATION RATE > 60.0 (>39); GLUCOSE, FASTING 65 MG/DL (74-106); SODIUM LEVEL 138 MMOL/L (136-145)
[2024-06-10] MEDS ORDERED: LIDO1PAD TOP (09:57)
[2024-06-10] MEDS ORDERED: CEFD300CAP PO (09:57)
[2024-06-10] MEDS ORDERED: SPIR1CAP INH (12:19)
[2024-06-12 17:37] LABS: URINE STREP PNEUMONIAE ANTIGEN NOT DETECTED (NOT DETECT)
== END 2024-06-10 12:48 | disposition home health service (06) | DRG 193 ==
LOC: M ED 21:22 → M ED INP 06-07 06:16 → M PCU 06-07 11:07
PROVIDERS: ADMIT Student in an Organized Health Care Education/Training Program; ATTEND Student in an Organized Health Care Education/Training Program
DX: J18.9 Pneumonia, unspecified organism (principal); J96.01 Acute respiratory failure with hypoxia; J44.0 Chronic obstructive pulmonary disease with (acute) lower respiratory infection; J98.11 Atelectasis; F32.A Depression, unspecified; E78.5 Hyperlipidemia, unspecified; K21.9 Gastro-esophageal reflux disease without esophagitis; D72.829 Elevated white blood cell count, unspecified; F41.9 Anxiety disorder, unspecified; F17.200 Nicotine dependence, unspecified, uncomplicated; Z79.899 Other long term (current) drug therapy; Z88.2 Allergy status to sulfonamides; Z91.018 Allergy to other foods; Z88.6 Allergy status to analgesic agent; Z88.5 Allergy status to narcotic agent; Z88.8 Allergy status to other drugs, medicaments and biological substances; Z96.652 Presence of left artificial knee joint; Z95.2 Presence of prosthetic heart valve; G62.9 Polyneuropathy, unspecified; G89.29 Other chronic pain

== ENCOUNTER → 2024-06-13 | Outpatient (CLI) | payer OTHER ==
[~2024-06-13] MED LIST changes: +CEFD300CAP PO; +FLUO0.0133 AD; +LIDO1PAD TOP; +SPIR1CAP INH
== END ==
LOC: M SOG 07:51
PROVIDERS: ATTEND Orthopaedic Surgery
DX: S52.571D Other intraarticular fracture of lower end of right radius, subsequent encounter for closed fracture with routine healing (principal)

== ENCOUNTER → 2024-06-27 | Outpatient (CLI) | payer OTHER | LOC: M SOG 07:55 | PROVIDERS: ATTEND Orthopaedic Surgery | DX: S52.571P Other intraarticular fracture of lower end of right radius, subsequent encounter for closed fracture with malunion (principal); Y93.9 Activity, unspecified; Y92.9 Unspecified place or not applicable ==

== ENCOUNTER → 2024-07-18 | Outpatient (CLI) | payer OTHER | LOC: M SOG 15:33 | PROVIDERS: ATTEND Orthopaedic Surgery | DX: S52.571P Other intraarticular fracture of lower end of right radius, subsequent encounter for closed fracture with malunion (principal) ==

== ENCOUNTER → 2024-07-23 | Outpatient (CLI) | payer OTHER | LOC: M SOG 07:51 | PROVIDERS: ATTEND Orthopaedic Surgery | DX: M79.651 Pain in right thigh (principal); Z96.652 Presence of left artificial knee joint ==

== ENCOUNTER → 2024-08-22 | Outpatient (CLI) | payer OTHER ==
[~2024-08-22] MED LIST changes: -FLUO0.0119 TOP; +FLUO0.0126 TOP
== END ==
LOC: M SOG 07:46
PROVIDERS: ATTEND Orthopaedic Surgery
DX: M79.641 Pain in right hand (principal); S52.501D Unspecified fracture of the lower end of right radius, subsequent encounter for closed fracture with routine healing

== ENCOUNTER → 2024-09-11 | Outpatient (CLI) | payer OTHER | LOC: M RAD 10:43 | PROVIDERS: ATTEND Physician Assistant Medical | DX: J18.9 Pneumonia, unspecified organism (principal); J43.9 Emphysema, unspecified; R91.1 Solitary pulmonary nodule ==

== ENCOUNTER → 2024-09-16 | Outpatient (CLI) | payer OTHER | LOC: M RAD 13:01 | PROVIDERS: ATTEND Otolaryngology | DX: E04.2 Nontoxic multinodular goiter (principal) ==

== ENCOUNTER → 2024-10-01 | Outpatient (REF) | payer OTHER ==
[~2024-10-01] MED LIST changes: -FLOM0.4C39 PO; +TAMS-18 PO
[2024-10-01 17:08] LABS: BASO # 0.1 10^3/uL (0.0-0.2); BASO % 0.8 % (0.0-1.0); EOS # 0.2 10^3/uL (0.0-0.5); EOS % 1.5 % (0.0-3.0); HEMATOCRIT 47.6 % (36.0-47.0); HEMOGLOBIN 15.3 g/dl (12.0-15.5); LYMPH # 3.1 10^3/uL (1.5-5.0); LYMPH % 26.2 % (24.0-44.0); MEAN CORPUSCULAR HEMOGLOBIN 28.3 pg (27.0-33.0); MEAN CORPUSCULAR HGB CONC 32.1 g/dl (32.0-36.5); MONO # 0.8 10^3/uL (0.0-0.8); MONO % 6.9 % (2.0-8.0); NEUTROPHILS # 7.7 10^3/uL (1.5-8.5); NEUTROPHILS % 64.2 % (36.0-66.0); PLATELET COUNT, AUTOMATED 314 10^3/uL (150-450); RED BLOOD COUNT 5.41 10^6/uL (4.00-5.40)
[2024-10-01 17:15] LABS: ALBUMIN 3.6 G/DL (3.2-5.2); BILIRUBIN,TOTAL 0.2 MG/DL (0.3-1.2); CALCIUM LEVEL 9.6 MG/DL (8.3-10.6); CREATININE FOR GFR 0.8 MG/DL (0.55-1.30); GLOMERULAR FILTRATION RATE 78.2 (>39); MAGNESIUM LEVEL 1.9 MG/DL (1.8-2.4); POTASSIUM SERUM 4.3 MMOL/L (3.5-5.1); THYROID STIMULATING HORMONE 1.816 uIU/ML (0.55-4.78); TOTAL PROTEIN 6.9 G/DL (5.7-8.2)
[2024-10-01 17:16] LABS: FREE T4 1.25 NG/DL (0.89-1.76)
== END ==
LOC: M SFHCADAM 12:13
PROVIDERS: ATTEND Family Medicine
DX: R55 Syncope and collapse (principal)

== ENCOUNTER → 2024-10-02 | Outpatient (CLI) | payer OTHER | LOC: M RAD 16:50 | PROVIDERS: ATTEND Otolaryngology | DX: J31.0 Chronic rhinitis (principal); J34.2 Deviated nasal septum; J34.3 Hypertrophy of nasal turbinates ==

== ENCOUNTER → 2024-12-29 | Outpatient (CLI) | payer OTHER ==
[~2024-12-29] MED LIST changes: +LIDO1ADH93 TOP; -LIDO5DIS41 TOP; +LISI40TA10 PO; -LISI40TA4 PO; +PRAV10TA PO; -PRAV10TA4 PO; -PRAV40TA2 PO; +PRAV40TA85 PO
[2024-12-29 10:32] LABS: BASO # 0.1 10^3/uL (0.0-0.2); BASO % 0.9 % (0.0-1.0); EOS # 0.2 10^3/uL (0.0-0.5); EOS % 1.9 % (0.0-3.0); LYMPH # 1.9 10^3/uL (1.5-5.0); LYMPH % 21.7 % (24.0-44.0); MONO # 0.6 10^3/uL (0.0-0.8); MONO % 7.3 % (2.0-8.0); NEUTROPHILS # 5.9 10^3/uL (1.5-8.5); NEUTROPHILS % 67.7 % (36.0-66.0); PLATELET COUNT, AUTOMATED 294 10^3/uL (150-450)
[2024-12-29 11:06] LABS: FREE T4 1.14 NG/DL (0.89-1.76)
[2024-12-29 11:07] LABS: ALT/SGPT 13.0 U/L (7.0-40); AST/SGOT 16.0 U/L (<34); CALCIUM LEVEL 9.2 MG/DL (8.3-10.6); CARBON DIOXIDE LEVEL 25.0 MMOL/L (20-31); CHLORIDE LEVEL 106.0 MMOL/L (98-107); CHOLESTEROL LEVEL 134.0 MG/DL (<200); CHOLESTEROL RISK RATIO 2.37 (<5); CREATININE FOR GFR 0.79 MG/DL (0.55-1.30); GLOMERULAR FILTRATION RATE 79.4 (>39); LDL CHOLESTEROL 67.6 MG/DL (<100); NON-HDL-C 77.6 MG/DL; POTASSIUM SERUM 4.2 MMOL/L (3.5-5.1); SODIUM LEVEL 141.0 MMOL/L (136-145); TOTAL 25(OH) VITAMIN D 80.4 NG/ML (20.0-100.0); TRIGLYCERIDES LEVEL 50.0 MG/DL (<150)
== END ==
LOC: M RAD 09:44
PROVIDERS: ATTEND Physician Assistant Medical
DX: E78.2 Mixed hyperlipidemia (principal); I70.0 Atherosclerosis of aorta; F17.210 Nicotine dependence, cigarettes, uncomplicated; M81.0 Age-related osteoporosis without current pathological fracture

== ENCOUNTER → 2025-01-13 | Outpatient (CLI) | payer OTHER | LOC: M SOG 14:39 | PROVIDERS: ATTEND Orthopaedic Surgery | DX: S72.21XA Displaced subtrochanteric fracture of right femur, initial encounter for closed fracture (principal); Y93.9 Activity, unspecified; Y92.9 Unspecified place or not applicable ==

== ENCOUNTER → 2025-02-06 | Outpatient (REF) | payer OTHER ==
[~2025-02-06] MED LIST changes: -IBUP-1022 PO; -IBUP1TAB6 PO; +IBUP600T42 PO; +SFHIBU600 PO
== END ==
LOC: M SFHCDERM 17:21
PROVIDERS: ATTEND Nurse Practitioner Family
DX: D49.2 Neoplasm of unspecified behavior of bone, soft tissue, and skin (principal)

== ENCOUNTER → 2025-02-17 | Outpatient (CLI) | payer OTHER | LOC: M SOG 07:17 | PROVIDERS: ATTEND Orthopaedic Surgery | DX: M79.642 Pain in left hand (principal) ==

== ENCOUNTER → 2025-02-20 | Outpatient (CLI) | payer OTHER | LOC: M SOG 07:20 | PROVIDERS: ATTEND Orthopaedic Surgery | DX: M19.011 Primary osteoarthritis, right shoulder (principal) ==

== ENCOUNTER → 2025-03-18 | Outpatient (CLI) | payer OTHER | LOC: M WHC 10:57 | PROVIDERS: ATTEND Physician Assistant Medical | DX: Z12.39 Encounter for other screening for malignant neoplasm of breast (principal); R92.323 Mammographic fibroglandular density, bilateral breasts ==

== ENCOUNTER → 2025-03-18 | Outpatient (CLI) | payer OTHER | LOC: M PLAIMG 10:56 | PROVIDERS: ATTEND Otolaryngology | DX: Z12.31 Encounter for screening mammogram for malignant neoplasm of breast (principal); J32.0 Chronic maxillary sinusitis; R92.323 Mammographic fibroglandular density, bilateral breasts ==

== ENCOUNTER 2025-05-12 13:31 | Emergency (ER) | payer OTHER, MEDICAID ==
[~2025-05-12] VITALS: Ht 160 cm; Wt 65.3 kg
[2025-05-12 14:19] LABS: KETONE, URINE AUTO RFX NEGATIVE (NEGATIVE); LEUKOCYTE ESTERASE UR AUTO RFX NEGATIVE (NEGATIVE); NITRITE, URINE AUTO RFX NEGATIVE (NEGATIVE); RBC, URINE AUTO RFX 4 /HPF (0-3); SQUAM EPITHELIAL CELL UR AURFX 7 /HPF (0-6); WBC, URINE AUTO RFX 2 /HPF (0-3)
[2025-05-12 16:45] VITALS: BP 141/68; O2SAT 97
[2025-05-12] MEDS ORDERED: PRED20TA PO (16:51)
[2025-05-12 16:52] VITALS: TEMP 97.1
== END 2025-05-12 17:08 | disposition home or self-care (01) ==
LOC: M ED 13:31
DX: M51.362 Other intervertebral disc degeneration, lumbar region with discogenic back pain and lower extremity pain (principal); M54.31 Sciatica, right side; J44.9 Chronic obstructive pulmonary disease, unspecified; K21.9 Gastro-esophageal reflux disease without esophagitis; E78.5 Hyperlipidemia, unspecified; F17.200 Nicotine dependence, unspecified, uncomplicated; Z88.2 Allergy status to sulfonamides; Z88.8 Allergy status to other drugs, medicaments and biological substances; Z88.5 Allergy status to narcotic agent; Z88.6 Allergy status to analgesic agent; Z91.018 Allergy to other foods; Z79.2 Long term (current) use of antibiotics; Z79.899 Other long term (current) drug therapy